=== PATIENT | male | born 1965 | race Caucasian/White ===

== ENCOUNTER 2016-08-22 10:24 | Inpatient (IN) | payer OTHER, MEDICARE ==
[~2016-08-22] VITALS: Ht 165.1 cm; Wt 90.0 kg
[~2016-08-22 10:24] MED LIST: ATOR20TA38 PO; BACL10TA PO; CALC625T68 PO; CEPH-443 PO; DOCU100C26 PO; FER325 PO; INSU100C SQ; LANT3I SC; LISI2.5T59 PO; MTF1000T PO; NITR-58 PO
[2016-08-22] MEDS ORDERED: LEVO750T8 PO (14:43)
[2016-08-22] MEDS ORDERED: GABA300C16 PO (14:43)
[2016-08-22] MEDS ORDERED: BACL20TA PO (14:45)
[2016-08-22 14:51] LABS: ADD SCAN DIFF NO
[2016-08-22 14:54] LABS: BASOPHIL # 0.1 10^3/ul (0.0-0.1); BASOPHILS % 0.6 % (0.0-2.0); EOSINOPHILS # 0.2 10^3/ul (0.0-0.5); EOSINOPHILS % 1.8 % (0.0-7.0); HEMATOCRIT 41.5 % (42.0-52.0); LYMPHOCYTES # 3.4 10^3/ul (0.8-2.9); LYMPHOCYTES % 35.1 % (15.0-51.0); MEAN CORPUSCULAR HEMOGLOBIN 30.1 pg (29.0-33.0); MEAN CORPUSCULAR HGB CONC 33.7 g/dl (32.0-37.0); MEAN CORPUSCULAR VOLUME 89.2 fl (82.0-101.0); MEAN PLATELET VOLUME 8.9 fl (7.4-10.4); MONOCYTE # 0.9 10^3/ul (0.3-0.9); MONOCYTES % 8.8 % (0.0-11.0); NEUTROPHIL # 5.2 10^3/ul (1.6-7.5); PLATELET COUNT 371 10^3/UL (140-415); RED BLOOD COUNT 4.65 10^6/ul (4.70-6.10); RED CELL DISTRIBUTION WIDTH 13.2 % (11.5-14.5); WHITE BLOOD COUNT 9.8 10^3/ul (4.8-10.8)
[2016-08-22 15:06] LABS: INR 0.94; PARTIAL THROMBOPLASTIN TIME 26.5 Sec (25.0-35.0); PROTIME 12.6 Sec (12.2-14.2)
[2016-08-22 15:07] LABS: POTASSIUM 3.6 mmol/L (3.5-5.1)
[2016-08-22 15:09] LABS: ALBUMIN/GLOBULIN RATIO 0.97
[2016-08-22 15:14] LABS: BILIRUBIN,INDIRECT 0.2 mg/dl (0-1.1); BILIRUBIN,TOTAL 0.2 mg/dl (0.2-1.3); CREATININE 0.61 mg/dl (0.61-1.24); TOTAL PROTEIN 8.1 g/dl (6.1-8.1)
[2016-08-22 15:15] LABS: CALCIUM 9.4 mg/dl (8.4-10.2)
--- NOTE | 2016-08-22 15:41 | ERA ---
ER Documentation Chief Complaint Date/Time DATE: 08/22/16 TIME: 15:41 Chief Complaint WOUND ON BILATERAL FEET "I HAVE AN INFECTION" HPI 51-year-old male history of diabetes, chronic wounds to bilateral lower extremities. The patient is followed at the am[facility] prevention center. The patient is currently taking Levaquin. The patient notes weeping wounds to bilateral heels right greater than left. He describes generalized malaise and potential fever yesterday though he did not check his temperature. He denies any significant pain, no nausea vomiting chest pain or shortness of breath. ROS All systems reviewed and are negative except as per history of present illness. Medications Home Meds Reported Medications Baclofen* (Baclofen*) 20 Mg Tablet, 20 MG PO BID, TAB 08/22/16 Levofloxacin* (Levofloxacin*) 750 Mg Tablet, 750 MG PO DAILY, TAB 08/22/16 Gabapentin* (Gabapentin*) 300 Mg Capsule, 600 MG PO TID, #180 CAP 08/22/16 Docusate Sodium* (Doc-Q-Lace*) 100 Mg Capsule, 100 MG PO BID Y for CONSTIPATION , CAP 04/18/16 Insulin Lispro (Humalog) 100 Unit/1 Ml Cartridge, 10 UNIT SQ TID 04/18/16 Ferrous Sulfate* (Ferrous Sulfate*) 325 Mg Tabec, 325 MG PO BID, TAB 01/31/16 Insulin Glargine* (Lantus*) 100 Unit/Ml Soln, 35 UNIT SC QHS, #1 VIAL 01/31/16 Metformin* (Glucophage*) 1,000 Mg Tablet, 1000 MG PO BID, #60 TAB 12/07/15 Lisinopril* (Lisinopril*) 2.5 Mg Tablet, 2.5 MG PO DAILY, #30 TAB 10/07/15 Atorvastatin Calcium* (Atorvastatin Calcium*) 20 Mg Tablet, 20 MG PO QHS, #30 TAB 10/07/15 Discontinued Reported Medications Calcium Polycarbophil* (Fibercon*) 625 Mg Tablet, 625 MG PO DAILY, TAB 04/18/16 Baclofen* (Baclofen*) 10 Mg Tablet, 10 MG PO BID, TAB 04/18/16 Discontinued Scripts Nitrofurantoin Monohyd Macrocr* (Macrobid*) 100 Mg Capsr, 100 MG PO BID for 10 Days, CAP Prov:MERON MORFIN DO 04/18/16 Cephalexin* (Keflex*) 500 Mg Capsule, 500 MG PO QID for 10 Days, CAP Prov:MERON MORFIN DO 04/18/16 Allergies Allergies: Coded Allergies: No Known Allergy (Unverified , 08/22/16) PMhx/Soc History of Surgery: Yes (SPINAL CORD SURGERY, PARAPLEGIC ) Anesthesia Reaction: No Hx Neurological Disorder: No Hx Respiratory Disorders: No Hx Cardiac Disorders: Yes (htn) Hx Psychiatric Problems: No Hx Miscellaneous Medical Probl: Yes (DM) Hx Alcohol Use: No Hx Substance Use: No Hx Tobacco Use: No Smoking Status: Never smoker FmHx Family History: diabetes Physical Exam Vitals Vital Signs Date Time Temp Pulse Resp B/P Pulse Ox O2 Delivery O2 Flow Rate FiO2 08/22/16 10:58 97.5 95 20 117/69 99 Physical Exam General: Well developed, well nourished, no acute distress Head: Normocephalic, atraumatic. Eyes: Pupils equally reactive, EOM intact ENT: Moist mucous membranes Neck: Supple, no lymphadenopathy Respiratory: Lungs clear bilaterally, no distress Cardiovascular: RRR, no murmurs, rubs, or gallops Abdominal: Soft, non-tender, non-distended, no peritoneal signs : Deferred MSK: Bilateral lower extremities with decubitus wounds to the heels right greater than left with small eschar formation. Slightly warm feet bilaterally but no crepitus, no cellulitis, 2+ dorsalis pedis and posterior tibial pulses. Neurologic: Alert and oriented, no cerebellar signs Skin: No rash, skin is documented above Psych: Normal mood Result Diagram: 08/22/16 1435 08/22/16 1435 Results 24 hrs Laboratory Tests Test 08/22/16 14:35 White Blood Count 9.810^3/ul Red Blood Count 4.6510^6/ul Hemoglobin 14.0g/dl Hematocrit 41.5% Mean Corpuscular Volume 89.2fl Mean Corpuscular Hemoglobin 30.1pg Mean Corpuscular Hemoglobin Concent 33.7g/dl Red Cell Distribution Width 13.2% Platelet Count 86268^3/UL Mean Platelet Volume 8.9fl Neutrophils % 53.0% Lymphocytes % 35.1% Monocytes % 8.8% Eosinophils % 1.8% Basophils % 0.6% Nucleated Red Blood Cells % 0.0/100WBC Neutrophils # 5.210^3/ul Lymphocytes # 3.410^3/ul Monocytes # 0.910^3/ul Eosinophils # 0.210^3/ul Basophils # 0.110^3/ul Nucleated Red Blood Cells # 0.010^3/ul Prothrombin Time 12.6Sec Prothrombin Time Ratio 1.0 INR International Normalized Ratio 0.94 Activated Partial Thromboplast Time 26.5Sec Sodium Level 131mmol/L Potassium Level 3.6mmol/L Chloride Level 94mmol/L Carbon Dioxide Level 21mmol/L Anion Gap 20 Blood Urea Nitrogen 11mg/dl Creatinine 0.61mg/dl Glucose Level 294mg/dl Lactic Acid Level 4.4mmol/L Calcium Level 9.4mg/dl Total Bilirubin 0.2mg/dl Direct Bilirubin 0.00mg/dl Indirect Bilirubin 0.2mg/dl Aspartate Amino Transf (AST/SGOT) 35IU/L Alanine Aminotransferase (ALT/SGPT) 46IU/L Alkaline Phosphatase 94IU/L C-Reactive Protein Pending Total Protein 8.1g/dl Albumin 4.0g/dl Globulin 4.10g/dl Albumin/Globulin Ratio 0.97 Current Medications Medications (Trade) Dose Ordered Sig/Drea Route PRN Reason Start Time Stop Time Status Last Admin Dose Admin Sodium Chloride 2960 ml 2,960 ml BOLUS OVER 2 HOURS STAT IV* 08/22/16 15:44 08/22/16 15:45 UNV Cefepime HCl 50 ml @ 100 mls/hr ONCE STAT IVPB 08/22/16 15:44 08/22/16 16:13 UNV Vancomycin HCl 250 ml @ 125 mls/hr ONCE ONCE IVPB 08/22/16 16:00 08/22/16 17:59 UNV Clindamycin HCl/ Dextrose (Cleocin 600 Mg/ D5W (Pmx)) 50 ml @ 50 mls/hr ONCE IVPB 08/22/16 16:00 08/22/16 16:59 Ondansetron HCl (Zofran Inj) 4 mg BRIDGE ORDER PRN IV NAUSEA AND/OR VOMITING 08/22/16 16:00 08/23/16 15:59 Acetaminophen (Tylenol Tab) 650 mg ER BRIDGE PRN PO MILD PAIN/FEVER 08/22/16 16:00 08/23/16 15:59 Procedures/MDM EKG, MONITORS, & DIAGNOSTIC IMAGING: X-ray right foot: I reviewed and interpreted multiple views of the x-ray Bones: No evidence of acute fracture dislocation or subluxation Soft tissue: No evidence of foreign body X-ray left foot: I reviewed and interpreted multiple views of the x-ray Bones: No evidence of acute fracture dislocation or subluxation Soft tissue: No evidence of foreign body LAB INTERPRETATION: Lactic acidosis, slight hyponatremia, no leukocytosis, hyperglycemia without diabetic ketoacidosis MEDICAL DECISION MAKING: The patient presents for evaluation of wounds. The patient is currently being followed at the amputation prevention center. The patient is only on Levaquin. 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 The wounds appear to be chronic and likely unchanged, no malodorous discharge. Screening evaluation for possible osteomyelitis will be initiated. I will speak to the patient's managing civilian technician Dr. Avelar. ER COURSE: The patient does have a lactic acidosis. However no significant leukocytosis. The patient does have slightly low sodium of the patient has been low in the past at 135. I do not believe this is consistent with necrotizing process given the patient's clinical exam, afebrile state and normal white count. The patient has been given vancomycin, cefepime and clindamycin. The patient is hemodynamically stable. Isolated lactic acidosis. The patient does not meet SIRS or sepsis criteria at this time. 30 cc/kg bolus of saline was provided. Repeat lactic acid pending. No indication for central line, pressors at this time. Continue to monitor but inpatient hospitalization would be appropriate. I kept the patient and/or family informed of laboratory and diagnostic imaging results throughout the emergency room course. DISPOSITION PLAN: Medical surgical admission for management of infected decubitus ulcer in a diabetic CONSULTATION: Accepting care team and consultations: I discussed the current laboratory data, diagnostic imaging and emergency care provided. Admitting team: Dr. Aguayo Admitting team indication: Insurance directed Consulting services: Dr. Yohana Avelar, podiatry has been paged and notified Departure Diagnosis: Primary Impression: Decubitus ulcer, infected Qualified Code: L89.90 - Decubitus ulcer, infected, unspecified pressure ulcer stage Additional Impression: Lactic acidosis Condition: Stable BELEN DE LA O MD Aug 22, 2016 15:41
[2016-08-22] MEDS ORDERED: CEFEPIME 2GM/50 ML (PMX) 50 ML IVPB STA (15:44)
[2016-08-22] MEDS ORDERED: SODIUM CHLORIDE 0.9% 1L BAG IV* STA (15:44)
[2016-08-22 15:59] LABS: C-REACTIVE PROTEIN 1.6 mg/dl (0.0-0.9)
[2016-08-22] MEDS ORDERED: CLINDAMYCIN 600 MG/D5W (PMX) 50 ML IVPB SCH (16:00)
[2016-08-22] MEDS ORDERED: VANCOMYCIN 1 GM (PMX) 250 ML IVPB ONE (16:00)
[2016-08-22] MEDS ORDERED: ACETAMINOPHEN 325 MG TAB PO PRN ×2 (16:00→19:30)
[2016-08-22] MEDS ORDERED: ONDANSETRON 4 MG INJ IV PRN ×2 (16:00→19:30)
--- NOTE | 2016-08-22 16:15 | RADRPT ---
PROCEDURE: AP oblique and lateral views of both feet. CLINICAL INDICATION: Multiple open wounds. TECHNIQUE: AP lateral and oblique views of both feet were obtained. COMPARISON: No. FINDINGS: The bones of the right foot are rarefied. There are degenerative changes of the right first metatar jose a phalangeal joint. There is soft tissue swelling of the foot. There is no evidence of gas gangr vannesa or osteomyelitis. The bones of the left foot are rarefied. There is soft tissue swelling of the left foot. There is no radiographic evidence of a foreign body gas gangrene or osteomyelitis. . No abnormal vascular ca lcifications are identified in either foot. IMPRESSION: 1. Severe rarefaction of the right and left feet. 2. Soft tissue swelling involving both feet. RPTAT:AAJJ Physician Carlos Date Time Electronically viewed and signed by Physician Carlos on 08/22/2016 16:15 BLAKE/
[2016-08-22] MEDS ORDERED: NACL 0.9% 3 ML SYG IV SCH (19:30)
[2016-08-22] MEDS ORDERED: DOCUSATE SODIUM 100 MG CAP PO PRN (19:30)
[2016-08-22] MEDS ORDERED: HYDROCODONE/APAP (5/325) TAB PO PRN (19:30)
[2016-08-22] MEDS ORDERED: ZOLPIDEM 5 MG TAB PO PRN (19:30)
[2016-08-22] MEDS ORDERED: VANCOMYCIN IV PER PHARMACY XX SCH (19:30)
--- NOTE | 2016-08-22 20:14 | HP ---
DATE OF ADMISSION: 08/22/2016 CHIEF COMPLAINT: Fever. HISTORY OF PRESENT ILLNESS: The patient is a 51-year-old male with a history of diabetes as well as debility with bed bound status. The patient has wounds on both of his feet. The patient is being followed by Dr[facility]ar [facility]. The patient has been taking Levaquin, b ut states that he has been experiencing malaise and fever last night, although he did not check his temperature. He has no other complaints at this time. The patient has had multiple hospitalization s here at [facility] in the past. PAST MEDICAL HISTORY: History of paraplegia with decubitus ulcers, chronic Li catheter, history of UTI, penile skin erosions, chronic left lower extremity ulcer, anemia of chronic disease. HOME MEDICATIONS: See medication reconciliation. ALLERGIES: NO KNOWN DRUG ALLERGIES. FAMILY HISTORY: Noncontributory. SOCIAL HISTORY: Denies any alcohol, tobacco, or drugs. REVIEW OF SYSTEMS: A 12-point review of systems negative except that discussed in HPI. PHYSICAL EXAMINATION: VITAL SIGNS: Temperature 97.5, pulse 72, respiratory rate 20, BP is 120/69, saturation 99% on room air. GENERAL: No acute distress, alert and oriented. HEENT: Normocephalic, atraumatic. LUNGS: Clear to auscultation. CARDIOVASCULAR: Regular rate and rhythm. ABDOMEN: Nondistended, nontender, soft. EXTREMITIES: No clubbing, cyanosis. Wound noted in the right heel. LABORATORIES: White count is 9.8, hemoglobin 14.0, platelets are 371. Chemistry within normal limi ts except for sodium 131, chloride is 94, anion gap is 20, glucose 284. Lactic acid is 2.7. INR is 0.94. DIAGNOSTICS: Foot x-ray shows severe ____ in the right and left feet. Soft tissue swelling involvi ng both feet. ASSESSMENT AND PLAN: 1. Bilateral lower extremity ulcers secondary to diabetes and chronic bed bound status. We will co nsult Dr. Avelar. We will treat with antibiotics. The patient was on outpatient antibiotics, but c ontinues to progress. 2. History of paraplegia. 3. Lactic acidosis secondary to bilateral lower extremity ulcers secondary to diabetes and chronic bedbound status. Will treat with antibiotics. 4. Diabetes. We will resume home insulin. 5. Prophylaxis. Lovenox. Dictated By: VICTORIA BEAVERS MD BS/NTS Conf#: [id number] DID#: [id number]
[2016-08-22] MEDS ORDERED: DEXTROSE 50% 50 ML SYRINGE IV PRN ×2 (21:00)
[2016-08-22] MEDS ORDERED: GLUCOSE GEL 15 GRAM TUBE PO PRN ×2 (21:00)
[2016-08-22] MEDS ORDERED: GLUCAGON 1 MG INJ IM PRN (21:00)
[2016-08-22] MEDS ORDERED: GLUCOSE GEL 15 GRAM TUBE BUCCAL PRN (21:00)
[2016-08-22] MEDS: FERROUS SULFATE (EC) 325 MG TAB PO SCH (21:44)
[2016-08-22] MEDS: ATORVASTATIN 20 MG TAB PO SCH (21:44)
[2016-08-22] MEDS: GABAPENTIN 300 MG CAP PO SCH (21:44)
[2016-08-22] MEDS: BACLOFEN 10 MG TAB PO SCH (21:44)
[2016-08-22] MEDS: INSULIN GLARGINE [LANtus] 3 ML PEN SC SCH (21:51)
[2016-08-22] MEDS: INSULIN ASPART [NOVOLOG] 3 ML PEN SC SCH (21:52)
[2016-08-22] MEDS: PIPER-TAZO 3.375 GM IV (PMX) 100 ML IVPB SCH (21:58)
[2016-08-22 23:01] VITALS: TEMP 97.5
[2016-08-22 23:30] VITALS: Ht 165.1 cm; Wt 90.0 kg
[2016-08-23] MEDS: VANCOMYCIN 1.5 GM in SOD CHLORIDE 0.9% 250 ML IVPB SCH ×3 (00:12→23:15)
[2016-08-23 00:24] VITALS: BP 128/75; RESP 18
[2016-08-23] MEDS: ACCUCHECK AT 2AM (Patients on SS coverage) XX SCH (02:00)
[2016-08-23] MEDS: COLLAGENASE 30 GM TUBE TOP SCH (04:13)
[2016-08-23 05:10] LABS: ADD SCAN DIFF NO
[2016-08-23] MEDS: PIPER-TAZO 3.375 GM IV (PMX) 100 ML IVPB SCH ×3 (05:12→22:02)
[2016-08-23 05:26] LABS: BASOPHILS % 0.6 % (0.0-2.0); EOSINOPHILS # 0.2 10^3/ul (0.0-0.5); EOSINOPHILS % 3.6 % (0.0-7.0); HEMATOCRIT 38.9 % (42.0-52.0); LYMPHOCYTES # 1.6 10^3/ul (0.8-2.9); LYMPHOCYTES % 24.8 % (15.0-51.0); MEAN CORPUSCULAR HEMOGLOBIN 30.1 pg (29.0-33.0); MEAN CORPUSCULAR HGB CONC 33.4 g/dl (32.0-37.0); MEAN PLATELET VOLUME 9.2 fl (7.4-10.4); MONOCYTE # 0.6 10^3/ul (0.3-0.9); MONOCYTES % 9.9 % (0.0-11.0); NEUTROPHIL # 3.9 10^3/ul (1.6-7.5); NEUTROPHILS % 59.7 % (39.0-77.0); PLATELET COUNT 328 10^3/UL (140-415); RED BLOOD COUNT 4.32 10^6/ul (4.70-6.10); RED CELL DISTRIBUTION WIDTH 13.5 % (11.5-14.5); WHITE BLOOD COUNT 6.5 10^3/ul (4.8-10.8)
[2016-08-23 05:28] LABS: CALCIUM 8.9 mg/dl (8.4-10.2); CREATININE 0.59 mg/dl (0.61-1.24); MAGNESIUM 1.6 mg/dl (1.7-2.5)
[2016-08-23] MEDS: GABAPENTIN 300 MG CAP PO SCH ×3 (08:06→20:57)
[2016-08-23] MEDS: FERROUS SULFATE (EC) 325 MG TAB PO SCH ×2 (08:06→20:57)
[2016-08-23] MEDS: INSULIN ASPART [NOVOLOG] 3 ML PEN SC SCH ×7 (08:07→21:03)
[2016-08-23] MEDS: BACLOFEN 10 MG TAB PO SCH ×2 (08:07→20:57)
[2016-08-23] MEDS: ENOXAPARIN 40 MG/0.4 ML SYG SC SCH (08:08)
[2016-08-23] MEDS: LISINOPRIL 5 MG TAB PO SCH (08:09)
[2016-08-23 08:17] VITALS: BP 118/67; RESP 18
[2016-08-23] MEDS ORDERED: MAGNESIUM SULFATE 2 GM/50 ML 50 ML IVPB ONE (13:30)
--- NOTE | 2016-08-23 13:36 | PN ---
Date/Time of Note Date/Time of Note DATE: 08/23/16 TIME: 13:25 Assessment/Plan VTE Prophylaxis VTE Prophylaxis Intervention: LMWH Lines/Catheters IV [facility]from [facility] Saline Lock Urinary Cath still in place: No Assessment/Plan Assessment/Plan 1. Bilateral lower extremity ulcers secondary to diabetes and chronic bed bound status. We will consult Dr. Avelar. We will treat with antibiotics with zosyn and vancomycin 2. 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 Lactic acidosis, IVF, antibiotics 4. Diabetes. adjust insulin. 5. Hypomagnesemia, Mg supplement 6. Prophylaxis. Lovenox. Subjective 24 Hr Interval Summary Free Text/Dictation afebrile Exam/Review of Systems Vital Signs Vitals Vital Signs Date Time Temp Pulse Resp B/P Pulse Ox O2 Delivery O2 Flow Rate FiO2 08/23/16 08:17 97.3 73 18 118/67 96 08/22/16 23:01 Room Air Intake and Output 08/22/16 08/22/16 08/23/16 15:00 23:00 07:00 Intake Total 930 ml Balance 930 ml Exam Constitutional: alert, oriented, well developed Psych: nl mood/affect, no complaints Head: atraumatic, normocephalic Eyes: EOMI, PERRL, nl conjunctiva, nl lids, nl sclera ENMT: nl external ears & nose, nl lips & teeth, nl nasal mucosa & septum Neck: non-tender, supple Respiratory: clear to auscultation, normal air movement, No congested cough, No crackles/rales, No diminished breath sounds, No intercostal retraction, No labored breathing, No other, No respirations, No tactile fremitus, No wheezing Cardiovascular: nl pulses, regular rate and rhythm, No S3, No S4, No bruits, No diastolic murmur, No edema, No gallop, No irregular rhythm, No jugular venous distention (JVD), No murmurs/extra sounds, No other, No rub, No systolic murmur Gastrointestinal: nl liver, spleen, non-tender, soft, No ascites, No bowel sounds, No distended, No firm, No hepatomegaly, No mass , No other, No rebound or guarding, No splenomegaly, No surgical scars, No tender Musculoskeletal: nl extremities to inspection Extremities: normal pulses, other (wounds on both feet) 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, nl mental status, nl speech, other (0/5 on both LEs) Results Result Diagram: 08/23/16 0445 08/23/16 0445 Results 24 hrs Laboratory Tests Test 08/22/16 14:35 08/22/16 17:00 08/22/16 19:09 08/22/16 19:20 White Blood Count 9.8 Red Blood Count 4.65 L Hemoglobin 14.0 Hematocrit 41.5 L Mean Corpuscular Volume 89.2 Mean Corpuscular Hemoglobin 30.1 Mean Corpuscular Hemoglobin Concent 33.7 Red Cell Distribution Width 13.2 Platelet Count 371 Mean Platelet Volume 8.9 # Neutrophils % 53.0 Lymphocytes % 35.1 Monocytes % 8.8 Eosinophils % 1.8 Basophils % 0.6 Nucleated Red Blood Cells % 0.0 Neutrophils # 5.2 Lymphocytes # 3.4 H Monocytes # 0.9 Eosinophils # 0.2 Basophils # 0.1 Nucleated Red Blood Cells # 0.0 Erythrocyte Sedimentation Rate 35 H Prothrombin Time 12.6 Prothrombin Time Ratio 1.0 INR International Normalized Ratio 0.94 Activated Partial Thromboplast Time 26.5 Sodium Level 131 L Potassium Level 3.6 Chloride Level 94 L Carbon Dioxide Level 21 Anion Gap 20 H Blood Urea Nitrogen 11 Creatinine 0.61 Glucose Level 294 H Lactic Acid Level 4.4 *H 2.7 H 2.9 H Calcium Level 9.4 Total Bilirubin 0.2 Direct Bilirubin 0.00 Indirect Bilirubin 0.2 Aspartate Amino Transf (AST/SGOT) 35 Alanine Aminotransferase (ALT/SGPT) 46 Alkaline Phosphatase 94 C-Reactive Protein 1.6 H Total Protein 8.1 Albumin 4.0 Globulin 4.10 H Albumin/Globulin Ratio 0.97 Bedside Glucose 290 H Test 08/22/16 21:48 08/23/16 00:02 08/23/16 02:33 08/23/16 04:45 Bedside Glucose 291 H 281 H 278 H White Blood Count 6.5 # Red Blood Count 4.32 L Hemoglobin 13.0 L Hematocrit 38.9 L Mean Corpuscular Volume 90.0 Mean Corpuscular Hemoglobin 30.1 Mean Corpuscular Hemoglobin Concent 33.4 Red Cell Distribution Width 13.5 Platelet Count 328 Mean Platelet Volume 9.2 Neutrophils % 59.7 Lymphocytes % 24.8 Monocytes % 9.9 Eosinophils % 3.6 Basophils % 0.6 Nucleated Red Blood Cells % 0.0 Neutrophils # 3.9 Lymphocytes # 1.6 Monocytes # 0.6 Eosinophils # 0.2 Basophils # 0.0 Nucleated Red Blood Cells # 0.0 Sodium Level 136 Potassium Level 4.0 Chloride Level 109 # Carbon Dioxide Level 22 Anion Gap 9 # Blood Urea Nitrogen 10 Creatinine 0.59 L Glucose Level 309 H Hemoglobin A1c 11.0 H Calcium Level 8.9 Magnesium Level 1.6 L Test 08/23/16 07:43 08/23/16 11:35 Bedside Glucose 243 H 318 H Medications Medications Current Medications Ondansetron HCl (Zofran Inj) 4 mg Q6H PRN IV NAUSEA AND/OR VOMITING; Start at 19:30 Acetaminophen (Tylenol Tab) 650 mg Q6H PRN PO PAIN LEVEL 1-3 OR FEVER; Start at 19:30 Acetaminophen/ Hydrocodone Bitart ([place] (5/325)) 1 tab Q6H PRN PO MODERATE PAIN LEVEL 4-6; Start 08/22/16 at 19:30 Morphine Sulfate (morphine) 2 mg Q4H PRN IV SEVERE PAIN LEVEL 7-10; Start 08/22 at 19:30 Zolpidem Tartrate (Ambien) 5 mg QHS PRN PO SLEEP; Start 08/22/16 at 19:30 Enoxaparin Sodium (Lovenox) 40 mg DAILY SC Last administered on 08/23/16 08:08 ; Admin Dose 40 MG; Start 08/23/16 at 09:00 Atorvastatin Calcium (Lipitor) 20 mg QHS PO Last administered on 08/22/16 21: 44; Admin Dose 20 MG; Start 08/22/16 at 21:00 Baclofen (Lioresal) 20 mg BID PO Last administered on 08/23/16 08:07; Admin Dose 20 MG; Start 08/22/16 at 21:00 Docusate Sodium (Colace) 100 mg BID PRN PO CONSTIPATION; Start 08/22/16 at 19: 30 Ferrous Sulfate (Ferrous Sulfate (Ec)) 325 mg BID PO Last administered on 08:06; Admin Dose 325 MG; Start 08/22/16 at 21:00 Gabapentin (Neurontin) 600 mg TID PO Last administered on 08/23/16 08:06; Admin Dose 600 MG; Start 08/22/16 at 21:00 Insulin Glargine (Lantus) 35 unit QHS SC Last administered on 08/22/16 21:51; Admin Dose 35 UNIT; Start 08/22/16 at 21:00 Lisinopril 2.5 mg 2.5 mg DAILY PO Last administered on 08/23/16 08:09; Admin Dose 2.5 MG; Start 08/23/16 at 09:00 Piperacillin Sod/ Tazobactam Sod (Zosyn 3.375gm/ 100 ml (Pmx)) 100 ml @ 200 mls /hr Q8 IVPB Last administered on 08/23/16 05:12; Admin Dose 200 MLS/HR; Start 08/22/16 at 22:00 Diagnostic Test (Pha) (Accu-Chek) 1 ea 02 XX ; Start 08/23/16 at 02:00 Miscellaneous Information 1 ea NOTE XX ; Start 08/22/16 at 21:00 Glucose (Glutose) 15 gm Q15M PRN PO DECREASED GLUCOSE; Start 08/22/16 at 21:00 Glucose (Glutose) 22.5 gm Q15M PRN PO DECREASED GLUCOSE; Start 08/22/16 at 21: 00 Dextrose (D50w Syringe) 25 ml Q15M PRN IV DECREASED GLUCOSE; Start 08/22/16 at 21:00 Dextrose (D50w Syringe) 50 ml Q15M PRN IV DECREASED GLUCOSE; Start 08/22/16 at 21:00 Glucagon (Glucagen) 1 mg Q15M PRN IM DECREASED GLUCOSE; Start 08/22/16 at 21:00 Glucose 15 gm 15 gm Q15M PRN BUCCAL DECREASED GLUCOSE; Start 08/22/16 at 21:00 Vancomycin HCl/ Sodium Chloride (Vancocin/NS) 250 ml @ 83.333 mls/ hr Q12H IVPB Last administered on 08/23/16 11:36; Admin Dose 83.333 MLS/HR; Start at 23:00 Collagenase (Santyl) 1 applic DAILY TOP Last administered on 08/23/16 04:13; Admin Dose 1 APPLIC; Start 08/23/16 at 09:00 Miscellaneous Information (*Rx Drug Level Order Reminder*) VANCOMYCIN TROUGH AT 1000 ONCE ONCE XX ; Start 08/24/16 at 10:00; Stop 08/24/16 at 10:01 WALLY JEREZ MD Aug 23, 2016 13:35
--- NOTE | 2016-08-23 16:53 | CONS ---
DATE OF ADMISSION: 08/22/2016 DATE OF CONSULTATION: 08/23/2016 Vascular surgery consultation. Dear Doctors: Mr. Reynolds is a 51-year-old gentleman who is wheelchair bound with history of diabete s and bilateral lower extremity nonhealing bilateral heel ulcers, who presents with malaise and feve r. The patient was admitted for IV antibiotics for evaluation of his wounds. The patient of note h as had a history of paraplegia and decubitus ulcers secondary to a work-related injury to his neck a yessy. Patient is able to move his upper extremities; however, not his lower extremities. REVIEW OF SYSTEMS: A 12-point review performed and negative except what is mentioned in the HPI. PAST MEDICAL HISTORY: Entails bilateral lower extremity paralysis, sacral decubitus ulcer, bilatera l heel decubitus ulcers, nonhealing, chronic Li catheter, multiple episodes of UTI, penile skin e rosions, anemia of chronic disease, diabetes, hypertension, coronary artery disease, hyperlipidemia. ALLERGIES: NO KNOWN DRUG ALLERGIES. FAMILY HISTORY: Positive for diabetes and hypertension. SOCIAL HISTORY: Denies alcohol, tobacco or illicit drug use. PHYSICAL EXAMINATION: GENERAL: He is alert and oriented x3, no apparent distress. HEENT: Normocephalic, atraumatic. EOMI. Mucosa moist. NECK: Supple. No carotid bruit. PULMONARY: Clear to auscultation bilaterally. No crackles. CARDIOVASCULAR: S1, S2 present. No murmurs. ABDOMEN: Soft, nontender, nondistended. Bowel sounds positive. Truncal obesity, large pannus. EXTREMITIES: Right lower extremity: Palpable femoral pulse, nonpalpable pedal pulse. Motor, sensory. Patient h as paralysis. Edema of 1+. There his right lateral leg with an abrasion seems to be injury to the wheelchair. His abrasion near the right medial malleolar and chronic right heel with eschar and fib rinous necrotic tissue. Some areas of maceration of the surrounding skin and erythema. Left lower extremity: Palpable femoral pulse, nonpalpable pedal pulse. Motor, sensory patient has paralysis. He has a heel ulcer with eschar and callus and surrounding erythema. He has a new blist er formation on the medial aspect of the left heel. He also has a left calf ulcer with surrounding erythema and likely related to injury from the wheelchair. ASSESSMENT AND PLAN: Bilateral lower extremity atherosclerosis with chronic and new diabetic foot ulcers: It seems the p atient has some component of atherosclerosis but also as the patient has paralysis he has developed decubitus bilateral heel pressure ulcers. Unfortunately, the patient is wheelchair bound and nonamb ulatory, there is limited vascular interventions for this patient. Would recommend to continue with the local wound care, will be applying Santyl daily and a sterile dressing changes. For his abrasi ons and new wounds on the bilateral lower legs recommend applying Xeroform for now with Kerlix wrap. Discussed with the patient regarding to our findings and the worsening of his bilateral heel ulcers and may eventually require the patient to have further debridements, possible major amputation as he is wheelchair bound and has developed knee contractures of greater than 25% bilaterally. He may en d up needing an above knee amputation. We will plan to obtain bilateral lower extremity noninvasive vascular studies as we do not have base line for evaluation of his infrainguinal disease. Optimize vascular status (BP meds, diet, nutrition, exercise, sugar control, antiplatelets). Discussed findings, plan and management with the patient and he understands with a certified transla tor. Thank you for allowing us to partake in the care of your patient. Please call with any questions. Dictated By: KATHRYN SILVESTRE/CHIO Conf#: [id number] DID#: [id number]
[2016-08-23 19:57] VITALS: BP 106/59; RESP 16
[2016-08-23] MEDS: ATORVASTATIN 20 MG TAB PO SCH (20:57)
[2016-08-23] MEDS: INSULIN GLARGINE [LANtus] 3 ML PEN SC SCH (21:01)
[2016-08-24] MEDS: ACCUCHECK AT 2AM (Patients on SS coverage) XX SCH (02:00)
[2016-08-24] MEDS: PIPER-TAZO 3.375 GM IV (PMX) 100 ML IVPB SCH ×3 (05:10→21:48)
[2016-08-24 05:30] LABS: ADD SCAN DIFF NO
[2016-08-24 05:50] LABS: BASOPHILS % 0.7 % (0.0-2.0); EOSINOPHILS # 0.3 10^3/ul (0.0-0.5); EOSINOPHILS % 4.1 % (0.0-7.0); HEMATOCRIT 39.3 % (42.0-52.0); HEMOGLOBIN 12.9 g/dl (14.0-18.0); LYMPHOCYTES # 1.4 10^3/ul (0.8-2.9); LYMPHOCYTES % 23.1 % (15.0-51.0); MEAN CORPUSCULAR HEMOGLOBIN 29.6 pg (29.0-33.0); MEAN CORPUSCULAR HGB CONC 32.8 g/dl (32.0-37.0); MEAN CORPUSCULAR VOLUME 90.1 fl (82.0-101.0); MEAN PLATELET VOLUME 9.2 fl (7.4-10.4); MONOCYTE # 0.5 10^3/ul (0.3-0.9); MONOCYTES % 8.5 % (0.0-11.0); NEUTROPHIL # 3.9 10^3/ul (1.6-7.5); NEUTROPHILS % 62.6 % (39.0-77.0); PLATELET COUNT 329 10^3/UL (140-415); POTASSIUM 3.6 mmol/L (3.5-5.1); RED BLOOD COUNT 4.36 10^6/ul (4.70-6.10); RED CELL DISTRIBUTION WIDTH 13.6 % (11.5-14.5); WHITE BLOOD COUNT 6.2 10^3/ul (4.8-10.8)
[2016-08-24 05:52] LABS: CREATININE 0.68 mg/dl (0.61-1.24)
[2016-08-24 05:53] LABS: CALCIUM 8.8 mg/dl (8.4-10.2)
[2016-08-24 07:58] VITALS: BP 103/64; RESP 16
[2016-08-24] MEDS: GABAPENTIN 300 MG CAP PO SCH ×3 (08:27→21:48)
[2016-08-24] MEDS: ENOXAPARIN 40 MG/0.4 ML SYG SC SCH (08:27)
[2016-08-24] MEDS: FERROUS SULFATE (EC) 325 MG TAB PO SCH ×2 (08:27→21:48)
[2016-08-24] MEDS: BACLOFEN 10 MG TAB PO SCH ×2 (08:27→21:47)
[2016-08-24] MEDS: INSULIN ASPART [NOVOLOG] 3 ML PEN SC SCH ×7 (08:28→21:47)
[2016-08-24] MEDS: LISINOPRIL 5 MG TAB PO SCH (08:30)
[2016-08-24] MEDS: COLLAGENASE 30 GM TUBE TOP SCH (08:30)
[2016-08-24] MEDS: VANCOMYCIN 1.5 GM in SOD CHLORIDE 0.9% 250 ML IVPB SCH (11:51)
[2016-08-24] MEDS ORDERED: INSULIN ASPART [NOVOLOG] 3 ML PEN SC SCH ×2 (12:30→17:35)
[2016-08-24] MEDS ORDERED: INSULIN ASPART [NOVOLOG] 3 ML PEN SC ONE (12:30)
--- NOTE | 2016-08-24 15:08 | PN ---
Date/Time of Note Date/Time of Note DATE: 08/24/16 TIME: 15:04 Assessment/Plan VTE Prophylaxis VTE Prophylaxis Intervention: LMWH Lines/Catheters IV Catheter Type (from [facility]): Saline Lock Urinary Cath still in place: No Assessment/Plan Assessment/Plan 1. Bilateral lower extremity ulcers secondary to diabetes and chronic bed bound status. on zosyn and vancomycin, arterial US 2. 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 Lactic acidosis, IVF, antibiotics 4. Diabetes. adjust insulin. 5. Hypomagnesemia, Mg supplement 6. Prophylaxis. Lovenox. Subjective 24 Hr Interval Summary Free Text/Dictation afebrile Exam/Review of Systems Vital Signs Vitals Vital Signs Date Time Temp Pulse Resp B/P Pulse Ox O2 Delivery O2 Flow Rate FiO2 08/24/16 07:58 97.3 16 103/64 96 08/23/16 19:57 66 08/22/16 23:01 Room Air Intake and Output 08/23/16 08/23/16 08/24/16 15:00 23:00 07:00 Intake Total 1580 ml 730 ml Output Total 325 ml 200 ml Balance 1255 ml 530 ml Exam Constitutional: alert, oriented, well developed Psych: nl mood/affect, no complaints Head: atraumatic, normocephalic Eyes: EOMI, PERRL, nl conjunctiva, nl lids ENMT: nl external ears & nose, nl lips & teeth, nl nasal mucosa & septum Neck: non-tender, supple Respiratory: clear to auscultation, normal air movement, No congested cough, No crackles/rales, No diminished breath sounds, No intercostal retraction, No labored breathing, No other, No respirations, No tactile fremitus, No wheezing Cardiovascular: nl pulses, regular rate and rhythm, No S3, No S4, No bruits, No diastolic murmur, No edema, No gallop, No irregular rhythm, No jugular venous distention (JVD), No murmurs/extra sounds, No other, No rub, No systolic murmur Gastrointestinal: nl liver, spleen, non-tender, soft, No ascites, No bowel sounds, No distended, No firm, No hepatomegaly, No mass , No other, No rebound or guarding, No splenomegaly, No surgical scars, No tender Musculoskeletal: other (wouds on both feet) Extremities: other (wounds on both feet) 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, nl mental status, nl speech, nl strength Skin: nl turgor Lymph: nl lymph nodes Results Result Diagram: 08/24/16 0510 08/24/16 0510 Results 24 hrs Laboratory Tests Test 08/23/16 17:35 08/23/16 20:58 08/24/16 03:01 08/24/16 05:10 Bedside Glucose 295 H 293 H 248 H White Blood Count 6.2 Red Blood Count 4.36 L Hemoglobin 12.9 L Hematocrit 39.3 L Mean Corpuscular Volume 90.1 Mean Corpuscular Hemoglobin 29.6 Mean Corpuscular Hemoglobin Concent 32.8 Red Cell Distribution Width 13.6 Platelet Count 329 Mean Platelet Volume 9.2 Neutrophils % 62.6 Lymphocytes % 23.1 Monocytes % 8.5 Eosinophils % 4.1 Basophils % 0.7 Nucleated Red Blood Cells % 0.0 Neutrophils # 3.9 Lymphocytes # 1.4 Monocytes # 0.5 Eosinophils # 0.3 Basophils # 0.0 Nucleated Red Blood Cells # 0.0 Sodium Level 140 Potassium Level 3.6 Chloride Level 106 Carbon Dioxide Level 22 Anion Gap 16 # Blood Urea Nitrogen 11 Creatinine 0.68 Glucose Level 246 H Calcium Level 8.8 Magnesium Level 2.0 Test 08/24/16 07:46 08/24/16 09:50 08/24/16 11:52 08/24/16 14:43 Bedside Glucose 217 390 H 344 H Vancomycin Level Trough 16.0 Medications Medications Current Medications Ondansetron HCl (Zofran Inj) 4 mg Q6H PRN IV NAUSEA AND/OR VOMITING; Start at 19:30 Acetaminophen (Tylenol Tab) 650 mg Q6H PRN PO PAIN LEVEL 1-3 OR FEVER; Start at 19:30 Acetaminophen/ Hydrocodone Bitart ([place] (5/325)) 1 tab Q6H PRN PO MODERATE PAIN LEVEL 4-6; Start 08/22/16 at 19:30 Morphine Sulfate (morphine) 2 mg Q4H PRN IV SEVERE PAIN LEVEL 7-10; Start 08/22 at 19:30 Zolpidem Tartrate (Ambien) 5 mg QHS PRN PO SLEEP; Start 08/22/16 at 19:30 Enoxaparin Sodium (Lovenox) 40 mg DAILY SC Last administered on 08/24/16 08:27 ; Admin Dose 40 MG; Start 08/23/16 at 09:00 Atorvastatin Calcium (Lipitor) 20 mg QHS PO Last administered on 08/23/16 20: 57; Admin Dose 20 MG; Start 08/22/16 at 21:00 Baclofen (Lioresal) 20 mg BID PO Last administered on 08/24/16 08:27; Admin Dose 20 MG; Start 08/22/16 at 21:00 Docusate Sodium (Colace) 100 mg BID PRN PO CONSTIPATION; Start 08/22/16 at 19: 30 Ferrous Sulfate (Ferrous Sulfate (Ec)) 325 mg BID PO Last administered on 08:27; Admin Dose 325 MG; Start 08/22/16 at 21:00 Gabapentin (Neurontin) 600 mg TID PO Last administered on 08/24/16 12:31; Admin Dose 600 MG; Start 08/22/16 at 21:00 Insulin Glargine (Lantus) 35 unit QHS SC Last administered on 08/23/16 21:01; Admin Dose 35 UNIT; Start 08/22/16 at 21:00 Lisinopril 2.5 mg 2.5 mg DAILY PO Last administered on 08/23/16 08:09; Admin Dose 2.5 MG; Start 08/23/16 at 09:00 Piperacillin Sod/ Tazobactam Sod (Zosyn 3.375gm/ 100 ml (Pmx)) 100 ml @ 200 mls /hr Q8 IVPB Last administered on 08/24/16 05:10; Admin Dose 200 MLS/HR; Start 08/22/16 at 22:00 Diagnostic Test (Pha) (Accu-Chek) 1 ea 02 XX ; Start 08/23/16 at 02:00 Miscellaneous Information 1 ea NOTE XX ; Start 08/22/16 at 21:00 Glucose (Glutose) 15 gm Q15M PRN PO DECREASED GLUCOSE; Start 08/22/16 at 21:00 Glucose (Glutose) 22.5 gm Q15M PRN PO DECREASED GLUCOSE; Start 08/22/16 at 21: 00 Dextrose (D50w Syringe) 25 ml Q15M PRN IV DECREASED GLUCOSE; Start 08/22/16 at 21:00 Dextrose (D50w Syringe) 50 ml Q15M PRN IV DECREASED GLUCOSE; Start 08/22/16 at 21:00 Glucagon (Glucagen) 1 mg Q15M PRN IM DECREASED GLUCOSE; Start 08/22/16 at 21:00 Glucose (Glutose) 15 gm Q15M PRN BUCCAL DECREASED GLUCOSE; Start 08/22/16 at 21 :00 Collagenase 1 applic 1 applic DAILY TOP Last administered on 08/24/16t 08:30; Admin Dose 1 APPLIC; Start 08/23/16 at 09:00 Vancomycin HCl (Vancocin) 250 ml @ 125 mls/hr Q12H IVPB ; Start 08/25/16 at 01: 00 WALLY JEREZ MD Aug 24, 2016 15:08
[2016-08-24 20:08] VITALS: BP 129/71; RESP 16
[2016-08-24] MEDS: INSULIN GLARGINE [LANtus] 3 ML PEN SC SCH (21:46)
[2016-08-24] MEDS: ATORVASTATIN 20 MG TAB PO SCH (21:48)
[2016-08-25] MEDS: VANCOMYCIN 1 GM in NS 250 ML IVPB SCH ×2 (01:08→12:19)
[2016-08-25] MEDS: ACCUCHECK AT 2AM (Patients on SS coverage) XX SCH (02:26)
[2016-08-25] MEDS: PIPER-TAZO 3.375 GM IV (PMX) 100 ML IVPB SCH ×3 (05:20→22:00)
[2016-08-25 07:50] VITALS: BP 119/72; RESP 16
[2016-08-25] MEDS: GABAPENTIN 300 MG CAP PO SCH ×3 (08:24→20:06)
[2016-08-25] MEDS: BACLOFEN 10 MG TAB PO SCH ×2 (08:24→20:06)
[2016-08-25] MEDS: FERROUS SULFATE (EC) 325 MG TAB PO SCH ×2 (08:25→20:06)
[2016-08-25] MEDS: ENOXAPARIN 40 MG/0.4 ML SYG SC SCH (08:25)
[2016-08-25] MEDS: INSULIN ASPART [NOVOLOG] 3 ML PEN SC SCH ×7 (08:27→20:10)
[2016-08-25] MEDS: LISINOPRIL 5 MG TAB PO SCH (08:32)
--- NOTE | 2016-08-25 08:38 | RADRPT ---
PROCEDURE: Bilateral lower extremity arterial ultrasound CLINICAL INDICATION: Lower extremity pain and claudication. Nonhealing ulcers. TECHNIQUE: Solitario-scale and color images with doppler of the lower extremities were obtained COMPARISON: None available FINDINGS: Antegrade flow is noted in all visulaized arteries of the lower extremities. Monophasic wave form is seen in the right dorsalis pedis artery. Biphasic and triphasic waveforms are seen in the remainde r of the visualized arteries. Rt RN LABOR DELIVERY 107 cm/s Rt Profunda 71 cm/s Rt Prox SFA 118 cm/s Rt Mid SFA 98 cm/s Rt Dist SFA 79 cm/s Rt Fabrizio 76 cm/s Rt Post Tibial 90 cm/s Rt Dorsalis Pedis 18 cm/s Rt REFUGIO 1.4 Lt RN LABOR DELIVERY 101 cm/s Lt Profunda 170 cm/s Lt Prox SFA 105 cm/s Lt Mid SFA 80 cm/s Lt Dist SFA 77 cm/s Lt Fabrizio 82 cm/s Lt Post Tibial 64 cm/s Lt Dorsalis Pedis 46 cm/s Lt REFUGIO 1.3 IMPRESSION: Monophasic waveforms in the right dorsalis pedis artery with a decreased velocity in the right dorsa lis pedis artery. Finding suggest inflow disease into the right dorsalis pedis artery. If further characterization of the arterial vasculature is needed CTA should be considered. RPTAT: AA .Toni Newell MD, MD Date Time Electronically viewed and signed by .Toni Newell MD, MD on 08/25/2016 08:37 .P/
[2016-08-25] MEDS: COLLAGENASE 30 GM TUBE TOP SCH (15:30)
--- NOTE | 2016-08-25 18:01 | PN ---
Date/Time of Note Date/Time of Note DATE: 08/25/16 TIME: 17:58 Assessment/Plan VTE Prophylaxis VTE Prophylaxis Intervention: LMWH Lines/Catheters [facility] Saline Lock Urinary Cath still in place: No Assessment/Plan Chief Complaint/Hosp Course 1. Bilateral lower extremity ulcers secondary to diabetes and chronic bed bound status. on zosyn and vancomycin pharmacy to dose, arterial US shows signs of disease in the right dorsalis pedis artery. Await further recs from vascular surgery and continue current wound management. 2. 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 Lactic acidosis - improved, continue IVF, antibiotics 4. Diabetes. increase lantus dose to 37 units, increased meal time insulin to 15 units, reassess, on JOSE LUIS 5. Hypomagnesemia, Mg supplement 6. Prophylaxis. Lovenox. Problems: Subjective 24 Hr Interval Summary Free Text/Dictation patient reports improvement of his pain in his ulcers of his feet. Constitutional: improved Cardiovascular: no complaints Gastrointestinal: no complaints Musculoskeletal: other (mild pain in his right heel ) Exam/Review of Systems Vital Signs Vitals Vital Signs Date Time Temp Pulse Resp B/P Pulse Ox O2 Delivery O2 Flow Rate FiO2 08/25/16 07:50 98.1 72 16 119/72 95 08/22/16 23:01 Room Air Intake and Output 08/24/16 08/24/16 08/25/16 15:00 23:00 07:00 Intake Total 1950 ml 700 ml Output Total 300 ml 3 ml Balance 1650 ml 697 ml Exam Constitutional: alert, oriented, well developed Head: atraumatic, normocephalic Neck: non-tender, supple Respiratory: clear to auscultation Cardiovascular: regular rate and rhythm Gastrointestinal: soft Musculoskeletal: other (Dressing clean of bilateral heels) 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 intact Results Result Diagram: 08/24/16 0510 08/24/16 0510 Results 24 hrs Laboratory Tests Test 08/24/16 21:44 08/25/16 02:24 08/25/16 08:22 08/25/16 12:15 Bedside Glucose 287 H 241 H 229 H 371 H Test 08/25/16 17:14 Bedside Glucose 231 H Medications Medications Current Medications Ondansetron HCl (Zofran Inj) 4 mg Q6H PRN IV NAUSEA AND/OR VOMITING; Start at 19:30 Acetaminophen (Tylenol Tab) 650 mg Q6H PRN PO PAIN LEVEL 1-3 OR FEVER; Start at 19:30 Acetaminophen/ Hydrocodone Bitart ([place] (5/325)) 1 tab Q6H PRN PO MODERATE PAIN LEVEL 4-6; Start 08/22/16 at 19:30 Morphine Sulfate (morphine) 2 mg Q4H PRN IV SEVERE PAIN LEVEL 7-10; Start 08/22 at 19:30 Zolpidem Tartrate (Ambien) 5 mg QHS PRN PO SLEEP; Start 08/22/16 at 19:30 Enoxaparin Sodium (Lovenox) 40 mg DAILY SC Last administered on 08/25/16 08:25 ; Admin Dose 40 MG; Start 08/23/16 at 09:00 Atorvastatin Calcium (Lipitor) 20 mg QHS PO Last administered on 08/24/16 21: 48; Admin Dose 20 MG; Start 08/22/16 at 21:00 Baclofen (Lioresal) 20 mg BID PO Last administered on 08/25/16 08:24; Admin Dose 20 MG; Start 08/22/16 at 21:00 Docusate Sodium (Colace) 100 mg BID PRN PO CONSTIPATION; Start 08/22/16 at 19: 30 Ferrous Sulfate (Ferrous Sulfate (Ec)) 325 mg BID PO Last administered on 08:25; Admin Dose 325 MG; Start 08/22/16 at 21:00 Gabapentin (Neurontin) 600 mg TID PO Last administered on 08/25/16 13:00; Admin Dose 600 MG; Start 08/22/16 at 21:00 Insulin Glargine (Lantus) 35 unit QHS SC Last administered on 08/24/16 21:46; Admin Dose 35 UNIT; Start 08/22/16 at 21:00 Lisinopril 2.5 mg 2.5 mg DAILY PO Last administered on 08/25/16 08:32; Admin Dose 2.5 MG; Start 08/23/16 at 09:00 Piperacillin Sod/ Tazobactam Sod (Zosyn 3.375gm/ 100 ml (Pmx)) 100 ml @ 200 mls /hr Q8 IVPB Last administered on 08/25/16 14:58; Admin Dose 200 MLS/HR; Start 08/22/16 at 22:00 Diagnostic Test (Pha) (Accu-Chek) 1 ea 02 XX Last administered on 08/25/16 02: 26; Admin Dose 1 EA; Start 08/23/16 at 02:00 Miscellaneous Information 1 ea NOTE XX ; Start 08/22/16 at 21:00 Glucose (Glutose) 15 gm Q15M PRN PO DECREASED GLUCOSE; Start 08/22/16 at 21:00 Glucose (Glutose) 22.5 gm Q15M PRN PO DECREASED GLUCOSE; Start 08/22/16 at 21: 00 Dextrose (D50w Syringe) 25 ml Q15M PRN IV DECREASED GLUCOSE; Start 08/22/16 at 21:00 Dextrose (D50w Syringe) 50 ml Q15M PRN IV DECREASED GLUCOSE; Start 08/22/16 at 21:00 Glucagon (Glucagen) 1 mg Q15M PRN IM DECREASED GLUCOSE; Start 08/22/16 at 21:00 Glucose (Glutose) 15 gm Q15M PRN BUCCAL DECREASED GLUCOSE; Start 08/22/16 at 21 :00 Collagenase 1 applic 1 applic DAILY TOP Last administered on 08/25/16 15:30; Admin Dose 1 APPLIC; Start 08/23/16 at 09:00 Vancomycin HCl (Vancocin) 250 ml @ 125 mls/hr Q12H IVPB Last administered on 12:19; Admin Dose 125 MLS/HR; Start 08/25/16 at 01:00 Miscellaneous Information (*Rx Drug Level Order Reminder*) VANCO TROUGH @ 1, 200 ON... ONCE ONCE XX ; Start 08/26/16 at 12:00; Stop 08/26/16 at 12:01 TAO CHRISTINA Aug 25, 2016 18:01
[2016-08-25] MEDS: ATORVASTATIN 20 MG TAB PO SCH (20:06)
[2016-08-25] MEDS: INSULIN GLARGINE [LANtus] 3 ML PEN SC SCH (20:11)
[2016-08-25 21:36] VITALS: BP 128/63; RESP 18
--- NOTE | 2016-08-25 23:02 | CONS ---
Date/Time of Note Date/Time of Note DATE: 08/25/16 TIME: 23:02 Assessment/Plan Assessment/Plan Problems: (1) Non-pressure chronic ulcer of left heel and midfoot with fat layer exposed (2) Non-pressure chronic ulcer of right heel and midfoot with fat layer exposed (3) Peripheral vascular disease due to secondary diabetes Status: Chronic (4) Post-traumatic paraplegia Status: Chronic (5) Diabetes mellitus type 2 in obese Status: Chronic (6) Essential hypertension Status: Chronic Additional Assessment/Plan This is a 51-year-old male patient with multiple medical problems with current open wound on both feet with infection. Patient's prognosis is guarded. Patient is compliant with current treatment plan. 1. Continue IV antibiotics 2. Continue daily dressing changes 3. Continue to monitor closely 4. Patient will be seen in house Discharge planning: hold d/c Consultation Date/Type/Reason Admit Date/Time Aug 22, 2016 at 15:58 Date of Consultation: Aug 25, 2016 Type of Consultation: Foot and ankle surgery Reason for Consultation Evaluation of bilateral foot open wound with infection Hx of Present Illness This is a 51-year-old male patient with multiple medical problems including diabetes mellitus, debility and lower extremity paraplegia who has been seen and evaluated at the amputation prevention center. He was found to have open wound on both of his feet with the right foot becoming worse. Patient was placed on oral Levaquin and the condition did not improve. Patient was then admitted to the hospital for IV antibiotics. Constitutional: improved Cardiovascular: no complaints Gastrointestinal: no complaints Musculoskeletal: other (mild pain in his right heel ) Psychological: nl mood/affect, no complaints Past Medical History As per history of present illness. Past Surgical History As per history of present illness. Social History Smoking Status: Never smoker Exam/Review of Systems Vital Signs Vitals Vital Signs Date Time Temp Pulse Resp B/P Pulse Ox O2 Delivery O2 Flow Rate FiO2 08/25/16 21:36 97.4 77 18 128/63 95 08/22/16 23:01 Room Air Intake and Output 08/24/16 08/24/16 08/25/16 15:00 23:00 07:00 Intake Total 1950 ml 700 ml Output Total 300 ml 3 ml Balance 1650 ml 697 ml Exam GENERAL APPEARANCE: Patient is in no acute distress laying supine in bed VASCULAR EXAM: Dorsalis pedis and posterior tibial pulse nonpalpable bilaterally. Delayed capillary filling time noted on exam. Increased temperature gradient noted on exam. Edema bilateral lower extremity. No varicose veins noted on examination NEUROLOGICAL EXAM: Protective sensation is diminished to sharp, dull, vibratory and temperature stimuli bilaterally. Abnormal deep tendon reflexes noted. Negative Tinel sign on examination of bilateral lower extremity DERMATOLOGICAL EXAM: Open wound present medial right heel with necrosis and gangrenous changes with erythema and edema. Purulent drainage noted. No bleeding and nontender to palpation. Left heel decubitus ulceration present as well which is not as bad as the right side. No pus and no bleeding noted MUSCULOSKELETAL EXAM: Hemiplegia with 0 out of 5 muscle power bilateral lower extremity with significant calf atrophy IMAGING: Reviewed in chart LABS: Reviewed in chart Results Result Diagram: 08/24/16 0510 08/24/16 0510 Results 24 hrs Laboratory Tests Test 08/25/16 02:24 08/25/16 08:22 08/25/16 12:15 08/25/16 17:14 Bedside Glucose 241 H 229 H 371 H 231 H Test 08/25/16 20:05 Bedside Glucose 300 H Medications Medications Current Medications Ondansetron HCl (Zofran Inj) 4 mg Q6H PRN IV NAUSEA AND/OR VOMITING; Start at 19:30 Acetaminophen (Tylenol Tab) 650 mg Q6H PRN PO PAIN LEVEL 1-3 OR FEVER; Start at 19:30 Acetaminophen/ Hydrocodone Bitart ([place] (5/325)) 1 tab Q6H PRN PO MODERATE PAIN LEVEL 4-6; Start 08/22/16 at 19:30 Morphine Sulfate (morphine) 2 mg Q4H PRN IV SEVERE PAIN LEVEL 7-10; Start 08/22 at 19:30 Zolpidem Tartrate (Ambien) 5 mg QHS PRN PO SLEEP; Start 08/22/16 at 19:30 Enoxaparin Sodium (Lovenox) 40 mg DAILY SC Last administered on 08/25/16 08:25 ; Admin Dose 40 MG; Start 08/23/16 at 09:00 Atorvastatin Calcium (Lipitor) 20 mg QHS PO Last administered on 08/25/16 20: 06; Admin Dose 20 MG; Start 08/22/16 at 21:00 Baclofen (Lioresal) 20 mg BID PO Last administered on 08/25/16 20:06; Admin Dose 20 MG; Start 08/22/16 at 21:00 Docusate Sodium (Colace) 100 mg BID PRN PO CONSTIPATION; Start 08/22/16 at 19: 30 Ferrous Sulfate (Ferrous Sulfate (Ec)) 325 mg BID PO Last administered on 20:06; Admin Dose 325 MG; Start 08/22/16 at 21:00 Gabapentin (Neurontin) 600 mg TID PO Last administered on 08/25/16 20:06; Admin Dose 600 MG; Start 08/22/16 at 21:00 Lisinopril 2.5 mg 2.5 mg DAILY PO Last administered on 08/25/16 08:32; Admin Dose 2.5 MG; Start 08/23/16 at 09:00 Piperacillin Sod/ Tazobactam Sod (Zosyn 3.375gm/ 100 ml (Pmx)) 100 ml @ 200 mls /hr Q8 IVPB Last administered on 08/25/16 22:00; Admin Dose 200 MLS/HR; Start 08/22/16 at 22:00 Diagnostic Test (Pha) (Accu-Chek) 1 ea 02 XX Last administered on 08/25/16 02: 26; Admin Dose 1 EA; Start 08/23/16 at 02:00 Miscellaneous Information 1 ea NOTE XX ; Start 08/22/16 at 21:00 Glucose (Glutose) 15 gm Q15M PRN PO DECREASED GLUCOSE; Start 08/22/16 at 21:00 Glucose (Glutose) 22.5 gm Q15M PRN PO DECREASED GLUCOSE; Start 08/22/16 at 21: 00 Dextrose (D50w Syringe) 25 ml Q15M PRN IV DECREASED GLUCOSE; Start 08/22/16 at 21:00 Dextrose (D50w Syringe) 50 ml Q15M PRN IV DECREASED GLUCOSE; Start 08/22/16 at 21:00 Glucagon (Glucagen) 1 mg Q15M PRN IM DECREASED GLUCOSE; Start 08/22/16 at 21:00 Glucose (Glutose) 15 gm Q15M PRN BUCCAL DECREASED GLUCOSE; Start 08/22/16 at 21 :00 Collagenase 1 applic 1 applic DAILY TOP Last administered on 08/25/16 15:30; Admin Dose 1 APPLIC; Start 08/23/16 at 09:00 Vancomycin HCl (Vancocin) 250 ml @ 125 mls/hr Q12H IVPB Last administered on 12:19; Admin Dose 125 MLS/HR; Start 08/25/16 at 01:00 Miscellaneous Information (*Rx Drug Level Order Reminder*) VANCO TROUGH @ 1, 200 ON... ONCE ONCE XX ; Start 08/26/16 at 12:00; Stop 08/26/16 at 12:01 Insulin Glargine (Lantus) 37 unit QHS SC Last administered on 08/25/16 20:11; Admin Dose 37 UNIT; Start 08/25/16 at 21:00 ANABEL MEEKS DPM Aug 25, 2016 23:02
[2016-08-26] MEDS: VANCOMYCIN 1 GM in NS 250 ML IVPB SCH (00:52)
[2016-08-26] MEDS: ACCUCHECK AT 2AM (Patients on SS coverage) XX SCH (01:50)
[2016-08-26] MEDS ORDERED: INSULIN ASPART [NOVOLOG] 3 ML PEN SC ONE (02:30)
[2016-08-26] MEDS: PIPER-TAZO 3.375 GM IV (PMX) 100 ML IVPB SCH ×2 (05:40→14:02)
[2016-08-26 05:50] LABS: ADD SCAN DIFF NO
[2016-08-26 05:54] LABS: BASOPHILS % 0.4 % (0.0-2.0); EOSINOPHILS # 0.1 10^3/ul (0.0-0.5); HEMATOCRIT 39.8 % (42.0-52.0); HEMOGLOBIN 13.2 g/dl (14.0-18.0); LYMPHOCYTES # 1.1 10^3/ul (0.8-2.9); LYMPHOCYTES % 12.6 % (15.0-51.0); MEAN CORPUSCULAR HEMOGLOBIN 30.1 pg (29.0-33.0); MEAN CORPUSCULAR HGB CONC 33.2 g/dl (32.0-37.0); MEAN CORPUSCULAR VOLUME 90.7 fl (82.0-101.0); MEAN PLATELET VOLUME 9.4 fl (7.4-10.4); MONOCYTE # 0.6 10^3/ul (0.3-0.9); MONOCYTES % 6.2 % (0.0-11.0); NEUTROPHIL # 7.2 10^3/ul (1.6-7.5); NEUTROPHILS % 79.2 % (39.0-77.0); PLATELET COUNT 323 10^3/UL (140-415); RED BLOOD COUNT 4.39 10^6/ul (4.70-6.10); RED CELL DISTRIBUTION WIDTH 13.8 % (11.5-14.5)
[2016-08-26 06:11] LABS: POTASSIUM 4.1 mmol/L (3.5-5.1)
[2016-08-26 06:14] LABS: CALCIUM 9.2 mg/dl (8.4-10.2); CREATININE 2.65 mg/dl (0.61-1.24)
[2016-08-26] MEDS: FERROUS SULFATE (EC) 325 MG TAB PO SCH ×2 (08:14→20:48)
[2016-08-26] MEDS: BACLOFEN 10 MG TAB PO SCH (08:14)
[2016-08-26] MEDS: GABAPENTIN 300 MG CAP PO SCH (08:14)
[2016-08-26] MEDS: ENOXAPARIN 40 MG/0.4 ML SYG SC SCH (08:15)
[2016-08-26] MEDS: INSULIN ASPART [NOVOLOG] 3 ML PEN SC SCH ×7 (08:16→22:04)
[2016-08-26 08:25] VITALS: BP 147/70; RESP 20
[2016-08-26] MEDS: LISINOPRIL 5 MG TAB PO SCH (09:26)
--- NOTE | 2016-08-26 11:20 | PN ---
Date/Time of Note Date/Time of Note DATE: 08/26/16 TIME: 10:56 Assessment/Plan VTE Prophylaxis VTE Prophylaxis Intervention: heparin Lines/Catheters IV Catheter Type (from Nrs): Saline Lock Urinary Cath still in place: Yes Reason Cath still needed: other (indicate) (finesse) Assessment/Plan Chief Complaint/Hosp Course 1.Somnolence: medication effect vs infection vs. elevated blood sugars. Stat Li, stat UA, stat urine culture, stat fractional excretion of sodium, hold baclofen, gabapentin. Satting currently 100%. Stat lactic acid, stat ABG 2. Bradycardia: HR 48, however it subsequently increased to the 90s. Will transfer to [facility] for continue monitoring. 2. FINESSE: Creatinine elevated today at 2.68 from previous of 0.68 on 08/24/16. Stat Li, stat UA, stat urine culture, stat fractional excretion of sodium, nephrology consult, hold Vanco, DC Lovenox switch to heparin subq, hold lisinopril 3. Bilateral lower extremity ulcers secondary to diabetes and chronic bed bound status. On zosyn and vancomycin on hold currently secondary to #2 and pharmacy to dose, arterial US shows signs of disease in the right dorsalis pedis artery. Await further recs from vascular surgery and continue current wound management. 2. 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 Lactic acidosis - improved, continue IVF, antibiotics, repeat lactate secondary to #1. 4. Diabetes. increase lantus dose to 37 units, increased meal time insulin to 15 units, reassess, hold JOSE LUIS, blood sugar checked 312 we will give 10 units of NovoLog and repeat blood sugar 30 minutes. 5. Hypomagnesemia, Mg supplement 6. Prophylaxis. Heparin Problems: Subjective 24 Hr Interval Summary Free Text/Dictation Patient somnolent, difficult to arouse. Was alert this morning. Did receive his baclofen this morning. Last night apparently called family because he wasn't feeling well. With blurry vision and heart palpations. EKG was normal. BS was elevated in 300 he was given 12 units of insulin. Patient returned to baseline. During exam patient woke up and was alert. Stating he was sleepy. ROS: general: somnolent, difficult to arouse Subjective hx not possible: pt non-verbal Exam/Review of Systems Vital Signs Vitals Vital Signs Date Time Temp Pulse Resp B/P Pulse Ox O2 Delivery O2 Flow Rate FiO2 08/26/16 08:25 97.3 59 20 147/70 91 08/22/16 23:01 Room Air Intake and Output 08/25/16 08/25/16 08/26/16 15:00 23:00 07:00 Intake Total 250 ml 1100 ml 750 ml Output Total 1 ml 2 ml Balance 250 ml 1099 ml 748 ml Exam Constitutional: Somnolent, difficult to arouse initially but aroused with noxious tactile stimuli HEENT: Normocephalic atraumatic, Neck: Supple nontender CVS: initially bradycardia but now Regular rate and rhythm, no edema Lungs: Clear to auscultation bilaterally, no rales no wheezes Extremities: Bilateral foot dressings dry purulence, no edema Respiratory: No clear to auscultation, No normal air movement Cardiovascular: No nl pulses, No regular rate and rhythm Results Result Diagram: 08/26/16 0510 08/26/16 0510 Results 24 hrs Laboratory Tests Test 08/25/16 12:15 08/25/16 17:14 08/25/16 20:05 08/26/16 01:11 Bedside Glucose 371 H 231 H 300 H 305 H Test 08/26/16 02:28 08/26/16 05:10 08/26/16 08:11 Bedside Glucose 313 H 298 H White Blood Count 9.0 # Red Blood Count 4.39 L Hemoglobin 13.2 L Hematocrit 39.8 L Mean Corpuscular Volume 90.7 Mean Corpuscular Hemoglobin 30.1 Mean Corpuscular Hemoglobin Concent 33.2 Red Cell Distribution Width 13.8 Platelet Count 323 Mean Platelet Volume 9.4 Neutrophils % 79.2 H Lymphocytes % 12.6 L Monocytes % 6.2 Eosinophils % 1.0 Basophils % 0.4 Nucleated Red Blood Cells % 0.0 Neutrophils # 7.2 Lymphocytes # 1.1 Monocytes # 0.6 Eosinophils # 0.1 Basophils # 0.0 Nucleated Red Blood Cells # 0.0 Sodium Level 140 Potassium Level 4.1 Chloride Level 108 Carbon Dioxide Level 20 L Anion Gap 16 Blood Urea Nitrogen 28 #H Creatinine 2.65 #H Glucose Level 321 H Calcium Level 9.2 Magnesium Level 2.1 Medications Medications Current Medications Ondansetron HCl (Zofran Inj) 4 mg Q6H PRN IV NAUSEA AND/OR VOMITING; Start at 19:30 Acetaminophen (Tylenol Tab) 650 mg Q6H PRN PO PAIN LEVEL 1-3 OR FEVER Last administered on 08/26/16 09:25; Admin Dose 650 MG; Start 08/22/16 at 19:30 Acetaminophen/ Hydrocodone Bitart ([place] (5/325)) 1 tab Q6H PRN PO MODERATE PAIN LEVEL 4-6; Start 08/22/16 at 19:30 Morphine Sulfate (morphine) 2 mg Q4H PRN IV SEVERE PAIN LEVEL 7-10; Start 08/22 at 19:30 Zolpidem Tartrate (Ambien) 5 mg QHS PRN PO SLEEP; Start 08/22/16 at 19:30 Enoxaparin Sodium (Lovenox) 40 mg DAILY SC Last administered on 08/26/16 08:15 ; Admin Dose 40 MG; Start 08/23/16 at 09:00 Atorvastatin Calcium (Lipitor) 20 mg QHS PO Last administered on 08/25/16 20: 06; Admin Dose 20 MG; Start 08/22/16 at 21:00 Baclofen (Lioresal) 20 mg BID PO Last administered on 08/26/16 08:14; Admin Dose 20 MG; Start 08/22/16 at 21:00 Docusate Sodium (Colace) 100 mg BID PRN PO CONSTIPATION; Start 08/22/16 at 19: 30 Ferrous Sulfate (Ferrous Sulfate (Ec)) 325 mg BID PO Last administered on 08:14; Admin Dose 325 MG; Start 08/22/16 at 21:00 Gabapentin (Neurontin) 600 mg TID PO Last administered on 08/26/16 08:14; Admin Dose 600 MG; Start 08/22/16 at 21:00 Lisinopril 2.5 mg 2.5 mg DAILY PO Last administered on 08/26/16 09:26; Admin Dose 2.5 MG; Start 08/23/16 at 09:00 Piperacillin Sod/ Tazobactam Sod (Zosyn 3.375gm/ 100 ml (Pmx)) 100 ml @ 200 mls /hr Q8 IVPB Last administered on 08/26/16 05:40; Admin Dose 200 MLS/HR; Start 08/22/16 at 22:00 Diagnostic Test (Pha) (Accu-Chek) 1 ea 02 XX Last administered on 08/25/16 02: 26; Admin Dose 1 EA; Start 08/23/16 at 02:00 Miscellaneous Information 1 ea NOTE XX ; Start 08/22/16 at 21:00 Glucose (Glutose) 15 gm Q15M PRN PO DECREASED GLUCOSE; Start 08/22/16 at 21:00 Glucose (Glutose) 22.5 gm Q15M PRN PO DECREASED GLUCOSE; Start 08/22/16 at 21: 00 Dextrose (D50w Syringe) 25 ml Q15M PRN IV DECREASED GLUCOSE; Start 08/22/16 at 21:00 Dextrose (D50w Syringe) 50 ml Q15M PRN IV DECREASED GLUCOSE; Start 08/22/16 at 21:00 Glucagon (Glucagen) 1 mg Q15M PRN IM DECREASED GLUCOSE; Start 08/22/16 at 21:00 Glucose (Glutose) 15 gm Q15M PRN BUCCAL DECREASED GLUCOSE; Start 08/22/16 at 21 :00 Collagenase 1 applic 1 applic DAILY TOP Last administered on 08/25/16 15:30; Admin Dose 1 APPLIC; Start 08/23/16 at 09:00 Vancomycin HCl (Vancocin) 250 ml @ 125 mls/hr Q12H IVPB Last administered on 00:52; Admin Dose 125 MLS/HR; Start 08/25/16 at 01:00; Status Future Hold Miscellaneous Information (*Rx Drug Level Order Reminder*) VANCO TROUGH @ 1, 200 ON... ONCE ONCE XX ; Start 08/26/16 at 12:00; Stop 08/26/16 at 12:01 Insulin Glargine (Lantus) 37 unit QHS SC Last administered on 08/25/16 20:11; Admin Dose 37 UNIT; Start 08/25/16 at 21:00 TAO CHRISTINA Aug 26, 2016 11:06
[2016-08-26 12:18] LABS: AADO2 Arterial 13.9 mmHg (7.0-24.0); Allen Test ACCEPTAB; Arterial Base Excess -4.8 mmol/L (-3.0-3); Arterial COHb 0.1 % (0.0-3.0); Arterial Fraction of Oxyhgb 98.2 % (93.0-99.0); Arterial HCO3 20.9 mmol/L (22.0-26.0); Arterial MetHb 0.3 % (0.0-1.5); Arterial Total Hemglobin 14.3 g/dl (12.0-18.0); MODE NASAL CANNULA
[2016-08-26 12:34] LABS: ALBUMIN 3.1 g/dl (3.3-4.9)
[2016-08-26 12:35] LABS: POTASSIUM 4.5 mmol/L (3.5-5.1)
[2016-08-26 12:37] LABS: ALBUMIN/GLOBULIN RATIO 0.96; BILIRUBIN,INDIRECT 0.1 mg/dl (0-1.1); BILIRUBIN,TOTAL 0.1 mg/dl (0.2-1.3); CALCIUM 9.3 mg/dl (8.4-10.2); CREATININE 2.64 mg/dl (0.61-1.24); TOTAL PROTEIN 6.3 g/dl (6.1-8.1)
--- NOTE | 2016-08-26 12:58 | CONS ---
DATE OF ADMISSION: 08/22/2016 DATE OF CONSULTATION: 08/26/[address] Aguayo: Thank you very much for allowing me to evaluate this 51-year-old male with known diabetes, admitted with cellulitis involving both feet, with now evidence of renal insufficiency. HISTORICAL EVENTS: As you well know, he was admitted here through the [facility] [place] of and when he presented with evidence of cellulitis involving both feet. Because of worsening agnes l insufficiency, consultation was requested. As best as I can glean he has had no recent vomiting, nausea or abdominal pain as reviewed with the patient's family. He has had an indwelling Li cath eter. OTHER PAST MEDICAL HISTORY INCLUDES: Recurrent history of urinary tract infection, lower extremity ulcers and anemia of chronic disease. MEDICATIONS: 1. Zosyn. 2. Vancomycin, which was discontinued, it was instituted on admission. 3. Tylenol. 4. Atorvastatin. 5. Baclofen. 6. Gabapentin. 7. Ferrous sulfate. 8. Heparin subq. 9. Insulin. PHYSICAL EXAMINATION: VITAL SIGNS: BP 129/71, respirations were 18. He was afebrile. EYES: Extraocular muscles were full. NOSE, MOUTH, AND THROAT: Normal. NECK: Supple. There was no jugular venous distention, thyroid enlargement or adenopathy. LUNGS: Clear. HEART: Rhythm regular, no murmur. No third or fourth sound. ABDOMEN: Distended. Liver and spleen not palpable. No tenderness. EXTREMITIES: Trace sacral edema. Both feet were bandaged. LABORATORY AND DIAGNOSTIC STUDIES: Hematocrit on admission 41.5 and today 39.8, white count remaine d normal, platelet count remains normal. Sed rate was normal. Chemistries: Creatinine 0.6 on 08/01, 0.59 on the , 0.68 on the , and now 2.65. Electrolytes were normal. Urinalysis is pending. Postvoid residual you indicated to me was less than 100. IMPRESSION: Acute renal failure. This may be related to unappreciated episode of hypotension, alth ough this was not well documented. Alternatively, the rise in his creatinine seems too rapid for th is to be related to volume contraction and vancomycin along with lisinopril may be the culprits. PLAN: At this point, would include discontinuing lisinopril and vancomycin, obtaining a urinalysis and random urine for sodium, as well as a protein creatinine ratio. Expand modestly with alex hoffman, will obtain a renal ultrasound for completeness and observe with you. Dictated By: LUDMILA SOLER/NTS Conf#: [id number] DID#: [id number]
[2016-08-26] MEDS: SOD CHLORIDE 0.9% 1,000 ML IV SCH ×2 (14:01→23:11)
[2016-08-26] MEDS: HEPARIN 5,000 UNIT/0.5 ML VIAL SC SCH ×2 (14:01→21:02)
[2016-08-26] MEDS: COLLAGENASE 30 GM TUBE TOP SCH (14:02)
[2016-08-26 15:29] VITALS: BP 129/78; RESP 16
[2016-08-26 15:36] LABS: ADD UMIC NO; URINE BILIRUBIN (Dip) NEGATIVE (NEGATIVE); URINE BLOOD (Dip) NEGATIVE (NEGATIVE); URINE COLOR LT. YELLOW (YELLOW); URINE KETONES (Dip) NEGATIVE (NEGATIVE); URINE LEUKOCYTE ESTERASE (Dip) NEGATIVE (NEGATIVE); URINE NITRITE (Dip) NEGATIVE (NEGATIVE); URINE TOTAL PROTEIN (Dip) NEGATIVE (NEGATIVE); URINE UROBILINOGEN (Dip) 0.2 E.U./dL (0.1-1.0)
--- NOTE | 2016-08-26 16:57 | RADRPT ---
PROCEDURE: Renal US. CLINICAL INDICATION: Acute kidney injury. TECHNIQUE: Multiple sonographic images of the kidneys and urinary bladder were obtained. The imag es were reviewed on a PACS workstation. COMPARISON: No prior studies are available for comparison. FINDINGS: The right kidney measures 10.8 cm. The left kidney measures 11.2 cm. There is no renal mass. There is no hydronephrosis. There is no renal calculus. Renal parenchymal thickness is normal bilaterally. Echogenicity is normal bilaterally. The perirenal regions are normal with no fluid collection or mass. The urinary bladder is empty. IMPRESSION: 1. No hydronephrosis. 2. Empty urinary bladder. 3. Otherwise normal renal ultrasound. RPTAT: QQ .Ronny Fontana MD, Date Time Electronically viewed and signed by .Ronny Fontana MD, MD on 08/26/2016 16:57 .R/
[2016-08-26 17:17] VITALS: PULSE 55
--- NOTE | 2016-08-26 17:24 | RADRPT ---
Vent Rate: 69 bpm RR Interval: 0 msec FL Interval: 172 msec QRS Duration: 86 msec QT Interval: 396 msec QTC Interval: 424 msec P-R-T Harris: 23 - -28 - 2 degrees Normal sinus rhythm Normal ECG Electronically Signed By: Tobin Hampton [id number]
[2016-08-26] MEDS: PIPER-TAZO 2.25 GM (PMX) 50 ML IVPB SCH ×2 (18:31→23:10)
[2016-08-26 19:39] VITALS: PULSE 40
[2016-08-26 20:04] VITALS: PULSE 60
[2016-08-26 20:07] VITALS: BP 98/74; RESP 18
[2016-08-26] MEDS: ATORVASTATIN 20 MG TAB PO SCH (20:48)
[2016-08-26] MEDS: INSULIN GLARGINE [LANtus] 3 ML PEN SC SCH (21:01)
[2016-08-27] VITALS (13 sets, daily range): BP systolic 145–183; BP diastolic 72–89; PULSE 58–90; RESP 16–20
[2016-08-27] MEDS: ACCUCHECK AT 2AM (Patients on SS coverage) XX SCH (01:08)
[2016-08-27] MEDS: PIPER-TAZO 2.25 GM (PMX) 50 ML IVPB SCH ×4 (05:02→23:59)
[2016-08-27] MEDS: HEPARIN 5,000 UNIT/0.5 ML VIAL SC SCH ×3 (05:06→20:31)
[2016-08-27] MEDS: DOCUSATE SODIUM 100 MG CAP PO PRN ×2 (06:24→20:24)
[2016-08-27] MEDS: morphine 2 MG INJ IV PRN (08:28)
[2016-08-27] MEDS: FERROUS SULFATE (EC) 325 MG TAB PO SCH ×2 (08:29→20:24)
[2016-08-27] MEDS: INSULIN ASPART [NOVOLOG] 3 ML PEN SC SCH ×7 (08:34→20:30)
[2016-08-27] MEDS: COLLAGENASE 30 GM TUBE TOP SCH ×2 (08:35→13:32)
--- NOTE | 2016-08-27 08:35 | CONS ---
Date/Time of Note Date/Time of Note DATE: 08/27/16 TIME: 08:32 Assessment/Plan Assessment/Plan Additional Assessment/Plan 1. Acute renal failure, ? cause, await todays labs, urine sodium does not reflect volume contraction, Vanco/JOSE LUIS may have been culpit without evid obstructive uropathy. 2. Foot cellultis bilat 3. BP inc a bit will add amlodipine. Consultation Date/Type/Reason Admit Date/Time Aug 22, 2016 at 15:58 Initial Consult Date Detailed Summary Respiratory: shortness of breath Cardiovascular: No chest pain Gastrointestinal: pain Exam/Review of Systems Vital Signs Vitals Vital Signs Date Time Temp Pulse Resp B/P Pulse Ox O2 Delivery O2 Flow Rate FiO2 08/27/16 07:51 98.3 68 16 183/79 96 Intake and Output 08/26/16 08/26/16 08/27/16 15:00 23:00 07:00 Intake Total 1400 ml Output Total 1600 ml Balance -200 ml Exam Neck: No jvd Respiratory: diminished breath sounds Cardiovascular: regular rate and rhythm Gastrointestinal: soft Extremities: edema (1+ sacral edema) Results Result Diagram: 08/26/16 0510 08/26/16 1200 Results 24 hrs Laboratory Tests Test 08/26/16 11:00 08/26/16 11:16 08/26/16 11:20 08/26/16 12:00 Urine Color LT. YELLOW Urine Clarity CLEAR Urine pH 5.5 Urine Specific [place] <=1.005 L Urine Ketones NEGATIVE Urine Nitrite NEGATIVE Urine Bilirubin NEGATIVE Urine Urobilinogen 0.2 E.U./dL Urine Leukocyte Esterase NEGATIVE Urine Hemoglobin NEGATIVE Urine Random Sodium 51 Urine Glucose 0.25% H Urine Total Protein NEGATIVE Bedside Glucose 302 H 320 H Blood Gas Specimen Source Blood arterial Arterial Blood Date Drawn 08/26/2016 12:05:42 PM Arterial Blood pH (Temp corrected) 7.326 L Arterial Blood pCO2 (Temp correct) 41.0 Arterial Blood pO2 (Temp corrected) 151.8 H Arterial Blood HCO3 20.9 L Arterial Blood Base Excess -4.8 L Arterial Blood Oxygen Saturation 98.6 H Francisco Test ACCEPTAB Arterial Blood Gas Puncture Site Left Radial Arterial Blood Carboxyhemoglobin 0.1 Arterial Blood Methemoglobin 0.3 Blood Gas A-a O2 Differential 13.9 Oxyhemoglobin Percent 98.2 Total Hemoglobin 14.3 Blood Gas Temperature 37.0 Blood Gas Modality NASAL CANNULA FiO2 30.0 Blood Gas Notified Whom JLD Blood Gas Notified Time 08/26/2016 12:18:10 PM Sodium Level 140 Potassium Level 4.5 Chloride Level 106 Carbon Dioxide Level 22 Anion Gap 17 H Blood Urea Nitrogen 30 H Creatinine 2.64 H Glucose Level 327 H Lactic Acid Level 1.3 Calcium Level 9.3 Total Bilirubin 0.1 L Direct Bilirubin 0.00 Indirect Bilirubin 0.1 Aspartate Amino Transf (AST/SGOT) 41 Alanine Aminotransferase (ALT/SGPT) 56 Alkaline Phosphatase 64 Total Protein 6.3 Albumin 3.1 L Globulin 3.20 Albumin/Globulin Ratio 0.96 Vancomycin Level Trough 33.0 *H Test 08/26/16 13:10 08/26/16 17:12 08/26/16 20:44 08/27/16 01:20 Creatine Kinase 37 Bedside Glucose 252 H 261 H 237 H Test 08/27/16 07:55 Bedside Glucose 184 Medications Medications Current Medications Ondansetron HCl (Zofran Inj) 4 mg Q6H PRN IV NAUSEA AND/OR VOMITING; Start at 19:30 Acetaminophen (Tylenol Tab) 650 mg Q6H PRN PO PAIN LEVEL 1-3 OR FEVER Last administered on 08/26/16 09:25; Admin Dose 650 MG; Start 08/22/16 at 19:30 Acetaminophen/ Hydrocodone Bitart ([place] (5/325)) 1 tab Q6H PRN PO MODERATE PAIN LEVEL 4-6; Start 08/22/16 at 19:30 Morphine Sulfate (morphine) 2 mg Q4H PRN IV SEVERE PAIN LEVEL 7-10; Start 08/22 at 19:30 Zolpidem Tartrate (Ambien) 5 mg QHS PRN PO SLEEP; Start 08/22/16 at 19:30 Atorvastatin Calcium (Lipitor) 20 mg QHS PO Last administered on 08/26/16 20: 48; Admin Dose 20 MG; Start 08/22/16 at 21:00 Baclofen (Lioresal) 20 mg BID PO Last administered on 08/26/16 08:14; Admin Dose 20 MG; Start 08/22/16 at 21:00; Status Future Hold Docusate Sodium (Colace) 100 mg BID PRN PO CONSTIPATION Last administered on 06:24; Admin Dose 100 MG; Start 08/22/16 at 19:30 Ferrous Sulfate (Ferrous Sulfate (Ec)) 325 mg BID PO Last administered on 20:48; Admin Dose 325 MG; Start 08/22/16 at 21:00 Gabapentin (Neurontin) 600 mg TID PO Last administered on 08/26/16 08:14; Admin Dose 600 MG; Start 08/22/16 at 21:00; Status Future Hold Lisinopril (Zestril) 2.5 mg DAILY PO Last administered on 08/26/16 09:26; Admin Dose 2.5 MG; Start 08/23/16 at 09:00; Status Future Hold Diagnostic Test (Pha) (Accu-Chek) 1 ea 02 XX Last administered on 08/27/16 01: 08; Admin Dose 1 EA; Start 08/23/16 at 02:00 Miscellaneous Information 1 ea NOTE XX ; Start 08/22/16 at 21:00 Glucose (Glutose) 15 gm Q15M PRN PO DECREASED GLUCOSE; Start 08/22/16 at 21:00 Glucose (Glutose) 22.5 gm Q15M PRN PO DECREASED GLUCOSE; Start 08/22/16 at 21: 00 Dextrose (D50w Syringe) 25 ml Q15M PRN IV DECREASED GLUCOSE; Start 08/22/16 at 21:00 Dextrose (D50w Syringe) 50 ml Q15M PRN IV DECREASED GLUCOSE; Start 08/22/16 at 21:00 Glucagon (Glucagen) 1 mg Q15M PRN IM DECREASED GLUCOSE; Start 08/22/16 at 21:00 Glucose (Glutose) 15 gm Q15M PRN BUCCAL DECREASED GLUCOSE; Start 08/22/16 at 21 :00 Collagenase 1 applic 1 applic DAILY TOP Last administered on 08/25/16 15:30; Admin Dose 1 APPLIC; Start 08/23/16 at 09:00 Vancomycin HCl (Vancocin) 250 ml @ 125 mls/hr Q12H IVPB Last administered on 00:52; Admin Dose 125 MLS/HR; Start 08/25/16 at 01:00; Status Future Hold Insulin Glargine (Lantus) 37 unit QHS SC Last administered on 08/26/16 21:01; Admin Dose 37 UNIT; Start 08/25/16 at 21:00 Heparin Sodium (Porcine) 5000 unit 5,000 unit Q8 SC Last administered on 05:06; Admin Dose 5,000 UNIT; Start 08/26/16 at 14:00 Sodium Chloride 1,000 ml @ 80 mls/hr [id number] Last administered on 23:11; Admin Dose 80 MLS/HR; Start 08/26/16 at 12:30 Piperacillin Sod/ Tazobactam Sod (Zosyn 2.25gm/ 50ml (Pmx)) 50 ml @ 100 mls/hr Q6 IVPB Last administered on 08/27/16 05:02; Admin Dose 100 MLS/HR; Start at 18:30 LUDMILA CLAROS MD Aug 27, 2016 08:34
[2016-08-27 08:48] LABS: ADD SCAN DIFF NO
[2016-08-27 08:51] LABS: BASOPHILS % 0.4 % (0.0-2.0); EOSINOPHILS # 0.1 10^3/ul (0.0-0.5); EOSINOPHILS % 1.7 % (0.0-7.0); HEMATOCRIT 39.6 % (42.0-52.0); HEMOGLOBIN 12.6 g/dl (14.0-18.0); LYMPHOCYTES # 1.4 10^3/ul (0.8-2.9); LYMPHOCYTES % 16.4 % (15.0-51.0); MEAN CORPUSCULAR HEMOGLOBIN 29.4 pg (29.0-33.0); MEAN CORPUSCULAR HGB CONC 31.8 g/dl (32.0-37.0); MEAN CORPUSCULAR VOLUME 92.3 fl (82.0-101.0); MEAN PLATELET VOLUME 9.3 fl (7.4-10.4); MONOCYTE # 0.6 10^3/ul (0.3-0.9); MONOCYTES % 7.2 % (0.0-11.0); NEUTROPHIL # 6.1 10^3/ul (1.6-7.5); NEUTROPHILS % 73.9 % (39.0-77.0); PLATELET COUNT 324 10^3/UL (140-415); RED BLOOD COUNT 4.29 10^6/ul (4.70-6.10); RED CELL DISTRIBUTION WIDTH 14.2 % (11.5-14.5); WHITE BLOOD COUNT 8.3 10^3/ul (4.8-10.8)
[2016-08-27] MEDS ORDERED: AMLODIPINE 5 MG TAB PO SCH ×2 (09:00→21:00)
[2016-08-27 09:14] LABS: CREATININE 2.7 mg/dl (0.61-1.24); MAGNESIUM 2.2 mg/dl (1.7-2.5); PHOSPHORUS 5.6 mg/dl (2.5-4.9); POTASSIUM 4.4 mmol/L (3.5-5.1)
[2016-08-27] MEDS: SOD CHLORIDE 0.9% 1,000 ML IV SCH (12:26)
--- NOTE | 2016-08-27 16:40 | PN ---
Date/Time of Note Date/Time of Note DATE: 08/27/16 TIME: 16:20 Assessment/Plan VTE Prophylaxis VTE Prophylaxis Intervention: heparin Lines/Catheters IV Catheter Type (from [place]): Peripheral IV Urinary Cath still in place: Yes Reason Cath still needed: other (indicate) (finesse, medical condition) Assessment/Plan Chief Complaint/Hosp Course 1. Somnolence: More alert and awake today, though not completely back at baseline. Likely secondary to FINESSE and impaired excretion of renal excreted meds. baclofen and gabapentin on hold. 2. FINESSE: Creatinine elevated today at 2.7 from 2.64 from yesterday and 0.68 from admission. adequate urine output. Likely medication effect from lisinopril/ vancomycin those meds are on hold. Continue to monitor Renal function. Continue IV fluids. Nephro on board. 3. Bilateral lower extremity ulcers secondary to diabetes and chronic bed bound status. On zosyn, vancomycin on hold currently secondary to #2 and pharmacy to dose, arterial US shows signs of disease in the right dorsalis pedis artery. Await further recs from vascular surgery and continue current wound management. 2. 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 Lactic acidosis - improved, continue IVF, antibiotics, lactate from yesterday is 1.3. 4. Diabetes. Better BS control today, Continue current regimen, and titrate regimen up in 1 to 2 days as needed for better control. 5. Hypomagnesemia, Mg supplement 6. HTN - improved, Norvasc 10mg once daily. Holding allie right now. Consider restarting allie pending improvement of renal function. PRN hydralazine. Prophylaxis. Heparin Problems: Subjective 24 Hr Interval Summary Free Text/Dictation Patient more awake today and easily arousable as per his mom. His mother states he is still somewhat confused, but his answers are more appropriate today. Exam/Review of Systems Vital Signs Vitals Vital Signs Date Time Temp Pulse Resp B/P Pulse Ox O2 Delivery O2 Flow Rate FiO2 08/27/16 15:47 97.4 74 18 161/85 95 Intake and Output 08/26/16 08/26/16 08/27/16 15:00 23:00 07:00 Intake Total 1400 ml Output Total 1600 ml Balance -200 ml Exam Constitutional: easily arousable today, answering questions more coherently today, though he is still some what confused as per mom and nurse. HEENT: Normocephalic atraumatic, Neck: Supple nontender CVS: initially bradycardia but now Regular rate and rhythm, no edema Lungs: Clear to auscultation bilaterally, no rales no wheezes Extremities: Bilateral foot dressings clean dry and intact. Neuro: able to follow commands, lower extremity paraplegia (chronic). Results Result Diagram: 08/27/16 0745 08/27/16 0745 Results 24 hrs Laboratory Tests Test 08/26/16 17:12 08/26/16 20:44 08/27/16 01:20 08/27/16 07:45 Bedside Glucose 252 H 261 H 237 H White Blood Count 8.3 Red Blood Count 4.29 L Hemoglobin 12.6 L Hematocrit 39.6 L Mean Corpuscular Volume 92.3 Mean Corpuscular Hemoglobin 29.4 Mean Corpuscular Hemoglobin Concent 31.8 L Red Cell Distribution Width 14.2 Platelet Count 324 Mean Platelet Volume 9.3 Neutrophils % 73.9 Lymphocytes % 16.4 Monocytes % 7.2 Eosinophils % 1.7 Basophils % 0.4 Nucleated Red Blood Cells % 0.0 Neutrophils # 6.1 Lymphocytes # 1.4 Monocytes # 0.6 Eosinophils # 0.1 Basophils # 0.0 Nucleated Red Blood Cells # 0.0 Sodium Level 142 Potassium Level 4.4 Chloride Level 115 H Carbon Dioxide Level 21 Anion Gap 10 # Blood Urea Nitrogen 26 H Creatinine 2.70 H Glucose Level 210 # Calcium Level 9.0 Phosphorus Level 5.6 H Magnesium Level 2.2 Test 08/27/16 07:55 08/27/16 12:24 Bedside Glucose 184 142 Medications Medications Current Medications Ondansetron HCl (Zofran Inj) 4 mg Q6H PRN IV NAUSEA AND/OR VOMITING; Start at 19:30 Acetaminophen (Tylenol Tab) 650 mg Q6H PRN PO PAIN LEVEL 1-3 OR FEVER Last administered on 08/26/16 09:25; Admin Dose 650 MG; Start 08/22/16 at 19:30 Acetaminophen/ Hydrocodone Bitart ([place] (5/325)) 1 tab Q6H PRN PO MODERATE PAIN LEVEL 4-6; Start 08/22/16 at 19:30 Morphine Sulfate (morphine) 2 mg Q4H PRN IV SEVERE PAIN LEVEL 7-10 Last administered on 08/27/16 08:28; Admin Dose 2 MG; Start 08/22/16 at 19:30 Zolpidem Tartrate (Ambien) 5 mg QHS PRN PO SLEEP; Start 08/22/16 at 19:30 Atorvastatin Calcium (Lipitor) 20 mg QHS PO Last administered on 08/26/16 20: 48; Admin Dose 20 MG; Start 08/22/16 at 21:00 Baclofen (Lioresal) 20 mg BID PO Last administered on 08/26/16 08:14; Admin Dose 20 MG; Start 08/22/16 at 21:00; Status Future Hold Docusate Sodium (Colace) 100 mg BID PRN PO CONSTIPATION Last administered on 06:24; Admin Dose 100 MG; Start 08/22/16 at 19:30 Ferrous Sulfate (Ferrous Sulfate (Ec)) 325 mg BID PO Last administered on 08:29; Admin Dose 325 MG; Start 08/22/16 at 21:00 Gabapentin (Neurontin) 600 mg TID PO Last administered on 08/26/16 08:14; Admin Dose 600 MG; Start 08/22/16 at 21:00; Status Future Hold Lisinopril (Zestril) 2.5 mg DAILY PO Last administered on 08/26/16 09:26; Admin Dose 2.5 MG; Start 08/23/16 at 09:00; Status Future Hold Diagnostic Test (Pha) (Accu-Chek) 1 ea 02 XX Last administered on 08/27/16 01: 08; Admin Dose 1 EA; Start 08/23/16 at 02:00 Miscellaneous Information 1 ea NOTE XX ; Start 08/22/16 at 21:00 Glucose (Glutose) 15 gm Q15M PRN PO DECREASED GLUCOSE; Start 08/22/16 at 21:00 Glucose (Glutose) 22.5 gm Q15M PRN PO DECREASED GLUCOSE; Start 08/22/16 at 21: 00 Dextrose (D50w Syringe) 25 ml Q15M PRN IV DECREASED GLUCOSE; Start 08/22/16 at 21:00 Dextrose (D50w Syringe) 50 ml Q15M PRN IV DECREASED GLUCOSE; Start 08/22/16 at 21:00 Glucagon (Glucagen) 1 mg Q15M PRN IM DECREASED GLUCOSE; Start 08/22/16 at 21:00 Glucose (Glutose) 15 gm Q15M PRN BUCCAL DECREASED GLUCOSE; Start 08/22/16 at 21 :00 Collagenase 1 applic 1 applic DAILY TOP Last administered on 08/27/16 13:32; Admin Dose 1 APPLIC; Start 08/23/16 at 09:00 Vancomycin HCl (Vancocin) 250 ml @ 125 mls/hr Q12H IVPB Last administered on 00:52; Admin Dose 125 MLS/HR; Start 08/25/16 at 01:00; Status Future Hold Insulin Glargine (Lantus) 37 unit QHS SC Last administered on 08/26/16 21:01; Admin Dose 37 UNIT; Start 08/25/16 at 21:00 Heparin Sodium (Porcine) 5000 unit 5,000 unit Q8 SC Last administered on 13:15; Admin Dose 5,000 UNIT; Start 08/26/16 at 14:00 Sodium Chloride 1,000 ml @ 80 mls/hr [id number] Last administered on 12:26; Admin Dose 80 MLS/HR; Start 08/26/16 at 12:30 Piperacillin Sod/ Tazobactam Sod (Zosyn 2.25gm/ 50ml (Pmx)) 50 ml @ 100 mls/hr Q6 IVPB Last administered on 08/27/16 12:27; Admin Dose 100 MLS/HR; Start at 18:30 Amlodipine Besylate (Norvasc) 5 mg BID PO Last administered on 08/27/16 09:11 ; Admin Dose 5 MG; Start 08/27/16 at 09:00 TAO CHRISTINA Aug 27, 2016 16:31
[2016-08-27 19:54] LABS: PROTEIN/CREAT RATIO 0.83 RATIO
[2016-08-27] MEDS: ATORVASTATIN 20 MG TAB PO SCH (20:24)
[2016-08-27] MEDS: INSULIN GLARGINE [LANtus] 3 ML PEN SC SCH (20:30)
[2016-08-28] VITALS (11 sets, daily range): BP systolic 139–168; BP diastolic 66–92; PULSE 65–78; RESP 18–20
[2016-08-28] MEDS: SOD CHLORIDE 0.9% 1,000 ML IV SCH ×2 (01:11→12:31)
[2016-08-28] MEDS: ACCUCHECK AT 2AM (Patients on SS coverage) XX SCH (01:11)
[2016-08-28] MEDS: PIPER-TAZO 2.25 GM (PMX) 50 ML IVPB SCH ×3 (05:06→18:37)
[2016-08-28] MEDS: HEPARIN 5,000 UNIT/0.5 ML VIAL SC SCH ×3 (05:10→21:30)
--- NOTE | 2016-08-28 06:34 | PN ---
Date/Time of Note Date/Time of Note DATE: 08/28/16 TIME: Assessment/Plan VTE Prophylaxis VTE Prophylaxis Intervention: heparin Lines/Catheters IV Catheter Type (from [facility]): Peripheral IV Urinary Cath still in place: Yes Reason Cath still needed: urinary retention, pres ulcer contaminated by urine Assessment/Plan Problems: (1) Chronic indwelling Li catheter Status: Chronic Comment: This is necessitated by the patient's post spinal injury paraplegia. Continue treatment. (2) Post-traumatic paraplegia Status: Chronic Comment: So long-term issue is rendered him permanently wheelchair bound. He has decubiti will do her best to assist him with recovery regarding the decubiti (3) Decubitus ulcer of ankle Status: Chronic Comment: Dr. Avelar and the APC are assisting with this. He is on antibiotics. Qualifiers: Pressure ulcer stage: stage 2 Laterality: unspecified laterality Qualified Code: L89.502 - Decubitus ulcer of ankle, stage 2, unspecified laterality (4) Peripheral vascular disease due to secondary diabetes Status: Chronic Comment: This is noted please see the dictation from vascular surgery (5) Left inguinal hernia Onset Date: ~ 10/2015 Status: Chronic Comment: Noted no active issue (6) Essential hypertension Status: Chronic Comment: Adequately controlled. Please note his medications have been modified temporarily due to acute kidney injury (7) Hyperlipidemia Status: Chronic Comment: He is on treatment Qualifiers: Hyperlipidemia type: pure hypercholesterolemia Qualified Code: E78.00 - Pure hypercholesterolemia (8) Diabetes mellitus type 2 in obese Status: Chronic Comment: On admission he had poor control. His control is a bit better. Please note he is off of his metformin on insulin only. Given these type she will use Tradjenta to augment the effect to try and smooth out his sugars. (9) Decubitus ulcer, infected Status: Acute Comment: As above Qualifiers: Pressure ulcer stage: unspecified pressure ulcer stage Qualified Code: L89.90 - Decubitus ulcer, infected, unspecified pressure ulcer stage (10) Lactic acidosis Status: Resolved Assessment/Plan Acute kidney injury-nephrology is assisting with this. Presently is still an active issue will have to be cautious syndrome and judicious with his medications. Subjective 24 Hr Interval Summary Free Text/Dictation Charming gentleman speaking A[place]i Constitutional: no complaints (Denies fevers chills or sweats) Respiratory: no complaints (Denies cough or shortness of breath) Cardiovascular: no complaints Gastrointestinal: no complaints Genitourinary: other (Chronic Li catheter) Exam/Review of Systems Vital Signs Vitals Vital Signs Date Time Temp Pulse Resp B/P Pulse Ox O2 Delivery O2 Flow Rate FiO2 08/28/16 04:00 71 08/28/16 03:24 97.9 20 160/92 99 Intake and Output 08/27/16 08/27/16 08/28/16 15:00 23:00 07:00 Intake Total 640 ml 200 ml Output Total 1300 ml 2800 ml Balance -660 ml -2600 ml Exam Constitutional: alert, oriented Eyes: EOMI, PERRL, nl conjunctiva, nl lids, nl sclera Neck: non-tender, supple Respiratory: clear to auscultation, normal air movement Cardiovascular: nl pulses, regular rate and rhythm Gastrointestinal: nl liver, spleen, non-tender, soft Genitourinary - Male: other (Li catheter) Extremities: other (Bilateral lower extremity heel wounds dressed) Results Result Diagram: 08/27/16 0745 08/27/16 0745 Results 24 hrs Laboratory Tests Test 08/27/16 07:45 08/27/16 07:55 08/27/16 12:24 08/27/16 17:24 White Blood Count 8.3 Red Blood Count 4.29 L Hemoglobin 12.6 L Hematocrit 39.6 L Mean Corpuscular Volume 92.3 Mean Corpuscular Hemoglobin 29.4 Mean Corpuscular Hemoglobin Concent 31.8 L Red Cell Distribution Width 14.2 Platelet Count 324 Mean Platelet Volume 9.3 Neutrophils % 73.9 Lymphocytes % 16.4 Monocytes % 7.2 Eosinophils % 1.7 Basophils % 0.4 Nucleated Red Blood Cells % 0.0 Neutrophils # 6.1 Lymphocytes # 1.4 Monocytes # 0.6 Eosinophils # 0.1 Basophils # 0.0 Nucleated Red Blood Cells # 0.0 Sodium Level 142 Potassium Level 4.4 Chloride Level 115 H Carbon Dioxide Level 21 Anion Gap 10 # Blood Urea Nitrogen 26 H Creatinine 2.70 H Glucose Level 210 # Calcium Level 9.0 Phosphorus Level 5.6 H Magnesium Level 2.2 Bedside Glucose 184 142 178 Test 08/27/16 19:47 Bedside Glucose 225 H Medications Medications Current Medications Ondansetron HCl (Zofran Inj) 4 mg Q6H PRN IV NAUSEA AND/OR VOMITING; Start at 19:30 Acetaminophen (Tylenol Tab) 650 mg Q6H PRN PO PAIN LEVEL 1-3 OR FEVER Last administered on 08/26/16 09:25; Admin Dose 650 MG; Start 08/22/16 at 19:30 Acetaminophen/ Hydrocodone Bitart ([place] (5/325)) 1 tab Q6H PRN PO MODERATE PAIN LEVEL 4-6; Start 08/22/16 at 19:30 Morphine Sulfate (morphine) 2 mg Q4H PRN IV SEVERE PAIN LEVEL 7-10 Last administered on 08/27/16 08:28; Admin Dose 2 MG; Start 08/22/16 at 19:30 Zolpidem Tartrate (Ambien) 5 mg QHS PRN PO SLEEP; Start 08/22/16 at 19:30 Atorvastatin Calcium (Lipitor) 20 mg QHS PO Last administered on 08/27/16 20: 24; Admin Dose 20 MG; Start 08/22/16 at 21:00 Baclofen (Lioresal) 20 mg BID PO Last administered on 08/26/16 08:14; Admin Dose 20 MG; Start 08/22/16 at 21:00; Status Future Hold Docusate Sodium (Colace) 100 mg BID PRN PO CONSTIPATION Last administered on 20:24; Admin Dose 100 MG; Start 08/22/16 at 19:30 Ferrous Sulfate (Ferrous Sulfate (Ec)) 325 mg BID PO Last administered on 20:24; Admin Dose 325 MG; Start 08/22/16 at 21:00 Gabapentin (Neurontin) 600 mg TID PO Last administered on 08/26/16 08:14; Admin Dose 600 MG; Start 08/22/16 at 21:00; Status Future Hold Lisinopril (Zestril) 2.5 mg DAILY PO Last administered on 08/26/16 09:26; Admin Dose 2.5 MG; Start 08/23/16 at 09:00; Status Future Hold Diagnostic Test (Pha) (Accu-Chek) 1 ea 02 XX Last administered on 08/28/16 01: 11; Admin Dose 1 EA; Start 08/23/16 at 02:00 Miscellaneous Information 1 ea NOTE XX ; Start 08/22/16 at 21:00 Glucose (Glutose) 15 gm Q15M PRN PO DECREASED GLUCOSE; Start 08/22/16 at 21:00 Glucose (Glutose) 22.5 gm Q15M PRN PO DECREASED GLUCOSE; Start 08/22/16 at 21: 00 Dextrose (D50w Syringe) 25 ml Q15M PRN IV DECREASED GLUCOSE; Start 08/22/16 at 21:00 Dextrose (D50w Syringe) 50 ml Q15M PRN IV DECREASED GLUCOSE; Start 08/22/16 at 21:00 Glucagon (Glucagen) 1 mg Q15M PRN IM DECREASED GLUCOSE; Start 08/22/16 at 21:00 Glucose (Glutose) 15 gm Q15M PRN BUCCAL DECREASED GLUCOSE; Start 08/22/16 at 21 :00 Collagenase 1 applic 1 applic DAILY TOP Last administered on 08/27/16 13:32; Admin Dose 1 APPLIC; Start 08/23/16 at 09:00 Vancomycin HCl (Vancocin) 250 ml @ 125 mls/hr Q12H IVPB Last administered on 00:52; Admin Dose 125 MLS/HR; Start 08/25/16 at 01:00; Status Future Hold Insulin Glargine (Lantus) 37 unit QHS SC Last administered on 08/27/16 20:30; Admin Dose 37 UNIT; Start 08/25/16 at 21:00 Heparin Sodium (Porcine) 5000 unit 5,000 unit Q8 SC Last administered on 05:10; Admin Dose 5,000 UNIT; Start 08/26/16 at 14:00 Sodium Chloride 1,000 ml @ 80 mls/hr [id number] IV Last administered on 12:26; Admin Dose 80 MLS/HR; Start 08/26/16 at 12:30 Piperacillin Sod/ Tazobactam Sod (Zosyn 2.25gm/ 50ml (Pmx)) 50 ml @ 100 mls/hr Q6 IVPB Last administered on 08/28/16 05:06; Admin Dose 100 MLS/HR; Start at 18:30 Amlodipine Besylate (Norvasc) 10 mg DAILY PO ; Start 08/28/16 at 09:00 JESÚS BARTHOLOMEW MD Aug 28, 2016 06:34
[2016-08-28 08:14] LABS: ADD SCAN DIFF NO; BASOPHILS % 0.3 % (0.0-2.0); EOSINOPHILS # 0.2 10^3/ul (0.0-0.5); EOSINOPHILS % 1.5 % (0.0-7.0); HEMOGLOBIN 12.9 g/dl (14.0-18.0); LYMPHOCYTES # 1.6 10^3/ul (0.8-2.9); LYMPHOCYTES % 16.2 % (15.0-51.0); MEAN CORPUSCULAR HEMOGLOBIN 29.4 pg (29.0-33.0); MEAN CORPUSCULAR HGB CONC 32.3 g/dl (32.0-37.0); MEAN CORPUSCULAR VOLUME 91.1 fl (82.0-101.0); MEAN PLATELET VOLUME 9.3 fl (7.4-10.4); MONOCYTE # 1.1 10^3/ul (0.3-0.9); MONOCYTES % 10.8 % (0.0-11.0); NEUTROPHIL # 6.9 10^3/ul (1.6-7.5); NEUTROPHILS % 70.9 % (39.0-77.0); PLATELET COUNT 341 10^3/UL (140-415); RED BLOOD COUNT 4.39 10^6/ul (4.70-6.10); RED CELL DISTRIBUTION WIDTH 14.1 % (11.5-14.5); WHITE BLOOD COUNT 9.7 10^3/ul (4.8-10.8)
[2016-08-28] MEDS: INSULIN ASPART [NOVOLOG] 3 ML PEN SC SCH ×7 (08:23→21:00)
[2016-08-28] MEDS: AMLODIPINE 10 MG TAB PO SCH (08:26)
[2016-08-28] MEDS: LINAGLIPTIN 5 MG TABLET PO SCH (08:26)
[2016-08-28] MEDS: FERROUS SULFATE (EC) 325 MG TAB PO SCH ×2 (08:26→21:21)
[2016-08-28] MEDS: COLLAGENASE 30 GM TUBE TOP SCH (08:27)
[2016-08-28 08:37] LABS: CALCIUM 9.2 mg/dl (8.4-10.2); CREATININE 2.82 mg/dl (0.61-1.24); MAGNESIUM 2.2 mg/dl (1.7-2.5); PHOSPHORUS 4.8 mg/dl (2.5-4.9); POTASSIUM 4.1 mmol/L (3.5-5.1)
[2016-08-28 10:56] LABS: IRON 43 ug/dl (35-150)
[2016-08-28 11:06] LABS: TOTAL IRON BINDING CAPACITY 224 ug/dl (241-421)
--- NOTE | 2016-08-28 13:33 | CONS ---
Date/Time of Note Date/Time of Note DATE: 08/28/16 TIME: 13:27 Assessment/Plan Assessment/Plan Additional Assessment/Plan * ARF: due to allie/ atn: cr at a plateau. uo and volue status stable. cont holding allie and check am labs * Chronic indwelling Li catheter: This is necessitated by the patient's post spinal injury paraplegia. Continue treatment. * Post-traumatic paraplegia: wheel chair bound, has chronic decubs * Decubitus ulcer of ankle: abx, followed by vascular * Peripheral vascular disease due to secondary diabetes: monitored by vascular * Essential hypertension: allie on hold due to arf. will monitor and adjust meds as needed * Hyperlipidemia: on statin * Diabetes mellitus type 2 in obese: on insulin and metformin held due to arf Consultation Date/Type/Reason Admit Date/Time Aug 22, 2016 at 15:58 Initial Consult Date 24 HR Interval Summary Free Text/Dictation confused, comfortable. family at bedside. no complaints Exam/Review of Systems Vital Signs Vitals Vital Signs Date Time Temp Pulse Resp B/P Pulse Ox O2 Delivery O2 Flow Rate FiO2 08/28/16 12:10 65 08/28/16 11:48 98.2 18 168/87 99 Intake and Output 08/27/16 08/27/16 08/28/16 15:00 23:00 07:00 Intake Total 640 ml 200 ml Output Total 1300 ml 2800 ml Balance -660 ml -2600 ml Exam Constitutional: other (confused) Head: atraumatic, normocephalic Neck: non-tender, supple Respiratory: clear to auscultation, diminished breath sounds Cardiovascular: edema, regular rate and rhythm Gastrointestinal: non-tender, soft Results Result Diagram: 08/28/16 0702 08/28/16 0702 Results 24 hrs Laboratory Tests Test 08/27/16 17:24 08/27/16 19:47 08/28/16 07:02 08/28/16 08:11 Bedside Glucose 178 225 H 155 White Blood Count 9.7 Red Blood Count 4.39 L Hemoglobin 12.9 L Hematocrit 40.0 L Mean Corpuscular Volume 91.1 Mean Corpuscular Hemoglobin 29.4 Mean Corpuscular Hemoglobin Concent 32.3 Red Cell Distribution Width 14.1 Platelet Count 341 Mean Platelet Volume 9.3 Neutrophils % 70.9 Lymphocytes % 16.2 Monocytes % 10.8 Eosinophils % 1.5 Basophils % 0.3 Nucleated Red Blood Cells % 0.0 Neutrophils # 6.9 Lymphocytes # 1.6 Monocytes # 1.1 H Eosinophils # 0.2 Basophils # 0.0 Nucleated Red Blood Cells # 0.0 Sodium Level 142 Potassium Level 4.1 Chloride Level 113 H Carbon Dioxide Level 21 Anion Gap 12 Blood Urea Nitrogen 35 H Creatinine 2.82 H Glucose Level 189 Calcium Level 9.2 Phosphorus Level 4.8 Magnesium Level 2.2 Iron Level 43 Total Iron Binding Capacity 224 L Percent Iron Saturation 19 L Ferritin 146.0 Hepatitis B Surface Antigen NEGATIVE Hepatitis C Antibody NEGATIVE Test 08/28/16 12:15 Bedside Glucose 148 Medications Medications Current Medications Ondansetron HCl (Zofran Inj) 4 mg Q6H PRN IV NAUSEA AND/OR VOMITING; Start at 19:30 Acetaminophen (Tylenol Tab) 650 mg Q6H PRN PO PAIN LEVEL 1-3 OR FEVER Last administered on 08/26/16 09:25; Admin Dose 650 MG; Start 08/22/16 at 19:30 Acetaminophen/ Hydrocodone Bitart ([place] (5/325)) 1 tab Q6H PRN PO MODERATE PAIN LEVEL 4-6; Start 08/22/16 at 19:30 Morphine Sulfate (morphine) 2 mg Q4H PRN IV SEVERE PAIN LEVEL 7-10 Last administered on 08/27/16 08:28; Admin Dose 2 MG; Start 08/22/16 at 19:30 Zolpidem Tartrate (Ambien) 5 mg QHS PRN PO SLEEP; Start 08/22/16 at 19:30 Atorvastatin Calcium (Lipitor) 20 mg QHS PO Last administered on 08/27/16 20: 24; Admin Dose 20 MG; Start 08/22/16 at 21:00 Baclofen (Lioresal) 20 mg BID PO Last administered on 08/26/16 08:14; Admin Dose 20 MG; Start 08/22/16 at 21:00; Status Future Hold Docusate Sodium (Colace) 100 mg BID PRN PO CONSTIPATION Last administered on 20:24; Admin Dose 100 MG; Start 08/22/16 at 19:30 Ferrous Sulfate (Ferrous Sulfate (Ec)) 325 mg BID PO Last administered on 08:26; Admin Dose 325 MG; Start 08/22/16 at 21:00 Gabapentin (Neurontin) 600 mg TID PO Last administered on 08/26/16 08:14; Admin Dose 600 MG; Start 08/22/16 at 21:00; Status Future Hold Lisinopril (Zestril) 2.5 mg DAILY PO Last administered on 08/26/16 09:26; Admin Dose 2.5 MG; Start 08/23/16 at 09:00; Status Future Hold Diagnostic Test (Pha) (Accu-Chek) 1 ea 02 XX Last administered on 08/28/16 01: 11; Admin Dose 1 EA; Start 08/23/16 at 02:00 Miscellaneous Information 1 ea NOTE XX ; Start 08/22/16 at 21:00 Glucose (Glutose) 15 gm Q15M PRN PO DECREASED GLUCOSE; Start 08/22/16 at 21:00 Glucose (Glutose) 22.5 gm Q15M PRN PO DECREASED GLUCOSE; Start 08/22/16 at 21: 00 Dextrose (D50w Syringe) 25 ml Q15M PRN IV DECREASED GLUCOSE; Start 08/22/16 at 21:00 Dextrose (D50w Syringe) 50 ml Q15M PRN IV DECREASED GLUCOSE; Start 08/22/16 at 21:00 Glucagon (Glucagen) 1 mg Q15M PRN IM DECREASED GLUCOSE; Start 08/22/16 at 21:00 Glucose (Glutose) 15 gm Q15M PRN BUCCAL DECREASED GLUCOSE; Start 08/22/16 at 21 :00 Collagenase 1 applic 1 applic DAILY TOP Last administered on 08/28/16 08:27; Admin Dose 1 APPLIC; Start 08/23/16 at 09:00 Vancomycin HCl (Vancocin) 250 ml @ 125 mls/hr Q12H IVPB Last administered on 00:52; Admin Dose 125 MLS/HR; Start 08/25/16 at 01:00; Status Future Hold Insulin Glargine (Lantus) 37 unit QHS SC Last administered on 08/27/16 20:30; Admin Dose 37 UNIT; Start 08/25/16 at 21:00 Heparin Sodium (Porcine) 5000 unit 5,000 unit Q8 SC Last administered on 13:23; Admin Dose 5,000 UNIT; Start 08/26/16 at 14:00 Sodium Chloride 1,000 ml @ 80 mls/hr [id number] IV Last administered on 12:31; Admin Dose 80 MLS/HR; Start 08/26/16 at 12:30 Piperacillin Sod/ Tazobactam Sod (Zosyn 2.25gm/ 50ml (Pmx)) 50 ml @ 100 mls/hr Q6 IVPB Last administered on 08/28/16 12:16; Admin Dose 100 MLS/HR; Start at 18:30 Amlodipine Besylate (Norvasc) 10 mg DAILY PO Last administered on 08/28/16 08: 26; Admin Dose 10 MG; Start 08/28/16 at 09:00 Linagliptin (Tradjenta) 5 mg DAILY PO Last administered on 08/28/16 08:26; Admin Dose 5 MG; Start 08/28/16 at 09:00 ANGELITA ESCOBAR MD Aug 28, 2016 13:33
--- NOTE | 2016-08-28 21:11 | PN ---
Date/Time of Note Date/Time of Note DATE: 08/28/16 TIME: 21:11 Assessment/Plan Lines/Catheters IV Catheter Type (from [facility]): Peripheral IV Li in Place (from [facility]): Yes Exam/Review of Systems Vital Signs Vitals Vital Signs Date Time Temp Pulse Resp B/P Pulse Ox O2 Delivery O2 Flow Rate FiO2 08/28/16 20:08 78 08/28/16 15:45 97.4 18 139/77 99 Intake and Output 08/27/16 08/27/16 08/28/16 15:00 23:00 07:00 Intake Total 640 ml 200 ml Output Total 1300 ml 2800 ml Balance -660 ml -2600 ml Results Result Diagram: 08/28/16 0702 08/28/16 0702 ANABEL MEEKS DPM Aug 28, 2016 21:11
[2016-08-28] MEDS: ATORVASTATIN 20 MG TAB PO SCH (21:21)
[2016-08-28] MEDS: INSULIN GLARGINE [LANtus] 3 ML PEN SC SCH (21:30)
[2016-08-29] VITALS (10 sets, daily range): BP systolic 134–170; BP diastolic 63–88; PULSE 82–119; RESP 16–20
[2016-08-29] MEDS: PIPER-TAZO 2.25 GM (PMX) 50 ML IVPB SCH ×5 (00:13→23:45)
[2016-08-29] MEDS: ACCUCHECK AT 2AM (Patients on SS coverage) XX SCH (02:53)
[2016-08-29] MEDS: SOD CHLORIDE 0.9% 1,000 ML IV SCH ×3 (02:55→17:58)
[2016-08-29] MEDS: HEPARIN 5,000 UNIT/0.5 ML VIAL SC SCH ×3 (05:19→21:37)
[2016-08-29 07:43] LABS: ADD SCAN DIFF NO
[2016-08-29 07:47] LABS: BASOPHILS % 0.3 % (0.0-2.0); EOSINOPHILS # 0.1 10^3/ul (0.0-0.5); EOSINOPHILS % 1.2 % (0.0-7.0); HEMATOCRIT 38.7 % (42.0-52.0); HEMOGLOBIN 12.6 g/dl (14.0-18.0); LYMPHOCYTES # 1.6 10^3/ul (0.8-2.9); MEAN CORPUSCULAR HEMOGLOBIN 29.4 pg (29.0-33.0); MEAN CORPUSCULAR HGB CONC 32.6 g/dl (32.0-37.0); MEAN CORPUSCULAR VOLUME 90.2 fl (82.0-101.0); MEAN PLATELET VOLUME 9.1 fl (7.4-10.4); MONOCYTE # 0.8 10^3/ul (0.3-0.9); MONOCYTES % 9.3 % (0.0-11.0); NEUTROPHIL # 6.2 10^3/ul (1.6-7.5); NEUTROPHILS % 70.7 % (39.0-77.0); PLATELET COUNT 333 10^3/UL (140-415); RED BLOOD COUNT 4.29 10^6/ul (4.70-6.10); RED CELL DISTRIBUTION WIDTH 14.3 % (11.5-14.5); WHITE BLOOD COUNT 8.8 10^3/ul (4.8-10.8)
[2016-08-29] MEDS: INSULIN ASPART [NOVOLOG] 3 ML PEN SC SCH ×9 (08:00→21:36)
[2016-08-29 08:15] LABS: ALBUMIN 3.4 g/dl (3.3-4.9); POTASSIUM 3.7 mmol/L (3.5-5.1)
[2016-08-29 08:17] LABS: CREATININE 2.86 mg/dl (0.61-1.24)
[2016-08-29 08:18] LABS: ALBUMIN/GLOBULIN RATIO 0.85; BILIRUBIN,INDIRECT 0.2 mg/dl (0-1.1); BILIRUBIN,TOTAL 0.2 mg/dl (0.2-1.3); MAGNESIUM 2.2 mg/dl (1.7-2.5); TOTAL PROTEIN 7.4 g/dl (6.1-8.1)
--- NOTE | 2016-08-29 08:56 | PN ---
Date/Time of Note Date/Time of Note DATE: 08/29/16 TIME: 08:52 Assessment/Plan VTE Prophylaxis VTE Prophylaxis Intervention: heparin Lines/Catheters IV Catheter Type (from [facility]): Peripheral IV Urinary Cath still in place: Yes Reason Cath still needed: pres ulcer contaminated by urine Assessment/Plan Problems: (1) Acute kidney injury Status: Acute Comment: The rising creatinine has stabilized. Hopefully this will start to turn around. Nephrology is assisting in his management. Medications are dose adjusted (2) Post-traumatic paraplegia Status: Chronic Comment: This is post injury several years ago and stable and unchanging. The consequences and sequelae of this however are actively flavoring is medical care. (3) Decubitus ulcer of ankle Status: Chronic Comment: As per the note left by vascular surgery he may be facing further debridement and/or amputation. The family wishes to have a conference on this with the vascular surgeon and podiatry Qualifiers: Pressure ulcer stage: stage 2 Laterality: unspecified laterality Qualified Code: L89.502 - Decubitus ulcer of ankle, stage 2, unspecified laterality (4) Peripheral vascular disease due to secondary diabetes Status: Chronic Comment: Noted and on optimal medications (5) Left inguinal hernia Onset Date: ~ 10/2015 Status: Chronic Comment: Noted no intervention needed (6) Essential hypertension Status: Chronic Comment: Adequate control on present medication regimen (7) Hyperlipidemia Status: Chronic Comment: On statin therapy Qualifiers: Hyperlipidemia type: pure hypercholesterolemia Qualified Code: E78.00 - Pure hypercholesterolemia (8) Diabetes mellitus type 2 in obese Status: Chronic Comment: Excellent control with adjustment medications (9) Chronic indwelling Li catheter Status: Chronic Comment: Sequela light of the paraplegia. We have no choice is here (10) Wheelchair bound Status: Chronic Comment: Sequela of the paraplegia here. This is of course led to decubiti which we are having to deal with Subjective 24 Hr Interval Summary Free Text/Dictation Bit more awake and alert today eating breakfast Constitutional: no complaints (Denies fevers chills or sweats) Respiratory: no complaints Cardiovascular: no complaints Gastrointestinal: no complaints Exam/Review of Systems Vital Signs Vitals Vital Signs Date Time Temp Pulse Resp B/P Pulse Ox O2 Delivery O2 Flow Rate FiO2 08/29/16 08:19 96 08/29/16 07:32 99.1 18 136/79 95 Intake and Output 08/28/16 08/28/16 08/29/16 15:00 23:00 07:00 Intake Total 720 ml 1460 ml Output Total 1600 ml 2100 ml Balance -880 ml -640 ml Exam Constitutional: alert, oriented Respiratory: clear to auscultation, normal air movement Cardiovascular: nl pulses, regular rate and rhythm Gastrointestinal: nl liver, spleen, non-tender, soft Results Result Diagram: 08/29/16 0710 08/29/16 0710 Results 24 hrs Laboratory Tests Test 08/28/16 12:15 08/28/16 14:56 08/28/16 18:26 08/28/16 21:23 Bedside Glucose 148 129 107 Osmolality 308 H Test 08/29/16 02:52 08/29/16 07:10 08/29/16 08:04 Bedside Glucose 120 110 White Blood Count 8.8 Red Blood Count 4.29 L Hemoglobin 12.6 L Hematocrit 38.7 L Mean Corpuscular Volume 90.2 Mean Corpuscular Hemoglobin 29.4 Mean Corpuscular Hemoglobin Concent 32.6 Red Cell Distribution Width 14.3 Platelet Count 333 Mean Platelet Volume 9.1 Neutrophils % 70.7 Lymphocytes % 18.0 Monocytes % 9.3 Eosinophils % 1.2 Basophils % 0.3 Nucleated Red Blood Cells % 0.0 Neutrophils # 6.2 Lymphocytes # 1.6 Monocytes # 0.8 Eosinophils # 0.1 Basophils # 0.0 Nucleated Red Blood Cells # 0.0 Sodium Level 144 Potassium Level 3.7 Chloride Level 111 H Carbon Dioxide Level 20 L Anion Gap 17 H Blood Urea Nitrogen 44 H Creatinine 2.86 H Glucose Level 119 # Calcium Level 9.0 Magnesium Level 2.2 Total Bilirubin 0.2 Direct Bilirubin 0.00 Indirect Bilirubin 0.2 Aspartate Amino Transf (AST/SGOT) 39 Alanine Aminotransferase (ALT/SGPT) 47 Alkaline Phosphatase 61 Total Protein 7.4 Albumin 3.4 Globulin 4.00 H Albumin/Globulin Ratio 0.85 Medications Medications Current Medications Ondansetron HCl (Zofran Inj) 4 mg Q6H PRN IV NAUSEA AND/OR VOMITING; Start at 19:30 Acetaminophen (Tylenol Tab) 650 mg Q6H PRN PO PAIN LEVEL 1-3 OR FEVER Last administered on 08/26/16t 09:25; Admin Dose 650 MG; Start 08/22/16 at 19:30 Acetaminophen/ Hydrocodone Bitart ([place] (5/325)) 1 tab Q6H PRN PO MODERATE PAIN LEVEL 4-6; Start 08/22/16 at 19:30 Morphine Sulfate (morphine) 2 mg Q4H PRN IV SEVERE PAIN LEVEL 7-10 Last administered on 08/27/16 08:28; Admin Dose 2 MG; Start 08/22/16 at 19:30 Zolpidem Tartrate (Ambien) 5 mg QHS PRN PO SLEEP; Start 08/22/16 at 19:30 Atorvastatin Calcium (Lipitor) 20 mg QHS PO Last administered on 08/28/16 21: 21; Admin Dose 20 MG; Start 08/22/16 at 21:00 Baclofen (Lioresal) 20 mg BID PO Last administered on 08/26/16 08:14; Admin Dose 20 MG; Start 08/22/16 at 21:00; Status Future Hold Docusate Sodium (Colace) 100 mg BID PRN PO CONSTIPATION Last administered on 20:24; Admin Dose 100 MG; Start 08/22/16 at 19:30 Ferrous Sulfate (Ferrous Sulfate (Ec)) 325 mg BID PO Last administered on 21:21; Admin Dose 325 MG; Start 08/22/16 at 21:00 Gabapentin (Neurontin) 600 mg TID PO Last administered on 08/26/16 08:14; Admin Dose 600 MG; Start 08/22/16 at 21:00; Status Future Hold Lisinopril (Zestril) 2.5 mg DAILY PO Last administered on 08/26/16 09:26; Admin Dose 2.5 MG; Start 08/23/16 at 09:00; Status Future Hold Diagnostic Test (Pha) (Accu-Chek) 1 ea 02 XX Last administered on 08/29/16 02: 53; Admin Dose 1 EA; Start 08/23/16 at 02:00 Miscellaneous Information 1 ea NOTE XX ; Start 08/22/16 at 21:00 Glucose (Glutose) 15 gm Q15M PRN PO DECREASED GLUCOSE; Start 08/22/16 at 21:00 Glucose (Glutose) 22.5 gm Q15M PRN PO DECREASED GLUCOSE; Start 08/22/16 at 21: 00 Dextrose (D50w Syringe) 25 ml Q15M PRN IV DECREASED GLUCOSE; Start 08/22/16 at 21:00 Dextrose (D50w Syringe) 50 ml Q15M PRN IV DECREASED GLUCOSE; Start 08/22/16 at 21:00 Glucagon (Glucagen) 1 mg Q15M PRN IM DECREASED GLUCOSE; Start 08/22/16 at 21:00 Glucose (Glutose) 15 gm Q15M PRN BUCCAL DECREASED GLUCOSE; Start 08/22/16 at 21 :00 Collagenase 1 applic 1 applic DAILY TOP Last administered on 08/28/16 08:27; Admin Dose 1 APPLIC; Start 08/23/16 at 09:00 Vancomycin HCl (Vancocin) 250 ml @ 125 mls/hr Q12H IVPB Last administered on 00:52; Admin Dose 125 MLS/HR; Start 08/25/16 at 01:00; Status Future Hold Insulin Glargine (Lantus) 37 unit QHS SC Last administered on 08/28/16 21:30; Admin Dose 37 UNIT; Start 08/25/16 at 21:00 Heparin Sodium (Porcine) 5000 unit 5,000 unit Q8 SC Last administered on 05:19; Admin Dose 5,000 UNIT; Start 08/26/16 at 14:00 Sodium Chloride 1,000 ml @ 80 mls/hr [id number] IV Last administered on 02:55; Admin Dose 80 MLS/HR; Start 08/26/16 at 12:30 Piperacillin Sod/ Tazobactam Sod (Zosyn 2.25gm/ 50ml (Pmx)) 50 ml @ 100 mls/hr Q6 IVPB Last administered on 08/29/16 05:16; Admin Dose 100 MLS/HR; Start at 18:30 Amlodipine Besylate (Norvasc) 10 mg DAILY PO Last administered on 08/28/16 08: 26; Admin Dose 10 MG; Start 08/28/16 at 09:00 Linagliptin (Tradjenta) 5 mg DAILY PO Last administered on 08/28/16 08:26; Admin Dose 5 MG; Start 08/28/16 at 09:00 JESÚS BARTHOLOMEW MD Aug 29, 2016 08:56
[2016-08-29] MEDS: LINAGLIPTIN 5 MG TABLET PO SCH (09:33)
[2016-08-29] MEDS: FERROUS SULFATE (EC) 325 MG TAB PO SCH ×2 (09:33→21:23)
[2016-08-29] MEDS: AMLODIPINE 10 MG TAB PO SCH (09:33)
[2016-08-29] MEDS: COLLAGENASE 30 GM TUBE TOP SCH (09:35)
--- NOTE | 2016-08-29 12:01 | CONS ---
Date/Time of Note Date/Time of Note DATE: 08/29/16 TIME: 12:00 Assessment/Plan Assessment/Plan Additional Assessment/Plan * ARF: due to allie/ atn: cr at a plateau. uo and volume status stable. cont holding allie and check am labs * Chronic indwelling Li catheter: This is necessitated by the patient's post spinal injury paraplegia. Continue treatment. * Post-traumatic paraplegia: wheel chair bound, has chronic decubs * Decubitus ulcer of ankle: abx, followed by vascular * Peripheral vascular disease due to secondary diabetes: monitored by vascular * Essential hypertension: allie on hold due to arf. will monitor and adjust meds as needed * Hyperlipidemia: on statin * Diabetes mellitus type 2 in obese: on insulin and metformin held due to arf Consultation Date/Type/Reason Admit Date/Time Aug 22, 2016 at 15:58 24 HR Interval Summary Free Text/Dictation comfortable. no complaints Exam/Review of Systems Vital Signs Vitals Vital Signs Date Time Temp Pulse Resp B/P Pulse Ox O2 Delivery O2 Flow Rate FiO2 08/29/16 08:19 96 08/29/16 07:32 99.1 18 136/79 95 Intake and Output 08/28/16 08/28/16 08/29/16 15:00 23:00 07:00 Intake Total 720 ml 1460 ml Output Total 1600 ml 2100 ml Balance -880 ml -640 ml Exam Constitutional: alert, other (confused) Psych: no complaints Head: normocephalic Neck: non-tender, supple Respiratory: diminished breath sounds Cardiovascular: edema (legs wrapped), regular rate and rhythm Gastrointestinal: non-tender, soft Results Result Diagram: 08/29/16 0710 08/29/16 0710 Results 24 hrs Laboratory Tests Test 08/28/16 12:15 08/28/16 14:56 08/28/16 18:26 08/28/16 21:23 Bedside Glucose 148 129 107 Osmolality 308 H Test 08/29/16 02:52 08/29/16 07:10 08/29/16 08:04 Bedside Glucose 120 110 White Blood Count 8.8 Red Blood Count 4.29 L Hemoglobin 12.6 L Hematocrit 38.7 L Mean Corpuscular Volume 90.2 Mean Corpuscular Hemoglobin 29.4 Mean Corpuscular Hemoglobin Concent 32.6 Red Cell Distribution Width 14.3 Platelet Count 333 Mean Platelet Volume 9.1 Neutrophils % 70.7 Lymphocytes % 18.0 Monocytes % 9.3 Eosinophils % 1.2 Basophils % 0.3 Nucleated Red Blood Cells % 0.0 Neutrophils # 6.2 Lymphocytes # 1.6 Monocytes # 0.8 Eosinophils # 0.1 Basophils # 0.0 Nucleated Red Blood Cells # 0.0 Sodium Level 144 Potassium Level 3.7 Chloride Level 111 H Carbon Dioxide Level 20 L Anion Gap 17 H Blood Urea Nitrogen 44 H Creatinine 2.86 H Glucose Level 119 # Calcium Level 9.0 Magnesium Level 2.2 Total Bilirubin 0.2 Direct Bilirubin 0.00 Indirect Bilirubin 0.2 Aspartate Amino Transf (AST/SGOT) 39 Alanine Aminotransferase (ALT/SGPT) 47 Alkaline Phosphatase 61 Total Protein 7.4 Albumin 3.4 Globulin 4.00 H Albumin/Globulin Ratio 0.85 Medications Medications Current Medications Ondansetron HCl (Zofran Inj) 4 mg Q6H PRN IV NAUSEA AND/OR VOMITING; Start at 19:30 Acetaminophen (Tylenol Tab) 650 mg Q6H PRN PO PAIN LEVEL 1-3 OR FEVER Last administered on 08/26/16 09:25; Admin Dose 650 MG; Start 08/22/16 at 19:30 Acetaminophen/ Hydrocodone Bitart ([place] (5/325)) 1 tab Q6H PRN PO MODERATE PAIN LEVEL 4-6; Start 08/22/16 at 19:30 Morphine Sulfate (morphine) 2 mg Q4H PRN IV SEVERE PAIN LEVEL 7-10 Last administered on 08/27/16 08:28; Admin Dose 2 MG; Start 08/22/16 at 19:30 Zolpidem Tartrate (Ambien) 5 mg QHS PRN PO SLEEP; Start 08/22/16 at 19:30 Atorvastatin Calcium (Lipitor) 20 mg QHS PO Last administered on 08/28/16 21: 21; Admin Dose 20 MG; Start 08/22/16 at 21:00 Baclofen (Lioresal) 20 mg BID PO Last administered on 08/26/16 08:14; Admin Dose 20 MG; Start 08/22/16 at 21:00; Status Future Hold Docusate Sodium (Colace) 100 mg BID PRN PO CONSTIPATION Last administered on 20:24; Admin Dose 100 MG; Start 08/22/16 at 19:30 Ferrous Sulfate (Ferrous Sulfate (Ec)) 325 mg BID PO Last administered on 09:33; Admin Dose 325 MG; Start 08/22/16 at 21:00 Gabapentin (Neurontin) 600 mg TID PO Last administered on 08/26/16 08:14; Admin Dose 600 MG; Start 08/22/16 at 21:00; Status Future Hold Lisinopril (Zestril) 2.5 mg DAILY PO Last administered on 08/26/16 09:26; Admin Dose 2.5 MG; Start 08/23/16 at 09:00; Status Future Hold Diagnostic Test (Pha) (Accu-Chek) 1 ea 02 XX Last administered on 08/29/16 02: 53; Admin Dose 1 EA; Start 08/23/16 at 02:00 Miscellaneous Information 1 ea NOTE XX ; Start 08/22/16 at 21:00 Glucose (Glutose) 15 gm Q15M PRN PO DECREASED GLUCOSE; Start 08/22/16 at 21:00 Glucose (Glutose) 22.5 gm Q15M PRN PO DECREASED GLUCOSE; Start 08/22/16 at 21: 00 Dextrose (D50w Syringe) 25 ml Q15M PRN IV DECREASED GLUCOSE; Start 08/22/16 at 21:00 Dextrose (D50w Syringe) 50 ml Q15M PRN IV DECREASED GLUCOSE; Start 08/22/16 at 21:00 Glucagon (Glucagen) 1 mg Q15M PRN IM DECREASED GLUCOSE; Start 08/22/16 at 21:00 Glucose (Glutose) 15 gm Q15M PRN BUCCAL DECREASED GLUCOSE; Start 08/22/16 at 21 :00 Collagenase 1 applic 1 applic DAILY TOP Last administered on 08/29/16 09:35; Admin Dose 1 APPLIC; Start 08/23/16 at 09:00 Vancomycin HCl (Vancocin) 250 ml @ 125 mls/hr Q12H IVPB Last administered on 00:52; Admin Dose 125 MLS/HR; Start 08/25/16 at 01:00; Status Future Hold Insulin Glargine (Lantus) 37 unit QHS SC Last administered on 08/28/16 21:30; Admin Dose 37 UNIT; Start 08/25/16 at 21:00 Heparin Sodium (Porcine) 5000 unit 5,000 unit Q8 SC Last administered on 05:19; Admin Dose 5,000 UNIT; Start 08/26/16 at 14:00 Sodium Chloride 1,000 ml @ 80 mls/hr [id number] IV Last administered on 02:55; Admin Dose 80 MLS/HR; Start 08/26/16 at 12:30 Piperacillin Sod/ Tazobactam Sod (Zosyn 2.25gm/ 50ml (Pmx)) 50 ml @ 100 mls/hr Q6 IVPB Last administered on 08/29/16 05:16; Admin Dose 100 MLS/HR; Start at 18:30 Amlodipine Besylate (Norvasc) 10 mg DAILY PO Last administered on 08/29/16 09: 33; Admin Dose 10 MG; Start 08/28/16 at 09:00 Linagliptin (Tradjenta) 5 mg DAILY PO Last administered on 08/29/16 09:33; Admin Dose 5 MG; Start 08/28/16 at 09:00 Acetylcysteine (Nac) 1,200 mg BID PO ; Start 08/29/16 at 09:00; Stop 09/01/16 at 08:59 ANGELITA ESCOBAR MD Aug 29, 2016 12:01
[2016-08-29] MEDS: ACETYLCYSTEINE 600 MG CAP PO SCH ×2 (12:06→21:26)
[2016-08-29] MEDS: ATORVASTATIN 20 MG TAB PO SCH (21:23)
[2016-08-29] MEDS: INSULIN GLARGINE [LANtus] 3 ML PEN SC SCH (21:37)
[2016-08-29] MEDS ORDERED: hydrALAzine 20 MG INJ IV PRN (23:30)
[2016-08-30] VITALS (13 sets, daily range): BP systolic 102–162; BP diastolic 61–82; PULSE 72–94; RESP 16–20
[2016-08-30] MEDS: ACCUCHECK AT 2AM (Patients on SS coverage) XX SCH (02:45)
[2016-08-30] MEDS: PIPER-TAZO 2.25 GM (PMX) 50 ML IVPB SCH ×4 (05:47→23:53)
[2016-08-30] MEDS: HEPARIN 5,000 UNIT/0.5 ML VIAL SC SCH ×3 (05:50→22:08)
[2016-08-30 07:40] LABS: ADD SCAN DIFF NO
[2016-08-30 07:45] LABS: BASOPHILS % 0.3 % (0.0-2.0); EOSINOPHILS # 0.2 10^3/ul (0.0-0.5); EOSINOPHILS % 1.8 % (0.0-7.0); HEMATOCRIT 38.2 % (42.0-52.0); HEMOGLOBIN 12.5 g/dl (14.0-18.0); MEAN CORPUSCULAR HEMOGLOBIN 29.6 pg (29.0-33.0); MEAN CORPUSCULAR HGB CONC 32.7 g/dl (32.0-37.0); MEAN CORPUSCULAR VOLUME 90.3 fl (82.0-101.0); MEAN PLATELET VOLUME 9.3 fl (7.4-10.4); MONOCYTE # 1.4 10^3/ul (0.3-0.9); MONOCYTES % 13.6 % (0.0-11.0); NEUTROPHIL # 6.4 10^3/ul (1.6-7.5); NEUTROPHILS % 63.3 % (39.0-77.0); PLATELET COUNT 317 10^3/UL (140-415); RED BLOOD COUNT 4.23 10^6/ul (4.70-6.10); RED CELL DISTRIBUTION WIDTH 14.5 % (11.5-14.5); WHITE BLOOD COUNT 10.1 10^3/ul (4.8-10.8)
[2016-08-30 08:12] LABS: ALBUMIN 3.5 g/dl (3.3-4.9); ALBUMIN/GLOBULIN RATIO 0.89; BILIRUBIN,INDIRECT 0.1 mg/dl (0-1.1); BILIRUBIN,TOTAL 0.1 mg/dl (0.2-1.3); CALCIUM 9.2 mg/dl (8.4-10.2); CREATININE 2.91 mg/dl (0.61-1.24); POTASSIUM 3.3 mmol/L (3.5-5.1); TOTAL PROTEIN 7.4 g/dl (6.1-8.1)
--- NOTE | 2016-08-30 08:37 | CONS ---
Date/Time of Note Date/Time of Note DATE: 08/30/16 TIME: 08:36 Assessment/Plan Assessment/Plan Additional Assessment/Plan 1. Renal fx sl better, should improve over next several days 2. Low K+, will replete 3. Leg uclers, abx noted Consultation Date/Type/Reason Admit Date/Time Aug 22, 2016 at 15:58 Detailed Summary Respiratory: No shortness of breath Cardiovascular: No chest pain Gastrointestinal: no complaints Genitourinary: other (dailey in place) Exam/Review of Systems Vital Signs Vitals Vital Signs Date Time Temp Pulse Resp B/P Pulse Ox O2 Delivery O2 Flow Rate FiO2 08/30/16 08:28 78 08/30/16 07:46 98.0 16 117/65 96 08/29/16 21:40 Nasal Cannula 2.0 Intake and Output 08/29/16 08/29/16 08/30/16 15:00 23:00 07:00 Intake Total 400 ml 1560 ml Output Total 1250 ml 2200 ml Balance -850 ml -640 ml Exam Neck: No jvd Respiratory: clear to auscultation Cardiovascular: regular rate and rhythm Gastrointestinal: soft Extremities: No edema (legs are bandaged) Results Result Diagram: 08/30/16 0647 08/30/16 0647 Results 24 hrs Laboratory Tests Test 08/29/16 12:08 08/29/16 14:56 08/29/16 17:38 08/29/16 21:29 Bedside Glucose 184 218 249 H 212 Test 08/30/16 02:40 08/30/16 06:47 08/30/16 08:22 Bedside Glucose 235 H 154 White Blood Count 10.1 Red Blood Count 4.23 L Hemoglobin 12.5 L Hematocrit 38.2 L Mean Corpuscular Volume 90.3 Mean Corpuscular Hemoglobin 29.6 Mean Corpuscular Hemoglobin Concent 32.7 Red Cell Distribution Width 14.5 Platelet Count 317 Mean Platelet Volume 9.3 Neutrophils % 63.3 Lymphocytes % 20.0 Monocytes % 13.6 H Eosinophils % 1.8 Basophils % 0.3 Nucleated Red Blood Cells % 0.0 Neutrophils # 6.4 Lymphocytes # 2.0 Monocytes # 1.4 H Eosinophils # 0.2 Basophils # 0.0 Nucleated Red Blood Cells # 0.0 Sodium Level 145 H Potassium Level 3.3 L Chloride Level 116 H Carbon Dioxide Level 20 L Anion Gap 12 Blood Urea Nitrogen 43 H Creatinine 2.91 H Glucose Level 201 Calcium Level 9.2 Total Bilirubin 0.1 L Direct Bilirubin 0.00 Indirect Bilirubin 0.1 Aspartate Amino Transf (AST/SGOT) 29 Alanine Aminotransferase (ALT/SGPT) 43 Alkaline Phosphatase 73 Total Protein 7.4 Albumin 3.5 Globulin 3.90 H Albumin/Globulin Ratio 0.89 Medications Medications Current Medications Ondansetron HCl (Zofran Inj) 4 mg Q6H PRN IV NAUSEA AND/OR VOMITING; Start at 19:30 Acetaminophen (Tylenol Tab) 650 mg Q6H PRN PO PAIN LEVEL 1-3 OR FEVER Last administered on 08/26/16 09:25; Admin Dose 650 MG; Start 08/22/16 at 19:30 Acetaminophen/ Hydrocodone Bitart ([place] (5/325)) 1 tab Q6H PRN PO MODERATE PAIN LEVEL 4-6; Start 08/22/16 at 19:30 Morphine Sulfate (morphine) 2 mg Q4H PRN IV SEVERE PAIN LEVEL 7-10 Last administered on 08/27/16 08:28; Admin Dose 2 MG; Start 08/22/16 at 19:30 Zolpidem Tartrate (Ambien) 5 mg QHS PRN PO SLEEP; Start 08/22/16 at 19:30 Atorvastatin Calcium (Lipitor) 20 mg QHS PO Last administered on 08/29/16 21: 23; Admin Dose 20 MG; Start 08/22/16 at 21:00 Baclofen (Lioresal) 20 mg BID PO Last administered on 08/26/16 08:14; Admin Dose 20 MG; Start 08/22/16 at 21:00; Status Future Hold Docusate Sodium (Colace) 100 mg BID PRN PO CONSTIPATION Last administered on 20:24; Admin Dose 100 MG; Start 08/22/16 at 19:30 Ferrous Sulfate (Ferrous Sulfate (Ec)) 325 mg BID PO Last administered on 21:23; Admin Dose 325 MG; Start 08/22/16 at 21:00 Gabapentin (Neurontin) 600 mg TID PO Last administered on 08/26/16 08:14; Admin Dose 600 MG; Start 08/22/16 at 21:00; Status Future Hold Lisinopril (Zestril) 2.5 mg DAILY PO Last administered on 08/26/16 09:26; Admin Dose 2.5 MG; Start 08/23/16 at 09:00; Status Future Hold Diagnostic Test (Pha) (Accu-Chek) 1 ea 02 XX Last administered on 08/30/16 02: 45; Admin Dose 1 EA; Start 08/23/16 at 02:00 Miscellaneous Information 1 ea NOTE XX ; Start 08/22/16 at 21:00 Glucose (Glutose) 15 gm Q15M PRN PO DECREASED GLUCOSE; Start 08/22/16 at 21:00 Glucose (Glutose) 22.5 gm Q15M PRN PO DECREASED GLUCOSE; Start 08/22/16 at 21: 00 Dextrose (D50w Syringe) 25 ml Q15M PRN IV DECREASED GLUCOSE; Start 08/22/16 at 21:00 Dextrose (D50w Syringe) 50 ml Q15M PRN IV DECREASED GLUCOSE; Start 08/22/16 at 21:00 Glucagon (Glucagen) 1 mg Q15M PRN IM DECREASED GLUCOSE; Start 08/22/16 at 21:00 Glucose (Glutose) 15 gm Q15M PRN BUCCAL DECREASED GLUCOSE; Start 08/22/16 at 21 :00 Collagenase 1 applic 1 applic DAILY TOP Last administered on 08/29/16 09:35; Admin Dose 1 APPLIC; Start 08/23/16 at 09:00 Vancomycin HCl (Vancocin) 250 ml @ 125 mls/hr Q12H IVPB Last administered on 00:52; Admin Dose 125 MLS/HR; Start 08/25/16 at 01:00; Status Future Hold Insulin Glargine (Lantus) 37 unit QHS SC Last administered on 08/29/16 21:37; Admin Dose 37 UNIT; Start 08/25/16 at 21:00 Heparin Sodium (Porcine) 5000 unit 5,000 unit Q8 SC Last administered on 05:50; Admin Dose 5,000 UNIT; Start 08/26/16 at 14:00 Sodium Chloride 1,000 ml @ 80 mls/hr [id number] IV Last administered on 17:58; Admin Dose 80 MLS/HR; Start 08/26/16 at 12:30 Piperacillin Sod/ Tazobactam Sod (Zosyn 2.25gm/ 50ml (Pmx)) 50 ml @ 100 mls/hr Q6 IVPB Last administered on 08/30/16 05:47; Admin Dose 100 MLS/HR; Start 08/26 at 18:30 Amlodipine Besylate (Norvasc) 10 mg DAILY PO Last administered on 08/29/16 09: 33; Admin Dose 10 MG; Start 08/28/16 at 09:00 Linagliptin (Tradjenta) 5 mg DAILY PO Last administered on 08/29/16 09:33; Admin Dose 5 MG; Start 08/28/16 at 09:00 Acetylcysteine (Nac) 1,200 mg BID PO Last administered on 08/29/16 21:26; Admin Dose 1,200 MG; Start 08/29/16 at 09:00; Stop 09/01/16 at 08:59 Hydralazine HCl (Apresoline) 10 mg Q4H PRN IV ELEVATED BLOOD PRESSURE Last administered on 08/29/16 23:45; Admin Dose 10 MG; Start 08/29/16 at 23:30 Potassium Chloride (Klor-Con 20) 40 meq BID PO ; Start 08/30/16 at 09:00; Stop at 13:00; Status UNV LUDMILA CLAROS MD August 30, 2016 08:37
[2016-08-30] MEDS: INSULIN ASPART [NOVOLOG] 3 ML PEN SC SCH ×7 (08:50→21:00)
[2016-08-30] MEDS: SOD CHLORIDE 0.45% 1,000 ML IV SCH (08:53)
[2016-08-30] MEDS ORDERED: POTASSIUM CHLORIDE (SR) 20 MEQ TAB PO SCH (09:00)
[2016-08-30] MEDS: FERROUS SULFATE (EC) 325 MG TAB PO SCH ×2 (09:41→22:05)
[2016-08-30] MEDS: LINAGLIPTIN 5 MG TABLET PO SCH (09:41)
[2016-08-30] MEDS: ACETYLCYSTEINE 600 MG CAP PO SCH ×2 (09:41→22:06)
[2016-08-30] MEDS: AMLODIPINE 10 MG TAB PO SCH (09:42)
--- NOTE | 2016-08-30 14:57 | PN ---
Date/Time of Note Date/Time of Note DATE: 08/30/16 TIME: 14:53 Assessment/Plan VTE Prophylaxis VTE Prophylaxis Intervention: heparin Lines/Catheters IV Catheter Type (from Nrs): Peripheral IV Central line still needed: Yes Urinary Cath still in place: Yes Reason Cath still needed: urinary retention Assessment/Plan Chief Complaint/Hosp Course Assessment 1. Acute on chronic kidney injury 2. Lower extremity ulceration secondary to chronic bedbound status with underlying diabetes mellitus 3. Prior history of trauma with paraplegia 4. Resolving lactic acidosis 5. History of essential hypertension Plan 1. Continue renal recommendations 2. Continue wound care 3. Continue broad-spectrum antibiotics For DVT and GI prophylaxis Problems: Subjective 24 Hr Interval Summary Free Text/Dictation Patient comfortable at rest no acute distress Exam/Review of Systems Vital Signs Vitals Vital Signs Date Time Temp Pulse Resp B/P Pulse Ox O2 Delivery O2 Flow Rate FiO2 08/30/16 12:32 86 08/30/16 11:46 97.7 17 129/75 98 08/29/16 21:40 Nasal Cannula 2.0 Intake and Output 08/29/16 08/29/16 08/30/16 15:00 23:00 07:00 Intake Total 400 ml 1560 ml Output Total 1250 ml 2200 ml Balance -850 ml -640 ml Exam GENERAL: Chronically ill-appearing gentleman comfortable at rest VITAL SIGNS: per chart NECK: Supple. No JVD or lymphadenopathy. CARDIAC EXAM: S1, S2. No added sounds or murmurs. CHEST: clear bilaterally, No added sounds, rales or wheezes ABDOMEN: Soft, nontender. No guarding or rebound. EXTREMITIES: No cyanosis, clubbing or edema. NEUROLOGIC: Paraplegia Results Result Diagram: 08/30/16 0647 08/30/16 0647 Results 24 hrs Laboratory Tests Test 08/29/16 14:56 08/29/16 17:38 08/29/16 21:29 08/30/16 02:40 Bedside Glucose 218 249 H 212 235 H Test 08/30/16 06:47 08/30/16 08:22 08/30/16 12:15 White Blood Count 10.1 Red Blood Count 4.23 L Hemoglobin 12.5 L Hematocrit 38.2 L Mean Corpuscular Volume 90.3 Mean Corpuscular Hemoglobin 29.6 Mean Corpuscular Hemoglobin Concent 32.7 Red Cell Distribution Width 14.5 Platelet Count 317 Mean Platelet Volume 9.3 Neutrophils % 63.3 Lymphocytes % 20.0 Monocytes % 13.6 H Eosinophils % 1.8 Basophils % 0.3 Nucleated Red Blood Cells % 0.0 Neutrophils # 6.4 Lymphocytes # 2.0 Monocytes # 1.4 H Eosinophils # 0.2 Basophils # 0.0 Nucleated Red Blood Cells # 0.0 Sodium Level 145 H Potassium Level 3.3 L Chloride Level 116 H Carbon Dioxide Level 20 L Anion Gap 12 Blood Urea Nitrogen 43 H Creatinine 2.91 H Glucose Level 201 Calcium Level 9.2 Total Bilirubin 0.1 L Direct Bilirubin 0.00 Indirect Bilirubin 0.1 Aspartate Amino Transf (AST/SGOT) 29 Alanine Aminotransferase (ALT/SGPT) 43 Alkaline Phosphatase 73 Total Protein 7.4 Albumin 3.5 Globulin 3.90 H Albumin/Globulin Ratio 0.89 Bedside Glucose 154 251 H Medications Medications Current Medications Ondansetron HCl (Zofran Inj) 4 mg Q6H PRN IV NAUSEA AND/OR VOMITING; Start at 19:30 Acetaminophen (Tylenol Tab) 650 mg Q6H PRN PO PAIN LEVEL 1-3 OR FEVER Last administered on 08/26/16 09:25; Admin Dose 650 MG; Start 08/22/16 at 19:30 Acetaminophen/ Hydrocodone Bitart ([place] (5/325)) 1 tab Q6H PRN PO MODERATE PAIN LEVEL 4-6; Start 08/22/16 at 19:30 Morphine Sulfate (morphine) 2 mg Q4H PRN IV SEVERE PAIN LEVEL 7-10 Last administered on 08/27/16 08:28; Admin Dose 2 MG; Start 08/22/16 at 19:30 Zolpidem Tartrate (Ambien) 5 mg QHS PRN PO SLEEP; Start 08/22/16 at 19:30 Atorvastatin Calcium (Lipitor) 20 mg QHS PO Last administered on 08/29/16 21: 23; Admin Dose 20 MG; Start 08/22/16 at 21:00 Baclofen (Lioresal) 20 mg BID PO Last administered on 08/26/16 08:14; Admin Dose 20 MG; Start 08/22/16 at 21:00; Status Future Hold Docusate Sodium (Colace) 100 mg BID PRN PO CONSTIPATION Last administered on 20:24; Admin Dose 100 MG; Start 08/22/16 at 19:30 Ferrous Sulfate (Ferrous Sulfate (Ec)) 325 mg BID PO Last administered on 09:41; Admin Dose 325 MG; Start 08/22/16 at 21:00 Gabapentin (Neurontin) 600 mg TID PO Last administered on 08/26/16 08:14; Admin Dose 600 MG; Start 08/22/16 at 21:00; Status Future Hold Lisinopril (Zestril) 2.5 mg DAILY PO Last administered on 08/26/16 09:26; Admin Dose 2.5 MG; Start 08/23/16 at 09:00; Status Future Hold Diagnostic Test (Pha) (Accu-Chek) 1 ea 02 XX Last administered on 08/30/16 02: 45; Admin Dose 1 EA; Start 08/23/16 at 02:00 Miscellaneous Information 1 ea NOTE XX ; Start 08/22/16 at 21:00 Glucose (Glutose) 15 gm Q15M PRN PO DECREASED GLUCOSE; Start 08/22/16 at 21:00 Glucose (Glutose) 22.5 gm Q15M PRN PO DECREASED GLUCOSE; Start 08/22/16 at 21: 00 Dextrose (D50w Syringe) 25 ml Q15M PRN IV DECREASED GLUCOSE; Start 08/22/16 at 21:00 Dextrose (D50w Syringe) 50 ml Q15M PRN IV DECREASED GLUCOSE; Start 08/22/16 at 21:00 Glucagon (Glucagen) 1 mg Q15M PRN IM DECREASED GLUCOSE; Start 08/22/16 at 21:00 Glucose (Glutose) 15 gm Q15M PRN BUCCAL DECREASED GLUCOSE; Start 08/22/16 at 21 :00 Collagenase 1 applic 1 applic DAILY TOP Last administered on 08/29/16 09:35; Admin Dose 1 APPLIC; Start 08/23/16 at 09:00 Vancomycin HCl (Vancocin) 250 ml @ 125 mls/hr Q12H IVPB Last administered on 00:52; Admin Dose 125 MLS/HR; Start 08/25/16 at 01:00; Status Future Hold Insulin Glargine (Lantus) 37 unit QHS SC Last administered on 08/29/16 21:37; Admin Dose 37 UNIT; Start 08/25/16 at 21:00 Heparin Sodium (Porcine) 5000 unit 5,000 unit Q8 SC Last administered on 05:50; Admin Dose 5,000 UNIT; Start 08/26/16 at 14:00 Sodium Chloride 1,000 ml @ 80 mls/hr [id number] IV Last administered on 17:58; Admin Dose 80 MLS/HR; Start 08/26/16 at 12:30 Piperacillin Sod/ Tazobactam Sod (Zosyn 2.25gm/ 50ml (Pmx)) 50 ml @ 100 mls/hr Q6 IVPB Last administered on 08/30/16 12:49; Admin Dose 100 MLS/HR; Start 08/26 at 18:30 Amlodipine Besylate (Norvasc) 10 mg DAILY PO Last administered on 08/30/16 09: 42; Admin Dose 10 MG; Start 08/28/16 at 09:00 Linagliptin (Tradjenta) 5 mg DAILY PO Last administered on 08/30/16 09:41; Admin Dose 5 MG; Start 08/28/16 at 09:00 Acetylcysteine (Nac) 1,200 mg BID PO Last administered on 08/30/16 09:41; Admin Dose 1,200 MG; Start 08/29/16 at 09:00; Stop 09/01/16 at 08:59 Hydralazine HCl 10 mg 10 mg Q4H PRN IV ELEVATED BLOOD PRESSURE Last administered on 08/29/16 23:45; Admin Dose 10 MG; Start 08/29/16 at 23:30 Sodium Chloride (1/2 NS) 1,000 ml @ 50 mls/hr Q20H IV Last administered on 08/30 08:53; Admin Dose 50 MLS/HR; Start 08/30/16 at 09:00 [facility]URST MD, [facility] August 30, 2016 14:56
[2016-08-30] MEDS: COLLAGENASE 30 GM TUBE TOP SCH (15:00)
[2016-08-30] MEDS: SOD CHLORIDE 0.9% 1,000 ML IV SCH (17:22)
[2016-08-30] MEDS: ATORVASTATIN 20 MG TAB PO SCH (22:05)
[2016-08-30] MEDS: INSULIN GLARGINE [LANtus] 3 ML PEN SC SCH (22:07)
--- NOTE | 2016-08-30 23:30 | PN ---
Date/Time of Note Date/Time of Note DATE: 08/30/16 TIME: 23:30 Assessment/Plan Lines/Catheters IV Catheter Type (from [facility]): Peripheral IV Li in Place (from [facility]): Yes Assessment/Plan Problems: (1) Non-pressure chronic ulcer of right heel and midfoot with fat layer exposed (2) Non-pressure chronic ulcer of left heel and midfoot with fat layer exposed (3) Quadriplegia (4) Decubitus ulcer, infected Status: Acute Qualifiers: Pressure ulcer stage: unspecified pressure ulcer stage Qualified Code: L89.90 - Decubitus ulcer, infected, unspecified pressure ulcer stage (5) Wheelchair bound Status: Chronic (6) Diabetes mellitus type 2 in obese Status: Chronic (7) Hyperlipidemia Status: Chronic Qualifiers: Hyperlipidemia type: pure hypercholesterolemia Qualified Code: E78.00 - Pure hypercholesterolemia (8) Essential hypertension Status: Chronic Assessment/Plan Continue daily dressing changes. Continue offloading of both feet. Patient will be followed in-house. Exam/Review of Systems Vital Signs Vitals Vital Signs Date Time Temp Pulse Resp B/P Pulse Ox O2 Delivery O2 Flow Rate FiO2 08/30/16 20:21 72 08/30/16 20:00 98.6 18 102/61 99 08/29/16 21:40 Nasal Cannula 2.0 Intake and Output 08/29/16 08/29/16 08/30/16 15:00 23:00 07:00 Intake Total 400 ml 1560 ml Output Total 1250 ml 2200 ml Balance -850 ml -640 ml Results Result Diagram: 08/30/16 0647 08/30/16 0647 ANABEL MEEKS DPM August 30, 2016 23:30
[2016-08-31] VITALS (12 sets, daily range): BP systolic 114–139; BP diastolic 63–88; PULSE 66–104; RESP 16–20
[2016-08-31] MEDS: ACCUCHECK AT 2AM (Patients on SS coverage) XX SCH (02:00)
[2016-08-31] MEDS: SOD CHLORIDE 0.9% 1,000 ML IV SCH ×2 (05:00→17:28)
[2016-08-31] MEDS: PIPER-TAZO 2.25 GM (PMX) 50 ML IVPB SCH ×3 (05:41→17:28)
[2016-08-31] MEDS: SOD CHLORIDE 0.45% 1,000 ML IV SCH (05:44)
[2016-08-31] MEDS: HEPARIN 5,000 UNIT/0.5 ML VIAL SC SCH ×3 (05:44→21:45)
[2016-08-31 06:44] LABS: ADD SCAN DIFF NO
[2016-08-31 06:48] LABS: BASOPHIL # 0.1 10^3/ul (0.0-0.1); BASOPHILS % 0.5 % (0.0-2.0); EOSINOPHILS # 0.4 10^3/ul (0.0-0.5); EOSINOPHILS % 3.7 % (0.0-7.0); HEMATOCRIT 38.8 % (42.0-52.0); HEMOGLOBIN 12.8 g/dl (14.0-18.0); LYMPHOCYTES # 2.1 10^3/ul (0.8-2.9); LYMPHOCYTES % 20.9 % (15.0-51.0); MEAN CORPUSCULAR HEMOGLOBIN 30.2 pg (29.0-33.0); MEAN CORPUSCULAR VOLUME 91.5 fl (82.0-101.0); MEAN PLATELET VOLUME 9.2 fl (7.4-10.4); MONOCYTE # 1.2 10^3/ul (0.3-0.9); NEUTROPHIL # 6.2 10^3/ul (1.6-7.5); NEUTROPHILS % 62.2 % (39.0-77.0); PLATELET COUNT 321 10^3/UL (140-415); RED BLOOD COUNT 4.24 10^6/ul (4.70-6.10); RED CELL DISTRIBUTION WIDTH 14.6 % (11.5-14.5)
[2016-08-31 07:18] LABS: CALCIUM 9.5 mg/dl (8.4-10.2); CREATININE 2.76 mg/dl (0.61-1.24); MAGNESIUM 2.1 mg/dl (1.7-2.5); PHOSPHORUS 5.5 mg/dl (2.5-4.9); POTASSIUM 3.4 mmol/L (3.5-5.1)
--- NOTE | 2016-08-31 07:51 | CONS ---
Date/Time of Note Date/Time of Note DATE: 08/31/16 TIME: 07:49 Assessment/Plan Assessment/Plan Additional Assessment/Plan 1. Acute renal failure, improving, albeit slow 2. Hypokalemia, will replete 3. Low extremity infection, on abx Consultation Date/Type/Reason Admit Date/Time Aug 22, 2016 at 15:58 Detailed Summary Respiratory: No cough Cardiovascular: No chest pain Gastrointestinal: no complaints Genitourinary: other (dailey in place) Exam/Review of Systems Vital Signs Vitals Vital Signs Date Time Temp Pulse Resp B/P Pulse Ox O2 Delivery O2 Flow Rate FiO2 08/31/16 04:02 80 08/31/16 04:00 98.0 18 119/75 97 08/30/16 20:00 Nasal Cannula 08/29/16 21:40 2.0 Intake and Output 08/30/16 08/30/16 08/31/16 15:00 23:00 07:00 Intake Total 1000 ml Output Total 550 ml Balance 450 ml Exam Neck: No jvd Respiratory: clear to auscultation Cardiovascular: regular rate and rhythm Gastrointestinal: soft Extremities: No edema (legs and sacrum, feet are bandaged) Results Result Diagram: 08/31/16 0613 08/31/16 0613 Results 24 hrs Laboratory Tests Test 08/30/16 08:22 08/30/16 12:15 08/30/16 17:17 08/30/16 22:00 Bedside Glucose 154 251 H 144 172 Test 08/31/16 06:13 White Blood Count 10.0 Red Blood Count 4.24 L Hemoglobin 12.8 L Hematocrit 38.8 L Mean Corpuscular Volume 91.5 Mean Corpuscular Hemoglobin 30.2 Mean Corpuscular Hemoglobin Concent 33.0 Red Cell Distribution Width 14.6 H Platelet Count 321 Mean Platelet Volume 9.2 Neutrophils % 62.2 Lymphocytes % 20.9 Monocytes % 12.0 H Eosinophils % 3.7 Basophils % 0.5 Nucleated Red Blood Cells % 0.0 Neutrophils # 6.2 Lymphocytes # 2.1 Monocytes # 1.2 H Eosinophils # 0.4 Basophils # 0.1 Nucleated Red Blood Cells # 0.0 Sodium Level 143 Potassium Level 3.4 L Chloride Level 114 H Carbon Dioxide Level 18 L Anion Gap 14 Blood Urea Nitrogen 44 H Creatinine 2.76 H Glucose Level 116 # Calcium Level 9.5 Phosphorus Level 5.5 H Magnesium Level 2.1 Medications Medications Current Medications Ondansetron HCl (Zofran Inj) 4 mg Q6H PRN IV NAUSEA AND/OR VOMITING; Start at 19:30 Acetaminophen (Tylenol Tab) 650 mg Q6H PRN PO PAIN LEVEL 1-3 OR FEVER Last administered on 08/26/16 09:25; Admin Dose 650 MG; Start 08/22/16 at 19:30 Acetaminophen/ Hydrocodone Bitart ([place] (5/325)) 1 tab Q6H PRN PO MODERATE PAIN LEVEL 4-6; Start 08/22/16 at 19:30 Morphine Sulfate (morphine) 2 mg Q4H PRN IV SEVERE PAIN LEVEL 7-10 Last administered on 08/27/16 08:28; Admin Dose 2 MG; Start 08/22/16 at 19:30 Zolpidem Tartrate (Ambien) 5 mg QHS PRN PO SLEEP; Start 08/22/16 at 19:30 Atorvastatin Calcium (Lipitor) 20 mg QHS PO Last administered on 08/30/16 22:05 ; Admin Dose 20 MG; Start 08/22/16 at 21:00 Baclofen (Lioresal) 20 mg BID PO Last administered on 08/26/16 08:14; Admin Dose 20 MG; Start 08/22/16 at 21:00; Status Future Hold Docusate Sodium (Colace) 100 mg BID PRN PO CONSTIPATION Last administered on 20:24; Admin Dose 100 MG; Start 08/22/16 at 19:30 Ferrous Sulfate (Ferrous Sulfate (Ec)) 325 mg BID PO Last administered on 22:05; Admin Dose 325 MG; Start 08/22/16 at 21:00 Gabapentin (Neurontin) 600 mg TID PO Last administered on 08/26/16 08:14; Admin Dose 600 MG; Start 08/22/16 at 21:00; Status Future Hold Lisinopril (Zestril) 2.5 mg DAILY PO Last administered on 08/26/16 09:26; Admin Dose 2.5 MG; Start 08/23/16 at 09:00; Status Future Hold Diagnostic Test (Pha) (Accu-Chek) 1 ea 02 XX Last administered on 08/30/16 02: 45; Admin Dose 1 EA; Start 08/23/16 at 02:00 Miscellaneous Information 1 ea NOTE XX ; Start 08/22/16 at 21:00 Glucose (Glutose) 15 gm Q15M PRN PO DECREASED GLUCOSE; Start 08/22/16 at 21:00 Glucose (Glutose) 22.5 gm Q15M PRN PO DECREASED GLUCOSE; Start 08/22/16 at 21: 00 Dextrose (D50w Syringe) 25 ml Q15M PRN IV DECREASED GLUCOSE; Start 08/22/16 at 21:00 Dextrose (D50w Syringe) 50 ml Q15M PRN IV DECREASED GLUCOSE; Start 08/22/16 at 21:00 Glucagon (Glucagen) 1 mg Q15M PRN IM DECREASED GLUCOSE; Start 08/22/16 at 21:00 Glucose (Glutose) 15 gm Q15M PRN BUCCAL DECREASED GLUCOSE; Start 08/22/16 at 21 :00 Collagenase 1 applic 1 applic DAILY TOP Last administered on 08/30/16 15:00; Admin Dose 1 APPLIC; Start 08/23/16 at 09:00 Vancomycin HCl (Vancocin) 250 ml @ 125 mls/hr Q12H IVPB Last administered on 00:52; Admin Dose 125 MLS/HR; Start 08/25/16 at 01:00; Status Future Hold Insulin Glargine (Lantus) 37 unit QHS SC Last administered on 08/30/16 22:07; Admin Dose 37 UNIT; Start 08/25/16 at 21:00 Heparin Sodium (Porcine) 5000 unit 5,000 unit Q8 SC Last administered on 05:44; Admin Dose 5,000 UNIT; Start 08/26/16 at 14:00 Sodium Chloride 1,000 ml @ 80 mls/hr [id number] IV Last administered on 08/30/16 17:22; Admin Dose 80 MLS/HR; Start 08/26/16 at 12:30 Piperacillin Sod/ Tazobactam Sod (Zosyn 2.25gm/ 50ml (Pmx)) 50 ml @ 100 mls/hr Q6 IVPB Last administered on 08/31/16 05:41; Admin Dose 100 MLS/HR; Start 08/26 at 18:30 Amlodipine Besylate (Norvasc) 10 mg DAILY PO Last administered on 08/30/16 09: 42; Admin Dose 10 MG; Start 08/28/16 at 09:00 Linagliptin (Tradjenta) 5 mg DAILY PO Last administered on 08/30/16 09:41; Admin Dose 5 MG; Start 08/28/16 at 09:00 Acetylcysteine (Nac) 1,200 mg BID PO Last administered on 08/30/16 22:06; Admin Dose 1,200 MG; Start 08/29/16 at 09:00; Stop 09/01/16 at 08:59 Hydralazine HCl 10 mg 10 mg Q4H PRN IV ELEVATED BLOOD PRESSURE Last administered on 08/29/16 23:45; Admin Dose 10 MG; Start 08/29/16 at 23:30 Sodium Chloride (1/2 NS) 1,000 ml @ 50 mls/hr Q20H IV Last administered on 08/31 05:44; Admin Dose 50 MLS/HR; Start 08/30/16 at 09:00 LUDMILA CLAROS MD August 31, 2016 07:51
[2016-08-31] MEDS: INSULIN ASPART [NOVOLOG] 3 ML PEN SC SCH ×7 (08:00→21:06)
[2016-08-31] MEDS: AMLODIPINE 10 MG TAB PO SCH (08:48)
[2016-08-31] MEDS: FERROUS SULFATE (EC) 325 MG TAB PO SCH ×2 (08:49→20:49)
[2016-08-31] MEDS: LINAGLIPTIN 5 MG TABLET PO SCH (08:49)
[2016-08-31] MEDS: POTASSIUM CHLORIDE (SR) 20 MEQ TAB PO SCH ×2 (08:49→21:01)
[2016-08-31] MEDS: COLLAGENASE 30 GM TUBE TOP SCH (09:07)
[2016-08-31] MEDS: ACETYLCYSTEINE 600 MG CAP PO SCH ×2 (09:07→20:49)
--- NOTE | 2016-08-31 14:25 | PN ---
Date/Time of Note Date/Time of Note DATE: 08/31/16 TIME: 14:24 Assessment/Plan VTE Prophylaxis VTE Prophylaxis Intervention: LMWH Lines/Catheters IV Catheter Type (from Nrs): Peripheral IV Urinary Cath still in place: Yes Reason Cath still needed: urinary retention Assessment/Plan Chief Complaint/Hosp Course Assessment 1. Acute on chronic kidney injury 2. Lower extremity ulceration secondary to chronic bedbound status with underlying diabetes mellitus 3. Prior history of trauma with paraplegia 4. Resolving lactic acidosis 5. History of essential hypertension Plan 1. Continue renal recommendations 2. Continue wound care 3. Continue broad-spectrum antibiotics For DVT and GI prophylaxis Discussed with social security specialist plan of care Problems: Subjective 24 Hr Interval Summary Free Text/Dictation Comfortable no new events Exam/Review of Systems Vital Signs Vitals Vital Signs Date Time Temp Pulse Resp B/P Pulse Ox O2 Delivery O2 Flow Rate FiO2 08/31/16 13:06 104 08/31/16 11:41 98.2 16 114/70 98 08/30/16 20:00 Nasal Cannula 08/29/16 21:40 2.0 Intake and Output 08/30/16 08/30/16 08/31/16 15:00 23:00 07:00 Intake Total 1000 ml Output Total 550 ml Balance 450 ml Exam GENERAL: Chronically ill-appearing gentleman comfortable at rest VITAL SIGNS: per chart NECK: Supple. No JVD or lymphadenopathy. CARDIAC EXAM: S1, S2. No added sounds or murmurs. CHEST: clear bilaterally, No added sounds, rales or wheezes ABDOMEN: Soft, nontender. No guarding or rebound. EXTREMITIES: No cyanosis, clubbing or edema. NEUROLOGIC: Paraplegia Results Result Diagram: 08/31/16 0613 08/31/16 0613 Results 24 hrs Laboratory Tests Test 08/30/16 17:17 08/30/16 22:00 08/31/16 06:13 08/31/16 08:07 Bedside Glucose 144 172 109 White Blood Count 10.0 Red Blood Count 4.24 L Hemoglobin 12.8 L Hematocrit 38.8 L Mean Corpuscular Volume 91.5 Mean Corpuscular Hemoglobin 30.2 Mean Corpuscular Hemoglobin Concent 33.0 Red Cell Distribution Width 14.6 H Platelet Count 321 Mean Platelet Volume 9.2 Neutrophils % 62.2 Lymphocytes % 20.9 Monocytes % 12.0 H Eosinophils % 3.7 Basophils % 0.5 Nucleated Red Blood Cells % 0.0 Neutrophils # 6.2 Lymphocytes # 2.1 Monocytes # 1.2 H Eosinophils # 0.4 Basophils # 0.1 Nucleated Red Blood Cells # 0.0 Sodium Level 143 Potassium Level 3.4 L Chloride Level 114 H Carbon Dioxide Level 18 L Anion Gap 14 Blood Urea Nitrogen 44 H Creatinine 2.76 H Glucose Level 116 # Calcium Level 9.5 Phosphorus Level 5.5 H Magnesium Level 2.1 Test 08/31/16 12:36 Bedside Glucose 216 Medications Medications Current Medications Ondansetron HCl (Zofran Inj) 4 mg Q6H PRN IV NAUSEA AND/OR VOMITING; Start at 19:30 Acetaminophen (Tylenol Tab) 650 mg Q6H PRN PO PAIN LEVEL 1-3 OR FEVER Last administered on 08/26/16 09:25; Admin Dose 650 MG; Start 08/22/16 at 19:30 Acetaminophen/ Hydrocodone Bitart ([place] (5/325)) 1 tab Q6H PRN PO MODERATE PAIN LEVEL 4-6; Start 08/22/16 at 19:30 Morphine Sulfate (morphine) 2 mg Q4H PRN IV SEVERE PAIN LEVEL 7-10 Last administered on 08/27/16 08:28; Admin Dose 2 MG; Start 08/22/16 at 19:30 Zolpidem Tartrate (Ambien) 5 mg QHS PRN PO SLEEP; Start 08/22/16 at 19:30 Atorvastatin Calcium (Lipitor) 20 mg QHS PO Last administered on 08/30/16 22:05 ; Admin Dose 20 MG; Start 08/22/16 at 21:00 Baclofen (Lioresal) 20 mg BID PO Last administered on 08/26/16 08:14; Admin Dose 20 MG; Start 08/22/16 at 21:00; Status Future Hold Docusate Sodium (Colace) 100 mg BID PRN PO CONSTIPATION Last administered on 20:24; Admin Dose 100 MG; Start 08/22/16 at 19:30 Ferrous Sulfate (Ferrous Sulfate (Ec)) 325 mg BID PO Last administered on 08:49; Admin Dose 325 MG; Start 08/22/16 at 21:00 Gabapentin (Neurontin) 600 mg TID PO Last administered on 08/26/16 08:14; Admin Dose 600 MG; Start 08/22/16 at 21:00; Status Future Hold Diagnostic Test (Pha) (Accu-Chek) 1 ea 02 XX Last administered on 08/30/16 02: 45; Admin Dose 1 EA; Start 08/23/16 at 02:00 Miscellaneous Information 1 ea NOTE XX ; Start 08/22/16 at 21:00 Glucose (Glutose) 15 gm Q15M PRN PO DECREASED GLUCOSE; Start 08/22/16 at 21:00 Glucose (Glutose) 22.5 gm Q15M PRN PO DECREASED GLUCOSE; Start 08/22/16 at 21: 00 Dextrose (D50w Syringe) 25 ml Q15M PRN IV DECREASED GLUCOSE; Start 08/22/16 at 21:00 Dextrose (D50w Syringe) 50 ml Q15M PRN IV DECREASED GLUCOSE; Start 08/22/16 at 21:00 Glucagon (Glucagen) 1 mg Q15M PRN IM DECREASED GLUCOSE; Start 08/22/16 at 21:00 Glucose (Glutose) 15 gm Q15M PRN BUCCAL DECREASED GLUCOSE; Start 08/22/16 at 21 :00 Collagenase 1 applic 1 applic DAILY TOP Last administered on 08/31/16 09:07; Admin Dose 1 APPLIC; Start 08/23/16 at 09:00 Vancomycin HCl (Vancocin) 250 ml @ 125 mls/hr Q12H IVPB Last administered on 00:52; Admin Dose 125 MLS/HR; Start 08/25/16 at 01:00; Status Future Hold Insulin Glargine (Lantus) 37 unit QHS SC Last administered on 08/30/16 22:07; Admin Dose 37 UNIT; Start 08/25/16 at 21:00 Heparin Sodium (Porcine) 5000 unit 5,000 unit Q8 SC Last administered on 05:44; Admin Dose 5,000 UNIT; Start 08/26/16 at 14:00 Sodium Chloride 1,000 ml @ 80 mls/hr [id number] IV Last administered on 08/30/16 17:22; Admin Dose 80 MLS/HR; Start 08/26/16 at 12:30 Piperacillin Sod/ Tazobactam Sod (Zosyn 2.25gm/ 50ml (Pmx)) 50 ml @ 100 mls/hr Q6 IVPB Last administered on 08/31/16 12:40; Admin Dose 100 MLS/HR; Start 08/26 at 18:30 Amlodipine Besylate (Norvasc) 10 mg DAILY PO Last administered on 08/31/16 08: 48; Admin Dose 10 MG; Start 08/28/16 at 09:00 Linagliptin (Tradjenta) 5 mg DAILY PO Last administered on 08/31/16 08:49; Admin Dose 5 MG; Start 08/28/16 at 09:00 Acetylcysteine (Nac) 1,200 mg BID PO Last administered on 08/31/16 09:07; Admin Dose 1,200 MG; Start 08/29/16 at 09:00; Stop 09/01/16 at 08:59 Hydralazine HCl 10 mg 10 mg Q4H PRN IV ELEVATED BLOOD PRESSURE Last administered on 08/29/16 23:45; Admin Dose 10 MG; Start 08/29/16 at 23:30 Sodium Chloride (1/2 NS) 1,000 ml @ 50 mls/hr Q20H IV Last administered on 08/31 05:44; Admin Dose 50 MLS/HR; Start 08/30/16 at 09:00 Potassium Chloride (Klor-Con 20) 40 meq BID PO Last administered on 08/31/16 08 :49; Admin Dose 40 MEQ; Start 08/31/16 at 09:00; Stop 08/31/16 at 23:00 [facility]ST [facility], [facility] August 31, 2016 14:25
[2016-08-31] MEDS: morphine 2 MG INJ IV PRN (20:50)
[2016-08-31] MEDS: INSULIN GLARGINE [LANtus] 3 ML PEN SC SCH (21:05)
[2016-08-31] MEDS: ATORVASTATIN 20 MG TAB PO SCH (21:09)
[2016-09-01] VITALS (13 sets, daily range): BP systolic 121–141; BP diastolic 69–79; PULSE 72–86; RESP 18–20
[2016-09-01] MEDS: PIPER-TAZO 2.25 GM (PMX) 50 ML IVPB SCH ×4 (01:00→17:16)
[2016-09-01] MEDS: SOD CHLORIDE 0.45% 1,000 ML IV SCH ×2 (01:00→22:16)
[2016-09-01] MEDS: ACCUCHECK AT 2AM (Patients on SS coverage) XX SCH (02:00)
[2016-09-01] MEDS: HEPARIN 5,000 UNIT/0.5 ML VIAL SC SCH ×3 (06:00→22:00)
[2016-09-01] MEDS: SOD CHLORIDE 0.9% 1,000 ML IV SCH (06:31)
[2016-09-01 07:09] LABS: ADD SCAN DIFF NO
[2016-09-01 07:13] LABS: BASOPHIL # 0.1 10^3/ul (0.0-0.1); BASOPHILS % 0.7 % (0.0-2.0); EOSINOPHILS # 0.4 10^3/ul (0.0-0.5); HEMATOCRIT 38.1 % (42.0-52.0); HEMOGLOBIN 12.6 g/dl (14.0-18.0); LYMPHOCYTES # 2.4 10^3/ul (0.8-2.9); LYMPHOCYTES % 24.4 % (15.0-51.0); MEAN CORPUSCULAR HGB CONC 33.1 g/dl (32.0-37.0); MEAN CORPUSCULAR VOLUME 90.7 fl (82.0-101.0); MEAN PLATELET VOLUME 9.5 fl (7.4-10.4); MONOCYTE # 1.1 10^3/ul (0.3-0.9); MONOCYTES % 10.9 % (0.0-11.0); NEUTROPHIL # 5.7 10^3/ul (1.6-7.5); NEUTROPHILS % 59.2 % (39.0-77.0); PLATELET COUNT 322 10^3/UL (140-415); RED CELL DISTRIBUTION WIDTH 14.6 % (11.5-14.5); WHITE BLOOD COUNT 9.7 10^3/ul (4.8-10.8)
--- NOTE | 2016-09-01 07:51 | CONS ---
Date/Time of Note Date/Time of Note DATE: 09/01/16 TIME: 07:49 Assessment/Plan Assessment/Plan Additional Assessment/Plan 1. Acute renal failure, labs are pending, suspect renal fx will have improved today 2. Lower extrem infection, abx noted, podiatry is following Consultation Date/Type/Reason Admit Date/Time Aug 22, 2016 at 15:58 Detailed Summary Respiratory: cough, No shortness of breath Cardiovascular: No chest pain Gastrointestinal: no complaints Genitourinary: other (dailey in place) Exam/Review of Systems Vital Signs Vitals Vital Signs Date Time Temp Pulse Resp B/P Pulse Ox O2 Delivery O2 Flow Rate FiO2 09/01/16 07:42 98.4 84 19 121/73 99 09/01/16 00:00 Nasal Cannula 2.0 Intake and Output 08/31/16 08/31/16 09/01/16 15:00 23:00 07:00 Output Total 1400 ml Balance -1400 ml Exam Neck: No jvd Respiratory: clear to auscultation Cardiovascular: regular rate and rhythm Gastrointestinal: soft Extremities: No edema Results Result Diagram: 09/01/16 0640 08/31/16 0613 Results 24 hrs Laboratory Tests Test 08/31/16 08:07 08/31/16 10:40 08/31/16 12:36 08/31/16 17:27 Bedside Glucose 109 216 268 H Urine Random Sodium 95 H Test 08/31/16 20:48 09/01/16 02:56 09/01/16 06:40 Bedside Glucose 194 162 White Blood Count 9.7 Red Blood Count 4.20 L Hemoglobin 12.6 L Hematocrit 38.1 L Mean Corpuscular Volume 90.7 Mean Corpuscular Hemoglobin 30.0 Mean Corpuscular Hemoglobin Concent 33.1 Red Cell Distribution Width 14.6 H Platelet Count 322 Mean Platelet Volume 9.5 Neutrophils % 59.2 Lymphocytes % 24.4 Monocytes % 10.9 Eosinophils % 4.0 Basophils % 0.7 Nucleated Red Blood Cells % 0.0 Neutrophils # 5.7 Lymphocytes # 2.4 Monocytes # 1.1 H Eosinophils # 0.4 Basophils # 0.1 Nucleated Red Blood Cells # 0.0 Phosphorus Level 5.0 H Magnesium Level 2.0 Medications Medications Current Medications Ondansetron HCl (Zofran Inj) 4 mg Q6H PRN IV NAUSEA AND/OR VOMITING; Start 4/ 23/17 at 19:30 Acetaminophen (Tylenol Tab) 650 mg Q6H PRN PO PAIN LEVEL 1-3 OR FEVER Last administered on 08/26/16 09:25; Admin Dose 650 MG; Start 08/22/16 at 19:30 Acetaminophen/ Hydrocodone Bitart ([place] (5/325)) 1 tab Q6H PRN PO MODERATE PAIN LEVEL 4-6; Start 08/22/16 at 19:30 Morphine Sulfate (morphine) 2 mg Q4H PRN IV SEVERE PAIN LEVEL 7-10 Last administered on 08/31/16 20:50; Admin Dose 2 MG; Start 08/22/16 at 19:30 Zolpidem Tartrate (Ambien) 5 mg QHS PRN PO SLEEP; Start 08/22/16 at 19:30 Atorvastatin Calcium (Lipitor) 20 mg QHS PO Last administered on 08/31/16 21:09 ; Admin Dose 20 MG; Start 08/22/16 at 21:00 Baclofen (Lioresal) 20 mg BID PO Last administered on 08/26/16 08:14; Admin Dose 20 MG; Start 08/22/16 at 21:00; Status Future Hold Docusate Sodium (Colace) 100 mg BID PRN PO CONSTIPATION Last administered on 20:24; Admin Dose 100 MG; Start 08/22/16 at 19:30 Ferrous Sulfate (Ferrous Sulfate (Ec)) 325 mg BID PO Last administered on 20:49; Admin Dose 325 MG; Start 08/22/16 at 21:00 Gabapentin (Neurontin) 600 mg TID PO Last administered on 08/26/16 08:14; Admin Dose 600 MG; Start 08/22/16 at 21:00; Status Future Hold Diagnostic Test (Pha) (Accu-Chek) 1 ea 02 XX Last administered on 09/01/16 02: 00; Admin Dose 1 EA; Start 08/23/16 at 02:00 Miscellaneous Information 1 ea NOTE XX ; Start 08/22/16 at 21:00 Glucose (Glutose) 15 gm Q15M PRN PO DECREASED GLUCOSE; Start 08/22/16 at 21:00 Glucose (Glutose) 22.5 gm Q15M PRN PO DECREASED GLUCOSE; Start 08/22/16 at 21: 00 Dextrose (D50w Syringe) 25 ml Q15M PRN IV DECREASED GLUCOSE; Start 08/22/16 at 21:00 Dextrose (D50w Syringe) 50 ml Q15M PRN IV DECREASED GLUCOSE; Start 08/22/16 at 21:00 Glucagon (Glucagen) 1 mg Q15M PRN IM DECREASED GLUCOSE; Start 08/22/16 at 21:00 Glucose (Glutose) 15 gm Q15M PRN BUCCAL DECREASED GLUCOSE; Start 08/22/16 at 21 :00 Collagenase 1 applic 1 applic DAILY TOP Last administered on 08/31/16 09:07; Admin Dose 1 APPLIC; Start 08/23/16 at 09:00 Vancomycin HCl (Vancocin) 250 ml @ 125 mls/hr Q12H IVPB Last administered on 00:52; Admin Dose 125 MLS/HR; Start 08/25/16 at 01:00; Status Future Hold Insulin Glargine (Lantus) 37 unit QHS SC Last administered on 08/31/16 21:05; Admin Dose 37 UNIT; Start 08/25/16 at 21:00 Heparin Sodium (Porcine) 5000 unit 5,000 unit Q8 SC Last administered on 05:44; Admin Dose 5,000 UNIT; Start 08/26/16 at 14:00 Sodium Chloride 1,000 ml @ 80 mls/hr [id number] IV Last administered on 09/01/16 06:31; Admin Dose 80 MLS/HR; Start 08/26/16 at 12:30 Piperacillin Sod/ Tazobactam Sod (Zosyn 2.25gm/ 50ml (Pmx)) 50 ml @ 100 mls/hr Q6 IVPB Last administered on 09/01/16 06:30; Admin Dose 100 MLS/HR; Start 08/26 at 18:30 Amlodipine Besylate (Norvasc) 10 mg DAILY PO Last administered on 08/31/16 08: 48; Admin Dose 10 MG; Start 08/28/16 at 09:00 Linagliptin (Tradjenta) 5 mg DAILY PO Last administered on 08/31/16 08:49; Admin Dose 5 MG; Start 08/28/16 at 09:00 Acetylcysteine (Nac) 1,200 mg BID PO Last administered on 08/31/16 20:49; Admin Dose 1,200 MG; Start 08/29/16 at 09:00; Stop 09/01/16 at 08:59 Hydralazine HCl 10 mg 10 mg Q4H PRN IV ELEVATED BLOOD PRESSURE Last administered on 08/29/16 23:45; Admin Dose 10 MG; Start 08/29/16 at 23:30 Sodium Chloride (1/2 NS) 1,000 ml @ 50 mls/hr Q20H IV Last administered on 09/01 01:00; Admin Dose 50 MLS/HR; Start 08/30/16 at 09:00 LUDMILA CLAROS MD September 01, 2016 07:51
[2016-09-01] MEDS: FERROUS SULFATE (EC) 325 MG TAB PO SCH ×2 (08:05→21:00)
[2016-09-01] MEDS: LINAGLIPTIN 5 MG TABLET PO SCH (08:05)
[2016-09-01] MEDS: AMLODIPINE 10 MG TAB PO SCH (08:05)
[2016-09-01] MEDS: INSULIN ASPART [NOVOLOG] 3 ML PEN SC SCH ×7 (08:12→21:00)
[2016-09-01] MEDS: COLLAGENASE 30 GM TUBE TOP SCH (08:13)
[2016-09-01 08:46] LABS: POTASSIUM 3.7 mmol/L (3.5-5.1)
[2016-09-01 08:49] LABS: CALCIUM 9.5 mg/dl (8.4-10.2); CREATININE 2.76 mg/dl (0.61-1.24)
--- NOTE | 2016-09-01 13:00 | PN ---
Date/Time of Note Date/Time of Note DATE: 09/01/16 TIME: 12:57 Assessment/Plan VTE Prophylaxis VTE Prophylaxis Intervention: heparin Lines/Catheters IV Catheter Type (from Nrs): Peripheral IV Urinary Cath still in place: Yes Reason Cath still needed: urinary retention Assessment/Plan Chief Complaint/Hosp Course assessment 1. Acute on chronic kidney injury 2. Lower extremity ulceration secondary to chronic bedbound status with underlying diabetes mellitus, currently undergoing wound care with podiatry 3. Prior history of trauma with paraplegia 4. Resolving lactic acidosis 5. History of essential hypertension Plan 1. Continue renal recommendations, creatinine remains elevated but stable. Avoid nephrotoxic's 2. Continue wound care 3. Continue broad-spectrum antibiotics For DVT and GI prophylaxis Patient declined [facility] facility We will discuss with podiatry if he is stable for discharge with wound care recommendations at home health. Problems: Subjective 24 Hr Interval Summary Free Text/Dictation Patient comfortable no new events Denies any chest pain or palpitations no nausea no vomiting Continues intravenous antibiotics Exam/Review of Systems Vital Signs Vitals Vital Signs Date Time Temp Pulse Resp B/P Pulse Ox O2 Delivery O2 Flow Rate FiO2 09/01/16 12:40 81 09/01/16 11:37 97.8 18 123/73 100 09/01/16 00:00 Nasal Cannula 2.0 Intake and Output 08/31/16 08/31/16 09/01/16 15:00 23:00 07:00 Output Total 1400 ml Balance -1400 ml Exam GENERAL: Chronically ill-appearing gentleman comfortable at rest VITAL SIGNS: per chart NECK: Supple. No JVD or lymphadenopathy. CARDIAC EXAM: S1, S2. No added sounds or murmurs. CHEST: clear bilaterally, No added sounds, rales or wheezes ABDOMEN: Soft, nontender. No guarding or rebound. EXTREMITIES: No cyanosis, clubbing or edema. NEUROLOGIC: Paraplegia Results Result Diagram: 09/01/16 0640 09/01/16 0640 Results 24 hrs Laboratory Tests Test 08/31/16 17:27 08/31/16 20:48 09/01/16 02:56 09/01/16 06:40 Bedside Glucose 268 H 194 162 White Blood Count 9.7 Red Blood Count 4.20 L Hemoglobin 12.6 L Hematocrit 38.1 L Mean Corpuscular Volume 90.7 Mean Corpuscular Hemoglobin 30.0 Mean Corpuscular Hemoglobin Concent 33.1 Red Cell Distribution Width 14.6 H Platelet Count 322 Mean Platelet Volume 9.5 Neutrophils % 59.2 Lymphocytes % 24.4 Monocytes % 10.9 Eosinophils % 4.0 Basophils % 0.7 Nucleated Red Blood Cells % 0.0 Neutrophils # 5.7 Lymphocytes # 2.4 Monocytes # 1.1 H Eosinophils # 0.4 Basophils # 0.1 Nucleated Red Blood Cells # 0.0 Sodium Level 144 Potassium Level 3.7 Chloride Level 113 H Carbon Dioxide Level 16 L Anion Gap 19 H Blood Urea Nitrogen 43 H Creatinine 2.76 H Glucose Level 175 Calcium Level 9.5 Phosphorus Level 5.0 H Magnesium Level 2.0 Test 09/01/16 07:51 09/01/16 12:03 Bedside Glucose 142 194 Medications Medications Current Medications Ondansetron HCl (Zofran Inj) 4 mg Q6H PRN IV NAUSEA AND/OR VOMITING; Start at 19:30 Acetaminophen (Tylenol Tab) 650 mg Q6H PRN PO PAIN LEVEL 1-3 OR FEVER Last administered on 08/26/16 09:25; Admin Dose 650 MG; Start 08/22/16 at 19:30 Acetaminophen/ Hydrocodone Bitart ([place] (5/325)) 1 tab Q6H PRN PO MODERATE PAIN LEVEL 4-6; Start 08/22/16 at 19:30 Morphine Sulfate (morphine) 2 mg Q4H PRN IV SEVERE PAIN LEVEL 7-10 Last administered on 08/31/16 20:50; Admin Dose 2 MG; Start 08/22/16 at 19:30 Zolpidem Tartrate (Ambien) 5 mg QHS PRN PO SLEEP; Start 08/22/16 at 19:30 Atorvastatin Calcium (Lipitor) 20 mg QHS PO Last administered on 08/31/16 21:09 ; Admin Dose 20 MG; Start 08/22/16 at 21:00 Baclofen (Lioresal) 20 mg BID PO Last administered on 08/26/16 08:14; Admin Dose 20 MG; Start 08/22/16 at 21:00; Status Future Hold Docusate Sodium (Colace) 100 mg BID PRN PO CONSTIPATION Last administered on 20:24; Admin Dose 100 MG; Start 08/22/16 at 19:30 Ferrous Sulfate (Ferrous Sulfate (Ec)) 325 mg BID PO Last administered on 08:05; Admin Dose 325 MG; Start 08/22/16 at 21:00 Gabapentin (Neurontin) 600 mg TID PO Last administered on 08/26/16 08:14; Admin Dose 600 MG; Start 08/22/16 at 21:00; Status Future Hold Diagnostic Test (Pha) (Accu-Chek) 1 ea 02 XX Last administered on 09/01/16 02: 00; Admin Dose 1 EA; Start 08/23/16 at 02:00 Miscellaneous Information 1 ea NOTE XX ; Start 08/22/16 at 21:00 Glucose (Glutose) 15 gm Q15M PRN PO DECREASED GLUCOSE; Start 08/22/16 at 21:00 Glucose (Glutose) 22.5 gm Q15M PRN PO DECREASED GLUCOSE; Start 08/22/16 at 21: 00 Dextrose (D50w Syringe) 25 ml Q15M PRN IV DECREASED GLUCOSE; Start 08/22/16 at 21:00 Dextrose (D50w Syringe) 50 ml Q15M PRN IV DECREASED GLUCOSE; Start 08/22/16 at 21:00 Glucagon (Glucagen) 1 mg Q15M PRN IM DECREASED GLUCOSE; Start 08/22/16 at 21:00 Glucose (Glutose) 15 gm Q15M PRN BUCCAL DECREASED GLUCOSE; Start 08/22/16 at 21 :00 Collagenase 1 applic 1 applic DAILY TOP Last administered on 09/01/16 08:13; Admin Dose 1 APPLIC; Start 08/23/16 at 09:00 Vancomycin HCl (Vancocin) 250 ml @ 125 mls/hr Q12H IVPB Last administered on 00:52; Admin Dose 125 MLS/HR; Start 08/25/16 at 01:00; Status Future Hold Insulin Glargine (Lantus) 37 unit QHS SC Last administered on 08/31/16 21:05; Admin Dose 37 UNIT; Start 08/25/16 at 21:00 Heparin Sodium (Porcine) 5000 unit 5,000 unit Q8 SC Last administered on 05:44; Admin Dose 5,000 UNIT; Start 08/26/16 at 14:00 Piperacillin Sod/ Tazobactam Sod (Zosyn 2.25gm/ 50ml (Pmx)) 50 ml @ 100 mls/hr Q6 IVPB Last administered on 09/01/16 12:06; Admin Dose 100 MLS/HR; Start 08/26 at 18:30 Amlodipine Besylate (Norvasc) 10 mg DAILY PO Last administered on 09/01/16 08: 05; Admin Dose 10 MG; Start 08/28/16 at 09:00 Linagliptin (Tradjenta) 5 mg DAILY PO Last administered on 09/01/16 08:05; Admin Dose 5 MG; Start 08/28/16 at 09:00 Hydralazine HCl 10 mg 10 mg Q4H PRN IV ELEVATED BLOOD PRESSURE Last administered on 08/29/16 23:45; Admin Dose 10 MG; Start 08/29/16 at 23:30 Sodium Chloride (1/2 NS) 1,000 ml @ 50 mls/hr Q20H IV Last administered on 09/01 01:00; Admin Dose 50 MLS/HR; Start 08/30/16 at 09:00 NANCY HURST MD, [facility] September 01, 2016 13:00
[2016-09-01] MEDS: INSULIN GLARGINE [LANtus] 3 ML PEN SC SCH (21:54)
[2016-09-01] MEDS: morphine 2 MG INJ IV PRN (21:57)
[2016-09-01] MEDS: ATORVASTATIN 20 MG TAB PO SCH (22:13)
[2016-09-02] VITALS (9 sets, daily range): BP systolic 107–125; BP diastolic 64–72; PULSE 73–79; RESP 19–20
[2016-09-02] MEDS: ACCUCHECK AT 2AM (Patients on SS coverage) XX SCH (01:24)
[2016-09-02] MEDS: HEPARIN 5,000 UNIT/0.5 ML VIAL SC SCH ×2 (06:39→13:15)
[2016-09-02] MEDS: morphine 2 MG INJ IV PRN (06:40)
[2016-09-02] MEDS: PIPER-TAZO 2.25 GM (PMX) 50 ML IVPB SCH ×3 (06:40→13:14)
[2016-09-02 07:50] LABS: ADD SCAN DIFF NO
[2016-09-02] MEDS: INSULIN ASPART [NOVOLOG] 3 ML PEN SC SCH ×4 (07:54→11:56)
[2016-09-02] MEDS: AMLODIPINE 10 MG TAB PO SCH (08:00)
[2016-09-02] MEDS: FERROUS SULFATE (EC) 325 MG TAB PO SCH (08:00)
[2016-09-02] MEDS: LINAGLIPTIN 5 MG TABLET PO SCH (08:00)
[2016-09-02] MEDS: COLLAGENASE 30 GM TUBE TOP SCH (08:01)
[2016-09-02 08:02] LABS: BASOPHIL # 0.1 10^3/ul (0.0-0.1); BASOPHILS % 0.5 % (0.0-2.0); EOSINOPHILS # 0.4 10^3/ul (0.0-0.5); HEMATOCRIT 38.5 % (42.0-52.0); HEMOGLOBIN 12.4 g/dl (14.0-18.0); LYMPHOCYTES # 2.4 10^3/ul (0.8-2.9); LYMPHOCYTES % 24.8 % (15.0-51.0); MEAN CORPUSCULAR HEMOGLOBIN 29.5 pg (29.0-33.0); MEAN CORPUSCULAR HGB CONC 32.2 g/dl (32.0-37.0); MEAN CORPUSCULAR VOLUME 91.7 fl (82.0-101.0); MEAN PLATELET VOLUME 9.2 fl (7.4-10.4); MONOCYTES % 10.2 % (0.0-11.0); NEUTROPHIL # 5.9 10^3/ul (1.6-7.5); NEUTROPHILS % 59.8 % (39.0-77.0); PLATELET COUNT 336 10^3/UL (140-415); RED CELL DISTRIBUTION WIDTH 14.5 % (11.5-14.5); WHITE BLOOD COUNT 9.8 10^3/ul (4.8-10.8)
[2016-09-02 08:12] LABS: CREATININE 2.46 mg/dl (0.61-1.24); POTASSIUM 3.8 mmol/L (3.5-5.1)
--- NOTE | 2016-09-02 11:33 | CONS ---
Date/Time of Note Date/Time of Note DATE: 09/02/16 TIME: 11:31 Assessment/Plan Assessment/Plan Additional Assessment/Plan 1. Acute renal failure is resolving. 2. Lower extrem infection, abx noted Consultation Date/Type/Reason Admit Date/Time Aug 22, 2016 at 15:58 Detailed Summary Respiratory: No cough, No shortness of breath Cardiovascular: No chest pain, No orthopenea Gastrointestinal: no complaints Genitourinary: other (dailey in place) Exam/Review of Systems Vital Signs Vitals Vital Signs Date Time Temp Pulse Resp B/P Pulse Ox O2 Delivery O2 Flow Rate FiO2 09/02/16 08:23 79 09/02/16 08:13 98.1 19 122/72 99 09/01/16 00:00 Nasal Cannula 2.0 Intake and Output 09/01/16 09/01/16 09/02/16 14:59 22:59 06:59 Intake Total 452 ml Output Total 2400 ml Balance -1948 ml Exam Neck: No jvd Respiratory: clear to auscultation Cardiovascular: regular rate and rhythm Gastrointestinal: soft Extremities: No edema (legs and sacrum) Results Result Diagram: 09/02/16 0730 09/02/16 0730 Results 24 hrs Laboratory Tests Test 09/01/16 12:03 09/01/16 17:12 09/01/16 21:47 09/02/16 07:30 Bedside Glucose 194 144 126 White Blood Count 9.8 Red Blood Count 4.20 L Hemoglobin 12.4 L Hematocrit 38.5 L Mean Corpuscular Volume 91.7 Mean Corpuscular Hemoglobin 29.5 Mean Corpuscular Hemoglobin Concent 32.2 Red Cell Distribution Width 14.5 Platelet Count 336 Mean Platelet Volume 9.2 Neutrophils % 59.8 Lymphocytes % 24.8 Monocytes % 10.2 Eosinophils % 4.0 Basophils % 0.5 Nucleated Red Blood Cells % 0.0 Neutrophils # 5.9 Lymphocytes # 2.4 Monocytes # 1.0 H Eosinophils # 0.4 Basophils # 0.1 Nucleated Red Blood Cells # 0.0 Sodium Level 143 Potassium Level 3.8 Chloride Level 112 H Carbon Dioxide Level 23 Anion Gap 12 # Blood Urea Nitrogen 55 H Creatinine 2.46 H Glucose Level 152 Calcium Level 10.0 Test 09/02/16 07:52 Bedside Glucose 124 Medications Medications Current Medications Ondansetron HCl (Zofran Inj) 4 mg Q6H PRN IV NAUSEA AND/OR VOMITING; Start at 19:30 Acetaminophen (Tylenol Tab) 650 mg Q6H PRN PO PAIN LEVEL 1-3 OR FEVER Last administered on 08/26/16 09:25; Admin Dose 650 MG; Start 08/22/16 at 19:30 Acetaminophen/ Hydrocodone Bitart ([place] (5/325)) 1 tab Q6H PRN PO MODERATE PAIN LEVEL 4-6; Start 08/22/16 at 19:30 Morphine Sulfate (morphine) 2 mg Q4H PRN IV SEVERE PAIN LEVEL 7-10 Last administered on 09/02/16 06:40; Admin Dose 2 MG; Start 08/22/16 at 19:30 Zolpidem Tartrate (Ambien) 5 mg QHS PRN PO SLEEP; Start 08/22/16 at 19:30 Atorvastatin Calcium (Lipitor) 20 mg QHS PO Last administered on 09/01/16 22:13 ; Admin Dose 20 MG; Start 08/22/16 at 21:00 Baclofen (Lioresal) 20 mg BID PO Last administered on 08/26/16 08:14; Admin Dose 20 MG; Start 08/22/16 at 21:00; Status Future Hold Docusate Sodium (Colace) 100 mg BID PRN PO CONSTIPATION Last administered on 20:24; Admin Dose 100 MG; Start 08/22/16 at 19:30 Ferrous Sulfate (Ferrous Sulfate (Ec)) 325 mg BID PO Last administered on 08:00; Admin Dose 325 MG; Start 08/22/16 at 21:00 Gabapentin (Neurontin) 600 mg TID PO Last administered on 08/26/16 08:14; Admin Dose 600 MG; Start 08/22/16 at 21:00; Status Future Hold Diagnostic Test (Pha) (Accu-Chek) 1 ea 02 XX Last administered on 09/02/16 01: 24; Admin Dose 1 EA; Start 08/23/16 at 02:00 Miscellaneous Information 1 ea NOTE XX ; Start 08/22/16 at 21:00 Glucose (Glutose) 15 gm Q15M PRN PO DECREASED GLUCOSE; Start 08/22/16 at 21:00 Glucose (Glutose) 22.5 gm Q15M PRN PO DECREASED GLUCOSE; Start 08/22/16 at 21: 00 Dextrose (D50w Syringe) 25 ml Q15M PRN IV DECREASED GLUCOSE; Start 08/22/16 at 21:00 Dextrose (D50w Syringe) 50 ml Q15M PRN IV DECREASED GLUCOSE; Start 08/22/16 at 21:00 Glucagon (Glucagen) 1 mg Q15M PRN IM DECREASED GLUCOSE; Start 08/22/16 at 21:00 Glucose (Glutose) 15 gm Q15M PRN BUCCAL DECREASED GLUCOSE; Start 08/22/16 at 21 :00 Collagenase 1 applic 1 applic DAILY TOP Last administered on 09/02/16 08:01; Admin Dose 1 APPLIC; Start 08/23/16 at 09:00 Vancomycin HCl (Vancocin) 250 ml @ 125 mls/hr Q12H IVPB Last administered on 00:52; Admin Dose 125 MLS/HR; Start 08/25/16 at 01:00; Status Future Hold Insulin Glargine (Lantus) 37 unit QHS SC Last administered on 09/01/16 21:54; Admin Dose 37 UNIT; Start 08/25/16 at 21:00 Heparin Sodium (Porcine) 5000 unit 5,000 unit Q8 SC Last administered on 06:39; Admin Dose 5,000 UNIT; Start 08/26/16 at 14:00 Piperacillin Sod/ Tazobactam Sod (Zosyn 2.25gm/ 50ml (Pmx)) 50 ml @ 100 mls/hr Q6 IVPB Last administered on 09/02/16 06:40; Admin Dose 100 MLS/HR; Start 08/26 at 18:30 Amlodipine Besylate (Norvasc) 10 mg DAILY PO Last administered on 09/02/16 08: 00; Admin Dose 10 MG; Start 08/28/16 at 09:00 Linagliptin (Tradjenta) 5 mg DAILY PO Last administered on 09/02/16 08:00; Admin Dose 5 MG; Start 08/28/16 at 09:00 Hydralazine HCl 10 mg 10 mg Q4H PRN IV ELEVATED BLOOD PRESSURE Last administered on 08/29/16 23:45; Admin Dose 10 MG; Start 08/29/16 at 23:30 Sodium Chloride (1/2 NS) 1,000 ml @ 50 mls/hr Q20H IV Last administered on 09/01t 22:16; Admin Dose 50 MLS/HR; Start 08/30/16 at 09:00 LUDMILA CLAROS MD September 02, 2016 11:33
--- NOTE | 2016-09-02 11:40 | PDOCDIS ---
Discharge Instructions DIAGNOSIS Discharge Diagnosis: decubitus ulcers CONDITION Patient Condition: Good HOME CARE INSTRUCTIONS: Diet Instructions: Reduced CalorieSpecial Diet: diabetic diet ACTIVITY: Activity Restrictions: No Weight Bearing FOLLOW UP/APPOINTMENTS Appointments Dr Elvis [facility] 1 week. Primary care 1 week. NANCY HURST MD, [facility] September 02, 2016 11:40
--- NOTE | 2016-09-02 12:18 | DS ---
DATE OF ADMISSION: 08/22/2016 DATE OF DISCHARGE: 09/02/2016 DISCHARGE DIAGNOSES: 1. Sepsis. 2. Diabetes mellitus. 3. History of paraplegia with decubitus ulcers. 4. Bilateral heel decubitus ulcers. 5. History of chronic anemia. 6. Renal insufficiency. HOSPITAL COURSE: A 51-year-old gentleman admitted from [facility] for evaluation of fevers and possible wo und infection, was seen by Dr. Avelar during this admission and treated with broad-spectrum antibio tics and wound care. In addition, the patient was treated with intravenous antibiotics of Zosyn. H is white count remained within normal limits during this admission. Blood cultures were negative. Urine cultures were also negative throughout. Renal insufficiency was noted with acute renal failur e likely secondary to acute tubular necrosis injury. His renal function declined, but remains stabl e on discharge at 2.4. The patient was discharged home on following medications: 1. Amlodipine 10 mg p.o. daily. 2. Tradjenta 5 mg p.o. daily. 3. Insulin NovoLog 15 units subcu with meals. 4. Insulin Lantus 37 units subq in the a.m. 5. Lipitor 20 mg p.o. daily. The patient was discharged home with home health for wound care. At this point will not be sent skip e with antibiotics. CONDITION ON DISCHARGE: Stable. ACTIVITY: Bed rest and elevation of feet, nonweightbearing. DIET: 1800 ADA. DISCHARGE INSTRUCTIONS: Follow up with Dr. Elvis [facility]velar in [facility] 1 week post -discharge. Dictated By: NANCY CAMARA/CHIO Conf#: [id number] DID#: [id number]
== END 2016-09-02 17:37 | disposition home health service (06) | DRG 871 ==
LOC: E/R 10:24 → PP2 15:58 → MS4 08-26 13:03
PROVIDERS: ADMIT Internal Medicine; ATTEND Internal Medicine
DX: A41.9 Sepsis, unspecified organism (principal); N17.0 Acute kidney failure with tubular necrosis; E87.2 Acidosis; E11.22 Type 2 diabetes mellitus with diabetic chronic kidney disease; G82.20 Paraplegia, unspecified; I95.9 Hypotension, unspecified; E11.42 Type 2 diabetes mellitus with diabetic polyneuropathy; L03.116 Cellulitis of left lower limb; L03.115 Cellulitis of right lower limb; E11.51 Type 2 diabetes mellitus with diabetic peripheral angiopathy without gangrene; L89.629 Pressure ulcer of left heel, unspecified stage; L89.502 Pressure ulcer of unspecified ankle, stage 2; L89.619 Pressure ulcer of right heel, unspecified stage; E11.622 Type 2 diabetes mellitus with other skin ulcer; E83.42 Hypomagnesemia; E11.628 Type 2 diabetes mellitus with other skin complications; E11.65 Type 2 diabetes mellitus with hyperglycemia; E87.6 Hypokalemia; I12.9 Hypertensive chronic kidney disease with stage 1 through stage 4 chronic kidney disease, or unspecified chronic kidney disease; I70.209 Unspecified atherosclerosis of native arteries of extremities, unspecified extremity; N18.9 Chronic kidney disease, unspecified; S80.812A Abrasion, left lower leg, initial encounter; S80.811A Abrasion, right lower leg, initial encounter; X58.XXXA Exposure to other specified factors, initial encounter; R00.1 Bradycardia, unspecified; K40.90 Unilateral inguinal hernia, without obstruction or gangrene, not specified as recurrent; D63.8 Anemia in other chronic diseases classified elsewhere; Z96.0 Presence of urogenital implants; Z74.01 Bed confinement status; Z79.4 Long term (current) use of insulin; Z87.828 Personal history of other (healed) physical injury and trauma; Z99.3 Dependence on wheelchair
CPT/HCPCS: 36415; 36600; 76775; 80048; 80053; 80202; 81003; 82550; 82570; 82728; 82803; 82962; 83036; 83540; 83605; 83735; 83930; 84100; 84300; 85025; 85610; 85651; 85730; 86140; 86803; 87040; 87086; 87340; 93005; 93922; 96365; 96372; 96375; A4310; J0360; J0692; J1644; J1650; J1815; J2270; J2543; J3370; J3475; J7030; J7050

== ENCOUNTER 2016-09-25 08:55 | Emergency (ER) | payer MEDICARE, OTHER ==
[~2016-09-25] VITALS: Wt 90.0 kg
[~2016-09-25 08:55] MED LIST changes: -BACL10TA PO; +BACL20TA PO; -CALC625T68 PO; -CEPH-443 PO; +GABA300C16 PO; +LEVO750T8 PO; -MTF1000T PO; -NITR-58 PO
--- NOTE | 2016-09-25 09:56 | ERD ---
ER Documentation Chief Complaint Date/Time DATE: 09/25/16 Chief Complaint Sent by home health nurse for possible urinary tract infection HPI The patient is a 51-year-old male who is wheelchair bound with a history of diabetes mellitus, hyperlipidemia, hypertension, paraplegia, decubitus ulcers, multiple prior episodes of urinary tract infection, anemia of chronic disease, and coronary artery disease who presents to the emergency department with complaint of possible urinary tract infection. The patient is accompanied by his caregiver. The caregiver states that she regularly performs straight catheterizations of the patient, three times daily. Approximately one week ago she noted a change in the patient's urine, to a darker color with an increased odor. Therefore, when the home health nurse came to treat the patient's decubitus ulcers, she requested a urinalysis. The urinalysis, performed by the home health nurse, noted presence of leukocytes. Therefore, the patient's caregiver called the patient's primary medical provider, Dr. Renner, for an antibiotic prescription. However, she was advised that Dr. Renner is out of town , and therefore the patient has not been able to receive a prescription. He denies any fevers, sweats, chills, nausea or vomiting. Denies any abdominal pain or flank pain. Denies hematuria. Denies chest pain, palpitations or shortness of breath. Denies any other complaints at this time. ROS All systems reviewed and are negative except as per history of present illness. Medications Home Meds Active Scripts Cephalexin* (Keflex*) 500 Mg Capsule, 500 MG PO QID for 7 Days, CAP Prov:ROSE MARIE CLINTON PA-C 09/25/16 Reported Medications Baclofen* (Baclofen*) 20 Mg Tablet, 20 MG PO BID, TAB 08/22/16 Levofloxacin* (Levofloxacin*) 750 Mg Tablet, 750 MG PO DAILY, TAB 08/22/16 Gabapentin* (Gabapentin*) 300 Mg Capsule, 600 MG PO TID, #180 CAP 08/22/16 Docusate Sodium* (Doc-Q-Lace*) 100 Mg Capsule, 100 MG PO BID Y for CONSTIPATION , CAP 04/18/16 Insulin Lispro (Humalog) 100 Unit/1 Ml Cartridge, 10 UNIT SQ TID 04/18/16 Ferrous Sulfate* (Ferrous Sulfate*) 325 Mg Tabec, 325 MG PO BID, TAB 01/31/16 Insulin Glargine* (Lantus*) 100 Unit/Ml Soln, 35 UNIT SC QHS, #1 VIAL 01/31/16 Lisinopril* (Lisinopril*) 2.5 Mg Tablet, 2.5 MG PO DAILY, #30 TAB 10/07/15 Atorvastatin Calcium* (Atorvastatin Calcium*) 20 Mg Tablet, 20 MG PO QHS, #30 TAB 10/07/15 Allergies Allergies: Coded Allergies: No Known Allergy (Unverified , 08/22/16) PMhx/Soc History of Surgery: Yes (Cervical surgery) Anesthesia Reaction: No Hx Neurological Disorder: No Hx Respiratory Disorders: No Hx Cardiac Disorders: No Hx Psychiatric Problems: No Hx Miscellaneous Medical Probl: No Hx Alcohol Use: No Hx Substance Use: No Hx Tobacco Use: No Smoking Status: Never smoker Physical Exam Vitals Vital Signs Date Time Temp Pulse Resp B/P Pulse Ox O2 Delivery O2 Flow Rate FiO2 09/25/16 09:03 97.0 86 20 96/58 97 Physical Exam GENERAL: Well-developed, well-nourished, in no acute distress. HEENT: Head is normocephalic, atraumatic. No scleral pallor or icterus. Pupils equal, round and reactive to light. Extraocular movements intact. Moist mucous membranes. NECK: Supple. No lymphadenopathy. RESPIRATORY: Lungs are clear to auscultation bilaterally. Normal expiratory effort. CARDIOVASCULAR: Regular rate and rhythm. S1 and S2 normal. GASTROINTESTINAL: Abdomen is soft, non-tender, and non-distended. No guarding, no rebound tenderness. Normal bowel sounds. GENITOURINARY: Deferred. FLANK: No CVA tenderness. EXTREMITIES: Wheelchair-bound with lower extremity paralysis. Bilateral lower extremities with decubitus wounds to the heels. No crepitus. NEUROLOGIC: The patient is alert, awake, and oriented x 3. INTEGUMENT: No rash. PSYCHIATRIC: Cooperative. Appropriate. Result Diagram: 09/25/16 0950 09/25/16 0950 Results 24 hrs Laboratory Tests Test 09/25/16 09:50 09/25/16 10:00 White Blood Count 6.910^3/ul Red Blood Count 3.8210^6/ul Hemoglobin 11.5g/dl Hematocrit 34.9% Mean Corpuscular Volume 91.4fl Mean Corpuscular Hemoglobin 30.1pg Mean Corpuscular Hemoglobin Concent 33.0g/dl Red Cell Distribution Width 13.5% Platelet Count 28786^3/UL Mean Platelet Volume 9.3fl Neutrophils % 57.8% Lymphocytes % 29.0% Monocytes % 8.2% Eosinophils % 3.5% Basophils % 0.9% Nucleated Red Blood Cells % 0.0/100WBC Neutrophils # 4.010^3/ul Lymphocytes # 2.010^3/ul Monocytes # 0.610^3/ul Eosinophils # 0.210^3/ul Basophils # 0.110^3/ul Nucleated Red Blood Cells # 0.010^3/ul Sodium Level 141mmol/L Potassium Level 4.4mmol/L Chloride Level 108mmol/L Carbon Dioxide Level 20mmol/L Anion Gap 17 Blood Urea Nitrogen 19mg/dl Creatinine 0.82mg/dl Glucose Level 190mg/dl Calcium Level 9.4mg/dl Total Bilirubin 0.1mg/dl Direct Bilirubin 0.00mg/dl Indirect Bilirubin 0.1mg/dl Aspartate Amino Transf (AST/SGOT) 32IU/L Alanine Aminotransferase (ALT/SGPT) 42IU/L Alkaline Phosphatase 72IU/L Total Protein 7.5g/dl Albumin 3.7g/dl Globulin 3.80g/dl Albumin/Globulin Ratio 0.97 Urine Color LT. YELLOW Urine Clarity CLEAR Urine pH 6.0 Urine Specific [place] 1.015 Urine Ketones NEGATIVE Urine Nitrite POSITIVE Urine Bilirubin NEGATIVE Urine Urobilinogen 0.2 E.U./dL Urine Leukocyte Esterase 2+ Urine Microscopic RBC 10-25/HPF Urine Microscopic WBC >50/HPF Urine Epithelial Cells FEW Urine Bacteria MANY Urine Hemoglobin TRACE Urine Glucose NEGATIVE% Urine Total Protein NEGATIVE Procedures/MDM The patient's case was reviewed and discussed with Dr. Garcia, ED attending/ supervising physician, who evaluated the patient's results. Recommends discharge home with rx for Keflex and that the patient follow up with PMD as an outpatient. MEDICAL DECISION MAKING: This is a 51-year-old male who is wheelchair bound with a history of diabetes mellitus, hyperlipidemia, hypertension, paraplegia, decubitus ulcers, multiple prior episodes of urinary tract infection, anemia of chronic disease, and coronary artery disease presenting to the Emergency Department with complaint of possible urinary tract infection. Patient's caregiver noted a change in the patient's urine during recent catheterizations. The home health nurse performed a urinalysis, with revealed findings concerning for urinary tract infection. Upon arrival to the ED, urinalysis was performed, which revealed many bacteria, positive nitrites, 2+ urine leukocyte esterase, > 50 WBC, consistent with urinary tract infection. Patient does not meet SIRS or sepsis criteria at this time. Doubt pyelonephritis, bacteremia, or any other emergent medical condition. At this time the patient is in stable condition and therefore he can be discharged home with prescription for Keflex, and given strict return precautions for signs of deteriorating or worsening condition. He is advised to follow up with a primary medical provider for reevaluation and further management within 1-2 days, or return to the ED sooner for any new or worsening symptoms, including fevers (temp > 100.4 F), pain, vomiting, or any other concerning symptoms. I shared my medical decision making and plan with the patient and caregiver at length and in great detail, and they verbally understand and agree with the plan for further observation and care as an outpatient. At the time of discharge all questions were answered. Departure Diagnosis: Primary Impression: Acute cystitis with hematuria Condition: Stable Patient Instructions: Understanding Urinary Tract Infections (UTIs), Urinary Tract Infections in Men Additional Instructions: Call your primary care doctor TOMORROW for an appointment during the next 1-2 days.See the doctor sooner or return here if your condition worsens before your appointment time. ROSE MARIE CLINTON PA-C September 25, 2016 09:56
[2016-09-25 10:08] LABS: ADD SCAN DIFF NO
[2016-09-25 10:10] LABS: BASOPHIL # 0.1 10^3/ul (0.0-0.1); BASOPHILS % 0.9 % (0.0-2.0); EOSINOPHILS # 0.2 10^3/ul (0.0-0.5); EOSINOPHILS % 3.5 % (0.0-7.0); HEMATOCRIT 34.9 % (42.0-52.0); HEMOGLOBIN 11.5 g/dl (14.0-18.0); MEAN CORPUSCULAR HEMOGLOBIN 30.1 pg (29.0-33.0); MEAN CORPUSCULAR VOLUME 91.4 fl (82.0-101.0); MEAN PLATELET VOLUME 9.3 fl (7.4-10.4); MONOCYTE # 0.6 10^3/ul (0.3-0.9); MONOCYTES % 8.2 % (0.0-11.0); NEUTROPHILS % 57.8 % (39.0-77.0); PLATELET COUNT 292 10^3/UL (140-415); RED BLOOD COUNT 3.82 10^6/ul (4.70-6.10); RED CELL DISTRIBUTION WIDTH 13.5 % (11.5-14.5); WHITE BLOOD COUNT 6.9 10^3/ul (4.8-10.8)
[2016-09-25 10:37] LABS: ALBUMIN 3.7 g/dl (3.3-4.9); POTASSIUM 4.4 mmol/L (3.5-5.1)
[2016-09-25 10:39] LABS: BILIRUBIN,INDIRECT 0.1 mg/dl (0-1.1); BILIRUBIN,TOTAL 0.1 mg/dl (0.2-1.3); CREATININE 0.82 mg/dl (0.61-1.24)
[2016-09-25 10:40] LABS: ALBUMIN/GLOBULIN RATIO 0.97; CALCIUM 9.4 mg/dl (8.4-10.2); TOTAL PROTEIN 7.5 g/dl (6.1-8.1)
[2016-09-25 10:46] LABS: ADD UMIC YES; URINE BILIRUBIN (Dip) NEGATIVE (NEGATIVE); URINE BLOOD (Dip) TRACE (NEGATIVE); URINE COLOR LT. YELLOW (YELLOW); URINE GLUCOSE (Dip) NEGATIVE (NEGATIVE); URINE KETONES (Dip) NEGATIVE (NEGATIVE); URINE LEUKOCYTE ESTERASE (Dip) 2+ (NEGATIVE); URINE NITRITE (Dip) POSITIVE (NEGATIVE); URINE TOTAL PROTEIN (Dip) NEGATIVE (NEGATIVE); URINE UROBILINOGEN (Dip) 0.2 E.U./dL (0.1-1.0)
[2016-09-25 10:50] LABS: BACTERIA,URINE MANY
[2016-09-25] MEDS ORDERED: CEPH-443 PO (11:09)
== END 2016-09-25 11:24 | disposition home or self-care (01) ==
LOC: FTE 08:55
DX: N30.01 Acute cystitis with hematuria (principal); I10 Essential (primary) hypertension; E11.9 Type 2 diabetes mellitus without complications; I25.10 Atherosclerotic heart disease of native coronary artery without angina pectoris; Z79.4 Long term (current) use of insulin
CPT/HCPCS: 36415; 80053; 81001; 85025; 87086; 99283

== ENCOUNTER 2016-11-06 11:16 | Inpatient (IN) | payer MEDICARE, OTHER ==
[~2016-11-06] VITALS: Ht 157.5 cm; Wt 98.3 kg
[~2016-11-06 11:16] MED LIST changes: +CEPH-443 PO
[2016-11-06] MEDS ORDERED: SODIUM CHLORIDE 0.9% 1L BAG IV* STA (12:09)
[2016-11-06] MEDS ORDERED: PIPER-TAZO 3.375 GM IV (PMX) 100 ML IVPB ONE (12:30)
--- NOTE | 2016-11-06 12:37 | ERA ---
ER Documentation Chief Complaint Date/Time DATE: 11/06/16 TIME: 12:35 Chief Complaint cloudy foul smelling urine x4 day, generalized weakness and fever since am HPI Patient is a 51-year-old male with paraplegia who is found to have fever this morning, as well as cloudy urine on straight cath. The patient is unable to feel below the umbilicus. He denies cough, back pain. He has ulcers on his feet and sacral area that are superficial and per report of his appear to be healing well. Patient denies vomiting. ROS All systems reviewed and are negative except as per history of present illness. Medications Home Meds Active Scripts Cephalexin* (Keflex*) 500 Mg Capsule, 500 MG PO QID for 7 Days, CAP Prov:ROSE MARIE CLINTON PA-C 09/25/16 Reported Medications Baclofen* (Baclofen*) 20 Mg Tablet, 20 MG PO BID, TAB 08/22/16 Levofloxacin* (Levofloxacin*) 750 Mg Tablet, 750 MG PO DAILY, TAB 08/22/16 Gabapentin* (Gabapentin*) 300 Mg Capsule, 600 MG PO TID, #180 CAP 08/22/16 Docusate Sodium* (Doc-Q-Lace*) 100 Mg Capsule, 100 MG PO BID Y for CONSTIPATION , CAP 04/18/16 Insulin Lispro (Humalog) 100 Unit/1 Ml Cartridge, 10 UNIT SQ TID 04/18/16 Ferrous Sulfate* (Ferrous Sulfate*) 325 Mg Tabec, 325 MG PO BID, TAB 01/31/16 Insulin Glargine* (Lantus*) 100 Unit/Ml Soln, 35 UNIT SC QHS, #1 VIAL 01/31/16 Lisinopril* (Lisinopril*) 2.5 Mg Tablet, 2.5 MG PO DAILY, #30 TAB 10/07/15 Atorvastatin Calcium* (Atorvastatin Calcium*) 20 Mg Tablet, 20 MG PO QHS, #30 TAB 10/07/15 Allergies Allergies: Coded Allergies: No Known Allergy (Unverified , 08/22/16) PMhx/Soc Past medical history: 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, diabetes mellitus Past surgical history: Spinal surgery Social history: Denies tobacco or alcohol History of Surgery: Yes (Cervial abscess) Anesthesia Reaction: No Hx Neurological Disorder: Yes (Paraplegia x3 years secondary to accident) Hx Respiratory Disorders: No Hx Cardiac Disorders: Yes (HTN) Hx Psychiatric Problems: No Hx Miscellaneous Medical Probl: Yes (Hyperlipidemia, DMII) Hx Alcohol Use: No Hx Substance Use: No Hx Tobacco Use: No FmHx Family History: No coronary disease, No diabetes Physical Exam Vitals Vital Signs Date Time Temp Pulse Resp B/P Pulse Ox O2 Delivery O2 Flow Rate FiO2 11/06/16 11:22 101.1 106 20 113/68 95 Physical Exam Const: Alert, no acute distress Head: Atraumatic Eyes: Normal Conjunctiva, no pallor, no icterus ENT: Normal External Ears, Nose and Mouth. Mucous membranes moist Neck: Full range of motion..~ No meningismus. Resp: Clear to auscultation bilaterally, no wheezes, no rales Cardio: Tachycardia, regular rhythm, no murmurs Abd: Soft, non tender, non distended. Skin: No petechiae or rashes Back: No midline or flank tenderness Ext: No cyanosis, 1+ pitting edema bilateral shins, symmetric Neur: Awake and alert, no movement or sensation below the umbilicus, cranial nerves II through XII intact bilaterally, moves both arms appropriately. Psych: Normal Mood and Affect Result Diagram: 11/06/16 1235 11/06/16 1235 Results 24 hrs Laboratory Tests Test 11/06/16 12:35 11/06/16 12:40 White Blood Count 9.910^3/ul Red Blood Count 3.8410^6/ul Hemoglobin 11.6g/dl Hematocrit 33.9% Mean Corpuscular Volume 88.3fl Mean Corpuscular Hemoglobin 30.2pg Mean Corpuscular Hemoglobin Concent 34.2g/dl Red Cell Distribution Width 14.0% Platelet Count 05862^3/UL Mean Platelet Volume 8.8fl Neutrophils % 51.2% Lymphocytes % 36.3% Monocytes % 10.5% Eosinophils % 1.1% Basophils % 0.4% Nucleated Red Blood Cells % 0.0/100WBC Neutrophils # 5.110^3/ul Lymphocytes # 3.610^3/ul Monocytes # 1.010^3/ul Eosinophils # 0.110^3/ul Basophils # 0.010^3/ul Nucleated Red Blood Cells # 0.010^3/ul Prothrombin Time 12.3Sec Prothrombin Time Ratio 1.0 INR International Normalized Ratio 0.91 Activated Partial Thromboplast Time 29.5Sec Sodium Level 128mmol/L Potassium Level 3.6mmol/L Chloride Level 97mmol/L Carbon Dioxide Level 15mmol/L Anion Gap 20 Blood Urea Nitrogen 10mg/dl Creatinine 0.68mg/dl Glucose Level 195mg/dl Lactic Acid Level 4.0mmol/L Calcium Level 9.4mg/dl Total Bilirubin 0.3mg/dl Direct Bilirubin 0.00mg/dl Indirect Bilirubin 0.3mg/dl Aspartate Amino Transf (AST/SGOT) 31IU/L Alanine Aminotransferase (ALT/SGPT) 50IU/L Alkaline Phosphatase 48IU/L Total Protein 7.4g/dl Albumin 4.6g/dl Globulin 2.80g/dl Albumin/Globulin Ratio 1.64 Urine Color YELLOW Urine Clarity SLIGHTLY CLOUDY Urine pH 6.0 Urine Specific [place] 1.008 Urine Ketones NEGATIVEmg/dL Urine Nitrite NEGATIVEmg/dL Urine Bilirubin NEGATIVEmg/dL Urine Urobilinogen NEGATIVEmg/dL Urine Leukocyte Esterase 1+[place]/ul Urine Microscopic RBC 0/HPF Urine Microscopic WBC 21/HPF Urine Squamous Epithelial Cells FEW/HPF Urine Bacteria FEW/HPF Urine Hemoglobin NEGATIVEmg/dL Urine Glucose NEGATIVEmg/dL Urine Total Protein NEGATIVEmg/dl Current Medications Medications (Trade) Dose Ordered Sig/Drea Route PRN Reason Start Time Stop Time Status Last Admin Dose Admin Sodium Chloride 2680 ml 2,680 ml BOLUS OVER 2 HOURS STAT IV* 11/06/16 12:09 11/06/16 12:11 DC 11/06/16 12:48 Piperacillin Sod/ Tazobactam Sod (Zosyn 3.375gm/ 100 ml (Pmx)) 100 ml @ 200 mls/hr ONCE ONCE IVPB 11/06/16 12:30 11/06/16 12:59 DC 11/06/16 13:46 Acetaminophen (Tylenol Tab) 650 mg ONCE ONCE PO 11/06/16 13:00 11/06/16 13:01 DC 11/06/16 13:05 Procedures/MDM EKG read by me: Time 1300, rate 88 Rhythm: Normal sinus [place]: Left axis deviation Intervals: Normal ST-T waves: no ischemic changes Ectopy: No Q-waves: No Impression: No evidence of ischemia or arrhythmia MDM: Patient is a 51-year-old male with paraplegia who presents with fever and cloudy urine noted this morning. His UA is positive for leukocytes, and the patient has history of recurrent UTIs. Last culture showed ESBL E. coli that was sensitive to Zosyn, so the patient was treated empirically with Zosyn. Blood and urine cultures were sent, and weight-based fluids were administered. Initial lactic acid was 4.0. The patient has no signs of pneumonia on chest x- ray, and has a benign abdominal exam. He has chronic ulcers on his feet and sacrum, that do not appear infected. He is also found to be hyponatremic. The patient will be admitted for further workup and treatment of sepsis. A Li catheter was placed for continuous bladder drainage. Departure Diagnosis: Primary Impression: Sepsis Qualified Code: A41.9 - Sepsis, due to unspecified organism Additional Impressions: Urinary tract infection Qualified Code: N39.0 - Urinary tract infection without hematuria, site unspecified Paraplegia Diabetes mellitus Qualified Code: E10.621 - Type 1 diabetes mellitus with foot ulcer Hyponatremia Condition: AVEL Quiros MD Nov 06, 2016 12:37
[2016-11-06] MEDS ORDERED: ACETAMINOPHEN 325 MG TAB PO ONE (13:00)
[2016-11-06 13:04] LABS: ADD UMIC YES; UR ASCORBIC ACID 20 mg/dL (NEGATIVE); UR BACTERIA FEW /HPF (NONE SEEN); UR BILIRUBIN (Dip) NEGATIVE (NEGATIVE); UR BLOOD (Dip) NEGATIVE (NEGATIVE); UR CLARITY SLIGHTLY CLOUDY (CLEAR); UR COLOR YELLOW (YELLOW); UR GLUCOSE (Dip) NEGATIVE (NEGATIVE); UR KETONES (Dip) NEGATIVE (NEGATIVE); UR LEUKOCYTE ESTERASE (Dip) 1+ Leu/ul (NEGATIVE); UR NITRITE (Dip) NEGATIVE (NEGATIVE); UR RBC 0 /HPF (0-5); UR SPECIFIC GRAVITY (Dip) 1.008 (1.003-1.030); UR SQUAMOUS EPITHELIAL CELL FEW /HPF (FEW); UR TOTAL PROTEIN (Dip) NEGATIVE (NEGATIVE); UR UROBILINOGEN (Dip) NEGATIVE (NEGATIVE)
[2016-11-06 13:08] LABS: ADD SCAN DIFF NO
--- NOTE | 2016-11-06 13:08 | RADRPT ---
PROCEDURE: XR Chest. CLINICAL INDICATION: Stroke symptoms TECHNIQUE: A single AP view of the chest was obtained. COMPARISON: Chest x-ray dated 04/07/2016 FINDINGS: Lung volumes are low with basilar atelectasis. No focal airspace opacity, pleural effusion or pneum othorax is seen. The cardiomediastinal silhouette is within normal limits for size. The osseous st ructures are unremarkable. IMPRESSION: 1. Low lung volumes with mild bilateral basilar atelectasis. 2. No significant interval change. RPTAT: HH .Debar Fields MD, MD Date Time Electronically viewed and signed by .Debra Fields MD, on 11/06/2016 13:08 .G/
[2016-11-06 13:12] LABS: BASOPHILS % 0.4 % (0.0-2.0); EOSINOPHILS # 0.1 10^3/ul (0.0-0.5); EOSINOPHILS % 1.1 % (0.0-7.0); HEMATOCRIT 33.9 % (42.0-52.0); HEMOGLOBIN 11.6 g/dl (14.0-18.0); LYMPHOCYTES # 3.6 10^3/ul (0.8-2.9); LYMPHOCYTES % 36.3 % (15.0-51.0); MEAN CORPUSCULAR HEMOGLOBIN 30.2 pg (29.0-33.0); MEAN CORPUSCULAR HGB CONC 34.2 g/dl (32.0-37.0); MEAN CORPUSCULAR VOLUME 88.3 fl (82.0-101.0); MEAN PLATELET VOLUME 8.8 fl (7.4-10.4); MONOCYTES % 10.5 % (0.0-11.0); NEUTROPHIL # 5.1 10^3/ul (1.6-7.5); NEUTROPHILS % 51.2 % (39.0-77.0); PLATELET COUNT 252 10^3/UL (140-415); RED BLOOD COUNT 3.84 10^6/ul (4.70-6.10); WHITE BLOOD COUNT 9.9 10^3/ul (4.8-10.8)
[2016-11-06 13:31] LABS: INR 0.91; PROTIME 12.3 Sec (12.2-14.2)
[2016-11-06 13:32] LABS: PARTIAL THROMBOPLASTIN TIME 29.5 Sec (25.0-35.0)
[2016-11-06 13:35] LABS: BILIRUBIN,INDIRECT 0.3 mg/dl (0-1.1); BILIRUBIN,TOTAL 0.3 mg/dl (0.2-1.3); CALCIUM 9.4 mg/dl (8.4-10.2); CREATININE 0.68 mg/dl (0.61-1.24); POTASSIUM 3.6 mmol/L (3.5-5.1)
[2016-11-06 13:36] LABS: ALBUMIN 4.6 g/dl (3.3-4.9); ALBUMIN/GLOBULIN RATIO 1.64; TOTAL PROTEIN 7.4 g/dl (6.1-8.1)
[2016-11-06] MEDS ORDERED: METF1000 PO (14:47)
[2016-11-06] MEDS ORDERED: INSU100I12 SQ (14:50)
[2016-11-06] MEDS ORDERED: morphine 2 MG INJ IV PRN (15:00)
[2016-11-06] MEDS ORDERED: ACETAMINOPHEN 325 MG TAB PO PRN ×2 (15:00→15:30)
[2016-11-06] MEDS ORDERED: ONDANSETRON 4 MG INJ IV PRN ×2 (15:00→15:30)
[2016-11-06] MEDS ORDERED: NACL 0.9% 3 ML SYG IV SCH (15:00)
[2016-11-06] MEDS ORDERED: HYDROCODONE/APAP (5/325) TAB PO PRN (15:00)
[2016-11-06] MEDS ORDERED: DOCUSATE SODIUM 100 MG CAP PO PRN ×2 (15:00)
[2016-11-06] MEDS ORDERED: SODIUM CHLORIDE 0.9% 1L BAG IV SCH (15:00)
[2016-11-06] MEDS ORDERED: GLUCAGON 1 MG INJ IM PRN (15:30)
[2016-11-06] MEDS ORDERED: GLUCOSE GEL 15 GRAM TUBE BUCCAL PRN (15:30)
[2016-11-06] MEDS ORDERED: DEXTROSE 50% 50 ML SYRINGE IV PRN ×2 (15:30)
[2016-11-06] MEDS ORDERED: GLUCOSE GEL 15 GRAM TUBE PO PRN ×2 (15:30)
[2016-11-06 16:34] VITALS: PULSE 78; TEMP 99.9
[2016-11-06 17:32] VITALS: BP 118/69; RESP 18
[2016-11-06] MEDS ORDERED: INSULIN ASPART [NOVOLOG] 3 ML PEN SC SCH (18:00)
[2016-11-06] MEDS: SOD CHLORIDE 0.9% 1,000 ML IV SCH (18:24)
[2016-11-06 18:30] VITALS: Ht 157.5 cm; Wt 98.3 kg
[2016-11-06] MEDS: BACLOFEN 10 MG TAB PO SCH ×2 (18:42→21:16)
--- NOTE | 2016-11-06 18:44 | HP ---
Date/Time of Note Date/Time of Note DATE: 11/06/16 TIME: 18:40 Assessment/Plan VTE Prophylaxis VTE Prophylaxis Intervention: LMWH Lines/Catheters Urinary Cath still in place: No Reason Cath still needed: urinary retention Assessment/Plan Chief Complaint/Hosp Course Assessment 1. Fever, possible ulcers. Probable acute cystitis. Stable consult ID 2. Decubitus ulcer probably stable 3. Right and left heel ulcer. Right heel may need debridement at some point 4. Diabetes/metabolic syndrome 5. Chronic urinary retention; patient straight caths 3 times a day without any issues apparently 6. Paraplegia Problems: HPI/ROS Admit Date/Time Admit Date/Time Nov 06, 2016 at 15:05 Hx of Present Illness Admitted with fever chills 1 or 2 days. States it might be his urine. Denies dysuria hematuria. Possibly has issues with incontinence and loss of sensation. No nausea vomiting loss of appetite. No cough wheezing headaches losses vision. No diarrhea. States his left heel wound is stable. The right one is not healed yet. He visits the [facility]. ER: Stable vital signs except temperature 101. ROS Neuro: No headache no loss of vision speech Cardio: Sometimes chest pain while lying down. No dyspnea edema lungs: No cough no wheezing edema Abdomen: No pain positive nausea no vomiting. Genitourinary: no nausea, no dysuria hematuria. Musculoskeletal: Gait dysfunction no rash no itching no edema Endocrine: Diabetes/metabolic syndrome, possible dyslipidemia no thyroid dysfunction Hematological: No hematuria hematochezia melena Psychiatry: Has a stable mood status and agitation anxiety depression Constitutional: Possible fever chills. No weight loss that I am aware of PMH/Family/Social Past Medical History Diabetes UTI maybe 1 or 2 Metabolic syndrome Functional quadriplegia/paraplegia Anemia Sepsis back in August possibly due to decubitus ulcers Decubitus ulcers Right and left heel ulcers. Patient visits wound care clinic Possible diabetic neuropathy Possible incontinence Social History Smoking Status: Never smoker Exam/Review of Systems Vital Signs Vitals Vital Signs Date Time Temp Pulse Resp B/P Pulse Ox O2 Delivery O2 Flow Rate FiO2 11/06/16 17:32 97.3 60 18 118/69 97 11/06/16 16:34 Room Air Labs Result Diagram: 11/06/16 1235 11/06/16 1235 Medications Medications Current Medications Baclofen (Lioresal) 20 mg BID PO ; Start 11/06/16 at 16:00 Docusate Sodium (Colace) 100 mg BID PRN PO CONSTIPATION; Start 11/06/16 at 15:00 Gabapentin (Neurontin) 600 mg TID PO ; Start 11/06/16 at 21:00 Insulin Glargine 35 unit 35 unit QHS SC ; Start 11/06/16 at 21:00 Sodium Chloride (NS) 1,000 ml @ 125 mls/hr Q8H IV Last administered on t 18:24; Admin Dose 125 MLS/HR; Start 11/06/16 at 14:59 Ondansetron HCl (Zofran Inj) 4 mg Q6H PRN IV NAUSEA AND/OR VOMITING; Start 11/06 at 15:00 Acetaminophen (Tylenol Tab) 650 mg Q6H PRN PO PAIN LEVEL 1-3 OR FEVER; Start at 15:00 Acetaminophen/ Hydrocodone Bitart ([place] (5/325)) 1 tab Q6H PRN PO MODERATE PAIN LEVEL 4-6; Start 11/06/16 at 15:00 Morphine Sulfate (morphine) 2 mg Q4H PRN IV SEVERE PAIN LEVEL 7-10; Start at 15:00 Famotidine (Pepcid) 20 mg HS PO ; Start 11/06/16 at 21:00 Enoxaparin Sodium (Lovenox) 40 mg DAILY SC ; Start 11/07/16 at 09:00 Miscellaneous Information 1 ea NOTE XX ; Start 11/06/16 at 15:30 Glucose (Glutose) 15 gm Q15M PRN PO DECREASED GLUCOSE; Start 11/06/16 at 15:30 Glucose (Glutose) 22.5 gm Q15M PRN PO DECREASED GLUCOSE; Start 11/06/16 at 15:30 Dextrose (D50w Syringe) 25 ml Q15M PRN IV DECREASED GLUCOSE; Start 11/06/16 at 15:30 Dextrose (D50w Syringe) 50 ml Q15M PRN IV DECREASED GLUCOSE; Start 11/06/16 at 15:30 Glucagon (Glucagen) 1 mg Q15M PRN IM DECREASED GLUCOSE; Start 11/06/16 at 15:30 Glucose (Glutose) 15 gm Q15M PRN BUCCAL DECREASED GLUCOSE; Start 11/06/16 at 15: 30 ESTUARDO BROCK MD Nov 06, 2016 18:44
[2016-11-06 19:34] VITALS: BP 113/65; RESP 18
[2016-11-06] MEDS ORDERED: INSULIN GLARGINE [LANtus] 3 ML PEN SC SCH (21:00)
[2016-11-06] MEDS: FAMOTIDINE 20 MG TAB PO SCH (21:16)
[2016-11-06] MEDS: GABAPENTIN 300 MG CAP PO SCH (21:16)
[2016-11-06] MEDS: LACTOBACILLUS RHAMNOSUS CAP PO SCH (21:16)
[2016-11-06] MEDS: INSULIN GLARGINE [LANtus] 3 ML PEN SC SCH (21:23)
[2016-11-06] MEDS: COLLAGENASE 30 GM TUBE TOP SCH (22:48)
[2016-11-07] MEDS: SOD CHLORIDE 0.9% 1,000 ML IV SCH ×4 (02:57→20:01)
[2016-11-07 03:28] VITALS: BP 115/68; RESP 16
[2016-11-07 06:12] LABS: ADD SCAN DIFF NO
[2016-11-07 06:14] LABS: BASOPHILS % 0.5 % (0.0-2.0); EOSINOPHILS # 0.2 10^3/ul (0.0-0.5); EOSINOPHILS % 3.7 % (0.0-7.0); HEMATOCRIT 36.1 % (42.0-52.0); HEMOGLOBIN 12.2 g/dl (14.0-18.0); LYMPHOCYTES # 1.8 10^3/ul (0.8-2.9); LYMPHOCYTES % 28.4 % (15.0-51.0); MEAN CORPUSCULAR HEMOGLOBIN 30.9 pg (29.0-33.0); MEAN CORPUSCULAR HGB CONC 33.8 g/dl (32.0-37.0); MEAN CORPUSCULAR VOLUME 91.4 fl (82.0-101.0); MONOCYTE # 0.6 10^3/ul (0.3-0.9); MONOCYTES % 9.7 % (0.0-11.0); NEUTROPHIL # 3.7 10^3/ul (1.6-7.5); NEUTROPHILS % 57.2 % (39.0-77.0); PLATELET COUNT 256 10^3/UL (140-415); RED BLOOD COUNT 3.95 10^6/ul (4.70-6.10); RED CELL DISTRIBUTION WIDTH 14.3 % (11.5-14.5); WHITE BLOOD COUNT 6.5 10^3/ul (4.8-10.8)
[2016-11-07 06:46] LABS: ALBUMIN 4.4 g/dl (3.3-4.9); ALBUMIN/GLOBULIN RATIO 1.62; BILIRUBIN,INDIRECT 0.3 mg/dl (0-1.1); BILIRUBIN,TOTAL 0.3 mg/dl (0.2-1.3); CALCIUM 9.3 mg/dl (8.4-10.2); CREATININE 0.7 mg/dl (0.61-1.24); POTASSIUM 4.5 mmol/L (3.5-5.1); TOTAL PROTEIN 7.1 g/dl (6.1-8.1)
[2016-11-07 07:22] VITALS: BP 117/57; RESP 18
[2016-11-07 08:16] LABS: THYROID STIMULATING HORMONE 2.31 MIU/L (0.465-4.680)
[2016-11-07] MEDS: LACTOBACILLUS RHAMNOSUS CAP PO SCH ×2 (08:18→21:17)
[2016-11-07] MEDS: GABAPENTIN 300 MG CAP PO SCH ×3 (08:18→21:17)
[2016-11-07] MEDS: BACLOFEN 10 MG TAB PO SCH ×2 (08:18→21:17)
[2016-11-07] MEDS: INSULIN ASPART [NOVOLOG] 3 ML PEN SC SCH ×3 (08:22→18:06)
[2016-11-07] MEDS: ENOXAPARIN 40 MG/0.4 ML SYG SC SCH (08:23)
[2016-11-07] MEDS: COLLAGENASE 30 GM TUBE TOP SCH (08:23)
--- NOTE | 2016-11-07 11:16 | PN ---
Date/Time of Note Date/Time of Note DATE: 11/07/16 TIME: 11:12 Assessment/Plan VTE Prophylaxis VTE Prophylaxis Intervention: LMWH Lines/Catheters [facility] Peripheral IV Urinary Cath still in place: No Assessment/Plan Chief Complaint/Hosp Course S: No further fever chills. No nausea vomiting. O: vss PE No pallor Reg Clear Bs + nt nd; overweight. no r r g No edema. Chr hypotonia, probable neuropathy. bilat heel ulcers; rt w eschar. A/P 1. SIRS/sepsis. Probable acute cystitis associated. Stable, follow-up on cultures. 2. Decubitus ulcer probably stable 3. Rt and lt heel ulcers. Rt heel may need debridement at some point. Pt follows with [facility]. 4. Diabetes/metabolic syndrome; A1c not at goal 8.1 5. Chr urinary retention; straight caths 3 times a day w/o any issues apparently. Has had previous UTI. Consider suprapubic down the line. 6. Paraplegia Problems: Exam/Review of Systems Vital Signs Vitals Vital Signs Date Time Temp Pulse Resp B/P Pulse Ox O2 Delivery O2 Flow Rate FiO2 11/07/16 07:22 97.5 53 18 117/57 99 11/06/16 16:34 Room Air Intake and Output 11/06/16 11/06/16 11/07/16 15:00 23:00 07:00 Intake Total 1300 ml Output Total 300 ml Balance 1000 ml Results Result Diagram: 11/07/16 0510 11/07/16 0510 Results 24 hrs Laboratory Tests Test 11/06/16 12:35 11/06/16 12:40 11/06/16 13:00 11/06/16 14:00 White Blood Count 9.9 # Red Blood Count 3.84 L Hemoglobin 11.6 L Hematocrit 33.9 L Mean Corpuscular Volume 88.3 Mean Corpuscular Hemoglobin 30.2 Mean Corpuscular Hemoglobin Concent 34.2 Red Cell Distribution Width 14.0 Platelet Count 252 Mean Platelet Volume 8.8 Neutrophils % 51.2 Lymphocytes % 36.3 Monocytes % 10.5 Eosinophils % 1.1 Basophils % 0.4 Nucleated Red Blood Cells % 0.0 Neutrophils # 5.1 Lymphocytes # 3.6 H Monocytes # 1.0 H Eosinophils # 0.1 Basophils # 0.0 Nucleated Red Blood Cells # 0.0 Prothrombin Time 12.3 Prothrombin Time Ratio 1.0 INR International Normalized Ratio 0.91 Activated Partial Thromboplast Time 29.5 Sodium Level 128 L Potassium Level 3.6 Chloride Level 97 Carbon Dioxide Level 15 L Anion Gap 20 H Blood Urea Nitrogen 10 Creatinine 0.68 Glucose Level 195 Lactic Acid Level 4.0 H Calcium Level 9.4 Total Bilirubin 0.3 Direct Bilirubin 0.00 Indirect Bilirubin 0.3 Aspartate Amino Transf (AST/SGOT) 31 Alanine Aminotransferase (ALT/SGPT) 50 Alkaline Phosphatase 48 Total Protein 7.4 Albumin 4.6 Globulin 2.80 Albumin/Globulin Ratio 1.64 Urine Color YELLOW Urine Clarity SLIGHTLY CLOUDY A Urine pH 6.0 Urine Specific [place] 1.008 Urine Ketones NEGATIVE Urine Nitrite NEGATIVE Urine Bilirubin NEGATIVE Urine Urobilinogen NEGATIVE Urine Leukocyte Esterase 1+ H Urine Microscopic RBC 0 Urine Microscopic WBC 21 H Urine Squamous Epithelial Cells FEW Urine Bacteria FEW A Urine Hemoglobin NEGATIVE Urine Osmolality 288 Urine Glucose NEGATIVE Urine Total Protein NEGATIVE Osmolality 267 L Uric Acid 6.1 Test 11/06/16 14:13 11/06/16 16:00 11/06/16 17:35 11/06/16 21:14 Lactic Acid Level 2.9 H 3.3 H Bedside Glucose 175 141 Test 11/07/16 05:10 11/07/16 07:57 White Blood Count 6.5 # Red Blood Count 3.95 L Hemoglobin 12.2 L Hematocrit 36.1 L Mean Corpuscular Volume 91.4 Mean Corpuscular Hemoglobin 30.9 Mean Corpuscular Hemoglobin Concent 33.8 Red Cell Distribution Width 14.3 Platelet Count 256 Mean Platelet Volume 9.0 Neutrophils % 57.2 Lymphocytes % 28.4 Monocytes % 9.7 Eosinophils % 3.7 Basophils % 0.5 Nucleated Red Blood Cells % 0.0 Neutrophils # 3.7 Lymphocytes # 1.8 Monocytes # 0.6 Eosinophils # 0.2 Basophils # 0.0 Nucleated Red Blood Cells # 0.0 Sodium Level 145 #H Potassium Level 4.5 Chloride Level 112 H Carbon Dioxide Level 23 Anion Gap 15 Blood Urea Nitrogen 9 Creatinine 0.70 Glucose Level 138 # Hemoglobin A1c 8.1 H Calcium Level 9.3 Total Bilirubin 0.3 Direct Bilirubin 0.00 Indirect Bilirubin 0.3 Aspartate Amino Transf (AST/SGOT) 31 Alanine Aminotransferase (ALT/SGPT) 54 Alkaline Phosphatase 48 Total Protein 7.1 Albumin 4.4 Globulin 2.70 Albumin/Globulin Ratio 1.62 Thyroid Stimulating Hormone (TSH) 2.310 Bedside Glucose 123 Medications Medications Current Medications Baclofen (Lioresal) 20 mg BID PO Last administered on 11/07/16 08:18; Admin Dose 20 MG; Start 11/06/16 at 16:00 Docusate Sodium (Colace) 100 mg BID PRN PO CONSTIPATION; Start 11/06/16 at 15:00 Gabapentin 600 mg 600 mg TID PO Last administered on 11/07/16 08:18; Admin Dose 600 MG; Start 11/06/16 at 21:00 Sodium Chloride (NS) 1,000 ml @ 100 mls/hr Q10H IV Last administered on 02:57; Admin Dose 100 MLS/HR; Start 11/06/16 at 14:59 Ondansetron HCl (Zofran Inj) 4 mg Q6H PRN IV NAUSEA AND/OR VOMITING; Start 11/06 at 15:00 Acetaminophen (Tylenol Tab) 650 mg Q6H PRN PO PAIN LEVEL 1-3 OR FEVER; Start at 15:00 Acetaminophen/ Hydrocodone Bitart ([place] (5/325)) 1 tab Q6H PRN PO MODERATE PAIN LEVEL 4-6; Start 11/06/16 at 15:00 Morphine Sulfate (morphine) 2 mg Q4H PRN IV SEVERE PAIN LEVEL 7-10; Start at 15:00 Famotidine (Pepcid) 20 mg HS PO Last administered on 11/06/16 21:16; Admin Dose 20 MG; Start 11/06/16 at 21:00 Enoxaparin Sodium (Lovenox) 40 mg DAILY SC Last administered on 11/07/16 08:23 ; Admin Dose 40 MG; Start 11/07/16 at 09:00 Miscellaneous Information 1 ea NOTE XX ; Start 11/06/16 at 15:30 Glucose (Glutose) 15 gm Q15M PRN PO DECREASED GLUCOSE; Start 11/06/16 at 15:30 Glucose (Glutose) 22.5 gm Q15M PRN PO DECREASED GLUCOSE; Start 11/06/16 at 15:30 Dextrose (D50w Syringe) 25 ml Q15M PRN IV DECREASED GLUCOSE; Start 11/06/16 at 15:30 Dextrose (D50w Syringe) 50 ml Q15M PRN IV DECREASED GLUCOSE; Start 11/06/16 at 15:30 Glucagon (Glucagen) 1 mg Q15M PRN IM DECREASED GLUCOSE; Start 11/06/16 at 15:30 Glucose (Glutose) 15 gm Q15M PRN BUCCAL DECREASED GLUCOSE; Start 11/06/16 at 15: 30 Insulin Glargine (Lantus) 30 unit QHS SC Last administered on 11/06/16 21:23; Admin Dose 30 UNIT; Start 11/06/16 at 21:00 Lactobacillus Acidophilus/ Rhamnosus (Culturelle) 1 cap BID PO Last administered on 11/07/16 08:18; Admin Dose 1 CAP; Start 11/06/16 at 21:00 Collagenase (Santyl) 1 applic DAILY TOP Last administered on 11/07/16 08:23; Admin Dose 1 APPLIC; Start 11/06/16 at 20:00 ESTUARDO BROCK MD Nov 07, 2016 11:15
--- NOTE | 2016-11-07 15:39 | CONS ---
Date/Time of Note Date/Time of Note DATE: 11/07/16 TIME: 15:39 Assessment/Plan Assessment/Plan Chief Complaint/Hosp Course No acute events overnight, patient is alert looks comfortable, no fevers, denies pain discomfort Temperature 97.8 pulse 60 respirations 16 blood pressure 115/58 saturation 96 on room air WBC 6.5, no shift no balance BN 9 creatinine 0.7 Microbiology: Blood cultures remain negative, urine culture growing gram- negative rods Physical examination: Well-developed obese middle-aged man who is alert in no distress head atraumatic normocephalic sclera nonicteric bugle mucosa pink neck is supple chest rise symmetrical breath sounds clear heart S1- S2 abdomen soft bowel tones present extremities without cyanosis bilateral lower extremities with trace edema wasted left foot dressing intact. Assessment: 1. Systemic inflammatory response syndrome with fevers and leukocytosis 2. Gram-negative rods UTI 3. Chronic wounds 4. Paraplegia 5. Neurogenic bladder 6. Diabetes Plan: Continue Zosyn, await for final cultures Discussed with patient and staff Problems: Consultation Date/Type/Reason Admit Date/Time Nov 06, 2016 at 15:05 Initial Consult Date Type of Consultation: ID Exam/Review of Systems Vital Signs Vitals Vital Signs Date Time Temp Pulse Resp B/P Pulse Ox O2 Delivery O2 Flow Rate FiO2 11/07/16 07:22 97.5 53 18 117/57 99 11/06/16 16:34 Room Air Intake and Output 11/06/16 11/06/16 11/07/16 14:59 22:59 06:59 Intake Total 1300 ml Output Total 300 ml Balance 1000 ml Results Result Diagram: 11/07/16 0510 11/07/16 0510 Results 24 hrs Laboratory Tests Test 11/06/16 16:00 11/06/16 17:35 11/06/16 21:14 11/07/16 05:10 Lactic Acid Level 3.3 H Bedside Glucose 175 141 White Blood Count 6.5 # Red Blood Count 3.95 L Hemoglobin 12.2 L Hematocrit 36.1 L Mean Corpuscular Volume 91.4 Mean Corpuscular Hemoglobin 30.9 Mean Corpuscular Hemoglobin Concent 33.8 Red Cell Distribution Width 14.3 Platelet Count 256 Mean Platelet Volume 9.0 Neutrophils % 57.2 Lymphocytes % 28.4 Monocytes % 9.7 Eosinophils % 3.7 Basophils % 0.5 Nucleated Red Blood Cells % 0.0 Neutrophils # 3.7 Lymphocytes # 1.8 Monocytes # 0.6 Eosinophils # 0.2 Basophils # 0.0 Nucleated Red Blood Cells # 0.0 Sodium Level 145 #H Potassium Level 4.5 Chloride Level 112 H Carbon Dioxide Level 23 Anion Gap 15 Blood Urea Nitrogen 9 Creatinine 0.70 Glucose Level 138 # Hemoglobin A1c 8.1 H Calcium Level 9.3 Total Bilirubin 0.3 Direct Bilirubin 0.00 Indirect Bilirubin 0.3 Aspartate Amino Transf (AST/SGOT) 31 Alanine Aminotransferase (ALT/SGPT) 54 Alkaline Phosphatase 48 Total Protein 7.1 Albumin 4.4 Globulin 2.70 Albumin/Globulin Ratio 1.62 Thyroid Stimulating Hormone (TSH) 2.310 Test 11/07/16 07:57 11/07/16 12:13 Bedside Glucose 123 161 Medications Medications Current Medications Baclofen (Lioresal) 20 mg BID PO Last administered on 11/07/16 08:18; Admin Dose 20 MG; Start 11/06/16 at 16:00 Docusate Sodium (Colace) 100 mg BID PRN PO CONSTIPATION; Start 11/06/16 at 15:00 Gabapentin 600 mg 600 mg TID PO Last administered on 11/07/16 12:14; Admin Dose 600 MG; Start 11/06/16 at 21:00 Sodium Chloride (NS) 1,000 ml @ 100 mls/hr Q10H IV Last administered on 13:10; Admin Dose 100 MLS/HR; Start 11/06/16 at 14:59 Ondansetron HCl (Zofran Inj) 4 mg Q6H PRN IV NAUSEA AND/OR VOMITING; Start 11/06 at 15:00 Acetaminophen (Tylenol Tab) 650 mg Q6H PRN PO PAIN LEVEL 1-3 OR FEVER; Start at 15:00 Acetaminophen/ Hydrocodone Bitart ([place] (5/325)) 1 tab Q6H PRN PO MODERATE PAIN LEVEL 4-6; Start 11/06/16 at 15:00 Morphine Sulfate (morphine) 2 mg Q4H PRN IV SEVERE PAIN LEVEL 7-10; Start at 15:00 Famotidine (Pepcid) 20 mg HS PO Last administered on 11/06/16 21:16; Admin Dose 20 MG; Start 11/06/16 at 21:00 Enoxaparin Sodium (Lovenox) 40 mg DAILY SC Last administered on 11/07/16 08:23 ; Admin Dose 40 MG; Start 11/07/16 at 09:00 Miscellaneous Information 1 ea NOTE XX ; Start 11/06/16 at 15:30 Glucose (Glutose) 15 gm Q15M PRN PO DECREASED GLUCOSE; Start 11/06/16 at 15:30 Glucose (Glutose) 22.5 gm Q15M PRN PO DECREASED GLUCOSE; Start 11/06/16 at 15:30 Dextrose (D50w Syringe) 25 ml Q15M PRN IV DECREASED GLUCOSE; Start 11/06/16 at 15:30 Dextrose (D50w Syringe) 50 ml Q15M PRN IV DECREASED GLUCOSE; Start 11/06/16 at 15:30 Glucagon (Glucagen) 1 mg Q15M PRN IM DECREASED GLUCOSE; Start 11/06/16 at 15:30 Glucose (Glutose) 15 gm Q15M PRN BUCCAL DECREASED GLUCOSE; Start 11/06/16 at 15: 30 Insulin Glargine (Lantus) 30 unit QHS SC Last administered on 11/06/16 21:23; Admin Dose 30 UNIT; Start 11/06/16 at 21:00 Lactobacillus Acidophilus/ Rhamnosus (Culturelle) 1 cap BID PO Last administered on 11/07/16 08:18; Admin Dose 1 CAP; Start 11/06/16 at 21:00 Collagenase (Santyl) 1 applic DAILY TOP Last administered on 11/07/16 08:23; Admin Dose 1 APPLIC; Start 11/06/16 at 20:00 GERALD ROSENTHAL NP Nov 07, 2016 15:39
[2016-11-07] MEDS: PIPER-TAZO 3.375 GM IV (PMX) 100 ML IVPB SCH ×2 (17:47→21:17)
[2016-11-07 19:15] VITALS: BP 140/72; RESP 20
[2016-11-07] MEDS: FAMOTIDINE 20 MG TAB PO SCH (21:17)
[2016-11-07] MEDS: INSULIN GLARGINE [LANtus] 3 ML PEN SC SCH (22:17)
[2016-11-08 01:28] VITALS: BP 115/60; RESP 20
[2016-11-08] MEDS: PIPER-TAZO 3.375 GM IV (PMX) 100 ML IVPB SCH (06:07)
[2016-11-08 07:25] VITALS: BP 118/63; RESP 18
[2016-11-08] MEDS: GABAPENTIN 300 MG CAP PO SCH ×3 (08:27→20:45)
[2016-11-08] MEDS: BACLOFEN 10 MG TAB PO SCH ×2 (08:27→20:45)
[2016-11-08] MEDS: LACTOBACILLUS RHAMNOSUS CAP PO SCH ×2 (08:27→20:45)
[2016-11-08] MEDS: COLLAGENASE 30 GM TUBE TOP SCH (09:00)
[2016-11-08] MEDS: ENOXAPARIN 40 MG/0.4 ML SYG SC SCH (09:10)
[2016-11-08] MEDS: INSULIN ASPART [NOVOLOG] 3 ML PEN SC SCH ×3 (09:10→17:41)
[2016-11-08] MEDS: SOD CHLORIDE 0.9% 1,000 ML IV SCH ×3 (10:45→23:42)
[2016-11-08] MEDS: ERTAPENEM SODIUM 1 GM in SOD CHLORIDE 0.9% 100 ML IVPB SCH (12:00)
--- NOTE | 2016-11-08 13:23 | PN ---
Date/Time of Note Date/Time of Note DATE: 11/08/16 TIME: 13:22 Assessment/Plan VTE Prophylaxis VTE Prophylaxis Intervention: LMWH Lines/Catheters IV Catheter Type (from [facility]): Peripheral IV Urinary Cath still in place: No ([facility] CATH) Assessment/Plan Chief Complaint/Hosp Course 1. Sepsis secondary to underlying urinary tract infection. No evidence of septic shock. Continue antimicrobials as per infectious diseases. 2. E. coli ESBL urinary tract infection. Continue antimicrobials as per infectious diseases. 3. Type 2 diabetes mellitus. Hemoglobin A1c 8.1. Continue sliding scale insulin along with Lantus insulin. 4. Neurogenic bladder. 5. Paraplegia. Continue supportive care. 6. Bilateral heel pressure ulcers. Continue offloading the heels. Local dressing as per wound care team. 7. Stage III PU of the coccyx. Continue local wound care. 8. Normocytic, normochromic anemia. Etiology unclear. Will monitor H&H closely. Will do an iron panel. 9. Fluids, electrolytes, and nutrition. Carbohydrate controlled diet. 10. DVT prophylaxis. Subcutaneous Lovenox. 11. Gastrointestinal prophylaxis. Histamine 2 receptor blockers. 12. Plan. Continue antimicrobials as per infectious diseases. Await clearance from consultants before discharge. Case discussed with Dr. Rodrigues. Problems: Subjective 24 Hr Interval Summary Free Text/Dictation Denies any pain. Remains afebrile. Exam/Review of Systems Vital Signs Vitals Vital Signs Date Time Temp Pulse Resp B/P Pulse Ox O2 Delivery O2 Flow Rate FiO2 11/08/16 07:25 96.4 55 18 118/63 99 11/06/16 16:34 Room Air Intake and Output 11/07/16 11/07/16 11/08/16 15:00 23:00 07:00 Intake Total 1000 ml 1440 ml 2800 ml Output Total 100 ml 1500 ml Balance 900 ml 1440 ml 1300 ml Exam General: Obese 51 year-old male lying in bed in no apparent distress. HEENT: Normocephalic, atraumatic. Eyes: Anicteric sclerae, conjunctivae clear. ENT: Nasal septum midline, oral mucosa moist. Neck supple, no JVD noticed. Respiratory: Bilaterally clear breath sounds. No use of accessory muscles of respiration. No adventitious breath sounds. Cardiovascular: S1, S2 heard. No murmurs or gallops. Abdomen: Soft, nontender, and nondistended. Bowel sounds positive in all 4 quadrants. Genitourinary: Li catheter in place Extremities: No cyanosis, no clubbing, no edema. Peripheral pulses palpable. Neurologic: The patient is awake, alert, and oriented. Paraplegia. Skin: Normal skin turgor. No skin rashes. Results Result Diagram: 11/07/16 0510 11/07/16 0510 Results 24 hrs Laboratory Tests Test 11/07/16 17:44 11/07/16 21:15 11/08/16 07:47 11/08/16 12:27 Bedside Glucose 100 121 104 151 Medications Medications Current Medications Baclofen (Lioresal) 20 mg BID PO Last administered on 11/08/16 08:27; Admin Dose 20 MG; Start 11/06/16 at 16:00 Docusate Sodium (Colace) 100 mg BID PRN PO CONSTIPATION; Start 11/06/16 at 15:00 Gabapentin 600 mg 600 mg TID PO Last administered on 11/08/16 12:29; Admin Dose 600 MG; Start 11/06/16 at 21:00 Sodium Chloride (NS) 1,000 ml @ 100 mls/hr Q10H IV Last administered on 10:45; Admin Dose 100 MLS/HR; Start 11/06/16 at 14:59 Ondansetron HCl (Zofran Inj) 4 mg Q6H PRN IV NAUSEA AND/OR VOMITING; Start 11/06 at 15:00 Acetaminophen (Tylenol Tab) 650 mg Q6H PRN PO PAIN LEVEL 1-3 OR FEVER; Start at 15:00 Acetaminophen/ Hydrocodone Bitart ([place] (5/325)) 1 tab Q6H PRN PO MODERATE PAIN LEVEL 4-6; Start 11/06/16 at 15:00 Morphine Sulfate (morphine) 2 mg Q4H PRN IV SEVERE PAIN LEVEL 7-10; Start at 15:00 Famotidine (Pepcid) 20 mg HS PO Last administered on 11/07/16 21:17; Admin Dose 20 MG; Start 11/06/16 at 21:00 Enoxaparin Sodium (Lovenox) 40 mg DAILY SC Last administered on 11/08/16 09:10 ; Admin Dose 40 MG; Start 11/07/16 at 09:00 Miscellaneous Information 1 ea NOTE XX ; Start 11/06/16 at 15:30 Glucose (Glutose) 15 gm Q15M PRN PO DECREASED GLUCOSE; Start 11/06/16 at 15:30 Glucose (Glutose) 22.5 gm Q15M PRN PO DECREASED GLUCOSE; Start 11/06/16 at 15:30 Dextrose (D50w Syringe) 25 ml Q15M PRN IV DECREASED GLUCOSE; Start 11/06/16 at 15:30 Dextrose (D50w Syringe) 50 ml Q15M PRN IV DECREASED GLUCOSE; Start 11/06/16 at 15:30 Glucagon (Glucagen) 1 mg Q15M PRN IM DECREASED GLUCOSE; Start 11/06/16 at 15:30 Glucose (Glutose) 15 gm Q15M PRN BUCCAL DECREASED GLUCOSE; Start 11/06/16 at 15: 30 Insulin Glargine (Lantus) 30 unit QHS SC Last administered on 11/07/16 22:17; Admin Dose 30 UNIT; Start 11/06/16 at 21:00 Lactobacillus Acidophilus/ Rhamnosus (Culturelle) 1 cap BID PO Last administered on 11/08/16 08:27; Admin Dose 1 CAP; Start 11/06/16 at 21:00 Collagenase 1 applic 1 applic DAILY TOP Last administered on 11/08/16 09:00; Admin Dose 1 APPLIC; Start 11/06/16 at 20:00 Ertapenem/Sodium Chloride (Invanz/NS) 100 ml @ 200 mls/hr Q24H IVPB Last administered on 11/08/16 12:00; Admin Dose 200 MLS/HR; Start 11/08/16 at 11:00 LALO ROB NP Nov 08, 2016 13:23
--- NOTE | 2016-11-08 13:27 | CONS ---
Date/Time of Note Date/Time of Note DATE: 11/08/16 TIME: 13:26 Assessment/Plan Assessment/Plan Chief Complaint/Hosp Course No acute events overnight, patient is alert looks comfortable, no fevers, denies pain discomfort Microbiology: Blood cultures remain negative, urine culture growing E. coli ESBL Physical examination: Well-developed obese middle-aged man who is alert in no distress head atraumatic normocephalic sclera nonicteric bugle mucosa pink neck is supple chest rise symmetrical breath sounds clear heart S1- S2 abdomen soft bowel tones present extremities without cyanosis bilateral lower extremities with trace edema wasted left foot dressing intact. Assessment: 1. Systemic inflammatory response syndrome with fevers and leukocytosis 2. Gram-negative rods UTI 3. Chronic wounds 4. Paraplegia 5. Neurogenic bladder 6. Diabetes Plan: Clinically stable, change antibiotics to Invanz Discussed with patient and staff Problems: Consultation Date/Type/Reason Admit Date/Time Nov 06, 2016 at 15:05 Type of Consultation: ID Exam/Review of Systems Vital Signs Vitals Vital Signs Date Time Temp Pulse Resp B/P Pulse Ox O2 Delivery O2 Flow Rate FiO2 11/08/16 07:25 96.4 55 18 118/63 99 11/06/16 16:34 Room Air Intake and Output 11/07/16 11/07/16 11/08/16 15:00 23:00 07:00 Intake Total 1000 ml 1440 ml 2800 ml Output Total 100 ml 1500 ml Balance 900 ml 1440 ml 1300 ml Results Result Diagram: 11/07/16 0510 11/07/16 0510 Results 24 hrs Laboratory Tests Test 11/07/16 17:44 11/07/16 21:15 11/08/16 07:47 11/08/16 12:27 Bedside Glucose 100 121 104 151 Medications Medications Current Medications Baclofen (Lioresal) 20 mg BID PO Last administered on 11/08/16 08:27; Admin Dose 20 MG; Start 11/06/16 at 16:00 Docusate Sodium (Colace) 100 mg BID PRN PO CONSTIPATION; Start 11/06/16 at 15:00 Gabapentin 600 mg 600 mg TID PO Last administered on 11/08/16 12:29; Admin Dose 600 MG; Start 11/06/16 at 21:00 Sodium Chloride (NS) 1,000 ml @ 100 mls/hr Q10H IV Last administered on 10:45; Admin Dose 100 MLS/HR; Start 11/06/16 at 14:59 Ondansetron HCl (Zofran Inj) 4 mg Q6H PRN IV NAUSEA AND/OR VOMITING; Start 11/06 at 15:00 Acetaminophen (Tylenol Tab) 650 mg Q6H PRN PO PAIN LEVEL 1-3 OR FEVER; Start at 15:00 Acetaminophen/ Hydrocodone Bitart ([place] (5/325)) 1 tab Q6H PRN PO MODERATE PAIN LEVEL 4-6; Start 11/06/16 at 15:00 Morphine Sulfate (morphine) 2 mg Q4H PRN IV SEVERE PAIN LEVEL 7-10; Start at 15:00 Famotidine (Pepcid) 20 mg HS PO Last administered on 11/07/16 21:17; Admin Dose 20 MG; Start 11/06/16 at 21:00 Enoxaparin Sodium (Lovenox) 40 mg DAILY SC Last administered on 11/08/16 09:10 ; Admin Dose 40 MG; Start 11/07/16 at 09:00 Miscellaneous Information 1 ea NOTE XX ; Start 11/06/16 at 15:30 Glucose (Glutose) 15 gm Q15M PRN PO DECREASED GLUCOSE; Start 11/06/16 at 15:30 Glucose (Glutose) 22.5 gm Q15M PRN PO DECREASED GLUCOSE; Start 11/06/16 at 15:30 Dextrose (D50w Syringe) 25 ml Q15M PRN IV DECREASED GLUCOSE; Start 11/06/16 at 15:30 Dextrose (D50w Syringe) 50 ml Q15M PRN IV DECREASED GLUCOSE; Start 11/06/16 at 15:30 Glucagon (Glucagen) 1 mg Q15M PRN IM DECREASED GLUCOSE; Start 11/06/16 at 15:30 Glucose (Glutose) 15 gm Q15M PRN BUCCAL DECREASED GLUCOSE; Start 11/06/16 at 15: 30 Insulin Glargine (Lantus) 30 unit QHS SC Last administered on 11/07/16 22:17; Admin Dose 30 UNIT; Start 11/06/16 at 21:00 Lactobacillus Acidophilus/ Rhamnosus (Culturelle) 1 cap BID PO Last administered on 11/08/16 08:27; Admin Dose 1 CAP; Start 11/06/16 at 21:00 Collagenase 1 applic 1 applic DAILY TOP Last administered on 11/08/16 09:00; Admin Dose 1 APPLIC; Start 11/06/16 at 20:00 Ertapenem/Sodium Chloride (Invanz/NS) 100 ml @ 200 mls/hr Q24H IVPB Last administered on 11/08/16 12:00; Admin Dose 200 MLS/HR; Start 11/08/16 at 11:00 GERALD ROSENTHAL NP Nov 08, 2016 13:27
[2016-11-08 19:16] VITALS: BP 141/68; RESP 18
[2016-11-08] MEDS: FAMOTIDINE 20 MG TAB PO SCH (20:45)
[2016-11-08] MEDS: INSULIN GLARGINE [LANtus] 3 ML PEN SC SCH (20:54)
[2016-11-09 01:49] VITALS: BP 121/68; RESP 18
[2016-11-09] MEDS: SOD CHLORIDE 0.9% 1,000 ML IV SCH ×3 (02:01→22:01)
[2016-11-09 05:46] LABS: ADD SCAN DIFF NO
[2016-11-09 05:55] LABS: BASOPHILS % 0.4 % (0.0-2.0); EOSINOPHILS # 0.2 10^3/ul (0.0-0.5); EOSINOPHILS % 2.9 % (0.0-7.0); HEMATOCRIT 36.4 % (42.0-52.0); HEMOGLOBIN 12.1 g/dl (14.0-18.0); LYMPHOCYTES # 1.9 10^3/ul (0.8-2.9); LYMPHOCYTES % 24.7 % (15.0-51.0); MEAN CORPUSCULAR HEMOGLOBIN 30.2 pg (29.0-33.0); MEAN CORPUSCULAR HGB CONC 33.2 g/dl (32.0-37.0); MEAN CORPUSCULAR VOLUME 90.8 fl (82.0-101.0); MEAN PLATELET VOLUME 9.3 fl (7.4-10.4); MONOCYTE # 0.5 10^3/ul (0.3-0.9); NEUTROPHIL # 4.9 10^3/ul (1.6-7.5); NEUTROPHILS % 65.6 % (39.0-77.0); PLATELET COUNT 272 10^3/UL (140-415); RED BLOOD COUNT 4.01 10^6/ul (4.70-6.10); RED CELL DISTRIBUTION WIDTH 14.6 % (11.5-14.5); WHITE BLOOD COUNT 7.5 10^3/ul (4.8-10.8)
[2016-11-09 06:26] LABS: CHOL/HDL RATIO 5.6 RATIO; MAGNESIUM 1.8 mg/dl (1.7-2.5)
[2016-11-09 06:31] LABS: CALCIUM 9.2 mg/dl (8.4-10.2); CREATININE 0.62 mg/dl (0.61-1.24); POTASSIUM 3.9 mmol/L (3.5-5.1)
[2016-11-09 07:22] VITALS: BP 125/69; RESP 18
[2016-11-09 07:34] LABS: IRON 60 ug/dl (35-150)
[2016-11-09 07:43] LABS: TOTAL IRON BINDING CAPACITY 233 ug/dl (241-421)
[2016-11-09] MEDS: BACLOFEN 10 MG TAB PO SCH ×2 (08:15→20:29)
[2016-11-09] MEDS: GABAPENTIN 300 MG CAP PO SCH ×3 (08:16→20:29)
[2016-11-09] MEDS: LACTOBACILLUS RHAMNOSUS CAP PO SCH ×2 (08:16→20:29)
[2016-11-09] MEDS: ENOXAPARIN 40 MG/0.4 ML SYG SC SCH (08:21)
[2016-11-09] MEDS: INSULIN ASPART [NOVOLOG] 3 ML PEN SC SCH ×3 (08:21→17:19)
[2016-11-09] MEDS: COLLAGENASE 30 GM TUBE TOP SCH (09:00)
[2016-11-09] MEDS: ERTAPENEM SODIUM 1 GM in SOD CHLORIDE 0.9% 100 ML IVPB SCH (11:00)
[2016-11-09] MEDS ORDERED: LIDOCAINE 1% (MPF) 5 ML VIAL SC ONE (13:00)
--- NOTE | 2016-11-09 13:04 | PN ---
Date/Time of Note Date/Time of Note DATE: 11/09/16 TIME: 13:00 Assessment/Plan VTE Prophylaxis VTE Prophylaxis Intervention: LMWH Lines/Catheters IV Catheter Type (from [facility]): Peripheral IV Urinary Cath still in place: No (condom cath) Assessment/Plan Chief Complaint/Hosp Course 1. Sepsis secondary to underlying urinary tract infection. No evidence of septic shock. Continue antimicrobials as per infectious diseases. 2. E. coli ESBL urinary tract infection. Continue antimicrobials as per infectious diseases. 3. Type 2 diabetes mellitus. Hemoglobin A1c 8.1. Continue sliding scale insulin along with Lantus insulin. 4. Neurogenic bladder. 5. Paraplegia. Continue supportive care. 6. Bilateral heel pressure ulcers. Continue offloading the heels. Local dressing as per wound care team. 7. Stage III PU of the coccyx. Continue local wound care. 8. Normocytic, normochromic anemia. Etiology unclear. Will monitor H&H closely. Iron panel showing low TIBC. 9. Fluids, electrolytes, and nutrition. Carbohydrate controlled diet. 10. DVT prophylaxis. Subcutaneous Lovenox. 11. Gastrointestinal prophylaxis. Histamine 2 receptor blockers. 12. Plan. Continue antimicrobials as per infectious diseases. Plan is to discharge the patient home on IV antibiotics after putting a PICC line in place. Case discussed with Dr. Rodrigues. Problems: Subjective 24 Hr Interval Summary Free Text/Dictation The patient remains afebrile. Exam/Review of Systems Vital Signs Vitals Vital Signs Date Time Temp Pulse Resp B/P Pulse Ox O2 Delivery O2 Flow Rate FiO2 11/09/16 07:22 97.4 56 18 125/69 97 11/06/16 16:34 Room Air Intake and Output 11/08/16 11/08/16 11/09/16 15:00 23:00 07:00 Intake Total 600 ml 1620 ml 1770 ml Output Total 600 ml 2700 ml Balance 600 ml 1020 ml -930 ml Exam General: Obese 51 year-old male lying in bed in no apparent distress. HEENT: Normocephalic, atraumatic. Eyes: Anicteric sclerae, conjunctivae clear. ENT: Nasal septum midline, oral mucosa moist. Neck supple, no JVD noticed. Respiratory: Bilaterally clear breath sounds. No use of accessory muscles of respiration. No adventitious breath sounds. Cardiovascular: S1, S2 heard. No murmurs or gallops. Abdomen: Soft, nontender, and nondistended. Bowel sounds positive in all 4 quadrants. Genitourinary: Li catheter in place Extremities: No cyanosis, no clubbing, no edema. Peripheral pulses palpable. Neurologic: The patient is awake, alert, and oriented. Paraplegia. Skin: Normal skin turgor. No skin rashes. Results Result Diagram: 11/09/16 0504 11/09/16 0504 Results 24 hrs Laboratory Tests Test 11/08/16 17:33 11/08/16 20:44 11/09/16 05:04 11/09/16 07:52 Bedside Glucose 90 133 91 White Blood Count 7.5 Red Blood Count 4.01 L Hemoglobin 12.1 L Hematocrit 36.4 L Mean Corpuscular Volume 90.8 Mean Corpuscular Hemoglobin 30.2 Mean Corpuscular Hemoglobin Concent 33.2 Red Cell Distribution Width 14.6 H Platelet Count 272 Mean Platelet Volume 9.3 Neutrophils % 65.6 Lymphocytes % 24.7 Monocytes % 6.0 Eosinophils % 2.9 Basophils % 0.4 Nucleated Red Blood Cells % 0.0 Neutrophils # 4.9 Lymphocytes # 1.9 Monocytes # 0.5 Eosinophils # 0.2 Basophils # 0.0 Nucleated Red Blood Cells # 0.0 Sodium Level 147 H Potassium Level 3.9 Chloride Level 110 Carbon Dioxide Level 24 Anion Gap 17 H Blood Urea Nitrogen 7 Creatinine 0.62 Glucose Level 97 # Calcium Level 9.2 Phosphorus Level 4.0 Magnesium Level 1.8 Iron Level 60 Total Iron Binding Capacity 233 L Percent Iron Saturation 26 Ferritin 204.0 Triglycerides Level 175 H Cholesterol Level 129 LDL Cholesterol, Calculated 71 HDL Cholesterol 23 L Cholesterol/HDL Ratio 5.6 Vitamin D 1,25-Dihydroxy 28.2 L Test 11/09/16 11:38 Bedside Glucose 187 Medications Medications Current Medications Baclofen (Lioresal) 20 mg BID PO Last administered on 11/09/16 08:15; Admin Dose 20 MG; Start 11/06/16 at 16:00 Docusate Sodium (Colace) 100 mg BID PRN PO CONSTIPATION; Start 11/06/16 at 15:00 Gabapentin 600 mg 600 mg TID PO Last administered on 11/09/16 08:16; Admin Dose 600 MG; Start 11/06/16 at 21:00 Sodium Chloride (NS) 1,000 ml @ 100 mls/hr Q10H IV Last administered on 11:00; Admin Dose 100 MLS/HR; Start 11/06/16 at 14:59 Ondansetron HCl (Zofran Inj) 4 mg Q6H PRN IV NAUSEA AND/OR VOMITING; Start 11/06 at 15:00 Acetaminophen (Tylenol Tab) 650 mg Q6H PRN PO PAIN LEVEL 1-3 OR FEVER; Start at 15:00 Acetaminophen/ Hydrocodone Bitart ([place] (5/325)) 1 tab Q6H PRN PO MODERATE PAIN LEVEL 4-6; Start 11/06/16 at 15:00 Morphine Sulfate (morphine) 2 mg Q4H PRN IV SEVERE PAIN LEVEL 7-10; Start at 15:00 Famotidine (Pepcid) 20 mg HS PO Last administered on 11/08/16 20:45; Admin Dose 20 MG; Start 11/06/16 at 21:00 Enoxaparin Sodium (Lovenox) 40 mg DAILY SC Last administered on 11/09/16 08:21 ; Admin Dose 40 MG; Start 11/07/16 at 09:00 Miscellaneous Information 1 ea NOTE XX ; Start 11/06/16 at 15:30 Glucose (Glutose) 15 gm Q15M PRN PO DECREASED GLUCOSE; Start 11/06/16 at 15:30 Glucose (Glutose) 22.5 gm Q15M PRN PO DECREASED GLUCOSE; Start 11/06/16 at 15:30 Dextrose (D50w Syringe) 25 ml Q15M PRN IV DECREASED GLUCOSE; Start 11/06/16 at 15:30 Dextrose (D50w Syringe) 50 ml Q15M PRN IV DECREASED GLUCOSE; Start 11/06/16 at 15:30 Glucagon (Glucagen) 1 mg Q15M PRN IM DECREASED GLUCOSE; Start 11/06/16 at 15:30 Glucose (Glutose) 15 gm Q15M PRN BUCCAL DECREASED GLUCOSE; Start 11/06/16 at 15: 30 Insulin Glargine (Lantus) 30 unit QHS SC Last administered on 11/08/16 20:54; Admin Dose 30 UNIT; Start 11/06/16 at 21:00 Lactobacillus Acidophilus/ Rhamnosus (Culturelle) 1 cap BID PO Last administered on 11/09/16 08:16; Admin Dose 1 CAP; Start 11/06/16 at 21:00 Collagenase 1 applic 1 applic DAILY TOP Last administered on 11/09/16 09:00; Admin Dose 1 APPLIC; Start 11/06/16 at 20:00 Ertapenem/Sodium Chloride (Invanz/NS) 100 ml @ 200 mls/hr Q24H IVPB Last administered on 11/09/16 11:00; Admin Dose 200 MLS/HR; Start 11/08/16 at 11:00 Lidocaine (Xylocaine 1% (Mpf)) 5 ml ONCE ONCE SC ; Start 11/09/16 at 13:00; Stop 11/09/16 at 13:01 LALO ROB NP Nov 09, 2016 13:04
--- NOTE | 2016-11-09 13:38 | CONS ---
Date/Time of Note Date/Time of Note DATE: 11/09/16 TIME: 13:37 Assessment/Plan Assessment/Plan Chief Complaint/Hosp Course No acute events overnight, patient is alert looks comfortable, no fevers, denies pain discomfort Antibiotics: Invanz Microbiology: Blood cultures remain negative, urine culture growing E. coli ESBL Physical examination: Well-developed obese middle-aged man who is alert in no distress head atraumatic normocephalic sclera nonicteric bugle mucosa pink neck is supple chest rise symmetrical breath sounds clear heart S1- S2 abdomen soft bowel tones present extremities without cyanosis bilateral lower extremities with trace edema wasted left foot dressing intact. Assessment: 1. Systemic inflammatory response syndrome with fevers and leukocytosis 2. Gram-negative rods UTI 3. Chronic wounds 4. Paraplegia 5. Neurogenic bladder 6. Diabetes Plan: Clinically stable, continue antibiotics for 7 more days Discussed with patient and staff Problems: Consultation Date/Type/Reason Admit Date/Time Nov 06, 2016 at 15:05 Type of Consultation: ID Exam/Review of Systems Vital Signs Vitals Vital Signs Date Time Temp Pulse Resp B/P Pulse Ox O2 Delivery O2 Flow Rate FiO2 11/09/16 07:22 97.4 56 18 125/69 97 11/06/16 16:34 Room Air Intake and Output 11/08/16 11/08/16 11/09/16 15:00 23:00 07:00 Intake Total 600 ml 1620 ml 1770 ml Output Total 600 ml 2700 ml Balance 600 ml 1020 ml -930 ml Results Result Diagram: 11/09/16 0504 11/09/16 0504 Results 24 hrs Laboratory Tests Test 11/08/16 17:33 11/08/16 20:44 11/09/16 05:04 11/09/16 07:52 Bedside Glucose 90 133 91 White Blood Count 7.5 Red Blood Count 4.01 L Hemoglobin 12.1 L Hematocrit 36.4 L Mean Corpuscular Volume 90.8 Mean Corpuscular Hemoglobin 30.2 Mean Corpuscular Hemoglobin Concent 33.2 Red Cell Distribution Width 14.6 H Platelet Count 272 Mean Platelet Volume 9.3 Neutrophils % 65.6 Lymphocytes % 24.7 Monocytes % 6.0 Eosinophils % 2.9 Basophils % 0.4 Nucleated Red Blood Cells % 0.0 Neutrophils # 4.9 Lymphocytes # 1.9 Monocytes # 0.5 Eosinophils # 0.2 Basophils # 0.0 Nucleated Red Blood Cells # 0.0 Sodium Level 147 H Potassium Level 3.9 Chloride Level 110 Carbon Dioxide Level 24 Anion Gap 17 H Blood Urea Nitrogen 7 Creatinine 0.62 Glucose Level 97 # Calcium Level 9.2 Phosphorus Level 4.0 Magnesium Level 1.8 Iron Level 60 Total Iron Binding Capacity 233 L Percent Iron Saturation 26 Ferritin 204.0 Triglycerides Level 175 H Cholesterol Level 129 LDL Cholesterol, Calculated 71 HDL Cholesterol 23 L Cholesterol/HDL Ratio 5.6 Vitamin D 1,25-Dihydroxy 28.2 L Test 11/09/16 11:38 Bedside Glucose 187 Medications Medications Current Medications Baclofen (Lioresal) 20 mg BID PO Last administered on 11/09/16 08:15; Admin Dose 20 MG; Start 11/06/16 at 16:00 Docusate Sodium (Colace) 100 mg BID PRN PO CONSTIPATION; Start 11/06/16 at 15:00 Gabapentin 600 mg 600 mg TID PO Last administered on 11/09/16 08:16; Admin Dose 600 MG; Start 11/06/16 at 21:00 Sodium Chloride (NS) 1,000 ml @ 100 mls/hr Q10H IV Last administered on 11:00; Admin Dose 100 MLS/HR; Start 11/06/16 at 14:59 Ondansetron HCl (Zofran Inj) 4 mg Q6H PRN IV NAUSEA AND/OR VOMITING; Start 11/06 at 15:00 Acetaminophen (Tylenol Tab) 650 mg Q6H PRN PO PAIN LEVEL 1-3 OR FEVER; Start at 15:00 Acetaminophen/ Hydrocodone Bitart ([place] (5/325)) 1 tab Q6H PRN PO MODERATE PAIN LEVEL 4-6; Start 11/06/16 at 15:00 Morphine Sulfate (morphine) 2 mg Q4H PRN IV SEVERE PAIN LEVEL 7-10; Start at 15:00 Famotidine (Pepcid) 20 mg HS PO Last administered on 11/08/16 20:45; Admin Dose 20 MG; Start 11/06/16 at 21:00 Enoxaparin Sodium (Lovenox) 40 mg DAILY SC Last administered on 11/09/16 08:21 ; Admin Dose 40 MG; Start 11/07/16 at 09:00 Miscellaneous Information 1 ea NOTE XX ; Start 11/06/16 at 15:30 Glucose (Glutose) 15 gm Q15M PRN PO DECREASED GLUCOSE; Start 11/06/16 at 15:30 Glucose (Glutose) 22.5 gm Q15M PRN PO DECREASED GLUCOSE; Start 11/06/16 at 15:30 Dextrose (D50w Syringe) 25 ml Q15M PRN IV DECREASED GLUCOSE; Start 11/06/16 at 15:30 Dextrose (D50w Syringe) 50 ml Q15M PRN IV DECREASED GLUCOSE; Start 11/06/16 at 15:30 Glucagon (Glucagen) 1 mg Q15M PRN IM DECREASED GLUCOSE; Start 11/06/16 at 15:30 Glucose (Glutose) 15 gm Q15M PRN BUCCAL DECREASED GLUCOSE; Start 11/06/16 at 15: 30 Insulin Glargine (Lantus) 30 unit QHS SC Last administered on 11/08/16 20:54; Admin Dose 30 UNIT; Start 11/06/16 at 21:00 Lactobacillus Acidophilus/ Rhamnosus (Culturelle) 1 cap BID PO Last administered on 11/09/16 08:16; Admin Dose 1 CAP; Start 11/06/16 at 21:00 Collagenase 1 applic 1 applic DAILY TOP Last administered on 11/09/16 09:00; Admin Dose 1 APPLIC; Start 11/06/16 at 20:00 Ertapenem/Sodium Chloride (Invanz/NS) 100 ml @ 200 mls/hr Q24H IVPB Last administered on 11/09/16 11:00; Admin Dose 200 MLS/HR; Start 11/08/16 at 11:00 GERALD ROSENTHAL NP Nov 09, 2016 13:38
[2016-11-09 14:55] LABS: INR 0.91; PARTIAL THROMBOPLASTIN TIME 32.2 Sec (25.0-35.0); PROTIME 12.2 Sec (12.2-14.2)
[2016-11-09] MEDS ORDERED: SOD CHLORIDE 0.9% 100 ML ONE (16:49)
--- NOTE | 2016-11-09 17:01 | RADRPT ---
PROCEDURE: US guidance for PICC line CLINICAL INDICATION: PICC line placement TECHNIQUE: Multiple real-time images were acquired of the patient's arm utilizing a high resolutio n transducer. This was performed by the PICC line nurse for venous access. COMPARISON: None FINDINGS: Ultrasound guidance for PICC line placement. IMPRESSION: Ultrasound guidance for PICC line placement. RPTAT: AA .Samuel Rudd MD, MD Date Time Electronically viewed and signed by .Samuel Rudd MD, on 11/09/2016 17:00 .S/
--- NOTE | 2016-11-09 17:45 | RADRPT ---
PROCEDURE: XR Chest. CLINICAL INDICATION: PICC placement. TECHNIQUE: Chest x-ray, single view. COMPARISON: 11/06/2016. FINDINGS: The cardiac silhouette is magnified. Low lung volumes are observed. Minimal mild basilar atelectat ic changes are present. A right upper extremity PICC is in place and terminates at the SVC/right a trial junction , which is satisfactory in position. Skeletal structures and upper abdomen are unrem arkable. IMPRESSION: Satisfactory positioning of right upper extremity PICC. RPTAT: HLST .Val Polk MD, MD Date Time Electronically viewed and signed by .Val Polk MD, on 11/09/2016 17:44 .T/
[2016-11-09 19:20] VITALS: BP 141/70; RESP 20
[2016-11-09] MEDS: FAMOTIDINE 20 MG TAB PO SCH (20:29)
[2016-11-09] MEDS: INSULIN GLARGINE [LANtus] 3 ML PEN SC SCH (20:36)
[2016-11-10] MEDS: SOD CHLORIDE 0.9% 1,000 ML IV SCH ×3 (01:28→12:34)
[2016-11-10 05:34] LABS: ADD SCAN DIFF NO
[2016-11-10 05:38] LABS: BASOPHILS % 0.4 % (0.0-2.0); EOSINOPHILS # 0.2 10^3/ul (0.0-0.5); EOSINOPHILS % 2.9 % (0.0-7.0); HEMATOCRIT 32.5 % (42.0-52.0); HEMOGLOBIN 10.5 g/dl (14.0-18.0); LYMPHOCYTES # 2.9 10^3/ul (0.8-2.9); MEAN CORPUSCULAR HEMOGLOBIN 29.8 pg (29.0-33.0); MEAN CORPUSCULAR HGB CONC 32.3 g/dl (32.0-37.0); MEAN CORPUSCULAR VOLUME 92.3 fl (82.0-101.0); MEAN PLATELET VOLUME 9.3 fl (7.4-10.4); MONOCYTE # 0.5 10^3/ul (0.3-0.9); NEUTROPHIL # 3.2 10^3/ul (1.6-7.5); NEUTROPHILS % 47.4 % (39.0-77.0); PLATELET COUNT 249 10^3/UL (140-415); RED BLOOD COUNT 3.52 10^6/ul (4.70-6.10); RED CELL DISTRIBUTION WIDTH 15.1 % (11.5-14.5); WHITE BLOOD COUNT 6.8 10^3/ul (4.8-10.8)
[2016-11-10 06:11] LABS: MAGNESIUM 1.9 mg/dl (1.7-2.5); PHOSPHORUS 3.7 mg/dl (2.5-4.9)
[2016-11-10 06:20] LABS: CALCIUM 8.6 mg/dl (8.4-10.2); CREATININE 0.71 mg/dl (0.61-1.24); POTASSIUM 3.7 mmol/L (3.5-5.1)
[2016-11-10 07:15] VITALS: BP 116/56; RESP 18
[2016-11-10] MEDS: INSULIN ASPART [NOVOLOG] 3 ML PEN SC SCH ×2 (08:03→11:57)
[2016-11-10] MEDS: GABAPENTIN 300 MG CAP PO SCH ×2 (08:59→12:34)
[2016-11-10] MEDS: BACLOFEN 10 MG TAB PO SCH (08:59)
[2016-11-10] MEDS: LACTOBACILLUS RHAMNOSUS CAP PO SCH (08:59)
[2016-11-10] MEDS: COLLAGENASE 30 GM TUBE TOP SCH (09:00)
[2016-11-10] MEDS: ENOXAPARIN 40 MG/0.4 ML SYG SC SCH (09:17)
[2016-11-10] MEDS: ERTAPENEM SODIUM 1 GM in SOD CHLORIDE 0.9% 100 ML IVPB SCH (11:12)
--- NOTE | 2016-11-10 11:57 | CONS ---
Date/Time of Note Date/Time of Note DATE: 11/10/16 TIME: 11:56 Assessment/Plan Assessment/Plan Chief Complaint/Hosp Course No acute events overnight, patient is alert looks comfortable, no fevers, denies pain discomfort Antibiotics: Invanz Microbiology: Blood cultures remain negative, urine culture growing E. coli ESBL Physical examination: Well-developed obese middle-aged man who is alert in no distress head atraumatic normocephalic sclera nonicteric bugle mucosa pink neck is supple chest rise symmetrical breath sounds clear heart S1- S2 abdomen soft bowel tones present extremities without cyanosis bilateral lower extremities with trace edema wasted left foot dressing intact. Assessment: 1. Systemic inflammatory response syndrome with fevers and leukocytosis 2. Gram-negative rods UTI 3. Chronic wounds 4. Paraplegia 5. Neurogenic bladder 6. Diabetes Plan: Clinically stable, PICC line placed, continue antibiotics for 6 more days Discussed with patient and staff Problems: Consultation Date/Type/Reason Admit Date/Time Nov 06, 2016 at 15:05 Type of Consultation: ID Exam/Review of Systems Vital Signs Vitals Vital Signs Date Time Temp Pulse Resp B/P Pulse Ox O2 Delivery O2 Flow Rate FiO2 11/10/16 07:15 97.5 62 18 116/56 98 11/06/16 16:34 Room Air Intake and Output 11/09/16 11/09/16 11/10/16 15:00 23:00 07:00 Intake Total 350 ml 2120 ml 1300 ml Balance 350 ml 2120 ml 1300 ml Results Result Diagram: 11/10/16 0500 11/10/16 0500 Results 24 hrs Laboratory Tests Test 11/09/16 14:20 11/09/16 16:53 11/09/16 20:31 11/10/16 05:00 Prothrombin Time 12.2 Prothrombin Time Ratio 1.0 INR International Normalized Ratio 0.91 Activated Partial Thromboplast Time 32.2 Bedside Glucose 134 151 White Blood Count 6.8 Red Blood Count 3.52 L Hemoglobin 10.5 L Hematocrit 32.5 L Mean Corpuscular Volume 92.3 Mean Corpuscular Hemoglobin 29.8 Mean Corpuscular Hemoglobin Concent 32.3 Red Cell Distribution Width 15.1 H Platelet Count 249 Mean Platelet Volume 9.3 Neutrophils % 47.4 Lymphocytes % 42.0 Monocytes % 7.0 Eosinophils % 2.9 Basophils % 0.4 Nucleated Red Blood Cells % 0.0 Neutrophils # 3.2 Lymphocytes # 2.9 Monocytes # 0.5 Eosinophils # 0.2 Basophils # 0.0 Nucleated Red Blood Cells # 0.0 Sodium Level 142 Potassium Level 3.7 Chloride Level 112 H Carbon Dioxide Level 23 Anion Gap 11 Blood Urea Nitrogen 9 Creatinine 0.71 Glucose Level 100 Calcium Level 8.6 Phosphorus Level 3.7 Magnesium Level 1.9 Test 11/10/16 07:54 Bedside Glucose 93 Medications Medications Current Medications Baclofen (Lioresal) 20 mg BID PO Last administered on 11/10/16 08:59; Admin Dose 20 MG; Start 11/06/16 at 16:00 Docusate Sodium (Colace) 100 mg BID PRN PO CONSTIPATION; Start 11/06/16 at 15:00 Gabapentin 600 mg 600 mg TID PO Last administered on 11/10/16 08:59; Admin Dose 600 MG; Start 11/06/16 at 21:00 Sodium Chloride (NS) 1,000 ml @ 100 mls/hr Q10H IV Last administered on 01:28; Admin Dose 100 MLS/HR; Start 11/06/16 at 14:59 Ondansetron HCl (Zofran Inj) 4 mg Q6H PRN IV NAUSEA AND/OR VOMITING; Start 11/06 at 15:00 Acetaminophen (Tylenol Tab) 650 mg Q6H PRN PO PAIN LEVEL 1-3 OR FEVER; Start at 15:00 Acetaminophen/ Hydrocodone Bitart ([place] (5/325)) 1 tab Q6H PRN PO MODERATE PAIN LEVEL 4-6; Start 11/06/16 at 15:00 Morphine Sulfate (morphine) 2 mg Q4H PRN IV SEVERE PAIN LEVEL 7-10; Start at 15:00 Famotidine (Pepcid) 20 mg HS PO Last administered on 11/09/16 20:29; Admin Dose 20 MG; Start 11/06/16 at 21:00 Enoxaparin Sodium (Lovenox) 40 mg DAILY SC Last administered on 11/10/16 09:17 ; Admin Dose 40 MG; Start 11/07/16 at 09:00 Miscellaneous Information 1 ea NOTE XX ; Start 11/06/16 at 15:30 Glucose (Glutose) 15 gm Q15M PRN PO DECREASED GLUCOSE; Start 11/06/16 at 15:30 Glucose (Glutose) 22.5 gm Q15M PRN PO DECREASED GLUCOSE; Start 11/06/16 at 15:30 Dextrose (D50w Syringe) 25 ml Q15M PRN IV DECREASED GLUCOSE; Start 11/06/16 at 15:30 Dextrose (D50w Syringe) 50 ml Q15M PRN IV DECREASED GLUCOSE; Start 11/06/16 at 15:30 Glucagon (Glucagen) 1 mg Q15M PRN IM DECREASED GLUCOSE; Start 11/06/16 at 15:30 Glucose (Glutose) 15 gm Q15M PRN BUCCAL DECREASED GLUCOSE; Start 11/06/16 at 15: 30 Insulin Glargine (Lantus) 30 unit QHS SC Last administered on 11/09/16 20:36; Admin Dose 30 UNIT; Start 11/06/16 at 21:00 Lactobacillus Acidophilus/ Rhamnosus (Culturelle) 1 cap BID PO Last administered on 11/10/16 08:59; Admin Dose 1 CAP; Start 11/06/16 at 21:00 Collagenase 1 applic 1 applic DAILY TOP Last administered on 11/10/16 09:00; Admin Dose 1 APPLIC; Start 11/06/16 at 20:00 Ertapenem/Sodium Chloride (Invanz/NS) 100 ml @ 200 mls/hr Q24H IVPB Last administered on 11/10/16 11:12; Admin Dose 200 MLS/HR; Start 11/08/16 at 11:00 IV Flush (NS 10 ml) 10 ml PREOP PRN IV IV PROTOCOL; Start 11/09/16 at 17:30 GERALD ROSENTHAL NP Nov 10, 2016 11:57
--- NOTE | 2016-11-10 15:51 | PDOCDIS ---
Discharge Instructions DIAGNOSIS Discharge Diagnosis Urinary Tract Infection. CONDITION Patient Condition: Stable HOME CARE INSTRUCTIONS: Special Diet: carb control OTHER ORDERS: Other Orders: 1. Take medications as per prescription. Continue with the course of antibiotics until 11/16/2016. 2. Resume home medications. 3. Follow-up with your primary care physician in 7 days. If you do not have a primary care physician, please call Dr. Joe Cheng's office. 4. Resume prehospitalization activities. LALO ROB NP Nov 10, 2016 15:51
[2016-11-10] MEDS ORDERED: LANT3I SC (15:58)
[2016-11-10] MEDS ORDERED: NOVO3I SC (15:58)
--- NOTE | 2016-11-10 16:42 | DS ---
Date/Time of Note Date/Time of Note DATE: 11/10/16 TIME: 16:39 Discharge Summary Admission/Discharge Info Admit Date/Time Nov 06, 2016 at 15:05 Discharge Date/Time Discharge Diagnosis 1. Sepsis secondary to underlying urinary tract infection. 2. E. coli ESBL urinary tract infection. 3. Type 2 diabetes mellitus. Hemoglobin A1c 8.1. 4. Neurogenic bladder. 5. Paraplegia. 6. Bilateral heel pressure ulcers. 7. Stage III PU of the coccyx. 8. Normocytic, normochromic anemia. Patient Condition: Stable Consults Jb Brown MD, Infectious Diseases. Procedures IMPRESSION: Satisfactory positioning of right upper extremity PICC. CXR IMPRESSION: 1. Low lung volumes with mild bilateral basilar atelectasis. 2. No significant interval change. Hx of Present Illness Admitted with fever chills 1 or 2 days. States it might be his urine. Denies dysuria hematuria. Possibly has issues with incontinence and loss of sensation. No nausea vomiting loss of appetite. No cough wheezing headaches losses vision. No diarrhea. States his left heel wound is stable. The right one is not healed yet. He visits the [facility]. ER: Stable vital signs except temperature 101. Hospital Course The patient was admitted to inpatient setting. Pancultures were ordered. The patient was started on empiric antibiotics. The patient's urine culture showed E. coli ESBL. Consequently, the patient's antibiotics were adjusted. The patient was maintained on contact precautions. The patient had no evidence of any septic shock. The patient has underlying type 2 diabetes mellitus. His hemoglobin A1c was found to be 8.1. He was maintained on sliding scale insulin along with basal insulin and pre-meal insulin. The patient has underlying paraplegia. The patient was provided with supportive care. The patient has underlying bilateral heel pressure ulcers as well as stage III pressure ulcer of the coccyx. The patient was provided with local wound care. The patient also has underlying normocytic, normochromic anemia. The patient's iron panel showed a low TIBC. The patient had a stable hospital course. The patient was cleared by infectious disease to be discharged home on IV antibiotics [IV Invanz 1 g every 24 hours until 11/16/2016]. Discharge Instructions 1. Take medications as per prescription. Continue with the course of antibiotics until 11/16/2016. 2. Resume home medications. 3. Follow-up with your primary care physician in 7 days. If you do not have a primary care physician, please call Dr. Joe Cheng's office. 4. Resume prehospitalization activities. The patient verbalized understanding of his discharge instructions. Case discussed with Dr. Rodrigues. Home Meds Active Scripts Insulin Aspart* (Novolog Insulin Pen*) 100 Unit/Ml Soln, 12 UNIT SC WITH MEALS for 30 Days Prov:LALO ROB RECEPTION INTERVIEWER 11/10/16 Insulin Glargine* (Lantus*) 100 Unit/Ml Soln, 30 UNIT SC QHS for 30 Days Prov:LALO ROB RECEPTION INTERVIEWER 11/10/16 Reported Medications Metformin Hcl* (Metformin Hcl*) 1,000 Mg Tablet, 1000 MG PO WITH BREAKFAST DINNE , #60 TAB 11/06/16 Baclofen* (Baclofen*) 20 Mg Tablet, 20 MG PO BID, TAB 08/22/16 Gabapentin* (Gabapentin*) 300 Mg Capsule, 600 MG PO TID, #180 CAP 08/22/16 Docusate Sodium* (Doc-Q-Lace*) 100 Mg Capsule, 100 MG PO BID Y for CONSTIPATION , CAP 04/18/16 Lisinopril* (Lisinopril*) 2.5 Mg Tablet, 2.5 MG PO DAILY, #30 TAB 10/07/15 Atorvastatin Calcium* (Atorvastatin Calcium*) 20 Mg Tablet, 20 MG PO QHS, #30 TAB 10/07/15 Discontinued Reported Medications Insulin Lispro (Humalog Kwikpen U-100) 100 Unit/1 Ml Insuln.pen, 20 UNIT SQ TID 11/06/16 Insulin Glargine* (Lantus*) 100 Unit/Ml Soln, 35 UNIT SC QHS, #1 VIAL 01/31/16 Levofloxacin* (Levofloxacin*) 750 Mg Tablet, 750 MG PO DAILY, TAB 08/22/16 Insulin Lispro (Humalog) 100 Unit/1 Ml Cartridge, 10 UNIT SQ TID 04/18/16 Ferrous Sulfate* (Ferrous Sulfate*) 325 Mg Tabec, 325 MG PO BID, TAB 01/31/16 Discontinued Scripts Cephalexin* (Keflex*) 500 Mg Capsule, 500 MG PO QID for 7 Days, CAP Prov:ROSE MARIE CLINTON PA-C 09/25/16 Follow-up Plan Follow-up with your primary care physician in 1 week. Primary Care Provider Hiram Renner Time spent on discharge: > 30 minutes Pending Labs UN DATE: 11/08/16 [facility] PAGE 1 RUN TIME: [id number] [place] [address] Joon Orozco M.D. Manager Sas DERRICK#: [id number] Name: CLARIBELTONY Age/Sex: 51/M Attend Dr: HELLEN MASON Acct: [id number] MR# : [id number] : 1965 [place] [facility] [place] [facility] Admit: 11/06/16 Specimen: [id number] Status: Complete Nikhil: 11/06/16-1239 Rcvd: 11/06-3 Source: EDUARDO Dunbar Sp Descrip: Procedure Result Microbiology URINE CULTURE Final Organism 1 ESCHERICHIA COLI (ESBL) COLONY COUNT >100,000 CFU/ml . MULTI DRUG RESISTANT ORGANISM PHONED TO KENNY HERNÁNDEZ, TOOTIE COOPER, AND A COPY TO AT 0824 11/08/2016 BY JV. LYDIA Navarrete RX --------- --- AMIKACIN 4 S AMPICILLIN >=32 R CEFAZOLIN R CEFEPIME <=1 S CEFOTAXIME R CIPROFLOXACIN >=4 R GENTAMICIN <=1 S IMIPENEM <=0.25 S LEVOFLOXACIN 4 I NITROFURANTOIN 32 S TOBRAMYCIN >=16 R TRIMETHOPRIM/SULFAMETHOXAZOLE >=320 R PIPERACILLIN/TAZOBACTAM <=4 S ................................................................................ ............ Laboratory Tests Test 11/09/16 16:53 11/09/16 20:31 11/10/16 05:00 11/10/16 07:54 Bedside Glucose 134mg/dL (70-220) 151mg/dL (70-220) 93mg/dL (70-220) White Blood Count 6.810^3/ul (4.8-10.8) Red Blood Count 3.5210^6/ul (4.70-6.10) Hemoglobin 10.5g/dl (14.0-18.0) Hematocrit 32.5% (42.0-52.0) Mean Corpuscular Volume 92.3fl (82.0-101.0) Mean Corpuscular Hemoglobin 29.8pg (29.0-33.0) Mean Corpuscular Hemoglobin Concent 32.3g/dl (32.0-37.0) Red Cell Distribution Width 15.1% (11.5-14.5) Platelet Count 39482^3/UL (140-415) Mean Platelet Volume 9.3fl (7.4-10.4) Neutrophils % 47.4% (39.0-77.0) Lymphocytes % 42.0% (15.0-51.0) Monocytes % 7.0% (0.0-11.0) Eosinophils % 2.9% (0.0-7.0) Basophils % 0.4% (0.0-2.0) Nucleated Red Blood Cells % 0.0/100WBC (0.0-0.0) Neutrophils # 3.210^3/ul (1.6-7.5) Lymphocytes # 2.910^3/ul (0.8-2.9) Monocytes # 0.510^3/ul (0.3-0.9) Eosinophils # 0.210^3/ul (0.0-0.5) Basophils # 0.010^3/ul (0.0-0.1) Nucleated Red Blood Cells # 0.010^3/ul (0.0-0.0) Sodium Level 142mmol/L (135-144) Potassium Level 3.7mmol/L (3.5-5.1) Chloride Level 112mmol/L (97-110) Carbon Dioxide Level 23mmol/L (21-31) Anion Gap 11 (8-16) Blood Urea Nitrogen 9mg/dl (7-20) Creatinine 0.71mg/dl (0.61-1.24) Glucose Level 100mg/dl (70-220) Calcium Level 8.6mg/dl (8.4-10.2) Phosphorus Level 3.7mg/dl (2.5-4.9) Magnesium Level 1.9mg/dl (1.7-2.5) Test 11/10/16 11:50 Bedside Glucose 116mg/dL (70-220) LALO ROB NP Nov 10, 2016 16:42
== END 2016-11-10 17:15 | disposition home health service (06) | DRG 698 ==
LOC: E/R 11:16 → MS2 15:05
PROVIDERS: ADMIT Hospitalist; ATTEND Hospitalist
PROC: 02HV33Z Insertion of Infusion Device into Superior Vena Cava, Percutaneous Approach (ICD-10-PCS; principal; 2016-11-09)
PROC: B548ZZA Ultrasonography of Superior Vena Cava, Guidance (ICD-10-PCS; 2016-11-09)
DX: T83.518A Infection and inflammatory reaction due to other urinary catheter, initial encounter (principal); A41.9 Sepsis, unspecified organism; L89.153 Pressure ulcer of sacral region, stage 3; G82.20 Paraplegia, unspecified; E87.1 Hypo-osmolality and hyponatremia; N39.0 Urinary tract infection, site not specified; I10 Essential (primary) hypertension; E78.5 Hyperlipidemia, unspecified; N31.9 Neuromuscular dysfunction of bladder, unspecified; R33.9 Retention of urine, unspecified; B96.20 Unspecified Escherichia coli [E. coli] as the cause of diseases classified elsewhere; D64.9 Anemia, unspecified; L89.629 Pressure ulcer of left heel, unspecified stage; L89.619 Pressure ulcer of right heel, unspecified stage; Z79.4 Long term (current) use of insulin; Y84.6 Urinary catheterization as the cause of abnormal reaction of the patient, or of later complication, without mention of misadventure at the time of the procedure
CPT/HCPCS: 36415; 36569; 71010; 76937; 80048; 80053; 80061; 81001; 82306; 82652; 82728; 82962; 83036; 83540; 83605; 83735; 83930; 83935; 84100; 84443; 84560; 85025; 85610; 85730; 87040; 87086; 93005; 96374; 96375; A4310; C1769; J1335; J1650; J1815; J2543; J7030

== ENCOUNTER 2016-12-26 11:10 | Emergency (ER) | payer MEDICARE, OTHER ==
[~2016-12-26] VITALS: Ht 152.4 cm; Wt 89.0 kg
[~2016-12-26 11:10] MED LIST changes: -CEPH-443 PO; -FER325 PO; -INSU100C SQ; -LEVO750T8 PO; +METF1000 PO; +NOVO3I SC
[2016-12-26 11:17] VITALS: Ht 152.4 cm; Wt 89.0 kg
--- NOTE | 2016-12-26 14:56 | ERA ---
ER Documentation Chief Complaint Date/Time DATE: 12/26/16 TIME: 14:50 Chief Complaint FEVER, POSSIBLE URINE INFECTION PER DRAW FURNACE TENDER HPI This is a 51-year-old male with a past medical history of paraplegia secondary to a fall and work-related accident, nonambulatory, requires straight cath for urinating, diabetes, chronic diabetic foot ulcers, stage I sacral decubitus ulcer who is presenting with 1 day of fever, fatigue, decreased appetite and cloudy pungent urine. The patient is taken care of by a home nurse who noticed that the urine started to become more cloudy. They were concerned of a urinary tract infection. Patient does endorse fever but no chills. He has no headache or vision changes. He has no chest pain or trouble breathing. He has no abdominal discomfort. He cannot feel below his hips. He is unable to move below his hips. He has no focal deficits to his face or upper extremities. ROS All systems reviewed and are negative except as per history of present illness. Medications Home Meds Reported Medications Insulin Aspart* (Novolog Insulin Pen*) 100 Unit/Ml Soln, 0 SC .SLIDING SCALE AC , EA 12/26/16 Insulin Glargine* (Lantus*) 100 Unit/Ml Soln, 37 UNIT SC QHS, #1 VIAL 12/26/16 Metformin Hcl* (Metformin Hcl*) 1,000 Mg Tablet, 1000 MG PO WITH BREAKFAST DINNE , #60 TAB 11/06/16 Baclofen* (Baclofen*) 20 Mg Tablet, 20 MG PO BID, TAB 08/22/16 Gabapentin* (Gabapentin*) 300 Mg Capsule, 600 MG PO TID, #180 CAP 08/22/16 Docusate Sodium* (Doc-Q-Lace*) 100 Mg Capsule, 100 MG PO BID Y for CONSTIPATION , CAP 04/18/16 Lisinopril* (Lisinopril*) 2.5 Mg Tablet, 2.5 MG PO DAILY, #30 TAB 10/07/15 Atorvastatin Calcium* (Atorvastatin Calcium*) 20 Mg Tablet, 20 MG PO QHS, #30 TAB 10/07/15 Discontinued Scripts Insulin Aspart* (Novolog Insulin Pen*) 100 Unit/Ml Soln, 12 UNIT SC WITH MEALS for 30 Days Prov:LALO ROB SOLDERING MACHINE TENDER 11/10/16 Insulin Glargine* (Lantus*) 100 Unit/Ml Soln, 30 UNIT SC QHS for 30 Days Prov:LALO ROB SOLDERING MACHINE TENDER 11/10/16 Allergies Allergies: Coded Allergies: No Known Allergy (Unverified , 11/06/16) PMhx/Soc History of Surgery: Yes (CERVICAL ABSCESS) Anesthesia Reaction: No Hx Neurological Disorder: Yes (PARAPALEGIC) Hx Respiratory Disorders: No Hx Cardiac Disorders: Yes (HTN) Hx Psychiatric Problems: Yes Hx Miscellaneous Medical Probl: No Hx Alcohol Use: No Hx Substance Use: No Hx Tobacco Use: No Physical Exam Vitals Vital Signs Date Time Temp Pulse Resp B/P Pulse Ox O2 Delivery O2 Flow Rate FiO2 12/26/16 17:00 67 20 113/74 99 Room Air 12/26/16 15:57 Nasal Cannula 2 12/26/16 15:00 71 20 119/71 99 Room Air 12/26/16 11:17 100.3 77 18 129/77 99 Physical Exam Const: NAD Head: Atraumatic Eyes: Normal Conjunctiva ENT: Normal External Ears, Nose and Mouth. Neck: Full range of motion..~ No meningismus. Resp: Clear to auscultation bilaterally Cardio: Regular rate and rhythm, no murmurs Abd: Soft, non tender, non distended. Normal bowel sounds Skin: No petechiae or rashes. Back: No midline or flank tenderness Ext: No cyanosis, or edema, Stage I sacral decubitus ulcer that does not appear infected, no erythema, no induration, no purulence, no edema. Patient has a left diabetic foot ulcer that is healing well. There is a necrotic core. There is no visible bone. There is no induration or erythema or edema or purulence to indicate surrounding soft tissue infection of the foot. Neur: Awake and alert, No sensation to the lower extremities. Paraparesis. Psych: Normal Mood and Affect Result Diagram: 12/26/16 1530 12/26/16 1530 Results 24 hrs Laboratory Tests Test 12/26/16 15:30 12/26/16 16:05 White Blood Count 8.810^3/ul Red Blood Count 4.1510^6/ul Hemoglobin 12.5g/dl Hematocrit 37.4% Mean Corpuscular Volume 90.1fl Mean Corpuscular Hemoglobin 30.1pg Mean Corpuscular Hemoglobin Concent 33.4g/dl Red Cell Distribution Width 13.4% Platelet Count 53085^3/UL Mean Platelet Volume 9.3fl Neutrophils % 42.0% Lymphocytes % 43.5% Monocytes % 10.4% Eosinophils % 3.1% Basophils % 0.7% Nucleated Red Blood Cells % 0.0/100WBC Neutrophils # (Manual) 3.710^3/ul Lymphocytes # 3.810^3/ul Monocytes # 0.910^3/ul Eosinophils # 0.310^3/ul Basophils # 0.110^3/ul Nucleated Red Blood Cells # 0.010^3/ul Sodium Level 137mmol/L Potassium Level 4.0mmol/L Chloride Level 100mmol/L Carbon Dioxide Level 21mmol/L Anion Gap 20 Blood Urea Nitrogen 10mg/dl Creatinine 0.62mg/dl Glucose Level 189mg/dl Calcium Level 9.8mg/dl Total Bilirubin 0.0mg/dl Direct Bilirubin 0.00mg/dl Indirect Bilirubin 0.0mg/dl Aspartate Amino Transf (AST/SGOT) 25IU/L Alanine Aminotransferase (ALT/SGPT) 61IU/L Alkaline Phosphatase 57IU/L Total Protein 7.9g/dl Albumin 4.0g/dl Globulin 3.90g/dl Albumin/Globulin Ratio 1.02 Urine Color STRAW Urine Clarity CLEAR Urine pH 6.0 Urine Specific Leon 1.002 Urine Ketones NEGATIVEmg/dL Urine Nitrite NEGATIVEmg/dL Urine Bilirubin NEGATIVEmg/dL Urine Urobilinogen NEGATIVEmg/dL Urine Leukocyte Esterase TRACELeu/ul Urine Microscopic RBC 0/HPF Urine Microscopic WBC 4/HPF Urine Bacteria FEW/HPF Urine Hemoglobin NEGATIVEmg/dL Urine Glucose NEGATIVEmg/dL Urine Total Protein NEGATIVEmg/dl Current Medications Medications (Trade) Dose Ordered Sig/Drea Route PRN Reason Start Time Stop Time Status Last Admin Dose Admin Sodium Chloride (NS) 1,000 ml @ 1,000 mls/hr Q1H ONCE IV 12/26/16 15:30 12/26/16 16:29 DC 12/26/16 15:54 Procedures/MDM Patient's presenting with concerns of an infection. The patient does not endorse symptoms concerning for a UTI, but his network communications engineer is concerned of cloudy urine. This is certainly a possibility given that he requires straight catheterizations in order to urinate. The patient does not endorse a pulmonary etiology. His lungs are clear, and I do not feel a x-ray is necessary at this time. The patient's blood work is obtained and reviewed. The patient does not have a leukocytosis or left shift. He is afebrile presently, and I do not suspect a systemic infection. He does have a mild anemia that does not need to be emergently treated. He is quite well-appearing with normal vital signs. The patient's BMP is likewise unremarkable. I do not suspect a renal pathology. The patient's urinalysis shows trace leukocyte esterase and a few bacteria. He has minimal WBCs and no nitrates. The urine is not cloudy here. My suspicion for a urinary tract infection in the setting is very low. Her urinalysis will be sent off, and the patient may be called if it is positive for a bacterial etiology. At this time, I do feel that the patient may have an infection, but I do not see a bacterial source. The patient may take Motrin or Tylenol as needed for discomfort. I do anticipate that his symptoms will resolve in 7-10 days from onset. The patient should return to the emergency department for worsening fever, chills, fatigue, confusion or any other concerns. The patient should follow-up with his primary care doctor in 1-3 days for reevaluation. Departure Diagnosis: Primary Impression: Fatigue Qualified Code: R53.83 - Fatigue, unspecified type Additional Impression: Fever Condition: Stable Patient Instructions: Febrile Illness, Uncertain Cause (Adult), Fever Control ( Adult) Additional Instructions: You came to the emergency department after sustaining a fever. Your blood work and urine testing is reassuring at this time. Please follow-up with your doctor in 1-3 days for reevaluation. Urinalysis will be sent off. He will be notified if it is positive and he require antibiotics. Please return to the emergency department for any concerns. Thank you for for coming to [facility] for your care today. Please ask your nurse or provider if you have questions about your care today and do not leave until all your questions have been answered. Please use any medications given as directed and follow-up with your doctor (or the doctor you were referred to) in the next 2-3 days. If you do not have a primary care doctor you may follow up at the [facility] (listed below). You may also use motrin and tylenol as needed for fever and/or pain unless instructed otherwise by your provider or nurse. Indications for more urgent follow-up have been discussed, but you may return to the Emergency Department at ANY time for any worrisome or worsening symptoms. If you have abdominal pain, please know that no test or exam you received is perfect and you should follow up within 8 hours for continued pain. If you had any imaging studies today, such as an X-Ray or CT Scan, these studies will be reviewed later by a radiologist. You will be called if there are important findings that were not identified today, so make sure the contact information you provided at registration is correct. If you received any narcotic pain control medicine today, such as Vicodin, Morphine or Dilaudid, your coordination and judgment may be affected for a number of hours. Please do not drive or operate heavy machinery, and you may want someone to assist you at home. If you were given a prescription for narcotic medication, be aware that it is very addictive- use sparingly and only if necessary. ROBERTO TESFAYE MD Dec 26, 2016 14:56
[2016-12-26] MEDS ORDERED: NOVO3I SC (15:28)
[2016-12-26] MEDS ORDERED: LANT3I SC (15:28)
[2016-12-26] MEDS ORDERED: SOD CHLORIDE 0.9% 1,000 ML IV ONE (15:30)
[2016-12-26 15:41] LABS: BASOPHIL # 0.1 10^3/ul (0.0-0.1); BASOPHILS % 0.7 % (0.0-2.0); EOSINOPHILS # 0.3 10^3/ul (0.0-0.5); EOSINOPHILS % 3.1 % (0.0-7.0); HEMATOCRIT 37.4 % (42.0-52.0); HEMOGLOBIN 12.5 g/dl (14.0-18.0); LYMPHOCYTES # 3.8 10^3/ul (0.8-2.9); LYMPHOCYTES % 43.5 % (15.0-51.0); MEAN CORPUSCULAR HEMOGLOBIN 30.1 pg (29.0-33.0); MEAN CORPUSCULAR HGB CONC 33.4 g/dl (32.0-37.0); MEAN CORPUSCULAR VOLUME 90.1 fl (82.0-101.0); MEAN PLATELET VOLUME 9.3 fl (7.4-10.4); MONOCYTE # 0.9 10^3/ul (0.3-0.9); MONOCYTES % 10.4 % (0.0-11.0); PLATELET COUNT 304 10^3/UL (140-415); RED BLOOD COUNT 4.15 10^6/ul (4.70-6.10); RED CELL DISTRIBUTION WIDTH 13.4 % (11.5-14.5); WHITE BLOOD COUNT 8.8 10^3/ul (4.8-10.8)
[2016-12-26 16:03] LABS: ALBUMIN/GLOBULIN RATIO 1.02; CALCIUM 9.8 mg/dl (8.4-10.2); CREATININE 0.62 mg/dl (0.61-1.24); TOTAL PROTEIN 7.9 g/dl (6.1-8.1)
--- NOTE | 2016-12-26 16:26 | RADRPT ---
PROCEDURE: Portable chest x-ray. CLINICAL INDICATION: 51-year of age, male. Possible sepsis. TECHNIQUE: Portable AP view of the chest. COMPARISON: None available. FINDINGS: Cardiomediastinal contours are normal. Lungs are clear. Negative for pleural effusion or pneumothorax. No acute bony abnormality. IMPRESSION: Negative for evidence of acute chest process. Negative for an infiltrate. RPTAT: [facility]CTS Physician Kit Date Time Electronically viewed and signed by Melissa Chisholm Physician on 12/26/2016 16:25 CS/
[2016-12-26 16:27] LABS: ADD UMIC YES; UR ASCORBIC ACID NEGATIVE (NEGATIVE); UR BACTERIA FEW /HPF (NONE SEEN); UR BILIRUBIN (Dip) NEGATIVE (NEGATIVE); UR BLOOD (Dip) NEGATIVE (NEGATIVE); UR CLARITY CLEAR (CLEAR); UR COLOR STRAW (YELLOW); UR GLUCOSE (Dip) NEGATIVE (NEGATIVE); UR KETONES (Dip) NEGATIVE (NEGATIVE); UR LEUKOCYTE ESTERASE (Dip) TRACE Leu/ul (NEGATIVE); UR NITRITE (Dip) NEGATIVE (NEGATIVE); UR RBC 0 /HPF (0-5); UR SPECIFIC GRAVITY (Dip) 1.002 (1.003-1.030); UR TOTAL PROTEIN (Dip) NEGATIVE (NEGATIVE); UR UROBILINOGEN (Dip) NEGATIVE (NEGATIVE)
[2016-12-26 17:53] VITALS: BP 113/76; PULSE 89; RESP 16; TEMP 97.9
== END 2016-12-26 17:56 | disposition home or self-care (01) ==
LOC: E/R 11:10
DX: R53.83 Other fatigue (principal); I10 Essential (primary) hypertension; E11.9 Type 2 diabetes mellitus without complications; Z79.4 Long term (current) use of insulin; Z79.84 Long term (current) use of oral hypoglycemic drugs
CPT/HCPCS: 36415; 71010; 80053; 81001; 85025; 87086; 93005; 99285; J7030

== ENCOUNTER 2016-12-28 11:19 | Inpatient (IN) | payer MEDICARE, OTHER ==
[~2016-12-28] VITALS: Ht 167.6 cm; Wt 88.6 kg
--- NOTE | 2016-12-28 15:38 | ERA ---
ER Documentation Chief Complaint Date/Time DATE: 12/28/16 TIME: 15:37 Chief Complaint abd pain, fever. seen here sun for same, unresolved, sent by pmd. HPI This is a 51-year-old male with a past medical history of paraplegia secondary to a fall from a work-related accident, nonambulatory, requires straight cath for urinating, diabetes, chronic left diabetic foot ulcer, stage I sacral decubitus ulcer who is presenting again with 3 days of fever, fatigue, and decreased appetite. The patient presented 2 days ago with concerns of a urinary tract infection by his home nurse who noticed that the urine started to become more cloudy. A full workup was obtained. The patient was afebrile in the emergency department. He did not have a leukocytosis. His urinalysis did not show signs of an infection and his urine was not cloudy for us. There is suspicion for a viral infection, and the patient was sent home at that time. However, over the last 2 days, the patient has intermittently had fever, T-max 100.9F, improves with ibuprofen, continued fatigue and decreased appetite. The patient has a new complaint of upper abdominal fullness and discomfort as well. Patient does endorse fever but no chills. He has no headache or vision changes. He has no chest pain or trouble breathing. He has no abdominal discomfort. He cannot feel below his umbilicus. He is unable to move below his hips. He has no focal deficits to his face or upper extremities. ROS All systems reviewed and are negative except as per history of present illness. Medications Home Meds Reported Medications Insulin Aspart* (Novolog Insulin Pen*) 100 Unit/Ml Soln, 10 SC TID, EA 12/26/16 Insulin Glargine* (Lantus*) 100 Unit/Ml Soln, 37 UNIT SC QHS, #1 VIAL 12/26/16 Metformin Hcl* (Metformin Hcl*) 1,000 Mg Tablet, 1000 MG PO WITH BREAKFAST DINNE , #60 TAB 11/06/16 Baclofen* (Baclofen*) 20 Mg Tablet, 20 MG PO BID, TAB 08/22/16 Gabapentin* (Gabapentin*) 300 Mg Capsule, 600 MG PO TID, #180 CAP 08/22/16 Docusate Sodium* (Doc-Q-Lace*) 100 Mg Capsule, 100 MG PO BID Y for CONSTIPATION , CAP 04/18/16 Lisinopril* (Lisinopril*) 2.5 Mg Tablet, 2.5 MG PO DAILY, #30 TAB 10/07/15 Atorvastatin Calcium* (Atorvastatin Calcium*) 20 Mg Tablet, 20 MG PO QHS, #30 TAB 10/07/15 Discontinued Scripts Insulin Aspart* (Novolog Insulin Pen*) 100 Unit/Ml Soln, 12 UNIT SC WITH MEALS for 30 Days Prov:LALO ROB RECORDS MANAGEMENT ANALYST 11/10/16 Insulin Glargine* (Lantus*) 100 Unit/Ml Soln, 30 UNIT SC QHS for 30 Days Prov:LALO ROB RECORDS MANAGEMENT ANALYST 11/10/16 Allergies Allergies: Coded Allergies: No Known Allergy (Unverified , 12/28/16) PMhx/Soc History of Surgery: Yes (CERVICAL ABSCESS) Anesthesia Reaction: No Hx Neurological Disorder: Yes (PARAPALEGIC) Hx Respiratory Disorders: No Hx Cardiac Disorders: Yes (HTN) Hx Psychiatric Problems: Yes Hx Miscellaneous Medical Probl: No Hx Alcohol Use: No Hx Substance Use: No Hx Tobacco Use: No Physical Exam Vitals Vital Signs Date Time Temp Pulse Resp B/P Pulse Ox O2 Delivery O2 Flow Rate FiO2 12/28/16 20:38 98.7 83 14 129/77 99 Room Air 12/28/16 19:13 69 14 128/79 99 Room Air 12/28/16 16:10 75 20 131/91 100 Room Air 12/28/16 11:31 100.6 103 20 130/74 97 Physical Exam Const: [] Head: Atraumatic Eyes: Normal Conjunctiva ENT: Normal External Ears, Nose and Mouth. Neck: Full range of motion..~ No meningismus. Resp: Clear to auscultation bilaterally Cardio: Regular rate and rhythm, no murmurs Abd: Soft, non tender, non distended. Normal bowel sounds Skin: No petechiae or rashes Back: No midline or flank tenderness Ext: No cyanosis, or edema Neur: Awake and alert Psych: Normal Mood and Affect Result Diagram: 12/28/16 1511 12/28/16 1511 Results 24 hrs Laboratory Tests Test 12/28/16 15:11 12/28/16 16:19 12/28/16 16:20 White Blood Count 9.910^3/ul Red Blood Count 4.0310^6/ul Hemoglobin 12.5g/dl Hematocrit 35.7% Mean Corpuscular Volume 88.6fl Mean Corpuscular Hemoglobin 31.0pg Mean Corpuscular Hemoglobin Concent 35.0g/dl Red Cell Distribution Width 13.0% Platelet Count 15299^3/UL Mean Platelet Volume 9.6fl Neutrophils % 42.7% Lymphocytes % 43.9% Monocytes % 10.7% Eosinophils % 1.6% Basophils % 0.6% Nucleated Red Blood Cells % 0.0/100WBC Neutrophils # (Manual) 4.210^3/ul Lymphocytes # 4.310^3/ul Monocytes # 1.110^3/ul Eosinophils # 0.210^3/ul Basophils # 0.110^3/ul Nucleated Red Blood Cells # 0.010^3/ul Sodium Level 131mmol/L Potassium Level 3.8mmol/L Chloride Level 94mmol/L Carbon Dioxide Level 17mmol/L Anion Gap 24 Blood Urea Nitrogen 9mg/dl Creatinine 0.66mg/dl Glucose Level 185mg/dl Lactic Acid Level 3.8mmol/L Calcium Level 9.2mg/dl Total Bilirubin 0.2mg/dl Direct Bilirubin 0.00mg/dl Indirect Bilirubin 0.2mg/dl Aspartate Amino Transf (AST/SGOT) 51IU/L Alanine Aminotransferase (ALT/SGPT) 50IU/L Alkaline Phosphatase 58IU/L Total Protein 7.8g/dl Albumin 4.2g/dl Globulin 3.60g/dl Albumin/Globulin Ratio 1.16 Urine Color YELLOW Urine Clarity CLEAR Urine pH 6.0 Urine Specific [place] 1.005 Urine Ketones NEGATIVEmg/dL Urine Nitrite POSITIVEmg/dL Urine Bilirubin NEGATIVEmg/dL Urine Urobilinogen NEGATIVEmg/dL Urine Leukocyte Esterase TRACELeu/ul Urine Microscopic RBC 0/HPF Urine Microscopic WBC 3/HPF Urine Squamous Epithelial Cells FEW/HPF Urine Bacteria FEW/HPF Urine Hemoglobin NEGATIVEmg/dL Urine Glucose NEGATIVEmg/dL Urine Total Protein NEGATIVEmg/dl Prothrombin Time 12.7Sec Prothrombin Time Ratio 1.0 INR International Normalized Ratio 0.95 Activated Partial Thromboplast Time 29.2Sec Current Medications Medications (Trade) Dose Ordered Sig/Drea Route PRN Reason Start Time Stop Time Status Last Admin Dose Admin Sodium Chloride (NS) 1,000 ml @ 1,000 mls/hr Q1H ONCE IV 12/28/16 16:00 12/28/16 16:59 DC 12/28/16 16:17 Sodium Chloride 1330 ml 1,330 ml BOLUS OVER 2 HOURS STAT IV* 12/28/16 17:03 12/28/16 17:06 DC 12/28/16 17:14 Cefepime HCl (Maxipime 1gm/50 ml (Pmx)) 50 ml @ 100 mls/hr ONCE ONCE IVPB 12/28/16 17:30 12/28/16 17:59 DC 12/28/16 17:14 Ondansetron HCl (Zofran Inj) 4 mg BRIDGE ORDER PRN IV NAUSEA AND/OR VOMITING 12/28/16 18:00 12/29/16 17:59 Acetaminophen (Tylenol Tab) 650 mg ER BRIDGE PRN PO MILD PAIN/FEVER 12/28/16 18:00 12/29/16 17:59 IV Flush (NS 3 ml) 3 ml PER PROTOCOL IV 12/28/16 19:30 Ondansetron HCl (Zofran Inj) 4 mg Q6H PRN IV NAUSEA AND/OR VOMITING 12/28/16 19:30 Acetaminophen (Tylenol Tab) 650 mg Q6H PRN PO PAIN LEVEL 1-3 OR FEVER 12/28/16 19:30 Acetaminophen/ Hydrocodone Bitart ([place] (5/325)) 1 tab Q6H PRN PO MODERATE PAIN LEVEL 4-6 12/28/16 19:30 Morphine Sulfate (morphine) 2 mg Q4H PRN IV SEVERE PAIN LEVEL 7-10 12/28/16 19:30 Docusate Sodium (Colace) 100 mg Q12H PRN PO CONSTIPATION 12/28/16 19:30 Zolpidem Tartrate 5 mg 5 mg QHS PRN PO SLEEP 12/28/16 19:30 Ceftriaxone Sodium (Rocephin) 50 ml @ 100 mls/hr Q24H IVPB 12/29/16 17:00 Atorvastatin Calcium (Lipitor) 20 mg QHS PO 12/29/16 21:00 Baclofen (Lioresal) 20 mg BID PO 12/29/16 09:00 Docusate Sodium (Colace) 100 mg BID PRN PO CONSTIPATION 12/28/16 19:30 12/28/16 19:33 DC Gabapentin (Neurontin) 600 mg TID PO 12/29/16 09:00 Insulin Glargine (Lantus) 37 unit QHS SC 12/28/16 22:00 Insulin Aspart (Novolog Insulin Pen) 5 unit WITH MEALS SC 12/29/16 08:00 Miscellaneous Information (* Miscellaneous Pharmacy Order) Discontinue current oral sulfonylur... ONCE ONCE XX 12/28/16 19:30 12/28/16 19:33 DC Diagnostic Test (Pha) (Accu-Chek) 1 ea 02 XX 12/29/16 02:00 Miscellaneous Information (* Miscellaneous Pharmacy Order) HYPOGLYCEMIA PROTOCOL w... ONCE ONCE XX 12/28/16 19:30 12/28/16 19:33 DC Insulin Aspart (Novolog Insulin Pen) NOVOLOG *MILD* ALGORITHM WITH MEALS BEDTIME SC 12/28/16 22:00 Miscellaneous Information (* Miscellaneous Pharmacy Order) Discontinue all previ... ONCE ONCE XX 12/28/16 19:30 12/28/16 19:33 DC Miscellaneous Information 1 ea NOTE XX 12/28/16 19:30 Glucose (Glutose) 15 gm Q15M PRN PO DECREASED GLUCOSE 12/28/16 19:30 Glucose (Glutose) 22.5 gm Q15M PRN PO DECREASED GLUCOSE 12/28/16 19:30 Dextrose (D50w Syringe) 25 ml Q15M PRN IV DECREASED GLUCOSE 12/28/16 19:30 Dextrose (D50w Syringe) 50 ml Q15M PRN IV DECREASED GLUCOSE 12/28/16 19:30 Glucagon (Glucagen) 1 mg Q15M PRN IM DECREASED GLUCOSE 12/28/16 19:30 Glucose (Glutose) 15 gm Q15M PRN BUCCAL DECREASED GLUCOSE 12/28/16 19:30 Procedures/MDM The patient presents again with persistent fever from two days prior. A repeat workup was completed The arrived tachycardic but this resolved on its own. The patient was also febrile today. The patient's blood work still does not show leukocytosis or a shift. He has a mild anemia that does not need to be treated. His platelet count is normal. His BMP reveals an anion gap metabolic acidosis which is likely related to his lactic acidosis. His vital signs were stable, but the lactic acid was concerning. His urine showed nitrites today which was a change from previous. I will treat for a possible UTI. The patient does have the wound on his right foot, but it does not look infected. I do not believe this to be the cause. He has no lung findings to suggest a pneumonia. He does have a grade one sacra decub, but this is also not infected. The patient EKG showed a normal sinus rhythm at 68bpm, normal intervals, left axis, no evidence for acute arrhythmia or ischemia. His CT abdomen revealed the following: IMPRESSION: Fecal impaction and proctitis. Li catheter and small amount of air in the decompressed bladder. Other findings are stable. Physician Damian Date Time Electronically viewed and signed by Catalino Gonzáles Physician on 12/28/2016 18: 23 The patient may require treatment for proctitis as well. Sepsis diagnosed at 1600 PM - Lactate >2.0 30mL/kg NS bolus given Cefepime given Case discussed with Dr. Aguayo who accepted the patient at 1732PM. Departure Diagnosis: Primary Impression: Sepsis Qualified Code: A41.9 - Sepsis, due to unspecified organism Additional Impressions: Fever Qualified Code: R50.9 - Fever, unspecified fever cause UTI (urinary tract infection) Qualified Code: N39.0 - Urinary tract infection without hematuria, site unspecified Proctitis Condition: Serious ROBERTO TESFAYE MD Dec 28, 2016 15:38
[2016-12-28 15:44] LABS: BASOPHIL # 0.1 10^3/ul (0.0-0.1); BASOPHILS % 0.6 % (0.0-2.0); EOSINOPHILS # 0.2 10^3/ul (0.0-0.5); EOSINOPHILS % 1.6 % (0.0-7.0); HEMATOCRIT 35.7 % (42.0-52.0); HEMOGLOBIN 12.5 g/dl (14.0-18.0); LYMPHOCYTES # 4.3 10^3/ul (0.8-2.9); LYMPHOCYTES % 43.9 % (15.0-51.0); MEAN CORPUSCULAR VOLUME 88.6 fl (82.0-101.0); MEAN PLATELET VOLUME 9.6 fl (7.4-10.4); MONOCYTE # 1.1 10^3/ul (0.3-0.9); MONOCYTES % 10.7 % (0.0-11.0); NEUTROPHILS % 42.7 % (39.0-77.0); PLATELET COUNT 261 10^3/UL (140-415); RED BLOOD COUNT 4.03 10^6/ul (4.70-6.10); WHITE BLOOD COUNT 9.9 10^3/ul (4.8-10.8)
[2016-12-28 15:50] LABS: ALBUMIN 4.2 g/dl (3.3-4.9); ALBUMIN/GLOBULIN RATIO 1.16; BILIRUBIN,INDIRECT 0.2 mg/dl (0-1.1); BILIRUBIN,TOTAL 0.2 mg/dl (0.2-1.3); CALCIUM 9.2 mg/dl (8.4-10.2); CREATININE 0.66 mg/dl (0.61-1.24); POTASSIUM 3.8 mmol/L (3.5-5.1); TOTAL PROTEIN 7.8 g/dl (6.1-8.1)
[2016-12-28] MEDS ORDERED: SOD CHLORIDE 0.9% 1,000 ML IV ONE (16:00)
--- NOTE | 2016-12-28 16:05 | RADRPT ---
PROCEDURE: XR Chest. CLINICAL INDICATION: Chest pain TECHNIQUE: Single portable view of the chest was obtained COMPARISON: 12/26/2016 FINDINGS: The heart is enlarged. The lungs are clear. There is no pleural effusion or pneumothorax. RPTAT: AA IMPRESSION: Mild Cardiomegaly. .Samuel Rudd MD, MD Date Time Electronically viewed and signed by .Samuel Rudd MD, on 12/28/2016 16:05 .S/
[2016-12-28 16:43] LABS: INR 0.95; PROTIME 12.7 Sec (12.2-14.2)
[2016-12-28 16:44] LABS: PARTIAL THROMBOPLASTIN TIME 29.2 Sec (25.0-35.0)
[2016-12-28 16:51] LABS: ADD UMIC YES; UR ASCORBIC ACID NEGATIVE (NEGATIVE); UR BACTERIA FEW /HPF (NONE SEEN); UR BILIRUBIN (Dip) NEGATIVE (NEGATIVE); UR BLOOD (Dip) NEGATIVE (NEGATIVE); UR CLARITY CLEAR (CLEAR); UR COLOR YELLOW (YELLOW); UR GLUCOSE (Dip) NEGATIVE (NEGATIVE); UR KETONES (Dip) NEGATIVE (NEGATIVE); UR LEUKOCYTE ESTERASE (Dip) TRACE Leu/ul (NEGATIVE); UR NITRITE (Dip) POSITIVE (NEGATIVE); UR RBC 0 /HPF (0-5); UR SPECIFIC GRAVITY (Dip) 1.005 (1.003-1.030); UR SQUAMOUS EPITHELIAL CELL FEW /HPF (FEW); UR TOTAL PROTEIN (Dip) NEGATIVE (NEGATIVE); UR UROBILINOGEN (Dip) NEGATIVE (NEGATIVE)
[2016-12-28] MEDS ORDERED: SODIUM CHLORIDE 0.9% 1L BAG IV* STA (17:03)
[2016-12-28] MEDS ORDERED: CEFEPIME 1GM/50 ML (PMX) 50 ML IVPB ONE (17:30)
[2016-12-28] MEDS ORDERED: ONDANSETRON 4 MG INJ IV PRN ×2 (18:00→19:30)
[2016-12-28] MEDS ORDERED: ACETAMINOPHEN 325 MG TAB PO PRN ×2 (18:00→19:30)
--- NOTE | 2016-12-28 18:24 | RADRPT ---
PROCEDURE: CT of the abdomen and pelvis without contrast CLINICAL INDICATION: Possible Sepsis. TECHNIQUE: Spiral CT images through the abdomen and pelvis without the use of contrast. The admin istered radiation dose is CTDI 20.43 and DLP 1249.75. Coronal and sagittal reformatted images were submitted. One or more of the following dose reduction techniques were used: automated exposure cont rol, adjustment of the mA and/or kV according to patient size, or use of iterative reconstruction te chnique. COMPARISON: 10/28/2015 FINDINGS: Lack of oral and intravenous contrast somewhat limits evaluation. There is bibasilar and lingular atelectasis.. No pleural or pericardial effusion is seen. The liver, spleen, and adrenal glands are normal in appearance. Fatty infiltration of the pancreas is noted. There is no evidence of cholelithiasis or biliary ductal dilatation. The kidneys are nor mal in size and contour. There is no evidence of hydronephrosis or nephrolithiasis. Mild perinephri c fluid.. The aorta is normal in caliber. No evidence of lymphadenopathy. There is no evidence for b owel obstruction, free air, free fluid or abscess. The appendix is normal in appearance. The colon is fecal filled. Large stool ball in the rectum, rectal wall thickening and presacral inflammatory changes are visualized. Li catheter and a small amount of air are seen in the decompressed bladd er. The bladder wall is thickened. There is a fat containing left inguinal hernia, unchanged. La rge bilateral acetabular spurs are seen. Bilateral hip joints are narrowed. IMPRESSION: Fecal impaction and proctitis. Li catheter and small amount of air in the decompressed bladder. Other findings are stable. RPTAT: HCNS Physician Damian Date Time Electronically viewed and signed by Physician Damian on 12/28/2016 18:23 CS/
--- NOTE | 2016-12-28 19:03 | HP ---
Date/Time of Note Date/Time of Note DATE: 12/28/16 TIME: 18:57 Assessment/Plan VTE Prophylaxis VTE Prophylaxis Intervention: SCD's Assessment/Plan Chief Complaint/Hosp Course 1. Sepsis likely secondary to UTI UA is suggestive of a UTI as nitrite is positive and leukocyte esterase is noted but will await urine culture Rocephin IV 2. Paraplegia with history of neurogenic bladder 3. Diabetes Continue home regimen PPx- SCD's Problems: HPI/ROS Admit Date/Time Admit Date/Time December 28, 2016 Hx of Present Illness Pt is a 51-year-old male with a history of paraplegia with neurogenic bladder as well as chronic foot infection, patient has had multiple hospitalizations for sepsis from UTI. Patient does have a caregiver at home and has been using an in and out Li catheter which is inserted 3 times a day, caregiver states that she cleans the catheter with Betadine after each use. Patient presents with abdominal pain as well as reports of fever. Pt does have a low-grade fever has a presumed UTI at this time. Patient's only complaint is that of abdominal pain. ROS Constitutional: improved, no complaints Eyes: no complaints ENT: no complaints Respiratory: no complaints Cardiovascular: no complaints Gastrointestinal: pain Genitourinary: no complaints Musculoskeletal: no complaints Skin: no complaints Neurologic: no complaints Endocrine: no complaints Lymphatic: no complaints Psychological: nl mood/affect, no complaints Immunologic: no complaints PMH/Family/Social Past Medical History Paraplegia with neurogenic bladder, diabetes, history of sepsis from UTIs Family History Significant Family History: no pertinent family hx Social History Alcohol Use: none Smoking Status: Never smoker Drug Use: none Exam/Review of Systems Vital Signs Vitals Vital Signs Date Time Temp Pulse Resp B/P Pulse Ox O2 Delivery O2 Flow Rate FiO2 12/28/16 16:10 75 20 131/91 100 Room Air 12/28/16 11:31 100.6 Exam Constitutional: alert, oriented Head: normocephalic Respiratory: clear to auscultation Cardiovascular: regular rate and rhythm Gastrointestinal: soft, No distended Musculoskeletal: No nl extremities to inspection Labs Result Diagram: 12/28/16 1511 12/28/16 1511 VICTORIA BEAVERS Dec 28, 2016 19:03
[2016-12-28] MEDS ORDERED: GLUCOSE GEL 15 GRAM TUBE BUCCAL PRN (19:30)
[2016-12-28] MEDS ORDERED: GLUCOSE GEL 15 GRAM TUBE PO PRN ×2 (19:30)
[2016-12-28] MEDS ORDERED: NACL 0.9% 3 ML SYG IV SCH (19:30)
[2016-12-28] MEDS ORDERED: morphine 2 MG INJ IV PRN (19:30)
[2016-12-28] MEDS ORDERED: DEXTROSE 50% 50 ML SYRINGE IV PRN ×2 (19:30)
[2016-12-28] MEDS ORDERED: DOCUSATE SODIUM 100 MG CAP PO PRN ×2 (19:30)
[2016-12-28] MEDS ORDERED: GLUCAGON 1 MG INJ IM PRN (19:30)
[2016-12-28] MEDS ORDERED: HYDROCODONE/APAP (5/325) TAB PO PRN (19:30)
[2016-12-28] MEDS ORDERED: ZOLPIDEM 5 MG TAB PO PRN (19:30)
[2016-12-28 20:38] VITALS: TEMP 98.7
[2016-12-28 21:00] VITALS: BP 129/70; PULSE 59; RESP 18
[2016-12-28 21:50] VITALS: Ht 167.6 cm; Wt 88.6 kg
[2016-12-28 22:00] VITALS: BP 129/70; RESP 18
[2016-12-28] MEDS: INSULIN ASPART [NOVOLOG] 3 ML PEN SC SCH (22:00)
[2016-12-28] MEDS: INSULIN GLARGINE [LANtus] 3 ML PEN SC SCH (23:07)
[2016-12-29] MEDS: ACCU-CHEK XX SCH (02:00)
[2016-12-29 02:38] VITALS: BP 115/68; RESP 20
[2016-12-29] MEDS ORDERED: PENDING SANTYL ORDER FOR WOUND CARE XX PRN (05:00)
[2016-12-29 05:43] LABS: BASOPHILS % 0.6 % (0.0-2.0); EOSINOPHILS # 0.3 10^3/ul (0.0-0.5); EOSINOPHILS % 3.8 % (0.0-7.0); HEMATOCRIT 36.9 % (42.0-52.0); HEMOGLOBIN 12.3 g/dl (14.0-18.0); LYMPHOCYTES # 2.6 10^3/ul (0.8-2.9); MEAN CORPUSCULAR HEMOGLOBIN 30.4 pg (29.0-33.0); MEAN CORPUSCULAR HGB CONC 33.3 g/dl (32.0-37.0); MEAN CORPUSCULAR VOLUME 91.1 fl (82.0-101.0); MEAN PLATELET VOLUME 9.2 fl (7.4-10.4); MONOCYTE # 0.7 10^3/ul (0.3-0.9); MONOCYTES % 10.3 % (0.0-11.0); PLATELET COUNT 280 10^3/UL (140-415); RED BLOOD COUNT 4.05 10^6/ul (4.70-6.10); RED CELL DISTRIBUTION WIDTH 13.4 % (11.5-14.5); WHITE BLOOD COUNT 6.9 10^3/ul (4.8-10.8)
[2016-12-29 06:29] LABS: CALCIUM 9.3 mg/dl (8.4-10.2); CREATININE 0.59 mg/dl (0.61-1.24); MAGNESIUM 1.7 mg/dl (1.7-2.5); POTASSIUM 4.5 mmol/L (3.5-5.1)
[2016-12-29 08:00] VITALS: BP 117/64; RESP 19
[2016-12-29] MEDS: INSULIN ASPART [NOVOLOG] 3 ML PEN SC SCH ×7 (08:12→21:02)
[2016-12-29] MEDS: GABAPENTIN 300 MG CAP PO SCH ×3 (08:44→20:59)
[2016-12-29] MEDS: BACLOFEN 10 MG TAB PO SCH ×2 (08:44→20:58)
--- NOTE | 2016-12-29 13:56 | PN ---
Date/Time of Note Date/Time of Note DATE: 12/29/16 TIME: 13:55 Assessment/Plan VTE Prophylaxis VTE Prophylaxis Intervention: SCD's Lines/Catheters IV Catheter Type (from Nrs): Saline Lock Assessment/Plan Chief Complaint/Hosp Course 1. Sepsis likely secondary to UTI UA is suggestive of a UTI as nitrite is positive and leukocyte esterase is noted but will await urine culture Rocephin IV 2. Paraplegia with history of neurogenic bladder 3. Diabetes Continue home regimen PPx- SCD's Problems: Subjective 24 Hr Interval Summary Constitutional: no complaints Exam/Review of Systems Vital Signs Vitals Vital Signs Date Time Temp Pulse Resp B/P Pulse Ox O2 Delivery O2 Flow Rate FiO2 12/29/16 08:00 97.5 54 19 117/64 98 12/28/16 21:00 Room Air Intake and Output 12/28/16 12/28/16 12/29/16 15:00 23:00 07:00 Intake Total 1650 ml Output Total 1450 ml Balance 200 ml Exam Constitutional: alert Respiratory: clear to auscultation Cardiovascular: regular rate and rhythm Gastrointestinal: soft, No distended Musculoskeletal: nl extremities to inspection Results Result Diagram: 12/29/16 0509 12/29/16 0509 Results 24 hrs Laboratory Tests Test 12/28/16 15:11 12/28/16 16:19 12/28/16 16:20 12/28/16 23:05 White Blood Count 9.9 Red Blood Count 4.03 L Hemoglobin 12.5 L Hematocrit 35.7 L Mean Corpuscular Volume 88.6 Mean Corpuscular Hemoglobin 31.0 Mean Corpuscular Hemoglobin Concent 35.0 Red Cell Distribution Width 13.0 Platelet Count 261 Mean Platelet Volume 9.6 Neutrophils % 42.7 Lymphocytes % 43.9 Monocytes % 10.7 Eosinophils % 1.6 Basophils % 0.6 Nucleated Red Blood Cells % 0.0 Neutrophils # (Manual) 4.2 Lymphocytes # 4.3 H Monocytes # 1.1 H Eosinophils # 0.2 Basophils # 0.1 Nucleated Red Blood Cells # 0.0 Sodium Level 131 L Potassium Level 3.8 Chloride Level 94 L Carbon Dioxide Level 17 L Anion Gap 24 H Blood Urea Nitrogen 9 Creatinine 0.66 Glucose Level 185 Lactic Acid Level 3.8 *H Calcium Level 9.2 Total Bilirubin 0.2 Direct Bilirubin 0.00 Indirect Bilirubin 0.2 Aspartate Amino Transf (AST/SGOT) 51 #H Alanine Aminotransferase (ALT/SGPT) 50 Alkaline Phosphatase 58 Total Protein 7.8 Albumin 4.2 Globulin 3.60 H Albumin/Globulin Ratio 1.16 Urine Color YELLOW Urine Clarity CLEAR Urine pH 6.0 Urine Specific [place] 1.005 Urine Ketones NEGATIVE Urine Nitrite POSITIVE A Urine Bilirubin NEGATIVE Urine Urobilinogen NEGATIVE Urine Leukocyte Esterase TRACE A Urine Microscopic RBC 0 Urine Microscopic WBC 3 Urine Squamous Epithelial Cells FEW Urine Bacteria FEW A Urine Hemoglobin NEGATIVE Urine Glucose NEGATIVE Urine Total Protein NEGATIVE Prothrombin Time 12.7 Prothrombin Time Ratio 1.0 INR International Normalized Ratio 0.95 Activated Partial Thromboplast Time 29.2 Bedside Glucose 174 Test 12/29/16 05:09 12/29/16 08:09 12/29/16 12:18 White Blood Count 6.9 # Red Blood Count 4.05 L Hemoglobin 12.3 L Hematocrit 36.9 L Mean Corpuscular Volume 91.1 Mean Corpuscular Hemoglobin 30.4 Mean Corpuscular Hemoglobin Concent 33.3 Red Cell Distribution Width 13.4 Platelet Count 280 Mean Platelet Volume 9.2 Neutrophils % 48.0 Lymphocytes % 37.0 Monocytes % 10.3 Eosinophils % 3.8 Basophils % 0.6 Nucleated Red Blood Cells % 0.0 Neutrophils # (Manual) 3.3 Lymphocytes # 2.6 Monocytes # 0.7 Eosinophils # 0.3 Basophils # 0.0 Nucleated Red Blood Cells # 0.0 Sodium Level 144 Potassium Level 4.5 Chloride Level 107 # Carbon Dioxide Level 24 Anion Gap 18 H Blood Urea Nitrogen 11 Creatinine 0.59 L Glucose Level 194 Lactic Acid Level 2.3 *H Calcium Level 9.3 Magnesium Level 1.7 Bedside Glucose 195 152 Medications Medications Current Medications Ondansetron HCl (Zofran Inj) 4 mg Q6H PRN IV NAUSEA AND/OR VOMITING; Start at 19:30 Acetaminophen (Tylenol Tab) 650 mg Q6H PRN PO PAIN LEVEL 1-3 OR FEVER; Start at 19:30 Acetaminophen/ Hydrocodone Bitart ([place] (5/325)) 1 tab Q6H PRN PO MODERATE PAIN LEVEL 4-6; Start 12/28/16 at 19:30 Morphine Sulfate (morphine) 2 mg Q4H PRN IV SEVERE PAIN LEVEL 7-10; Start 12/28 at 19:30 Docusate Sodium (Colace) 100 mg Q12H PRN PO CONSTIPATION; Start 12/28/16 at 19: 30 Zolpidem Tartrate 5 mg 5 mg QHS PRN PO SLEEP; Start 12/28/16 at 19:30 Ceftriaxone Sodium (Rocephin) 50 ml @ 100 mls/hr Q24H IVPB ; Start 12/29/16 at 17:00 Atorvastatin Calcium (Lipitor) 20 mg QHS PO ; Start 12/29/16 at 21:00 Baclofen (Lioresal) 20 mg BID PO Last administered on 12/29/16 08:44; Admin Dose 20 MG; Start 12/29/16 at 09:00 Gabapentin (Neurontin) 600 mg TID PO Last administered on 12/29/16 12:26; Admin Dose 600 MG; Start 12/29/16 at 09:00 Insulin Glargine (Lantus) 37 unit QHS SC Last administered on 12/28/16 23:07; Admin Dose 37 UNIT; Start 12/28/16 at 22:00 Diagnostic Test (Pha) (Accu-Chek) 1 ea 02 XX ; Start 12/29/16 at 02:00 Miscellaneous Information 1 ea NOTE XX ; Start 12/28/16 at 19:30 Glucose (Glutose) 15 gm Q15M PRN PO DECREASED GLUCOSE; Start 12/28/16 at 19:30 Glucose (Glutose) 22.5 gm Q15M PRN PO DECREASED GLUCOSE; Start 12/28/16 at 19: 30 Dextrose (D50w Syringe) 25 ml Q15M PRN IV DECREASED GLUCOSE; Start 12/28/16 at 19:30 Dextrose (D50w Syringe) 50 ml Q15M PRN IV DECREASED GLUCOSE; Start 12/28/16 at 19:30 Glucagon (Glucagen) 1 mg Q15M PRN IM DECREASED GLUCOSE; Start 12/28/16 at 19:30 Glucose (Glutose) 15 gm Q15M PRN BUCCAL DECREASED GLUCOSE; Start 12/28/16 at 19 :30 Miscellaneous Information (Pending [facility] Order For Wound Care) This patient kennedy... PRN PRN XX WOUND CARE; Start 12/29/16 at 05:00 VICTORIA BEAVERS Dec 29, 2016 13:56
[2016-12-29 14:00] VITALS: BP 101/56; RESP 20
[2016-12-29] MEDS ORDERED: CEFTRIAXONE 1 GM/50 ML (PMX) 50 ML IVPB SCH (17:00)
[2016-12-29 20:50] VITALS: BP 131/60; RESP 21
[2016-12-29] MEDS: ATORVASTATIN 20 MG TAB PO SCH (20:59)
[2016-12-29] MEDS: INSULIN GLARGINE [LANtus] 3 ML PEN SC SCH (21:00)
[2016-12-30] MEDS: ACCU-CHEK XX SCH (02:00)
[2016-12-30 02:53] VITALS: BP 99/53; RESP 19
[2016-12-30 06:35] LABS: BASOPHILS % 0.5 % (0.0-2.0); EOSINOPHILS # 0.4 10^3/ul (0.0-0.5); EOSINOPHILS % 4.9 % (0.0-7.0); HEMOGLOBIN 12.5 g/dl (14.0-18.0); LYMPHOCYTES # 2.9 10^3/ul (0.8-2.9); MEAN CORPUSCULAR HEMOGLOBIN 30.4 pg (29.0-33.0); MEAN CORPUSCULAR HGB CONC 32.9 g/dl (32.0-37.0); MEAN CORPUSCULAR VOLUME 92.5 fl (82.0-101.0); MEAN PLATELET VOLUME 9.5 fl (7.4-10.4); MONOCYTE # 0.9 10^3/ul (0.3-0.9); NEUTROPHILS % 46.1 % (39.0-77.0); PLATELET COUNT 290 10^3/UL (140-415); RED BLOOD COUNT 4.11 10^6/ul (4.70-6.10); WHITE BLOOD COUNT 7.7 10^3/ul (4.8-10.8)
[2016-12-30 06:46] LABS: CALCIUM 9.2 mg/dl (8.4-10.2); CREATININE 0.67 mg/dl (0.61-1.24); MAGNESIUM 1.8 mg/dl (1.7-2.5); POTASSIUM 4.2 mmol/L (3.5-5.1)
[2016-12-30] MEDS: INSULIN ASPART [NOVOLOG] 3 ML PEN SC SCH ×7 (08:00→21:28)
[2016-12-30] MEDS: BACLOFEN 10 MG TAB PO SCH ×2 (08:40→21:26)
[2016-12-30] MEDS: GABAPENTIN 300 MG CAP PO SCH ×3 (08:40→21:26)
[2016-12-30 14:00] VITALS: BP 107/65; RESP 16
[2016-12-30] MEDS: ERTAPENEM SODIUM 1 GM in SOD CHLORIDE 0.9% 100 ML IVPB SCH (17:16)
--- NOTE | 2016-12-30 17:48 | PN ---
Date/Time of Note Date/Time of Note DATE: 12/30/16 TIME: 17:47 Assessment/Plan VTE Prophylaxis VTE Prophylaxis Intervention: SCD's Lines/Catheters IV Catheter Type (from Nrs): Saline Lock Assessment/Plan Chief Complaint/Hosp Course 1. Sepsis secondary to UTI from ESBL E. coli Have discontinued Rocephin and have started Invanz ID consultation 2. Paraplegia with history of neurogenic bladder 3. Diabetes Continue home regimen PPx- SCD's Problems: Subjective 24 Hr Interval Summary Constitutional: no complaints Exam/Review of Systems Vital Signs Vitals Vital Signs Date Time Temp Pulse Resp B/P Pulse Ox O2 Delivery O2 Flow Rate FiO2 12/30/16 14:00 97.6 67 16 107/65 94 12/28/16 21:00 Room Air Intake and Output 12/29/16 12/29/16 12/30/16 15:00 23:00 07:00 Intake Total 420 ml 720 ml Output Total 1000 ml Balance 420 ml -280 ml Exam Constitutional: alert, oriented Respiratory: clear to auscultation Cardiovascular: regular rate and rhythm Gastrointestinal: soft, No distended Musculoskeletal: nl extremities to inspection Results Result Diagram: 12/30/16 0528 12/30/16 0528 Results 24 hrs Laboratory Tests Test 12/29/16 20:57 12/30/16 02:38 12/30/16 05:28 12/30/16 08:11 Bedside Glucose 184 111 110 White Blood Count 7.7 Red Blood Count 4.11 L Hemoglobin 12.5 L Hematocrit 38.0 L Mean Corpuscular Volume 92.5 Mean Corpuscular Hemoglobin 30.4 Mean Corpuscular Hemoglobin Concent 32.9 Red Cell Distribution Width 14.0 Platelet Count 290 Mean Platelet Volume 9.5 Neutrophils % 46.1 Lymphocytes % 37.0 Monocytes % 11.0 Eosinophils % 4.9 Basophils % 0.5 Nucleated Red Blood Cells % 0.0 Neutrophils # (Manual) 3.6 Lymphocytes # 2.9 Monocytes # 0.9 Eosinophils # 0.4 Basophils # 0.0 Nucleated Red Blood Cells # 0.0 Sodium Level 143 Potassium Level 4.2 Chloride Level 105 Carbon Dioxide Level 26 Anion Gap 16 Blood Urea Nitrogen 12 Creatinine 0.67 Glucose Level 98 # Calcium Level 9.2 Magnesium Level 1.8 Test 12/30/16 12:10 12/30/16 17:18 Bedside Glucose 197 161 Medications Medications Current Medications Ondansetron HCl (Zofran Inj) 4 mg Q6H PRN IV NAUSEA AND/OR VOMITING; Start at 19:30 Acetaminophen (Tylenol Tab) 650 mg Q6H PRN PO PAIN LEVEL 1-3 OR FEVER; Start at 19:30 Acetaminophen/ Hydrocodone Bitart ([place] (5/325)) 1 tab Q6H PRN PO MODERATE PAIN LEVEL 4-6; Start 12/28/16 at 19:30 Morphine Sulfate (morphine) 2 mg Q4H PRN IV SEVERE PAIN LEVEL 7-10; Start 12/28 at 19:30 Docusate Sodium (Colace) 100 mg Q12H PRN PO CONSTIPATION; Start 12/28/16 at 19: 30 Zolpidem Tartrate (Ambien) 5 mg QHS PRN PO SLEEP; Start 12/28/16 at 19:30 Atorvastatin Calcium (Lipitor) 20 mg QHS PO Last administered on 12/29/16 20: 59; Admin Dose 20 MG; Start 12/29/16 at 21:00 Baclofen (Lioresal) 20 mg BID PO Last administered on 12/30/16 08:40; Admin Dose 20 MG; Start 12/29/16 at 09:00 Gabapentin (Neurontin) 600 mg TID PO Last administered on 12/30/16 12:14; Admin Dose 600 MG; Start 12/29/16 at 09:00 Insulin Glargine (Lantus) 37 unit QHS SC Last administered on 12/29/16 21:00; Admin Dose 37 UNIT; Start 12/28/16 at 22:00 Diagnostic Test (Pha) (Accu-Chek) 1 ea 02 XX ; Start 12/29/16 at 02:00 Miscellaneous Information 1 ea NOTE XX ; Start 12/28/16 at 19:30 Glucose (Glutose) 15 gm Q15M PRN PO DECREASED GLUCOSE; Start 12/28/16 at 19:30 Glucose (Glutose) 22.5 gm Q15M PRN PO DECREASED GLUCOSE; Start 12/28/16 at 19: 30 Dextrose (D50w Syringe) 25 ml Q15M PRN IV DECREASED GLUCOSE; Start 12/28/16 at 19:30 Dextrose (D50w Syringe) 50 ml Q15M PRN IV DECREASED GLUCOSE; Start 12/28/16 at 19:30 Glucagon (Glucagen) 1 mg Q15M PRN IM DECREASED GLUCOSE; Start 12/28/16 at 19:30 Glucose (Glutose) 15 gm Q15M PRN BUCCAL DECREASED GLUCOSE; Start 12/28/16 at 19 :30 Miscellaneous Information This patient kennedy... PRN PRN XX WOUND CARE; Start 12/29 at 05:00 Ertapenem/Sodium Chloride (Invanz/NS) 100 ml @ 200 mls/hr Q24H IVPB Last administered on 12/30/16t 17:16; Admin Dose 200 MLS/HR; Start 12/30/16 at 15:00 VICTORIA BEAVERS Dec 30, 2016 17:48
--- NOTE | 2016-12-30 18:06 | CONS ---
DATE OF ADMISSION: 12/28/2016 DATE OF CONSULTATION: 12/30/2016 REASON FOR CONSULTATION: This infectious disease consultation is for antibiotic management. HISTORY OF PRESENT ILLNESS: Russ Reynolds is a 51-year-old male with a history of paraplegia and neurogenic bladder as well as a chronic foot infection, who has been hospitalized multiple times for sepsis from UTI. He has a caregiver and has been using an in- and-out Li catheter, which is inserted 3 times per day by the caregiver. The patient presents with abdominal pain and fever, presumably secondary to a UTI. On admission, his white count is 9.9, hemoglobin 12.5, hematocrit 35.7, platelet count 261,000. BUN 9, creatinine 0.66. Glucose of 185. PAST MEDICAL HISTORY: Paraplegia with neurogenic bladder, adult- onset diabetes, and history of sepsis from UTIs. Currently, his urine is growing E coli, ESBL, sensitive to amikacin, sensitive to gentamicin and to imipenem. Patient was placed on ertapenem 1 g q.24h. A chest x-ray showed mild cardiomegaly, and a CT scan of the abdomen and pelvis showed fecal impaction, proctitis, focal catheter, and small amount of air in the decompressed bladder. Other findings are stable. PAST MEDICAL HISTORY: Operations as outlined. FAMILY HISTORY: Noncontributory. SOCIAL HISTORY: He does not smoke, drink, or abuse drugs. ALLERGIES: NONE TO PENICILLIN, SULFA, OR FOODS. MEDICATION: Per chart. REVIEW OF SYSTEMS: Noncontributory. PHYSICAL EXAMINATION: GENERAL: Patient is a well-developed, chronically ill appearing male who is alert, responsive, in no acute distress. VITAL SIGNS: Stable. He is currently afebrile. SKIN: Without generalized rash. HEENT: Within normal limits. NECK: Supple. Lymph nodes nonpalpable. CHEST: Decreased breath sounds at the bases. HEART: Without murmur or gallop. ABDOMEN: Soft, nontender, without organosplenomegaly or masses. EXTREMITIES: Without cyanosis, clubbing, or edema. RECTAL/GENITAL: Exams deferred. NEUROLOGICAL: He is paraplegic. IMPRESSION AND PLAN: The patient has ESBL in his urine. He was started appropriately on ertapenem, which we are going to continue. I will dictate my findings to the hospitalist. Dictated By: Jb Brown MD JD/kristin/kimber Gordon#: [id number]/Document#: [id number]
[2016-12-30 20:00] VITALS: BP 110/60; RESP 19
[2016-12-30] MEDS: ATORVASTATIN 20 MG TAB PO SCH (21:26)
[2016-12-30] MEDS: INSULIN GLARGINE [LANtus] 3 ML PEN SC SCH (21:27)
[2016-12-31 02:00] VITALS: BP 120/63; RESP 19
[2016-12-31] MEDS: ACCU-CHEK XX SCH (02:00)
[2016-12-31 07:15] VITALS: BP 164/97; RESP 16
[2016-12-31] MEDS: BACLOFEN 10 MG TAB PO SCH (08:36)
[2016-12-31] MEDS: GABAPENTIN 300 MG CAP PO SCH ×2 (08:36→12:21)
[2016-12-31] MEDS: INSULIN ASPART [NOVOLOG] 3 ML PEN SC SCH ×6 (08:38→17:05)
--- NOTE | 2016-12-31 12:55 | PDOCDIS ---
Discharge Instructions CONDITION Patient Condition: Good HOME CARE INSTRUCTIONS: Diet Instructions: Regular ACTIVITY: Activity Restrictions: No Restrictions FOLLOW UP/APPOINTMENTS Follow-up Plan F/U WITH YOUR PCP IN 1-2 WEEKS AND WITH HOME HEALTH FOR IV ABX VICTORIA BEAVERS Dec 31, 2016 12:55
[2016-12-31] MEDS ORDERED: COLLAGENASE 30 GM TUBE TOP SCH (13:00)
--- NOTE | 2016-12-31 13:48 | PN ---
DATE: 12/31/2016 SUBJECTIVE DATA: No acute changes. The patient is alert, asking when he can go home. Denies pain, discomfort. No fevers. LABORATORY AND DIAGNOSTIC DATA: WBC yesterday was 7.7. MICROBIOLOGY: Urine culture grew E coli, ESBL, susceptible to gentamicin, imipenem and amikacin. ANTIMICROBIALS: The patient is on Invanz. OBJECTIVE DATA: GENERAL: This is a well-developed, paraplegic, middle-aged man, who is alert, in no distress. HEENT: Head atraumatic, normocephalic. Sclerae anicteric. Buccal mucosa pink. NECK: Supple. CHEST: Chest rise symmetrical. Breath sounds clear. HEART: S1, S2. ABDOMEN: Soft, bowel sounds present. EXTREMITIES: Bilateral lower extremities wasted. ASSESSMENT: 1. Recurrent E coli. 2. Neurogenic bladder. 3. Paraplegia. 4. Diabetes. PLAN: The patient remains stable. He is on appropriate antimicrobials. Continue present care. Anticipate treating for 7-10 days. Dictated By: Jose Nguyen NP /kristin/paulina /Document#: [id number]
[2016-12-31 14:06] VITALS: BP 125/62; RESP 16
--- NOTE | 2016-12-31 15:16 | DS ---
Date/Time of Note Date/Time of Note DATE: 12/31/16 TIME: 15:12 Discharge Summary Admission/Discharge Info Admit Date/Time Dec 28, 2016 at 17:59 Discharge Date/Time December 31, 2016 Discharge Diagnosis 1. Sepsis secondary to UTI from ESBL E. coli DC with Invanz for 6 more days, has received 1 day in house ID consultation appreciated 2. Paraplegia with history of neurogenic bladder 3. Diabetes Continue home regimen Hospital Course Pt is a 51-year-old male with a history of paraplegia with neurogenic bladder as well as chronic foot infection, patient has had multiple hospitalizations for sepsis from UTI. Patient does have a caregiver at home and has been using an in and out Li catheter which is inserted 3 times a day, caregiver states that she cleans the catheter with Betadine after each use. Patient presents with abdominal pain as well as reports of fever. Patient was found to have ESBL E. coli UTI. Patient was started on Invanz and was seen by ID. Patient has CT abdomen that showed fecal impaction and proctitis. Patient had no further abdominal pain the day of discharge no evidence of sepsis on the day of discharge. On day of DC patient's vitals, labs and physical exam are stable patient in no acute complaints and questions were answered. Patient was to receive Invanz for 6 more days at home via home health. Home Meds Reported Medications Insulin Aspart* (Novolog Insulin Pen*) 100 Unit/Ml Soln, 10 SC TID, EA 12/26/16 Insulin Glargine* (Lantus*) 100 Unit/Ml Soln, 37 UNIT SC QHS, #1 VIAL 12/26/16 Metformin Hcl* (Metformin Hcl*) 1,000 Mg Tablet, 1000 MG PO WITH BREAKFAST DINNE , #60 TAB 11/06/16 Baclofen* (Baclofen*) 20 Mg Tablet, 20 MG PO BID, TAB 08/22/16 Gabapentin* (Gabapentin*) 300 Mg Capsule, 600 MG PO TID, #180 CAP 08/22/16 Docusate Sodium* (Doc-Q-Lace*) 100 Mg Capsule, 100 MG PO BID Y for CONSTIPATION , CAP 04/18/16 Lisinopril* (Lisinopril*) 2.5 Mg Tablet, 2.5 MG PO DAILY, #30 TAB 10/07/15 Atorvastatin Calcium* (Atorvastatin Calcium*) 20 Mg Tablet, 20 MG PO QHS, #30 TAB 10/07/15 Discontinued Scripts Insulin Aspart* (Novolog Insulin Pen*) 100 Unit/Ml Soln, 12 UNIT SC WITH MEALS for 30 Days Prov:LALO ROB NP 11/10/16 Insulin Glargine* (Lantus*) 100 Unit/Ml Soln, 30 UNIT SC QHS for 30 Days Prov:LALO ROB NP 11/10/16 Follow-up Plan FOLLOW UP WITH YOUR PRIMARY CARE PHYSICIAN IN 1-2 WEEKS, also follow-up with home health agency for IV antibiotics Primary Care Provider Hiram Renner Time spent on discharge: > 30 minutes Pending Labs VICTORIA BEAVERS Dec 31, 2016 15:16
[2016-12-31] MEDS: ERTAPENEM SODIUM 1 GM in SOD CHLORIDE 0.9% 100 ML IVPB SCH (15:54)
== END 2016-12-31 18:19 | disposition home health service (06) | DRG 872 ==
LOC: E/R 11:19 → PP2 17:59
PROVIDERS: ADMIT Internal Medicine; ATTEND Internal Medicine
DX: A41.9 Sepsis, unspecified organism (principal); L89.152 Pressure ulcer of sacral region, stage 2; G82.20 Paraplegia, unspecified; N39.0 Urinary tract infection, site not specified; N31.9 Neuromuscular dysfunction of bladder, unspecified; L89.610 Pressure ulcer of right heel, unstageable; B96.20 Unspecified Escherichia coli [E. coli] as the cause of diseases classified elsewhere; E11.9 Type 2 diabetes mellitus without complications; L89.622 Pressure ulcer of left heel, stage 2; K56.41 Fecal impaction; K62.89 Other specified diseases of anus and rectum; Z16.12 Extended spectrum beta lactamase (ESBL) resistance
CPT/HCPCS: 36415; 71010; 74176; 80048; 80053; 81001; 82962; 83605; 83735; 85025; 85610; 85730; 87040; 87086; 93005; 96361; 96365; 96366; J0692; J0696; J1335; J1815; J7030

== ENCOUNTER 2017-08-01 11:55 | Emergency (ER) | END 2017-08-01 17:00 | disposition home or self-care (01) ==

== ENCOUNTER 2017-08-16 10:36 | Inpatient (IN) | END 2017-08-18 17:30 | disposition home or self-care (01) | DRG 690 ==

== ENCOUNTER 2017-08-29 10:13 | Emergency (ER) | END 2017-08-29 13:34 | disposition home or self-care (01) ==

== ENCOUNTER 2017-11-06 10:58 | Inpatient (IN) | END 2017-11-10 19:45 | disposition home or self-care (01) | DRG 698 ==

== ENCOUNTER 2018-08-03 09:39 | Emergency (ER) | payer OTHER ==
[~2018-08-03] VITALS: Ht 160 cm; Wt 91.0 kg
[~2018-08-03 09:39] MED LIST changes: -ATOR20TA38 PO; +ATOR40TA68 PO; +CIPR500T4 PO; +DOCU-221 PO; -DOCU100C26 PO; +GLIM4TAB PO; -METF1000 PO; +METF100010 PO
[2018-08-03 09:49] VITALS: Ht 160 cm; Wt 91.0 kg
[2018-08-03] MEDS ORDERED: CIPROFLOXACIN 500 MG TAB PO ONE (12:30)
[2018-08-03] MEDS ORDERED: FLUCONAZOLE 150 MG TAB PO ONE (12:30)
[2018-08-03] MEDS ORDERED: CIPR500T4 PO (12:56)
--- NOTE | 2018-08-03 12:58 | ERD ---
ER Documentation Chief Complaint Chief Complaint lower abdominal pain for 3 days HPI 53-year-old male presents with a history of recurrent UTIs. He is paraplegic due to work accident 5 years ago. He is approximately T5 para. He urinates via straight cath 4 times a day. He has a history of admission for sepsis. There is no history of fevers, vomiting, abdominal pain. 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 ROS All systems reviewed and are negative except as per history of present illness. Medications Home Meds Active Scripts Ciprofloxacin Hcl* (Ciprofloxacin Hcl*) 500 Mg Tablet, 500 MG PO BID for 7 Days, TAB Prov:VERONA HERCULES MD 08/03/18 Ciprofloxacin Hcl* (Ciprofloxacin Hcl*) 500 Mg Tablet, 500 MG PO BID for UTI for 14 Days, #28 TAB Prov:MARLY PHAM 05/30/18 Insulin Glargine* (Lantus*) 100 Unit/Ml Soln, 40 UNIT SC QHS for 30 Days, #1 VIAL Prov:BETH LOCO MD 11/10/17 Reported Medications Atorvastatin* (Atorvastatin*) 40 Mg Tablet, 20 MG PO QHS, #30 TAB 11/06/17 Insulin Aspart* (Novolog Insulin Pen*) 100 Unit/Ml Soln, 0 SC .SLIDING SCALE AC, EA BEFORE MEALS 11/06/17 Glimepiride* (Glimepiride*) 4 Mg Tablet, 4 MG PO WITH BREAKFAST, TAB 11/06/17 Metformin Hcl* (Metformin Hcl*) 1,000 Mg Tablet, 1000 MG PO WITH BREAKFAST DINNE, #60 TAB 11/06/16 Baclofen* (Baclofen*) 20 Mg Tablet, 20 MG PO TID, TAB 08/22/16 Gabapentin* (Gabapentin*) 300 Mg Capsule, 600 MG PO TID, #180 CAP 08/22/16 Docusate Sodium* (Doc-Q-Lace*) 100 Mg Capsule, 100 MG PO BID PRN for CONSTIPATION, CAP 04/18/16 Lisinopril* (Lisinopril*) 2.5 Mg Tablet, 2.5 MG PO DAILY, #30 TAB 10/07/15 Allergies Allergies: Coded Allergies: No Known Allergy (Unverified , 05/30/18) PMhx/Soc History of Surgery: No (spine (2014)) Anesthesia Reaction: No Hx Neurological Disorder: No Hx Respiratory Disorders: No Hx Cardiac Disorders: No Hx Psychiatric Problems: No Hx Miscellaneous Medical Probl: Yes (see PT note) Hx Alcohol Use: No Hx Substance Use: No Hx Tobacco Use: No Smoking Status: Never smoker FmHx Family History: diabetes Physical Exam Vitals Vital Signs Date Temp Pulse Resp B/P (MAP) Pulse Ox O2 O2 Flow FiO2 Time Delivery Rate 08/03/18 98.3 81 20 129/73 97 Room Air 13:08 (91) 08/03/18 97.8 92 20 135/82 96 09:49 (99) Physical Exam Const: No acute distress Head: Atraumatic Eyes: Normal Conjunctiva ENT: Normal External Ears, Nose and Mouth. Neck: Full range of motion. No meningismus. Resp: Clear to auscultation bilaterally Cardio: Regular rate and rhythm, no murmurs Abd: Soft, non tender, non distended. Normal bowel sounds Skin: No petechiae or rashes Back: No midline or flank tenderness Ext: No cyanosis, or edema Neur: Awake and alert Psych: Normal Mood and Affect Results 24 hrs Laboratory Tests Test 08/03/18 11:40 Urine Color YELLOW Urine Clarity SLIGHTLY CLOUDY Urine pH 6.0 Urine Specific Fackler 1.014 Urine Ketones NEGATIVE mg/dL Urine Nitrite NEGATIVE mg/dL Urine Bilirubin NEGATIVE mg/dL Urine Urobilinogen NEGATIVE mg/dL Urine Leukocyte Esterase 1+ Walter/ul Urine Microscopic RBC 1 /HPF Urine Microscopic WBC 62 /HPF Urine Bacteria FEW /HPF Urine Hemoglobin NEGATIVE mg/dL Urine Glucose NEGATIVE mg/dL Urine Total Protein 1+ mg/dl Current Medications Medications Dose Sig/Drea Start Time Status Last (Trade) Ordered Route PRN Stop Time Admin Dose Reason Admin 500 mg ONCE ONCE 08/03/18 DC 08/03/18 Ciprofloxacin PO 12:30 08/03/18 12:49 (Cipro) 12:31 Fluconazole 150 mg ONCE ONCE 08/03/18 DC 08/03/18 (Diflucan) PO 12:30 08/03/18 12:49 12:31 Procedures/MDM Urine shows white blood cells and leukocyte esterase. There is negative ketones, negative nitrites, negative glucose. Patient was given Cipro 500 mg by mouth as review of previous culture shows E. coli sensitive to Cipro. Patient is shows no signs or symptoms suggest sepsis, abdominal pain, pyelonephritis. He will be discharged home with a prescription of Cipro, all we will await urine culture. He should return for fevers, vomiting, abdominal pain, new or worsening symptoms. He has no evidence of DKA. The patient was stable with no new complaints during the ER course. Clinically, there is no current evidence to suggest meningitis, sepsis, acute abdomen, pneumonia, stroke, acute coronary syndrome, pulmonary embolism, aortic dissection or any other emergent condition appearing to require further evaluation or hospitalization. Patient counseled regarding my diagnostic impression and care plan. Prior to discharge all quest ions answered. Pt agrees with treatment plan and understands strict return precautions. Pt is instructed to follow up with primary care provider within 24- 48 hours. Precautionary instructions provided including instructions to return to the ER if not improving or for any worsening or changing symptoms or concerns. Departure Diagnosis: Primary Impression: Genitourinary symptoms Condition: Stable Patient Instructions: Urinary Tract Infections in Men Additional Instructions: Urine shows infection. Drink plenty of fluids at home. Recheck for fevers, vomiting, abdominal pain, new worsening symptoms. VERONA HERCULES MD Aug 03, 2018 12:58
[2018-08-03 13:08] VITALS: BP 129/73; PULSE 81; RESP 20
== END 2018-08-03 13:07 | disposition home or self-care (01) ==
LOC: FTE 09:39
DX: R39.89 Other symptoms and signs involving the genitourinary system (principal); Z79.4 Long term (current) use of insulin
CPT/HCPCS: 51701; 81001; 87086; 99283; A4310

== ENCOUNTER 2018-09-14 10:07 | Emergency (ER) | payer OTHER ==
[~2018-09-14] VITALS: Ht 172.7 cm; Wt 95.0 kg
[2018-09-14 10:20] VITALS: Ht 172.7 cm; Wt 95.0 kg
[2018-09-14] MEDS ORDERED: CIPR500T4 PO (11:36)
[2018-09-14] MEDS ORDERED: LIDOCAINE 1% (MPF) 5 ML VIAL INJ ONE (12:00)
[2018-09-14] MEDS ORDERED: CEFTRIAXONE 1 GM INJ IM ONE (12:00)
[2018-09-14 12:23] VITALS: BP 131/59; PULSE 87; RESP 20
--- NOTE | 2018-09-14 15:30 | ERD ---
ER Documentation Chief Complaint Chief Complaint C/O FEVER FOR 3 DAYS, WHITISH PARTICLES IN URINE HPI 53-year-old male presenting with white particles in his urine. Patient is paralyzed from the waist down and he is unsure if he has pain with urination. Patient had fever that started last night. Ibuprofen was given last night but no medications today. Is unsure if he has back pain secondary to paralysis. No cough no runny nose. Patient's states that his urine looks similar to that of his urine when it is infected. Medical history diabetes. NKDA. Surgical history denies. ROS All systems reviewed and are negative except as per history of present illness. Medications Home Meds Active Scripts Ciprofloxacin Hcl* (Ciprofloxacin Hcl*) 500 Mg Tablet, 500 MG PO BID for 10 Days, TAB Prov:REAGAN VELASQUEZ PA-C 09/14/18 Ciprofloxacin Hcl* (Ciprofloxacin Hcl*) 500 Mg Tablet, 500 MG PO BID for 7 Days, TAB Prov:VERONA HERCULES MD 08/03/18 Ciprofloxacin Hcl* (Ciprofloxacin Hcl*) 500 Mg Tablet, 500 MG PO BID for UTI for 14 Days, #28 TAB Prov:MARLY PHAM 05/30/18 Insulin Glargine* (Lantus*) 100 Unit/Ml Soln, 40 UNIT SC QHS for 30 Days, #1 VIAL Prov:BETH LOCO MD 11/10/17 Reported Medications Atorvastatin* (Atorvastatin*) 40 Mg Tablet, 20 MG PO QHS, #30 TAB 11/06/17 Insulin Aspart* (Novolog Insulin Pen*) 100 Unit/Ml Soln, 0 SC .SLIDING SCALE AC, EA BEFORE MEALS 11/06/17 Glimepiride* (Glimepiride*) 4 Mg Tablet, 4 MG PO WITH BREAKFAST, TAB 11/06/17 Metformin Hcl* (Metformin Hcl*) 1,000 Mg Tablet, 1000 MG PO WITH BREAKFAST DINNE, #60 TAB 11/06/16 Baclofen* (Baclofen*) 20 Mg Tablet, 20 MG PO TID, TAB 08/22/16 Gabapentin* (Gabapentin*) 300 Mg Capsule, 600 MG PO TID, #180 CAP 08/22/16 Docusate Sodium* (Doc-Q-Lace*) 100 Mg Capsule, 100 MG PO BID PRN for CONSTIPATION, CAP 04/18/16 Lisinopril* (Lisinopril*) 2.5 Mg Tablet, 2.5 MG PO DAILY, #30 TAB 10/07/15 Allergies Allergies: Coded Allergies: No Known Allergy (Unverified , 09/14/18) PMhx/Soc History of Surgery: No (spine (2014)) Anesthesia Reaction: No Hx Neurological Disorder: No Hx Respiratory Disorders: No Hx Cardiac Disorders: Yes (HTN) Hx Psychiatric Problems: No Hx Miscellaneous Medical Probl: Yes (paralized from waist down, DM) Hx Alcohol Use: No Hx Substance Use: No Hx Tobacco Use: No Smoking Status: Never smoker FmHx Family History: No diabetes, No coronary disease, No other Physical Exam Vitals Vital Signs Date Temp Pulse Resp B/P (MAP) Pulse Ox O2 O2 Flow FiO2 Time Delivery Rate 09/14/18 98.3 87 20 131/59 97 Room Air 12:23 (83) 09/14/18 98.3 99 20 138/65 95 10:20 (89) Physical Exam GENERAL: The patient is well-appearing, well-nourished, in no acute distress HEENT: Atraumatic. Conjunctivae are pink. Pupils equal, round, and reactive to light. There is no scleral icterus. Tympanic membranes clear bilaterally. Oropharynx clear. CHEST: Clear to auscultation bilaterally. There are no rales, wheezes or rhonchi. HEART: Regular rate and rhythm. No murmurs, clicks, rubs or gallops. ABDOMEN:Soft, nontender and nondistended. Good bowel sounds. No rebound or guarding. No gross peritonitis. No gross organomegaly or masses. BACK: No midline or flank tenderness. Results 24 hrs Laboratory Tests Test 09/14/18 11:10 Bedside Urine pH (LAB) 5.5 Bedside Urine Protein (LAB) 2+ Bedside Urine Glucose (UA) 0.25% Bedside Urine Ketones (LAB) Negative Bedside Urine Blood 1+ Bedside Urine Nitrite (LAB) Positive Bedside Urine Leukocyte Esterase (L 1+ Current Medications Medications Dose Sig/Drea Start Time Status Last (Trade) Ordered Route PRN Stop Time Admin Dose Reason Admin Ceftriaxone 1 gm ONCE ONCE 09/14/18 DC 09/14/18 Sodium IM 12:00 12:11 (Rocephin) 09/14/18 12:07 Lidocaine 5 ml ONCE ONCE 09/14/18 DC 09/14/18 (Xylocaine INJ 12:00 12:11 1% (Mpf)) 09/14/18 12:07 Procedures/MDM Course: Urinalysis negative. IM injection of Rocephin given in ED. Urine sent for culture. MDM: 53-year-old male presenting with findings consistent with urinary tract infection. Patient will be treated for infection and given he self caths 4 times a day urine will be sent for culture as he has high risk of infection resistance. I have low suspicion for acute abdominal emergency. I have low suspicion for sepsis. Patient's vitals are stable patient is nontoxic appearing on exam. Patient is told symptoms change or worsen to return immediately to the ER. All questions answered at discharge Departure Diagnosis: Primary Impression: UTI (urinary tract infection) Additional Impression: Fever Condition: Stable Patient Instructions: Understanding Urinary Tract Infections (UTIs) Referrals: [facility] YOU HAVE RECEIVED A MEDICAL SCREENING EXAM AND THE RESULTS INDICATE THAT YOU DO NOT HAVE A CONDITION THAT REQUIRES URGENT TREATMENT IN THE EMERGENCY DEPARTMENT. FURTHER EVALUATION AND TREATMENT OF YOUR CONDITION CAN WAIT UNTIL YOU ARE SEEN IN YOUR DOCTORS OFFICE WITHIN THE NEXT 1-2 DAYS. IT IS YOUR RESPONSIBILITY TO MAKE AN APPOINTMENT FOR FOLOW-UP CARE. IF YOU HAVE A PRIMARY DOCTOR --you should call your primary doctor and schedule an appointment IF YOU DO NOT HAVE A PRIMARY DOCTOR YOU CAN CALL OUR PHYSICIAN REFERRAL HOTLINE AT IF YOU CAN NOT AFFORD TO SEE A PHYSICIAN YOU CAN CHOSE FROM THE FOLLOWING [facility] [address] [facility]. [facility] [address] [facility] [facility] [address] [facility] [facility] [address] [facility]. [facility] [address] [facility]. [facility] [address] Additional Instructions: FOLLOW UP WITH YOUR PRIMARY CARE PHYSICIAN TOMORROW.Return to this facility if you are not improving as expected. REAGAN VELASQUEZ PA-C September 14, 2018 15:30
== END 2018-09-14 12:24 | disposition home or self-care (01) ==
LOC: FTE 10:07
DX: N39.0 Urinary tract infection, site not specified (principal); I10 Essential (primary) hypertension; E11.9 Type 2 diabetes mellitus without complications; Z79.4 Long term (current) use of insulin
CPT/HCPCS: 81003; 87086; 96372; 99284; J0696

== ENCOUNTER 2018-11-26 10:20 | Emergency (ER) | payer OTHER ==
[~2018-11-26] VITALS: Ht 157.5 cm; Wt 90.0 kg
[2018-11-26 10:22] VITALS: BP 124/72; PULSE 81; RESP 18; Ht 157.5 cm; Wt 90.0 kg
[2018-11-26] MEDS ORDERED: TRIMETHOPRIM/SULFAMETHOX (DS) TAB PO ONE (11:00)
[2018-11-26] MEDS ORDERED: SULF1TAB31 PO ×2 (11:57→11:58)
--- NOTE | 2018-11-26 12:06 | ERD ---
ER Documentation Chief Complaint Chief Complaint fever x 5 days , white discahrge noted by today with st cath HPI Patient is a 53-year-old paraplegic male, history of DM type II,, recurrent UTIs, brought in by , who presents to the ER for concerns of fevers and malodorous urine for the last 5 days. states she is noticed some "milky" discoloration of the patient's urine for the last 2 to 3 days. Patient straight caths at home. Patient states his temperature started yesterday and reports temperature of 100.9 Fahrenheit. Patient has not taken any antipyretics today and does not have a fever today. Patient denies any cough, rhinorrhea, abdominal pain, vomiting. ROS All systems reviewed and are negative except as per history of present illness. Medications Home Meds Active Scripts Sulfamethoxazole/Trimethoprim* (Bactrim Ds* Tablet) 1 Each Tablet, 1 TAB PO BID, #20 TAB Prov:ANTONIA WOLFC 11/26/18 Ciprofloxacin Hcl* (Ciprofloxacin Hcl*) 500 Mg Tablet, 500 MG PO BID for 10 Da ys, TAB Prov:REAGAN VELASQUEZ PA-C 09/14/18 Ciprofloxacin Hcl* (Ciprofloxacin Hcl*) 500 Mg Tablet, 500 MG PO BID for 7 Days, TAB Prov:VERONA HERCULES MD 08/03/18 Ciprofloxacin Hcl* (Ciprofloxacin Hcl*) 500 Mg Tablet, 500 MG PO BID for UTI for 14 Days, #28 TAB Prov:MARLY PHAM 05/30/18 Insulin Glargine* (Lantus*) 100 Unit/Ml Soln, 40 UNIT SC QHS for 30 Days, #1 VIAL Prov:BETH LOCO MD 11/10/17 Reported Medications Atorvastatin* (Atorvastatin*) 40 Mg Tablet, 20 MG PO QHS, #30 TAB 11/06/17 Insulin Aspart* (Novolog Insulin Pen*) 100 Unit/Ml Soln, 0 SC .SLIDING SCALE AC, EA BEFORE MEALS 11/06/17 Glimepiride* (Glimepiride*) 4 Mg Tablet, 4 MG PO WITH BREAKFAST, TAB 11/06/17 Metformin Hcl* (Metformin Hcl*) 1,000 Mg Tablet, 1000 MG PO WITH BREAKFAST DINNE, #60 TAB 11/06/16 Baclofen* (Baclofen*) 20 Mg Tablet, 20 MG PO TID, TAB 08/22/16 Gabapentin* (Gabapentin*) 300 Mg Capsule, 600 MG PO TID, #180 CAP 08/22/16 Docusate Sodium* (Doc-Q-Lace*) 100 Mg Capsule, 100 MG PO BID PRN for CONSTIPATION, CAP 04/18/16 Lisinopril* (Lisinopril*) 2.5 Mg Tablet, 2.5 MG PO DAILY, #30 TAB 10/07/15 Allergies Allergies: Coded Allergies: No Known Allergy (Unverified , 11/26/18) PMhx/Soc History of Surgery: No (spine (2014)) Anesthesia Reaction: No Hx Neurological Disorder: No Hx Respiratory Disorders: No Hx Cardiac Disorders: Yes (HTN) Hx Psychiatric Problems: No Hx Miscellaneous Medical Probl: Yes (paralized from waist down, DM) Hx Alcohol Use: No Hx Substance Use: No Hx Tobacco Use: No Smoking Status: Never smoker FmHx Family History: No diabetes Physical Exam Vitals Vital Signs Date Temp Pulse Resp B/P (MAP) Pulse Ox O2 O2 Flow FiO2 Time Delivery Rate 11/26/18 99.6 81 18 124/72 97 10:22 (89) Physical Exam GENERAL: Well-developed, well-nourished male. Appears in no acute distress. HEAD: Normocephalic, atraumatic. EYES: Pupils are equally reactive bilaterally. EOMs grossly intact. No conjunctival erythema. ENT: Moist mucous membranes. No uvula deviation. No kissing tonsils. NECK: Supple. No meningismus. Normal range of motion of the neck. LUNG: Clear to auscultation bilaterally. No rhonchi, wheezing, rales or coarse breath sounds. HEART: Regular rate and rhythm. No murmurs, rubs or gallops. ABDOMEN: No rebound tenderness, no guarding. (-) McBurney's point tenderness. No CVA tenderness. EXTREMITIES: Equal pulses bilaterally. No peripheral clubbing, cyanosis or edema. No unilateral leg swelling. NEUROLOGIC: Alert and oriented. Moving all four extremities without any difficulty. Normal speech. Steady gait. SKIN: Normal color. Warm and dry. No rashes or lesions. Results 24 hrs Laboratory Tests Test 11/26/18 11:23 Bedside Urine pH (LAB) 6.0 Bedside Urine Protein (LAB) 2+ Bedside Urine Glucose (UA) Negative Bedside Urine Ketones (LAB) Negative Bedside Urine Blood Trace-intact Bedside Urine Nitrite (LAB) Negative Bedside Urine Leukocyte Esterase (L 2+ Current Medications Medications Dose Sig/Drea Start Time Status Last (Trade) Ordered Route PRN Stop Time Admin Dose Reason Admin 1 tab ONCE ONCE 11/26/18 DC 11/26/18 Trimethoprim/ PO 11:00 11:07 11/26/18 11:01 Sulfamethoxaz ole (Bactrim (Ds)) Procedures/MDM MEDICAL DECISION MAKING: This is a 53-year-old paraplegic male, history of DM type II, recurrent UTIs, brought in by , presents the ER for concerns of fevers and malodorous urine for last 5 days. Vital signs were reviewed. Patient was afebrile. Patient was not hypoxic. Patient was not tachycardic. Patient is not meeting SIRS criteria at this time. Urine showed 2+ leukocytes. Urine sent for culture. Review of the patient's previous urine culture from 09-14-18 shows that patient's urine was positive for E. coli. Previously patient was given ciprofloxacin. Per report, patient has resistance to ciprofloxacin. Sensitive to Bactrim. Patient was given first dose of Bactrim here and will be discharged home with prescription for Bactrim for 10 days. Low suspicion for sepsis or pyelonephritis. Patient was nontoxic, non -ill-appearing prior to discharge. The case was reviewed and discussed with Dr. Weinberg who agrees with the plan of care including labs, treatment, and advanced imaging as appropriate. He agrees that patient is stable for outpatient management. PRESCRIPTIONS: Bactrim DISCHARGE: At this time, patient is stable for discharge and outpatient management. I have instructed the patient to follow-up with his/her primary care physician in 1-2 days. Patient should repeat UA in 2 weeks to check for resolution of urinary tract infection. If symptoms persist, patient may need to see a specialist for further examinations and testing. I have instructed the patient to promptly return to the ER at any time for any new or worsening symptoms including increased pain, fever, nausea, vomiting, urinary changes or weakness. The patient and/or family expressed understanding of and agreement with this plan. All questions were answered. Home care instructions were provided. Disclaimer: Inadvertent spelling and grammatical errors are likely due to EHR/dictation software use and do not reflect on the overall quality of patient care. Also, please note that the electronic time recorded on this note does not necessarily reflect the actual time of the patient encounter. Departure Diagnosis: Primary Impression: UTI (urinary tract infection) Urinary tract infection type: site unspecified Hematuria presence: without hematuria Qualified Codes: N39.0 - Urinary tract infection, site not specified Additional Impressions: Wheelchair bound Quadriplegia Condition: Fair Patient Instructions: Understanding Urinary Tract Infections (UTIs) Referrals: [facility] YOU HAVE RECEIVED A MEDICAL SCREENING EXAM AND THE RESULTS INDICATE THAT YOU DO NOT HAVE A CONDITION THAT REQUIRES URGENT TREATMENT IN THE EMERGENCY DEPARTMENT. FURTHER EVALUATION AND TREATMENT OF YOUR CONDITION CAN WAIT UNTIL YOU ARE SEEN IN YOUR DOCTORS OFFICE WITHIN THE NEXT 1-2 DAYS. IT IS YOUR RESPONSIBILITY TO MAKE AN APPOINTMENT FOR FOLOW-UP CARE. IF YOU HAVE A PRIMARY DOCTOR --you should call your primary doctor and schedule an appointment IF YOU DO NOT HAVE A PRIMARY DOCTOR YOU CAN CALL OUR PHYSICIAN REFERRAL HOTLINE AT IF YOU CAN NOT AFFORD TO SEE A PHYSICIAN YOU CAN CHOSE FROM THE FOLLOWING [facility] [address] [facility]. [facility] [address] [facility]. [facility] [address] [facility] [facility] [address] [facility] [facility] [address] [facility]. [facility]. [address] [facility]. [facility] YOU HAVE RECEIVED A MEDICAL SCREENING EXAM AND THE RESULTS INDICATE THAT YOU DO NOT HAVE A CONDITION THAT REQUIRES URGENT TREATMENT IN THE EMERGENCY DEPARTMENT. FURTHER EVALUATION AND TREATMENT OF YOUR CONDITION CAN WAIT UNTIL YOU ARE SEEN IN YOUR DOCTORS OFFICE WITHIN THE NEXT 1-2 DAYS. IT IS YOUR RESPONSIBILITY TO MAKE AN APPOINTMENT FOR FOLOW-UP CARE. IF YOU HAVE A PRIMARY DOCTOR --you should call your primary doctor and schedule and appointment IF YOU DO NOT HAVE A PRIMARY DOCTOR YOU CAN CALL OUR PHYSICIAN REFERRAL HOTLINE AT . IF YOU CAN NOT AFFORD TO SEE A PHYSICIAN YOU CAN CHOSE FROM THE FOLLOWING ON LICENSE OF [facility] INSTITUTIONS: [facility] [address] [place] [address] [facility] [address] [place] [address] [facility] + [facility] [address] [place] [address] Additional Instructions: Call your primary care doctor TOMORROW for an appointment during the next 1-2 days.See the doctor sooner or return here if your condition worsens before your appointment time. ANTONIA WOLF PA-C Nov 26, 2018 12:06
== END 2018-11-26 12:41 | disposition home or self-care (01) ==
LOC: FTE 10:20
DX: N39.0 Urinary tract infection, site not specified (principal); I10 Essential (primary) hypertension; E11.9 Type 2 diabetes mellitus without complications; G82.50 Quadriplegia, unspecified; Z79.4 Long term (current) use of insulin
CPT/HCPCS: 81003; 87086; 99283; P9612